=== PATIENT | female | born 1955 | race Two or more races ===

== ENCOUNTER → 2020-06-22 09:50 | Outpatient (BNVA) | payer MEDICARE, MEDICAID, SELFPAY | PROVIDERS: Referring Provider Nurse Practitioner Family; Visit Provider Surgery | DX: D05.12 Intraductal carcinoma in situ of left breast (principal) | CPT/HCPCS: 99212 ==

== ENCOUNTER 2020-06-29 10:49 | Day surgery (SDC) | payer MEDICARE, MEDICAID, SELFPAY ==
[2020-06-28 13:22] VITALS: BMI 24.9
--- NOTE | 2020-06-28 14:38 | HO.ANESPROP2 ---
Documented by User: Ricarda Patten 06/28/20 14:39 HPI - Anesthesia Eval Consult details Narrative: 65yo F for Colonoscopy PMFSH Past Medical History Medical History Chronic lower back pain Ductal carcinoma in situ of left breast Family History Family History Father Myocardial infarction Hypertension Mother Breast cancer Son History of kidney problems Surgical History Surgical History History of breast biopsy History of section History of cholecystectomy S/P lumpectomy, left breast (02/03/20) Social History Social History Smoking Status: Never smoker Use of substances other than those prescribed or required for medical reasons: No Advance Directives: No Advance Directives Information Provided: No Advance Directives on File: No Meds Allergies Allergy/AdvReac Type Severity Reaction Status Date / Time penicillin G [PENICILLIN G] Allergy Intermediate RASH Verified 06/09/20 14:24 Home Medications Medication Instructions Recorded Confirmed Type letrozole 2.5 mg tablet 2.5 mg PO DAILY 06/13/20 06/13/20 History cholecalciferol (vitamin D3) 25 mcg PO DAILY 06/28/20 06/28/20 History [Vitamin D3] omeprazole 20 mg PO DAILY 06/28/20 06/28/20 History Exam Exam Date and Time: June 28, 2020 1438 Height,Weight and Vital Signs: Height 5 ft 3.5 in Weight 64.864 kg Pertinent Lab Results Pertinent Lab Results: Laboratory Tests 03/10/20 03/10/20 14:13 14:13 WBC 8.1 RBC 4.41 Hgb 13.1 Hct 40.8 Plt Count 317 Sodium 141 Potassium 3.9 Chloride 104 BUN 14 Creatinine 1.05 Assessment and Plan Assessment Anesthesia Assessment: Chart Reviewed Documented by User: George Perez 06/29/20 11:18 PMFSH Past Medical History Medical History Chronic lower back pain Ductal carcinoma in situ of left breast Family History Family History Father Myocardial infarction Hypertension Mother Breast cancer Son History of kidney problems Surgical History Surgical History History of breast biopsy History of section History of cholecystectomy S/P lumpectomy, left breast (02/03/20) Social History Social History Smoking Status: Never smoker Use of substances other than those prescribed or required for medical reasons: No Advance Directives: No Advance Directives Information Provided: No Advance Directives on File: No Meds Allergies Allergy/AdvReac Type Severity Reaction Status Date / Time penicillin G [PENICILLIN G] Allergy Intermediate RASH Verified 06/09/20 14:24 Home Medications Medication Instructions Recorded Confirmed Type letrozole 2.5 mg tablet 2.5 mg PO DAILY 06/13/20 06/13/20 History cholecalciferol (vitamin D3) 25 mcg PO DAILY 06/28/20 06/28/20 History [Vitamin D3] omeprazole 20 mg PO DAILY 06/28/20 06/28/20 History Exam Airway Mallampati Class: II TM Dist: >3cm Neck ROM: Full
[2020-06-29 11:38] VITALS: BP 144/78; PULSE 78; RESP 20; TEMP 36.9
[2020-06-29] MEDS: Lactated Ringers 1,000 ML 100 ML IVCONT (11:40)
--- NOTE | 2020-06-29 11:48 | MHC.SHP ---
Pre-Procedural Eval Section B Chief Complaint: SCREENING Relevant Family History (Specify if Yes): No Relevant Social History: None Present Medications: see Short Stay Collaborative assessment Medical History: Significant History (choelcystectomy, c section) History of Previous Operations: Relevant previous surgery/procedure and date(s) Allergies: Allergies Allergy/AdvReac Type Severity Reaction Status Date / Time penicillin G [PENICILLIN G] Allergy Intermediate RASH Verified 06/09/20 14:24 Review of Systems Sugical H&P ROS: Negative: Constitution, Cardiovascular, Respiratory, Neurological, Psychiatric, Hem-Onc, Allergic/Immunologic, Gastrointestinal, Genitourinary, Musculoskeletal, Integumentary, Endocrine and Eyes/Ears/Nose/Throat Exam Surgical H&P Exam: Normal: HEENT, Normal: Heart, Normal: Lungs, Normal: Extremities, Normal: Abdomen, Normal: Skin and Normal: Neurological Plan Diagnosis/Plan: Unchanged Patient has been examined and remains a candidate for the planned procedure
--- NOTE | 2020-06-29 11:49 | PM.OP ---
Brief Operative Note Date of procedure: 06/29/20 Pre-op diagnosis: colon screen Post-op diagnosis: same Procedure: see op note Surgeon: Nikko Camacho MD Anesthesia: MAC Estimated blood loss (mL): 0 Condition: stable Disposition: PACU
--- NOTE | 2020-06-29 11:50 | W.PM.OPN ---
Operative Note Operative Note Narrative: Operative Information Procedure Description: Colonoscopy COLONOSCOPY Instrument: Olympus variable stiffness pediatric scope 190L Colonoscopy Monitoring: Vital signs and clinical assessment, continuous EKG monitoring, Pulse oximetry, Carbon Dioxide monitoring and blood pressure monitoring were done throughout the procedure. Colon withdrawal time was 7 minutes. Procedure: The patient was placed in the left lateral decubitis position and pre-procedure medications were administered. After a digital rectal examination of the ano-rectum, the video colonoscope was inserted into the rectum and advanced through the colon to the cecum/TI. The colonoscope was slowly withdrawn in a retrograde panoramic fashion and the colon mucosa was carefully examined including a retroflexed view of the rectum. Findings and interventions are described below. Procedure Difficulty: Findings: Terminal Ileum-normal Cecum:normal Ascending Colon: normal Transverse Colon -normal Descending Colon:normal Sigmoid Colon: normal Rectum: Retroflexion with small internal hemorrhoids, grade I Anorectum - normal Colon preparation: [place] Bowel Preparation Scale Right colon; 2 Transverse colon: 3 Left colon; 3 (0 = Unprepared colon segment with mucosa not seen due to solid stool that cannot be cleared. 1 = Portion of mucosa of the colon segment seen, but other areas of the colon segment not well seen due to staining, residual stool and/or opaque liquid. 2 = Minor amount of residual staining, small fragments of stool and/or opaque liquid, but mucosa of colon segment seen well. 3 = Entire mucosa of colon segment seen well with no residual staining, small fragments of stool or opaque liquid) Impression and Post Procedure Diagnosis: internal hemorrhoids Plan: High fiber diet leaflet Avoid straining at stool, epsom salts and sitz bath prn, anusol supps or cream prn Repeat Colonoscopy in 10 years or earlier if clinically indicated Above findings were reviewed with the patient and relevant handouts were provided if indicated.
[2020-06-29 12:26] VITALS: BP 100/52; PULSE 79; RESP 20; TEMP 36.3; O2SAT 97
[2020-06-29 12:31] VITALS: BP 102/61; PULSE 86; RESP 18; O2SAT 99
[2020-06-29 12:42] VITALS: BP 101/71; PULSE 81; RESP 19; O2SAT 100
--- NOTE | 2020-06-29 13:09 | HO.POSTANES ---
Post Anesthesia Evaluation Post Anesthesia Evaluation Vital Signs: Vital Signs Temp Pulse Resp BP Pulse Ox 06/29/20 12:42 81 19 101/71 100 06/29/20 12:31 86 18 102/61 99 06/29/20 12:26 97.3 F 79 20 100/52 L 97 06/29/20 11:38 98.4 F 78 20 144/78 H Anesthesia: Monitored Mental Status: Awake Pain Control: Satisfactory Nausea/Vomiting: None Hydration: Adequate Anesthesia-Related Issues: No Anes. Related Issues
== END 2020-06-29 13:35 | disposition home or self-care (01) ==
PROVIDERS: Visit Provider Internal Medicine Gastroenterology
PROC: 0DJD8ZZ Inspection of Lower Intestinal Tract, Via Natural or Artificial Opening Endoscopic (ICD-10-PCS; CPT 45378; principal; 2020-06-29 12:30)
DX: Z12.11 Encounter for screening for malignant neoplasm of colon (principal); K64.0 First degree hemorrhoids; D05.12 Intraductal carcinoma in situ of left breast; Z79.811 Long term (current) use of aromatase inhibitors; Z80.3 Family history of malignant neoplasm of breast; Z90.49 Acquired absence of other specified parts of digestive tract; Z79.899 Other long term (current) drug therapy; Z88.0 Allergy status to penicillin
CPT/HCPCS: G0121

== ENCOUNTER → 2020-07-12 10:42 | Outpatient (BNVA) | payer MEDICARE, MEDICAID, SELFPAY | PROVIDERS: Visit Provider Physician Assistant | DX: Z09 Encounter for follow-up examination after completed treatment for conditions other than malignant neoplasm (principal) | CPT/HCPCS: Q3014 ==

== ENCOUNTER → 2020-08-04 08:53 | Outpatient (BNVA) | payer MEDICARE, MEDICAID, SELFPAY | PROVIDERS: Visit Provider Obstetrics & Gynecology | DX: Z76.89 Persons encountering health services in other specified circumstances (principal) ==

== ENCOUNTER → 2020-08-05 09:48 | Outpatient (BNV) | payer MEDICARE, MEDICAID, SELFPAY | PROVIDERS: PCP Nurse Practitioner Family; Visit Provider Internal Medicine | DX: D05.12 Intraductal carcinoma in situ of left breast (principal) | CPT/HCPCS: 99214; G2211 ==

== ENCOUNTER → 2020-09-30 09:44 | Outpatient (BNVA) | payer MEDICARE, MEDICAID, SELFPAY | PROVIDERS: PCP Nurse Practitioner Family; Visit Provider Surgery | DX: D05.12 Intraductal carcinoma in situ of left breast (principal); G89.29 Other chronic pain; M54.5 Low back pain; Z92.3 Personal history of irradiation; Z88.0 Allergy status to penicillin; Z79.899 Other long term (current) drug therapy | CPT/HCPCS: 99212 ==

== ENCOUNTER 2020-11-23 13:43 | Outpatient (REF) | payer MEDICARE, MEDICAID, SELFPAY ==
--- NOTE | ~2020-11-23 | MM_ITS ---
EXAMINATION: MM DIAGNOSTIC DIGITAL BREAST TOMOSYNTHESIS, BILATERAL CLINICAL INFORMATION: Intraductal carcinoma in situ left breast. COMPARISON: Mammography: 02/18/2020 and studies dating back to 11/10/2019. TECHNIQUE: Digital breast tomosynthesis is performed in both the craniocaudal and mediolateral oblique views along with computer-aided detection (CAD). Synthesized 2D images are generated from the tomosynthesis. Additional spot magnification films of the left breast in craniocaudal and 90 degree mediolateral views performed. FINDINGS: The breasts are heterogeneously dense, which may obscure small masses (ACR BI-RADS breast composition Category c). There is a stable parenchymal pattern within the right breast without new abnormal dominant mass or suspicious grouping of microcalcifications. Postoperative change with scarring is seen inferior medial aspect of the left breast. No new abnormal dominant mass or suspicious grouping of microcalcifications. Results are provided to the patient at time of visit by the technologist. MM/MM tomosynthesis diagnostic BI IMPRESSION: Stable appearance of the right breast. Postsurgical change left breast. ASSESSMENT: BI-RADS 2: Benign. RECOMMENDATION: Diagnostic mammography at time of next annual exam, due in 12 months. This patient's information was entered into a reminder system with a target due date for their next mammogram.
== END 2020-11-23 13:44 | disposition home or self-care (01) ==
LOC: HO.MAMMO 13:43
PROVIDERS: Visit Provider Surgery
DX: D05.12 Intraductal carcinoma in situ of left breast (principal)
CPT/HCPCS: 77062; 77066

== ENCOUNTER → 2020-12-27 09:45 | Outpatient (BNVA) | payer MEDICARE, MEDICAID, SELFPAY | PROVIDERS: PCP Nurse Practitioner Family; Referring Provider Nurse Practitioner Family; Visit Provider Surgery | DX: Z85.3 Personal history of malignant neoplasm of breast (principal) | CPT/HCPCS: 99212 ==

== ENCOUNTER 2021-02-08 09:04 | Outpatient (REF) | payer MEDICARE, MEDICAID, SELFPAY ==
[2021-02-08 10:50] LABS: Alanine Aminotransferase 30 U/L (0-31); Albumin Level 4.4 g/dL (3.5-5.0); Alkaline Phosphatase 88 U/L (39-117); Anion Gap 12 (12-20); Aspartate Amino Transferase 26 U/L (5-31); Bilirubin Total 0.6 mg/dL (0.0-1.0); Blood Urea Nitrogen 17 mg/dL (9-16); Calcium 10.1 mg/dL (8.4-10.2); Carbon Dioxide 30 mmol/L (22-29); Chloride 104 mmol/L (96-108); Cholesterol 303 mg/dL; Estimated Glomerular Filt Rate 56; Glucose Fasting 81 mg/dL (60-99); HDL Cholesterol 45 mg/dL; Potassium 4.5 mmol/L (3.3-5.1); Rheumatoid Factor < 15.0 IU/mL (<15.0); Sodium 141 mmol/L (135-145); Total Protein 7.6 g/dL (6.5-8.0); Triglycerides 509 mg/dL
[2021-02-09 16:41] LABS: Cyclic Citrullinated Peptide <16 UNITS
[2021-02-12 17:27] LABS: Vitamin D 25-OH, D2 <4 ng/mL; Vitamin D 25-OH, D3 43 ng/mL; Vitamin D 25-OH, Total 43 ng/mL (30-100)
[2021-02-12 18:36] LABS: HLA B27 Negative (Negative)
== END 2021-02-08 09:05 | disposition home or self-care (01) ==
LOC: HO.LAB 09:04
PROVIDERS: Absent Provider Internal Medicine; PCP Internal Medicine; Visit Provider Nurse Practitioner Family
DX: G89.29 Other chronic pain (principal); M54.5 Low back pain; E78.5 Hyperlipidemia, unspecified; E55.9 Vitamin D deficiency, unspecified
CPT/HCPCS: 36415; 80053; 80061; 82306; 86200; 86431; 86812

== ENCOUNTER → 2021-02-21 13:02 | Outpatient (REF) | payer MEDICARE, MEDICAID, SELFPAY ==
--- NOTE | 2021-02-21 13:50 | ECG_ITS ---
Hook-up date: 2021-02-21 13:23:00 Duration: 25:24:00 Test Indications: PALPITATIONS Medications: [id number] QRS complexes 9 Ventricular ectopics which represent <1 % of total QRS comp. 32 Supraventricular ectopics which represent <1 % of total QRS comp. * Paced QRS complexs which represent % of total QRS comp. VENTRICULAR ECTOPY 9 Isolated 0 Bigeminal Cycles 0 Couplets 0 Runs 0 Beats in Runs * Beats LONGEST at * BPM at :: -- * Beats FASTEST at * BPM at :: -- SUPRAVENTRICULAR ECTOPY 24 Isolated 1 Couplets 1 Runs 6 Beats in Runs 6 Beats LONGEST at 147 BPM at 01:02:16 2021-02-22 6 Beats FASTEST at 147 BPM at 01:02:16 2021-02-22 HEART RATES 60 MIN at 02:34:45 2021-02-22 93 AVG 135 MAX at 11:42:39 2021-02-22 LONGEST RR 1.1840 secs at 02:34:40 2021-02-22 S-T LEVELS Channel 1 - 128 mm at 13:23:00 2021-02-21 - 128 mm at 13:23:00 2021-02-21 Channel 2 - 128 mm at 13:23:00 2021-02-21 - 128 mm at 13:23:00 2021-02-21 Channel 3 - 128 mm at 03:24:21 -- - 128 mm at 03:24:21 Basic rhythm Normal sinus rhythm No long pause or profound bradycardia Rare Premature atrial complexes One 6 beat run of SVT at 147 bpm Patient reported events of heart jumps correlated with NSR I was requested to read this study on 03/17/2021 Referred By: Laura Palumbo Overread By: ANDRES SCALES MD
== END ==
LOC: HO.CARD 13:02
PROVIDERS: Visit Provider Internal Medicine
DX: R00.0 Tachycardia, unspecified (principal); R00.2 Palpitations
CPT/HCPCS: 93225; 93226

== ENCOUNTER → 2021-03-17 12:46 | Outpatient (BNVA) | payer MEDICARE, MEDICAID, SELFPAY | PROVIDERS: Visit Provider Student in an Organized Health Care Education/Training Program | DX: M79.7 Fibromyalgia (principal) | CPT/HCPCS: 99202 ==

== ENCOUNTER → 2021-04-25 08:46 | Outpatient (BNVA) | payer MEDICARE, MEDICAID, SELFPAY | PROVIDERS: Referring Provider Internal Medicine; Visit Provider Surgery | DX: D05.12 Intraductal carcinoma in situ of left breast (principal) | CPT/HCPCS: 99212 ==

== ENCOUNTER → 2021-07-27 08:45 | Outpatient (BNVA) | payer MEDICARE, MEDICAID, SELFPAY | PROVIDERS: Referring Provider Internal Medicine; Visit Provider Surgery | DX: D05.12 Intraductal carcinoma in situ of left breast (principal) | CPT/HCPCS: 99212 ==

== ENCOUNTER 2021-08-24 10:51 | Outpatient (REF) | payer MEDICARE, MEDICAID, SELFPAY ==
[2021-08-25 08:40] LABS: BV Int Neg Control Negative (Negative); BV Int Pos Control Positive (Positive)
== END 2021-08-24 10:52 | disposition home or self-care (01) ==
LOC: HO.LAB 10:51
PROVIDERS: Visit Provider Obstetrics & Gynecology
DX: Z01.411 Encounter for gynecological examination (general) (routine) with abnormal findings (principal); N90.89 Other specified noninflammatory disorders of vulva and perineum
CPT/HCPCS: 87480; 87510; 87660

== ENCOUNTER 2021-09-14 09:47 | Outpatient (REF) | payer MEDICARE, MEDICAID, SELFPAY ==
[2021-09-14 10:20] LABS: MANUAL DIFF FLAG NO
[2021-09-14 10:40] LABS: Basophils Percent Auto 0.6 % (0-2); Eosinophils Absolute Auto 0.1 X10*3/uL (0.0-0.4); Eosinophils Percent Auto 2.1 % (0-4); Hematocrit 39.6 % (37.0-47.0); Hemoglobin 12.7 g/dl (12.0-16.0); Imm Gran Abs Auto 0.01 X10*3/uL (0.00-0.03); Imm Gran Pct Auto 0.1 % (0.0-0.4); Lymphocytes Absolute Auto 1.7 X10*3/uL (1.2-4.9); Lymphocytes Percent Auto 24.9 % (20-40); Mean Corpuscular HGB Conc 32.1 g/dl (31.0-35.0); Mean Corpuscular Hemoglobin 29.7 pg (27.0-33.0); Mean Corpuscular Volume 92.7 fL (80.0-98.0); Mean Platelet Volume 10.2 fL (9.4-12.3); Monocytes Absolute Auto 0.6 X10*3/uL (0.1-1.2); Monocytes Percent Auto 8.3 % (2-11); Neutrophils Absolute Auto 4.3 x10*3/uL (2.0-8.3); Platelet Count 288 X10*3/uL (160-400); Red Blood Count 4.27 X10*6/uL (4.20-5.50); Red Cell Distribution Width 13.5 % (11.0-16.0); White Blood Count 6.7 X10*3/uL (4.8-10.8)
[2021-09-14 11:00] LABS: Rheumatoid Factor < 15.0 IU/mL (<15.0)
[2021-09-14 11:11] LABS: Alanine Aminotransferase 41 U/L (0-31); Albumin Level 4.3 g/dL (3.5-5.0); Alkaline Phosphatase 103 U/L (39-117); Anion Gap 15 (12-20); Aspartate Amino Transferase 29 U/L (5-31); Bilirubin Total 0.6 mg/dL (0.0-1.0); Blood Urea Nitrogen 13 mg/dL (9-16); Calcium 10.4 mg/dL (8.4-10.2); Carbon Dioxide 26 mmol/L (22-29); Chloride 105 mmol/L (96-108); Cholesterol 287 mg/dL; Estimated Glomerular Filt Rate 55; Glucose Fasting 96 mg/dL (60-99); HDL Cholesterol 51 mg/dL; LDL Cholesterol Calculated 189 mg/dl; Potassium 4.2 mmol/L (3.3-5.1); Sodium 142 mmol/L (135-145); Total Protein 7.7 g/dL (6.5-8.0); Triglycerides 238 mg/dL
[2021-09-14 11:45] LABS: Folate 18.5 ng/mL (> or = 4.0); Vitamin B12 415 pg/mL (200-900)
[2021-09-19 15:01] LABS: Vitamin D 25-OH, D2 <4 ng/mL
[2021-09-19 15:02] LABS: Vitamin D 25-OH, D3 22 ng/mL; Vitamin D 25-OH, Total 22 ng/mL (30-100)
== END 2021-09-14 09:48 | disposition home or self-care (01) ==
LOC: HO.LAB 09:47
PROVIDERS: Nurse Practitioner Family; PCP Internal Medicine; Visit Provider Internal Medicine
DX: M19.90 Unspecified osteoarthritis, unspecified site (principal); E78.2 Mixed hyperlipidemia; E78.5 Hyperlipidemia, unspecified; E53.8 Deficiency of other specified B group vitamins; E55.9 Vitamin D deficiency, unspecified
CPT/HCPCS: 36415; 80053; 80061; 82306; 82607; 82746; 85025; 86431

== ENCOUNTER 2021-11-24 12:06 | Outpatient (REF) | payer MEDICARE, MEDICAID, SELFPAY ==
--- NOTE | ~2021-11-24 | MM_ITS ---
EXAMINATION: MM DIAGNOSTIC DIGITAL BREAST TOMOSYNTHESIS, BILATERAL CLINICAL INFORMATION: Status post left breast lumpectomy for intraductal carcinoma in situ in January 2020 COMPARISON: Mammography: 11/23/2020 and studies dating back to 11/10/2019 TECHNIQUE: Digital breast tomosynthesis is performed in both the craniocaudal and mediolateral oblique views along with computer-aided detection (CAD). Synthesized 2D images are generated from the tomosynthesis. Spot magnification views of the left breast in 90 degree mediolateral and craniocaudal views performed. FINDINGS: The breasts are heterogeneously dense, which may obscure small masses (ACR BI-RADS breast composition Category c). There is stable appearance of both breasts with no new abnormal dominant mass or suspicious grouping of microcalcifications. There are some scattered calcifications present. Architecture distortion from previous surgery inferomedial aspect of the left breast again seen. Results are provided to the patient at time of visit by the technologist. MM/MM tomosynthesis diagnostic BI IMPRESSION: There are no significant changes from prior study. ASSESSMENT: BI-RADS 2: Benign RECOMMENDATION: Diagnostic mammography at time of next annual exam, due in 12 months. This patient's information was entered into a reminder system with a target due date for their next mammogram.
== END 2021-11-24 12:07 | disposition home or self-care (01) ==
LOC: HO.MAMMO 12:06
PROVIDERS: Visit Provider Surgery
DX: D05.12 Intraductal carcinoma in situ of left breast (principal); Z98.890 Other specified postprocedural states
CPT/HCPCS: 77062; 77066

== ENCOUNTER 2022-01-04 09:29 | Outpatient (REF) | payer MEDICARE, MEDICAID, SELFPAY ==
[2022-01-04 11:36] LABS: Alanine Aminotransferase 55 U/L (0-31); Albumin Level 4.4 g/dL (3.5-5.0); Alkaline Phosphatase 106 U/L (39-117); Anion Gap 15 (12-20); Aspartate Amino Transferase 35 U/L (5-31); Bilirubin Total 0.5 mg/dL (0.0-1.0); Blood Urea Nitrogen 15 mg/dL (9-16); Calcium 10.4 mg/dL (8.4-10.2); Carbon Dioxide 27 mmol/L (22-29); Chloride 103 mmol/L (96-108); Cholesterol 297 mg/dL; Estimated Glomerular Filt Rate 57; Glucose Fasting 90 mg/dL (60-99); HDL Cholesterol 51 mg/dL; LDL Cholesterol Calculated 177 mg/dl; Potassium 4.6 mmol/L (3.3-5.1); Sodium 140 mmol/L (135-145); Total Protein 7.7 g/dL (6.5-8.0); Triglycerides 347 mg/dL
[2022-01-08 14:06] LABS: Vitamin D 25-OH, D2 <4 ng/mL; Vitamin D 25-OH, D3 33 ng/mL; Vitamin D 25-OH, Total 33 ng/mL (30-100)
== END 2022-01-04 09:30 | disposition home or self-care (01) ==
LOC: HO.LAB 09:29
PROVIDERS: PCP Internal Medicine; Visit Provider Internal Medicine
DX: E78.5 Hyperlipidemia, unspecified (principal); E78.2 Mixed hyperlipidemia; E55.9 Vitamin D deficiency, unspecified
CPT/HCPCS: 36415; 80053; 80061; 82306

== ENCOUNTER 2022-01-25 15:26 | Outpatient (REF) | payer MEDICARE, MEDICAID, SELFPAY ==
--- NOTE | ~2022-01-25 | XR_ITS ---
EXAMINATION: XR CHEST CLINICAL INFORMATION: Shortness of breath. COMPARISON: None TECHNIQUE: 2 views of the chest were obtained. FINDINGS: No significant abnormality is noted involving the heart, lungs, mediastinum, bony thorax or soft tissues. XR/XR chest 2V IMPRESSION: Unremarkable chest examination.
== END 2022-01-25 15:27 | disposition home or self-care (01) ==
LOC: HO.XRAY 15:26
PROVIDERS: PCP Internal Medicine; Visit Provider Internal Medicine
DX: R06.02 Shortness of breath (principal)
CPT/HCPCS: 71046

== ENCOUNTER → 2022-02-08 13:35 | Outpatient (BNVA) | payer MEDICARE, MEDICAID, SELFPAY | PROVIDERS: PCP Internal Medicine; Referring Provider Internal Medicine; Visit Provider Surgery | DX: D05.12 Intraductal carcinoma in situ of left breast (principal); Z79.811 Long term (current) use of aromatase inhibitors | CPT/HCPCS: 99212 ==

== ENCOUNTER → 2022-02-14 10:40 | Outpatient (BNVA) | payer MEDICARE, MEDICAID, SELFPAY | PROVIDERS: PCP Internal Medicine; Visit Provider Internal Medicine | DX: R06.09 Other forms of dyspnea (principal); R06.00 Dyspnea, unspecified; U09.9 Post COVID-19 condition, unspecified | CPT/HCPCS: 99202 ==

== ENCOUNTER 2022-03-22 15:26 | Outpatient (REF) | payer MEDICARE, MEDICAID, SELFPAY ==
--- NOTE | 2022-03-22 17:22 | PFT_ITS ---
FLOWS: FEV1 81% of predicted at 1.85 L. FVC 74% of predicted at 2.16 L. FEV1 to FVC ratio of 0.86. No bronchodilator response. LUNG VOLUMES: Total lung capacity 71% of predicted at 3.51 L. Residual volume 64% of predicted at 1.35 L. Slow vital capacity 76% of predicted at 2.16 L. Expiratory reserve volume 50% of predicted at 0.36 L. Diffusion capacity is mildly decreased, diffusion capacity corrects to normal after adjustment for alveolar ventilation. IMPRESSION: Mild restrictive ventilatory defect with no bronchodilator response. Wilver Mayorga MD AP/MODL / [id number]
== END 2022-03-22 15:27 | disposition home or self-care (01) ==
LOC: HO.RESP 15:26
PROVIDERS: PCP Internal Medicine; Visit Provider Internal Medicine
DX: R06.09 Other forms of dyspnea (principal); U09.9 Post COVID-19 condition, unspecified
CPT/HCPCS: 94060; 94727; 94729

== ENCOUNTER → 2022-04-11 10:21 | Outpatient (BNVA) | payer MEDICARE, MEDICAID, SELFPAY | PROVIDERS: PCP Internal Medicine; Visit Provider Internal Medicine | DX: R06.09 Other forms of dyspnea (principal); U09.9 Post COVID-19 condition, unspecified; J98.4 Other disorders of lung | CPT/HCPCS: 99212 ==

== ENCOUNTER 2022-08-24 09:16 | Outpatient (REF) | payer MEDICARE, MEDICAID, SELFPAY ==
[2022-08-24 11:11] LABS: Alanine Aminotransferase 54 U/L (0-31); Albumin Level 4.4 g/dL (3.5-5.0); Alkaline Phosphatase 100 U/L (39-117); Anion Gap 13 (12-20); Aspartate Amino Transferase 39 U/L (5-31); Bilirubin Total 0.6 mg/dL (0.0-1.0); Blood Urea Nitrogen 14 mg/dL (9-16); Calcium 9.9 mg/dL (8.4-10.2); Carbon Dioxide 27 mmol/L (22-29); Chloride 106 mmol/L (96-108); Cholesterol 270 mg/dL; Estimated Glomerular Filt Rate 59; Glucose Fasting 92 mg/dL (60-99); HDL Cholesterol 43 mg/dL; Potassium 4.2 mmol/L (3.3-5.1); Sodium 142 mmol/L (135-145); Total Protein 7.9 g/dL (6.5-8.0); Triglycerides 497 mg/dL
[2022-08-24 15:23] LABS: Vitamin D 25-OH Total 21.6 ng/mL (>30)
== END 2022-08-24 09:17 | disposition home or self-care (01) ==
LOC: HO.LAB 09:16
PROVIDERS: PCP Internal Medicine; Visit Provider Internal Medicine
DX: D05.12 Intraductal carcinoma in situ of left breast (principal); L98.9 Disorder of the skin and subcutaneous tissue, unspecified; E78.2 Mixed hyperlipidemia; E55.9 Vitamin D deficiency, unspecified
CPT/HCPCS: 36415; 80053; 80061; 82306; 99212

== ENCOUNTER 2022-10-30 09:35 | Emergency (ER) | payer MEDICARE, MEDICAID, SELFPAY ==
--- NOTE | ~2022-10-30 | XR_ITS ---
EXAMINATION: XR SHOULDER, LEFT CLINICAL INFORMATION: Left shoulder pain COMPARISON: None TECHNIQUE: Four views of the left shoulder. FINDINGS: No fracture or dislocation. The glenohumeral joint is well aligned. The joint space is maintained. Small marginal osteophytes present. Mild hypertrophic degenerative change of the acromioclavicular joint. There is globular soft tissue calcification adjacent to the humeral greater tuberosity. The visualized lung is clear. The visualized ribs are intact. XR/XR shoulder LT min 2V IMPRESSION: Mild degenerative changes of the left shoulder. Soft tissue calcification adjacent to the humeral greater tuberosity suggestive of calcific tendinosis of the rotator cuff.
[2022-10-30 10:20] VITALS: BP 142/72; PULSE 75; RESP 18; TEMP 36.7; O2SAT 98; BMI 26.5
--- NOTE | 2022-10-30 13:52 | ED.EXTPRO ---
HPI - Extremity Problem General Chief complaint: Extremity Injury, Upper Stated complaint: L shoulder pain covid shot 2ks ago Time Seen by Provider: 10/30/22 12:15 Source: patient Mode of arrival: ambulatory History of Present Illness HPI Narrative: 67-year-old female with a past medical history of arthritis, B12 deficiency, osteopenia, restrictive lung disease, tachycardia, presenting to the ED complaining of left shoulder pain since getting COVID-19 booster vaccination on 10/18. Denies direct injury/trauma or fall, numbness, weakness, fever/chills, SOB/CP. Reports pain worse with motion/palpation MD Complaint: extremity pain Onset (ago): week(s) Related Data Home Medications Medication Instructions Recorded Confirmed ascorbic acid (vitamin C) 500 mg 250 mg PO DAILY 08/05/20 09/19/22 tablet (Vitamin C) Previous Rx's Medication Instructions Recorded cholecalciferol (vitamin D3) 25 25 mcg PO DAILY 90 days #90 caps 09/19/21 mcg (1,000 unit) capsule (Vitamin D3) miscellaneous medical supply #1 ea 11/23/21 (Blood Pressure Cuff) rosuvastatin 10 mg tablet 10 mg PO DAILY 90 days #90 tabs 08/08/22 letrozole 2.5 mg tablet 2.5 mg PO DAILY #30 tabs 09/06/22 fenofibrate 54 mg tablet 54 mg PO DAILY 90 days #90 tabs 09/19/22 omeprazole 10 mg capsule,delayed 10 mg PO DAILY PRN heartburn 90 09/19/22 release days #90 caps gabapentin 300 mg capsule 300 mg PO BEDTIME 90 days #90 caps 09/26/22 lisinopril 10 mg tablet 10 mg PO DAILY 90 days #90 tabs 10/06/22 miscellaneous medical supply #1 ea 10/06/22 (Blood Pressure Cuff) acetaminophen 500 mg tablet 500 mg PO Q6H PRN fever or pain 10/30/22 (Tylenol Extra Strength) #14 tabs cyclobenzaprine 5 mg tablet 5 mg PO Q8H PRN pain (scale score 10/30/22 7-10) 5 days #14 tabs lidocaine 5 % topical patch 1 patch topical DAILY PRN pain #30 10/30/22 (Lidoderm) ea naproxen 500 mg tablet 500 mg PO BID PRN pain 10 days #20 10/30/22 tabs Allergies Allergy/AdvReac Type Severity Reaction Status Date / Time penicillin G [PENICILLIN G] Allergy Intermediate RASH Verified 09/19/22 09:54 Review of Systems Review of Systems: Constitutional: No Fever, No Chills ENT/Mouth: No Ear Pain, No Nasal Congestion, No sore throat, No Rhinorrhea, No Swallowing Difficulty Cardiovascular: No Chest Pain, No SOB Respiratory: No Cough, No Sputum Gastrointestinal: No Nausea, No Vomiting, No Diarrhea, No Constipation, No Abdominal pain Genitourinary: No Dysuria, No Urinary Frequency, No Hematuria, No Urinary Incontinence/retention Musculoskeletal: +joint pain, No Myalgias, No Joint Swelling Skin: No Skin Lesions, No rash Neuro: No Weakness, No Numbness, +Paresthesias Yes all other systems are reviewed and are negative Constitutional: Constitutional: Reports as per [facility] Past Medical History Attestation statement: The following information was validated with the patient. Medical History Arthritis B12 deficiency Chronic lower back pain Ductal carcinoma in situ of left breast Hypovitaminosis D Mixed hyperlipidemia Osteopenia Restrictive lung disease Shortness of breath Tachycardia Surgical History History of breast biopsy History of section History of cholecystectomy S/P lumpectomy, left breast (02/03/20) Family History Family History Father Myocardial infarction Hypertension Mother Breast cancer Son History of kidney problems Brother Prostate cancer Sister Breast cancer Family/Other Substance use disorder Mental health disorder Social History Social History Household Members: Children Housing: Condominium Alcohol intake: former Patient Tobacco Use Status: Never used Tobacco e-Cigarette/Vaping Use: Never Used Second Hand Smoke Exposure: No Advance Directives: No Advance Directives Information Provided: Yes service: No Current occupational status: disabled Sexual orientation: Straight/Heterosexual Gender identity: Female Cognitive needs: No Hearing needs: No Vision needs: No Physical Exam Vital Signs: Vital Signs: Last Vital Signs Temp 98.1 F 10/30/22 10:20 Pulse 75 10/30/22 10:20 Resp 18 10/30/22 10:20 BP 142/72 H 10/30/22 10:20 Pulse Ox 98 10/30/22 10:20 O2 Del Method 10/30/22 10:20 BMI result Body Mass Index 26.5 Const: General: cooperative, healthy appearing and no acute distress Orientation/consciousness: patient oriented x3 Limitations: no limitations HEENT: Head: Yes normal to inspection and Yes atraumatic Ears: hearing grossly normal bilaterally General nose exam: Normal external nose present Face and sinus: Yes normal facial exam Eyes: General: appearance normal, both eyes and all related structures EOM: EOMs intact bilaterally Neck: Neck: Yes normal visual inspection and Yes no meningeal signs Resp: Effort & Inspection: normal respiratory effort and no respiratory distress Cardio: Rate: regular rate Heart sounds: S1 normal heart sound present and S2 normal heart sound present Peripheral pulses: radial pulses present and ulnar radial pulses present Back/Spine/Pelvis: Other: No midline thoracic/lumbar spinous tenderness/step-off or deformity Cervical Spine: No cervical muscular tenderness and No step off deformity Skin: Rashes: no rashes Wounds: no wounds Neuro: General: patient oriented x3, tone normal and no meningeal signs Gait exam (Neuro): Normal gait present Extrem: Other: Left shoulder without noted deformity. No erythema/crepitus or ecchymosis. Diffuse tenderness to palpation to AC and deltoid. Full range of motion limited secondary to pain. Neurovascular intact distally. Course Course Course Narrative: XR shoulder LT min 2V IMPRESSION: Mild degenerative changes of the left shoulder. Soft tissue calcification adjacent to the humeral greater tuberosity suggestive of calcific tendinosis of the rotator cuff. ? > Results discussed with patient including worrisome signs and symptoms and strict return precautions, and when to return to the emergency department. They verbalized understanding and feel safe for discharge at this time. Medications Administered Discontinued Medications Generic Name Dose Route Start Last Admin Trade Name Freq PRN Reason Stop Dose Admin Cyclobenzaprine HCl 5 mg 10/30/22 13:59 10/30/22 14:11 Cyclobenzaprine Hcl 5 Mg Tablet PO 10/30/22 14:00 5 mg ONCE ONE Administration Naproxen 500 mg 10/30/22 13:59 10/30/22 14:11 Naproxen 500 Mg Tablet PO 10/30/22 14:00 500 mg ONCE ONE Administration Medical Decision Making Medical Decision Making MDM Narrative: 67-year-old female with a past medical history of arthritis, B12 deficiency, osteopenia, restrictive lung disease, tachycardia, presenting to the ED complaining of left shoulder pain since getting COVID-19 booster vaccination on 10/18. On exam vital signs stable, NAD, nontoxic appearing, physical exam as noted above. Diffuse reproducible tenderness, limited ROM secondary to pain. No evidence of infection/cellulitis or abscess. Low suspicion for ACS/PE Plan: X-rays, pain control Please refer to course for remaining clinical decision making, interpretation of labs/imaging results, and discussions with consultants and/or family members. Differential Diagnosis Differential Diagnoses: The differential diagnosis associated with the presentation includes as above Radiology Impression Discussion of test interpretation with radiology: I have reviewed the radiologist's reading. External Record Review External record reviewed: Office record and Outpatient record Prescription Management I considered prescription management with: Pain Medication Discharge Plan Discharge Clinical Impression: Calcific tendinitis Patient Disposition: Home, Self-Care Instructions: Tendinitis (ED) Additional Instructions: Your x-ray shows degenerative/arthritic changes and some tendinitis of her rotator cuff. Flexeril is a muscle relaxer, take at night as it makes you drowsy, do not drive, drink alcohol, or operate machinery while taking it Naproxen as an anti-inflammatory / pain medication, take with food Lidoderm patches are numbing patches, apply to painful area In addition take Tylenol at home If symptoms persist or worsen, pain becomes unbearable, you developed urinary retention or incontinence, or weakness return to the ED Can radiograf?a muestra cambios degenerativos/artr?ticos y algo de tendinitis en el manguito de los rotadores. Flexeril es un relajante muscular, t?jeanne por la noche ya que te adormece, no conduzcas, bebas alcohol ni operes maquinaria mientras lo eliecer. Naproxeno annette medicamento antiinflamatorio/analg?sico, t?parikh con alimentos Los parches de Lidoderm son parches anest?sicos, se aplican en el ?leno dolorida Adem?s karuna Tylenol en casa Si los s?ntomas persisten o empeoran, el dolor se vuelve insoportable, desarroll? retenci?n urinaria o incontinencia, o debilidad, regrese al servicio de urgencias. Prescriptions: New lidocaine [Lidoderm] 5 % adhesive patch,medicated 1 patch topical DAILY MDD remove after 12 hours PRN (Reason: pain) Qty: 30 0RF Rx Instructions: leave on most painful area for up to 12 hrs cyclobenzaprine 5 mg tablet 5 mg PO Q8H PRN (Reason: pain (scale score 7-10)) 5 Days Qty: 14 0RF acetaminophen [Tylenol Extra Strength] 500 mg tablet 500 mg PO Q6H PRN (Reason: fever or pain) Qty: 14 0RF naproxen 500 mg tablet 500 mg PO BID PRN (Reason: pain) 10 Days Qty: 20 0RF No Action cholecalciferol (vitamin D3) [Vitamin D3] 25 mcg (1,000 unit) capsule 25 mcg PO DAILY 90 Days Qty: 90 1RF rosuvastatin 10 mg tablet 10 mg PO DAILY 90 Days Qty: 90 1RF gabapentin 300 mg capsule 300 mg PO BEDTIME 90 Days Qty: 90 0RF lisinopril 10 mg tablet 10 mg PO DAILY 90 Days Qty: 90 1RF (DME) Blood Pressure Cuff Misc See Rx Instructions .Route Qty: 1 0RF Rx Instructions: As directed ascorbic acid (vitamin C) [Vitamin C] 500 mg Tablet 250 mg PO DAILY letrozole 2.5 mg tablet 2.5 mg PO DAILY Qty: 30 3RF (DME) Blood Pressure Cuff Misc See Rx Instructions .Route Qty: 1 0RF Rx Instructions: As directed, wrist electronic BP cuff, monitor BP twice a day fenofibrate 54 mg tablet 54 mg PO DAILY 90 Days Qty: 90 1RF omeprazole 10 mg capsule,delayed release(DR/EC) 10 mg PO DAILY PRN (Reason: heartburn) 90 Days Qty: 90 0RF Referrals: [facility] [place]Provider Group] - 1 week Laura Hester MD [Primary Care Provider] - Interventions: ED Discharge Assessment Last Done: 10/30/22 14:17 Discharge Date/Time: 10/30/22 14:18 Print Language: Upper Sorbian
[2022-10-30] MEDS: NaPROXEN 500 MG TABLET PO (14:11)
[2022-10-30] MEDS: Cyclobenzaprine HCl 5 MG TABLET PO (14:11)
== END 2022-10-30 14:18 | disposition home or self-care (01) ==
PROVIDERS: Emergency Provider Student in an Organized Health Care Education/Training Program; PCP Internal Medicine
DX: M75.32 Calcific tendinitis of left shoulder (principal); M25.512 Pain in left shoulder; Z79.899 Other long term (current) drug therapy
CPT/HCPCS: 73030; 99283

== ENCOUNTER 2022-11-28 12:42 | Outpatient (REF) | payer MEDICARE, MEDICAID, SELFPAY ==
--- NOTE | ~2022-11-28 | MM_ITS ---
EXAMINATION: MM DIAGNOSTIC DIGITAL BREAST TOMOSYNTHESIS, BILATERAL CLINICAL INFORMATION: Due for yearly. 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 Family history breast cancer mother, sister. COMPARISON: Prior mammography exams, most recent 11/24/2021. TECHNIQUE: Digital breast tomosynthesis is performed in both the craniocaudal and mediolateral oblique views along with computer-aided detection (CAD). Synthesized 2D images are generated from the tomosynthesis. Additional magnification left CC and magnification left LM views are obtained. FINDINGS: There are scattered areas of fibroglandular density (ACR BI-RADS breast composition Category b). Breast tissue composition borders on heterogeneously dense. There are post therapy changes again noted lower inner mid left breast with reduced breast size and scarring. Neither breast shows interval mass or architectural abnormality or abnormal calcifications. The axilla are unremarkable. No significant changes from prior exam. Results are provided to the patient at time of visit by the technologist. MM/MM tomosynthesis diagnostic BI IMPRESSION: -No mammographic evidence of malignancy. -Post therapy changes left breast. ASSESSMENT: BI-RADS 2: Benign RECOMMENDATION: Annual bilateral mammography. This patient's information was entered into a reminder system with a target due date for their next mammogram.
== END 2022-11-28 12:43 | disposition home or self-care (01) ==
LOC: HO.MAMMO 12:42
PROVIDERS: Visit Provider Internal Medicine
DX: Z85.3 Personal history of malignant neoplasm of breast (principal)
CPT/HCPCS: 77062; 77066

== ENCOUNTER 2022-12-12 08:55 | Outpatient (REF) | payer MEDICARE, MEDICAID, SELFPAY ==
[2022-12-12 11:07] LABS: Alanine Aminotransferase 21 U/L (0-31); Alkaline Phosphatase 97 U/L (39-117); Anion Gap 13 (12-20); Aspartate Amino Transferase 20 U/L (5-31); Bilirubin Total 0.8 mg/dL (0.0-1.0); Blood Urea Nitrogen 13 mg/dL (9-16); Carbon Dioxide 29 mmol/L (22-29); Chloride 105 mmol/L (96-108); Cholesterol 215 mg/dL; Estimated Glomerular Filt Rate 48; Glucose Fasting 89 mg/dL (60-99); HDL Cholesterol 46 mg/dL; LDL Cholesterol Calculated 134 mg/dl; Potassium 4.9 mmol/L (3.3-5.1); Sodium 142 mmol/L (135-145); Total Protein 7.5 g/dL (6.5-8.0); Triglycerides 175 mg/dL
[2022-12-12 11:36] LABS: Folate 13.7 ng/mL (> or = 4.0); Vitamin B12 614 pg/mL (200-900)
== END 2022-12-12 08:56 | disposition home or self-care (01) ==
LOC: HO.LAB 08:55
PROVIDERS: PCP Internal Medicine; Visit Provider Internal Medicine
DX: E78.2 Mixed hyperlipidemia (principal); E53.8 Deficiency of other specified B group vitamins; E55.9 Vitamin D deficiency, unspecified
CPT/HCPCS: 36415; 80053; 80061; 82306; 82607; 82746

== ENCOUNTER 2022-12-26 09:52 | Outpatient (REF) | payer MEDICARE, MEDICAID, SELFPAY ==
--- NOTE | ~2022-12-26 | XR_ITS ---
EXAMINATION: XR CHEST CLINICAL INFORMATION: Chronic cough COMPARISON: None available. TECHNIQUE: 2 views of the chest were obtained. FINDINGS: The lungs are well-expanded and clear. The heart size and pulmonary vascularity is normal. There is moderate spondylosis dorsal spine. No aggressive lytic or sclerotic process seen. XR/XR chest 2V IMPRESSION: Unremarkable chest examination.
== END 2022-12-26 09:53 | disposition home or self-care (01) ==
LOC: HO.XRAY 09:52
PROVIDERS: PCP Internal Medicine; Visit Provider Internal Medicine
DX: R05.3 Chronic cough (principal)
CPT/HCPCS: 71046

== ENCOUNTER 2023-01-30 09:49 | Outpatient (REF) | payer MEDICARE, MEDICAID, SELFPAY ==
--- NOTE | ~2023-01-30 | CT_ITS ---
EXAMINATION: CT SOFT TISSUE NECK WITH CONTRAST CLINICAL INFORMATION: 67-year-old with left supraclavicular lymphadenopathy. COMPARISON: None available. TECHNIQUE: Following the intravenous administration of 60 mL of Omnipaque 350 intravenous contrast, helical imaging was performed in the axial plane with generation of coronal and sagittal reformatted images. This CT examination was performed using dose optimization techniques as appropriate, variously including the following: *Automated exposure control *Adjustment of mA and/or kV according to patient size (this includes techniques or standardized protocols for targeted exams where dose is matched to indication/reason for exam; i.e. extremities or head) *Use of iterative reconstruction technique DLP: 336 mGy-cm FINDINGS: Skull Base: The bony skull base and visualized calvarium appear grossly intact.?Limited assessment of the visualized intracranial and orbital soft tissue structures is unrevealing.?The visualized mastoids, middle ear cavities and sinonasal cavity are clear. Suprahyoid Neck: The nasopharynx, retropharynx, crop research scientist and parapharyngeal spaces are symmetric and are within normal limits. The oropharynx is smoothly contoured with a small left-sided palatine tonsilloliths. The parotid glands are normal in morphology and attenuation. Metallic dentition in the oral cavity partially obscures this level. Within these limitations, the visualized oral tongue, base of the tongue and floor of the mouth structures appear symmetric and intact. The submandibular glands are normal in morphology and enhance normally. There are very small, normal-sized bilateral submandibular space and small bilateral nonpathologic-appearing IJ chain lymph nodes. Vallecula and epiglottis appear within normal limits. Infrahyoid Neck: The hypopharynx, larynx and thyroid gland appear within normal limits. Tracheoesophageal grooves appear normal. There is no infrahyoid lymphadenopathy or other mass lesion. Specifically, the left supraclavicular region shows no definite lymphadenopathy or mass. Vascular: There is opacification of the major arterial and venous structures throughout the neck. Upper Chest: Mild pleuroparenchymal scarring seen at the lung apices bilaterally. Possible minor fibrotic changes along the anterior aspect of the left upper lobe. Visualized mediastinum is unremarkable. The visualized axillary and subpectoral regions demonstrate no lymphadenopathy. Skeletal: Extensive cervical spondylosis and disc degenerative change at the C5-C6 and C6-C7 noted, with multilevel bilateral DJD. There is multilevel bilateral bony neural foraminal stenosis, most severe on the right at C5-C6. There is left-sided TMJ arthropathy. Other Comments: None. CT/CT soft tissue neck w IV con IMPRESSION: 1. No evidence for cervical lymphadenopathy or other mass lesion. Specifically, there is no evidence for left supraclavicular lymphadenopathy/mass. 2. Left-sided TMJ arthropathy. 3. Cervical degenerative changes as discussed above. 4. Pleural-parenchymal scarring at the lung apices bilaterally and possible minor fibrotic changes along the anterior aspect of the left upper lobe.
[2023-01-30] MEDS: iohexoL 350 MG/ML 75 ML INFUS..BTL 60 ML IV (10:28)
== END 2023-01-30 09:50 | disposition home or self-care (01) ==
LOC: HO.CT 09:49
PROVIDERS: Visit Provider Internal Medicine
DX: R59.9 Enlarged lymph nodes, unspecified (principal); R13.10 Dysphagia, unspecified
CPT/HCPCS: 70491; Q9967

== ENCOUNTER → 2023-02-22 09:48 | Outpatient (BNVA) | payer MEDICARE, MEDICAID, SELFPAY | PROVIDERS: PCP Internal Medicine; Visit Provider Surgery | DX: D05.12 Intraductal carcinoma in situ of left breast (principal); M85.80 Other specified disorders of bone density and structure, unspecified site; E53.8 Deficiency of other specified B group vitamins; E55.9 Vitamin D deficiency, unspecified; Z92.3 Personal history of irradiation; Z79.811 Long term (current) use of aromatase inhibitors | CPT/HCPCS: 99212 ==

== ENCOUNTER 2023-02-22 11:00 | Outpatient (RCR) | payer MEDICARE, MEDICAID, SELFPAY ==
--- NOTE | 2023-01-23 13:51 | MHC.PT.EP ---
[facility] [place] [facility] [place] Office [place] Office [address] [place] Paulino [address] [phone] F: [phone] F: [phone] F: [phone] F: [phone] Physical Therapy Plan of Care Date of Evaluation: Date of Surgery: Diagnosis: Calcification tendinitis of L shoulder Assessment: Pt is a 67 year old RHD female with signs and symptoms consistent with L shoulder tendinitis, with overlapping symptoms of cervical pain and stiffness, with occasional numbness/tingling radiating into L arm/hand. Impairments include decreased L shoulder ROM, shoulder pain in multiple planes of motion, and decreased shoulder strength (?limited d/t pain) leading to functional limitations including inability to unscrew lids, difficulty dressing, difficulty cleaning/cooking, and pain with UE motions such as reaching. Pt to benefit from skilled PT to address aforementioned physical impairments and functional limitations. PT to include neck and shoulder strengthening, stretching, shoulder joint mobilizations, ROM activities, hot/cold pack, pt education, K-taping, and HEP. Frequency and Duration: The patient will be seen 2x per week for 5 weeks Short Term Goals: In 3 weeks... 1. Pt will increase L shoulder ER to 70 in order better to reach over head while dressing/grooming self (IR 60) 2. Pt will demonstrate 100% return demonstration of HEP in order to become independent with exercises [facility] Goals: In 5 weeks... 1. Pt will have increased gross shoulder strength demonstrated by an increase of 1 MMT grade 2. Pt will have improve shoulder abduction ROM increased to 140 (IR 106) with decreased pain in order to better reach for objects when cleaning/cooking Treatment Plan: Modalities to reduce pain, spasms and effusion. Manual therapy to restore motion and function. Therapeutic exercise to improve strength and flexibility. Neuromuscular re-education for posture and balance. Therapeutic activities to return to functional activities of daily living. Electronically signed by: Astrid Jung PT Please sign and return to therapist. Thank you for your referral.
--- NOTE | 2023-04-23 16:06 | MHC.PT.DC ---
[facility] [place] Office [place] Office [place] Office [address] [place] Paulino [address] [phone] F: [phone] F: [phone] F: [phone] F: [phone] Physical Therapy Discharge Report Diagnosis: Calcification tendinitis of L shoulder Date of Surgery: Date of Evaluation: 01/23/23 Date of Discharge: 04/23/23 Treatments to Date: 5 Cancellations to Date: 5 No Shows to Date: 1 Discharge Status: Visit Non-compliance Discharge Summary: Pt with several cancellations and no show visits, d/c chart at this time per attendance policy Electronically signed by: Astrid Jung PT Please sign and return to therapist. Thank you for your referral.
== END 2023-04-23 16:06 | disposition home or self-care (01) ==
LOC: HO.PT 11:00
PROVIDERS: PCP Internal Medicine; Visit Provider Internal Medicine
DX: M75.32 Calcific tendinitis of left shoulder (principal)
CPT/HCPCS: 97110; 97140; 97162

== ENCOUNTER 2023-03-12 09:51 | Outpatient (AMB) | payer MEDICARE, SELFPAY ==
[2023-03-12 09:53] VITALS: BP 130/74; BMI 27.6
--- NOTE | 2023-03-12 09:53 | A.OFFVIS_ITS ---
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 No complaints. Last Pap/HPV was negative in 08/13 Last Mammogram was BI-RADS 2 in 12/16 Last Colonoscopy was in 07/15 , the recommendation was to repeat in 10 years No previous DEXA scan [facility] Medical History Arthritis B12 deficiency Chronic lower back pain Ductal carcinoma in situ of left breast Hypovitaminosis D Mixed hyperlipidemia Osteopenia Restrictive lung disease Shortness of breath Tachycardia Surgical History History of breast biopsy History of section History of cholecystectomy Hx of tubal ligation S/P lumpectomy, left breast (02/03/20) Family History Father Myocardial infarction Hypertension Mother Breast cancer Son History of kidney problems Brother Prostate cancer Sister Breast cancer Family/Other Substance use disorder Mental health disorder Social History Household Members: Children Housing: Condominium Alcohol intake: former Patient Tobacco Use Status: Never used Tobacco e-Cigarette/Vaping Use: Never Used Second Hand Smoke Exposure: No service: No Current occupational status: disabled Sexual orientation: Straight/Heterosexual Gender identity: Female Cognitive needs: No Hearing needs: No Vision needs: Yes Female Reproductive History Menstrual Age of Menarche: 11 control method: permanent sterilization Total pregnancies: 2 Full term: 2 Number of Living Children: 2 Date of last pap smear: 08/04/19 (negative) Date of Mammogram: 11/28/22 Review of Systems Const All systems reviewed & are unremarkable except as noted in HPI and below Card Reports as per HPI Resp Reports as per HPI GI Reports as per HPI and Reports no additional complaints Reports as per HPI Physical Exam Vital Signs: Last Vital Signs BP 130/74 /18/ 09:53 BMI result Body Mass Index 27.6 Const General: cooperative, healthy appearing and comfortable Chest Chest palpation & inspection: normal inspection of the chest and normal palpation of entire chest wall Breast/axilla inspection: normal inspection of the breasts and normal inspection of the axillae Breast/axilla palpation: normal palpation of the breasts, normal palpation of the axillae and no axillary lymphadenopathy Resp Effort & Inspection: normal respiratory effort Auscultation: clear to auscultation bilaterally Percussion: percussion normal Cardio Palpation: normal PMI Rate: regular rate Rhythm: regular rhythm Heart sounds: no murmurs and no rubs Peripheral pulses: Peripheral pulses 2+ throughout GI Inspection: Yes normal to inspection Palpation (GI): Soft to palpation, nontender, no guarding, not rigid and No hepatosplenomegaly present Percussion: Yes normal to percussion Auscultation: normal bowel sounds Rectal Exam - Female: deferred General: Yes bladder normal to palpation External Female Exam: No lesion Speculum Exam - Vagina: normal appearance of the vagina, normal palpation, normal vaginal discharge and not erythematous Speculum Exam - Cervix: normal appearance of the cervix and normal palpation Bimanual exam- vagina & uterus: normal bimanual exam, normal palpation, uterine size normal, bladder normal to palpation, consistency normal and normal palpation Bimanual Exam- Adnexa, other: normal adnexae, no masses and no tenderness Assessment & Plan Assessment & Plan (1) Well woman exam: Code(s): Z01.419 - Encounter for gynecological examination (general) (routine) without abnormal findings Plan: Co testing not indicated since the patient 's age is above 65 with no history of abnormal Pap smears last 25 years. Counseled the patient about the recommended dietary allowance of 1200 mg of Calcium & 800 IU of vitamin D. Instructions given the patient to schedule her next screening Mammogram in 12/17, the patient is up-to-date with her screening colonoscopy. Will order DEXA scan . The patient was instructed to perform monthly self-breast exams and to schedule a 2 week DEXA scan follow-up appointment and an annual exam in a year; all questions answered and the patient verbalized understanding. Orders: Orders XR DEXA axial skeleton Today N95.1 - Menopausal and female climacteric states Coding Level of Care Code Est Pt Prev Care >65y(47908) Diagnoses Well woman exam Z01.419
== END 2023-03-12 11:01 | disposition home or self-care (01) ==
LOC: HO.HWS 09:51
PROVIDERS: PCP Internal Medicine; Visit Provider Obstetrics & Gynecology
DX: Z01.419 Encounter for gynecological examination (general) (routine) without abnormal findings (principal)
CPT/HCPCS: G0101

== ENCOUNTER → 2023-03-12 09:51 | Outpatient (BNVA) | payer MEDICARE, MEDICAID, SELFPAY | PROVIDERS: PCP Internal Medicine; Visit Provider Obstetrics & Gynecology | DX: Z01.419 Encounter for gynecological examination (general) (routine) without abnormal findings (principal) | CPT/HCPCS: G0101 ==

== ENCOUNTER 2023-03-22 12:45 | Outpatient (REF) | payer MEDICARE, SELFPAY ==
--- NOTE | ~2023-03-22 | MM_ITS ---
EXAMINATION: BONE DENSITOMETRY CLINICAL INDICATION: Menopause. COMPARISON: Baseline BD dated 03/17/2020. TECHNIQUE: Using a [employer] DXA System (software version: 13.1) manufactured by [employer], dual-energy x-ray absorptiometry was performed of the lumbar spine and left hip. The images are of good technical quality. Summary results are attached. FINDINGS: LEFT FEMUR, NECK: Current: BMD 0.983 g/cm2, Z-score 1.0, T-score -0.4, normal. Baseline: BMD 0.831 g/cm2. LEFT FEMUR, TOTAL: Current: BMD 0.991 g/cm2, Z-score 1.0, T-score -0.1, normal, 15.4% increase from baseline (<5% change is not significant). Baseline: BMD 0.859 g/cm2. AP SPINE L1-L2 (excluding L3 and L4): The data of L1-L4 has been changed to exclude the L3 and L4 vertebral bodies, because degenerative sclerosis at these levels may cause overestimation of lumbar spine density. Current: BMD 1.104 g/cm2, Z-score 0.9, T-score -0.5, normal, 3.5% increase from baseline (<5% change is not significant). Baseline: BMD 1.067 g/cm2. IDENTIFIED RISK FACTORS: Menopause, history of fracture (adult). HISTORY OF FRACTURE: Forearm. MEDICATIONS: Calcium, vitamin D. MM/XR DEXA axial skeleton IMPRESSION: 1. DIAGNOSIS: Normal bone density based on the lowest T-score value of -0.5 in the lumbar spine applying World Health Organization criteria. 2. 10-YEAR FRACTURE RISK PREDICTION, FRAX: According to the guidelines, FRAX calculation should only be performed on patients in the osteopenia bone density category. Therefore, FRAX was not performed on this patient. 3. Treatment Recommendations: NOF guidelines recommend consideration for treatment in postmenopausal women and men age 50 and older presenting with the following: -A hip or vertebral (clinical or morphometric) fracture. -T-score less than or equal to -2.5 at the femoral neck or spine after appropriate evaluation to exclude secondary causes. -Low bone mass at the hip or spine and a 10-year fracture probability by FRAX of greater than or equal to 3% for hip fracture or greater than or equal to 20% for major osteoporotic fracture based on the [place] adapted WHO algorithm. 4. Other Recommendations: All treatment decisions require clinical judgment and consideration of individual patient factors, including patient preferences, comorbidities, previous drug use, risk factors not captured in the FRAX model (e.g. frailty, falls, vitamin D deficiency, increased bone turnover, interval significant decline in bone density) and possible under or overestimation of fracture risk by FRAX. FUTURE SCAN RECOMMENDATION: People with diagnosed cases of osteoporosis or at high risk for fracture should have regular bone mineral density tests. For patients eligible for Medicare, routine testing is allowed once every 2 years. The testing frequency can be increased to one year for patients who have rapidly progressing disease, those who are receiving or discontinuing medical therapy to restore bone mass, or have additional risk factors.
== END 2023-03-22 12:46 | disposition home or self-care (01) ==
LOC: HO.MAMMO 12:45
PROVIDERS: Visit Provider Obstetrics & Gynecology
DX: Z78.0 Asymptomatic menopausal state (principal); Z87.81 Personal history of (healed) traumatic fracture
CPT/HCPCS: 77080

== ENCOUNTER → 2023-03-22 13:30 | Outpatient (BNV) | payer MEDICARE, SELFPAY | PROVIDERS: Visit Provider Radiology Diagnostic Radiology | DX: N95.1 Menopausal and female climacteric states (principal) | CPT/HCPCS: 77080 ==

== ENCOUNTER 2023-05-02 08:52 | Outpatient (REF) | payer MEDICARE, MEDICAID, SELFPAY ==
[2023-05-02 10:41] LABS: Alanine Aminotransferase 24 U/L (0-31); Albumin Level 4.4 g/dL (3.5-5.0); Alkaline Phosphatase 97 U/L (39-117); Anion Gap 13 (12-20); Aspartate Amino Transferase 25 U/L (5-31); Bilirubin Total 0.5 mg/dL (0.0-1.0); Blood Urea Nitrogen 14 mg/dL (9-16); Calcium 10.1 mg/dL (8.4-10.2); Carbon Dioxide 27 mmol/L (22-29); Chloride 107 mmol/L (96-108); Cholesterol 277 mg/dL (<200); Estimated Glomerular Filt Rate 56; Glucose Fasting 89 mg/dL (60-99); HDL Cholesterol 50 mg/dL (>40); LDL Cholesterol Calculated 175 mg/dL (<100); Sodium 143 mmol/L (135-145); Triglycerides 260 mg/dL (<150)
[2023-05-02 10:56] LABS: Vitamin D 25-OH Total 27.5 ng/mL (>30)
== END 2023-05-02 08:53 | disposition home or self-care (01) ==
LOC: HO.LAB 08:52
PROVIDERS: PCP Internal Medicine; Visit Provider Internal Medicine
DX: E78.5 Hyperlipidemia, unspecified (principal); I10 Essential (primary) hypertension; E55.9 Vitamin D deficiency, unspecified; M85.80 Other specified disorders of bone density and structure, unspecified site
CPT/HCPCS: 36415; 80053; 80061; 82306; 99212

== ENCOUNTER 2023-05-02 09:53 | Outpatient (AMB) | payer MEDICARE, MEDICAID, SELFPAY ==
[2023-05-02 10:19] VITALS: BP 140/78; BMI 27.5
--- NOTE | 2023-05-02 10:19 | A.OFFVIS_ITS ---
Intake Vital Signs 05/02/23 10:19 Height 5 ft 3 in Weight 155 lb BMI 27.5 BP 140/78 H Intake Visit Reasons: DEXA follow up Shuttle Final Inspector Required: Yes Shuttle Final Inspector Language: Spanish Interpreter/Translator Name: Lou FLORES Allergies penicillin G [PENICILLIN G] Allergy (Intermediate, Verified 05/02/23 10:19) RASH Is last menstrual period known: No Post menopausal: Yes Patient : No HPI HPI Comments History of Present Illness Details The patient is presenting for follow up regarding DEXA scan results which showed the following: LEFT FEMUR, NECK: Current: BMD 0.983 g/cm2, Z-score 1.0, T-score -0.4, normal. Baseline: BMD 0.831 g/cm2. LEFT FEMUR, TOTAL: Current: BMD 0.991 g/cm2, Z-score 1.0, T-score -0.1, normal, 15.4% increase from baseline (<5% change is not significant). Baseline: BMD 0.859 g/cm2. AP SPINE L1-L2 (excluding L3 and L4): The data of L1-L4 has been changed to exclude the L3 and L4 vertebral bodies, because degenerative sclerosis at these levels may cause overestimation of lumbar spine density. Current: BMD 1.104 g/cm2, Z-score 0.9, T-score -0.5, normal, 3.5% increase from baseline (<5% change is not significant). Baseline: BMD 1.067 g/cm2. FRAX score could not be calculated PFSH Medical History Restrictive lung disease Shortness of breath B12 deficiency Mixed hyperlipidemia Tachycardia Osteopenia Hypovitaminosis D Arthritis Ductal carcinoma in situ of left breast Chronic lower back pain Surgical History Hx of tubal ligation S/P lumpectomy, left breast (02/03/20) History of breast biopsy History of section History of cholecystectomy Family History Father Myocardial infarction Hypertension Mother Breast cancer Son History of kidney problems Brother Prostate cancer Sister Breast cancer Family/Other Substance use disorder Mental health disorder Social History Household Members: Children Housing: Condominium Alcohol intake: former Patient Tobacco Use Status: Never used Tobacco e-Cigarette/Vaping Use: Never Used Second Hand Smoke Exposure: No Patient : No service: No Current occupational status: disabled Sexual orientation: Straight/Heterosexual Gender identity: Female Cognitive needs: No Hearing needs: No Vision needs: Yes Female Reproductive History Menstrual Age of Menarche: 11 control method: permanent sterilization Review of Systems Const All systems reviewed & are unremarkable except as noted in HPI and below Reports as per HPI and Reports no additional complaints GI Reports no additional complaints Reports no additional complaints Physical Exam Vital Signs: Last Vital Signs BP 140/78 H 05/02/23 10:19 BMI result Body Mass Index 27.5 Assessment & Plan Assessment & Plan (1) Osteopenia: Code(s): M85.80 - Other specified disorders of bone density and structure, unspecified site Plan: Discussed with the patient the DEXA results which showed no evidence of osteoporosis. Explained to the patient that the T-score at the spine level could not be computed because of degenerative disease and therefore FRAX risk was not calculated. Discussed with the patient all the options for osteoporosis prevention including lifestyle modifications including Ca+D supplements 1200 mg po qd/800 MIU, Weight bearing exercises and proteine supplements. The patient verbalized understanding and agreed plan will repeat DEXA in 2 years. Coding Level of Care Code Est Pt Level 3 (09922) Diagnoses Osteopenia M85.80
== END 2023-05-02 10:51 | disposition home or self-care (01) ==
PROVIDERS: PCP Internal Medicine; Visit Provider Obstetrics & Gynecology
DX: M85.80 Other specified disorders of bone density and structure, unspecified site (principal)
CPT/HCPCS: 99213

== ENCOUNTER 2023-05-20 11:42 | Outpatient (AMB) | payer MEDICARE, MEDICAID, SELFPAY ==
--- NOTE | 2023-05-20 12:09 | A.OFFPC_ITS ---
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 Accompanied by: Self / Same As Patient Allergies penicillin G [PENICILLIN G] Allergy (Intermediate, Verified 05/20/23 12:39) RASH Medication List - Last Reconciled 05/20/23 by Laura Palumbo MD acetaminophen (Tylenol Extra Strength) 500 mg PO Q6H PRN ascorbic acid (vitamin C) (Vitamin C) 250 mg PO DAILY cholecalciferol (vitamin D3) (Vitamin D3) 25 mcg PO DAILY 90 days fenofibrate 54 mg PO DAILY 90 days gabapentin 300 mg PO BEDTIME 90 days letrozole 2.5 mg PO DAILY lisinopril 10 mg PO DAILY 90 days miscellaneous medical supply (Blood Pressure Cuff) As directed miscellaneous medical supply (Blood Pressure Cuff) As directed, wrist electronic BP cuff, monitor BP twice a day omeprazole 10 mg PO DAILY PRN 90 days rosuvastatin 20 mg PO DAILY 90 days Tobacco use date assessed: 09/19/22 Fall risk assessment: No Falls in past year Last assessed Fall Risk: 05/20/23 Dental Screening Dental Screen Date: 05/20/23 Did you have a dental visit in the last 12 months?: Yes Did you have a dental problem in the last 6 months where you did not have access to dental care?: No Was dental information given to patient?: Patient has dentist HPI HPI Comments History of Present Illness Details This is a 68-year-old female that comes for her physical exam. Last mammogram was November 2022. Bone density test was normal. Last colonoscopy was 2019 and was normal. Next colonoscopy should be 2022. No chest pain or shortness of breath. Cholesterol elevated but admits not been compliant with statins. [facility] Medical History Restrictive lung disease Shortness of breath B12 deficiency Mixed hyperlipidemia Tachycardia Osteopenia Hypovitaminosis D Arthritis Ductal carcinoma in situ of left breast Chronic lower back pain Surgical History Hx of tubal ligation S/P lumpectomy, left breast (02/03/20) History of breast biopsy History of section History of cholecystectomy Family History Father Myocardial infarction Hypertension Mother Breast cancer Son History of kidney problems Brother Prostate cancer Sister Breast cancer Family/Other Substance use disorder Mental health disorder Social History Household Members: Children Housing: Condominium Alcohol intake: former Patient Tobacco Use Status: Never used Tobacco e-Cigarette/Vaping Use: Never Used Second Hand Smoke Exposure: No service: No Current occupational status: disabled Sexual orientation: Straight/Heterosexual Gender identity: Female Cognitive needs: No Hearing needs: No Vision needs: Yes Female Reproductive History Menstrual Age of Menarche: 11 Questionnaire Thrive Questionnaire Date Thrive assessed: 09/19/22 LU-7 AMB Questionnaire LU-7 Date LU - 7 assessed: 09/19/22 Source: Developed by Drs. Geovanni Damon, Nisha Mann, Sky Woods and colleagues, with an educational [email or web address] from [email or web address]. Review of Systems Const All systems reviewed & are unremarkable except as noted in HPI and below Eyes Reports no additional complaints, Denies change in vision and Denies other visual disturbances Card Denies chest pain at rest, Denies chest pain with activity, Denies edema, Denies irregular heart rhythm, Denies claudication, Denies dyspnea, Denies dyspnea on exertion, Denies orthopnea, Denies paroxysmal nocturnal dyspnea and Denies slow heart rate Resp Denies cough, Denies dyspnea and Denies dyspnea on exertion GI Denies abdominal pain, Denies change in bowel habits, Denies excessive flatus, Denies nausea and Denies vomiting Denies urinary incontinence, Denies urinary hesitancy and Denies urinary urgency Musc Denies abnormal gait, Denies atrophy, Denies deformity and Denies limited range of motion Skin/Breast Denies bleeding lesions, Denies changing lesions and Denies rash Neuro Denies abnormal gait and Denies lack of coordination Physical exam (Primary Care) Vital Signs: Last Vital Signs BP 120/82 05/20/23 12:17 BMI result Body Mass Index 27.3 Tobacco/Smoking Status: Tobacco use Status Tobacco use date assessed 09/19/22 05/20/23 12:13 Patient Tobacco Use Status Never used Tobacco 05/20/23 12:13 e-Cigarette/Vaping Use Never Used 05/20/23 12:13 Thrive Assessment: Date of Thrive Assessment Date Thrive assessed 09/19/22 05/20/23 12:13 Const Orientation/consciousness: patient oriented x3 HENMT Head: Yes normal to inspection, Yes normocephalic and Yes atraumatic Ears: external ears normal Mouth: lip normal Eyes General: appearance normal, both eyes and all related structures Eyelids: Yes eyelids normal Conjunctivae: conjunctivae normal Neck Neck: Yes normal visual inspection and Yes supple Resp Effort & Inspection: normal respiratory effort Auscultation: clear to auscultation bilaterally Cardio Jugular venous distension: no JVD Rate: regular rate Rhythm: regular rhythm Heart sounds: S1 normal heart sound present and S2 normal heart sound present GI Inspection: Yes normal to inspection Palpation (GI): Soft to palpation and nontender Auscultation: normal bowel sounds Skin General skin exam: no rashes or lesions noted Neuro General: patient oriented x3 and no focal motor deficits Extrem General: Yes full ROM Psych Appearance: grossly normal Assessment and Plan Assessment & Plan (1) Physical exam: Code(s): Z00.00 - Encounter for general adult medical examination without abnormal findings Plan: Repeat in a year Coding Level of Care Code Est Pt Prev Care >65y(74969) Diagnoses Physical exam Z00.00 Time Spent (min) 32
[2023-05-20 12:17] VITALS: BP 120/82; BMI 27.3
== END 2023-05-20 12:48 | disposition home or self-care (01) ==
PROVIDERS: Visit Provider Internal Medicine
DX: Z00.00 Encounter for general adult medical examination without abnormal findings (principal)
CPT/HCPCS: 99397

== ENCOUNTER 2023-09-03 14:07 | Outpatient (AMB) | payer MEDICARE, MEDICAID, SELFPAY ==
--- NOTE | 2023-09-03 14:11 | A.OFFVIS_ITS ---
Intake Vital Signs 3 09/03/23 14:16 Height 5 ft 3 in Weight 155 lb BMI 27.5 BP 140/72 H Blood Pressure Location Lt brachial Position Sitting Pulse 78 Intake Visit Reasons: 6 month follow-up breast exam Intake Note: Patient is seen in office for 6 month follow up visit, breast exam. Pt c/o: denies any concerns regarding the breast mm:11/28/22 Allergies penicillin G [PENICILLIN G] Allergy (Intermediate, Verified 09/03/23 14:14) RASH HPI HPI Comments 2 History of Present Illness0 Details 68-year-old female returning for follow- up breast examination. 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 She continue her radiation therapy and subsequent follow-up mammogram performed on 11/24/2021 revealed no mammographic evidence of recurrent disease, benign (BI-RADS 2). Follow-up mammogram on 11/28/2022 revealed no mammographic evidence of malignancy (BI-RADS 2). One year follow-up mammogram is recommended. She denies any new breast symptoms and generally feels well. She continues on the letrozole 2.5 mg p.o. daily and denies any ongoing symptoms. She is scheduled for her annual mammogram on 12/04/2023 [facility] Medical History Restrictive lung disease Shortness of breath B12 deficiency Mixed hyperlipidemia Tachycardia Osteopenia Hypovitaminosis D Arthritis Ductal carcinoma in situ of left breast Chronic lower back pain Surgical History Hx of tubal ligation S/P lumpectomy, left breast (02/03/20) History of breast biopsy History of section History of cholecystectomy Family History Father Myocardial infarction Hypertension Mother Breast cancer Son History of kidney problems Brother Prostate cancer Sister Breast cancer Family/Other Substance use disorder Mental health disorder Social History Household Members: Children Housing: Condominium Alcohol intake: former Patient Tobacco Use Status: Never used Tobacco e-Cigarette/Vaping Use: Never Used Second Hand Smoke Exposure: No service: No Current occupational status: disabled Sexual orientation: Straight/Heterosexual Gender identity: Female Cognitive needs: No Hearing needs: No Vision needs: Yes Female Reproductive History Menstrual Age of Menarche: 11 Review of Systems Const All systems reviewed & are unremarkable except as noted in HPI and below Card Denies chest pain Denies nipple discharge Musc Reports as per HPI Skin/Breast Details: Skin lesion as noted in HPI Denies breast swelling, Denies breast skin changes, Reports breast pain, Denies breast mass and Denies nipple discharge Wm/Lymph Denies lymphadenopathy Physical Exam Const General: cooperative, healthy appearing, comfortable, no acute distress, well developed and alert Neck Neck: Yes no lymphadenopathy Lymphatic: no lymphadenopathy noted Chest Other: Left breast: Well-healed incision in the 9 o'clock position. No palpable mass or new skin change. No discrete mass and no enlarged lymph nodes. Right breast: No skin change, nipple discharge, nipple retraction, no mass, or enlarged lymph nodes. Chest/axillae images: 2 1. Incision left breast Resp Other: Breathing comfortably on room air, no respiratory distress GI Inspection: Yes normal to inspection Skin Other: warm and dry, no rash Extrem Other: no edema in the upper extremities. Flat brown lesion with an irregular margin measuring approximately 1 cm noted in the mid right garza. There is overlying dry skin but no ulceration. General: Yes no clubbing, cyanosis or edema Assessment & Plan Assessment & Plan (1) Ductal carcinoma in situ of left breast: Comment: Started letrozole 05/23/2020 Code(s): D05.12 - Intraductal carcinoma in situ of left breast Plan 68-year-old female patient returning for a routine follow-up breast examination after left breast lumpectomy for ductal carcinoma in Situ. Margins were later determined to be positive after starting her radiation therapy. Subsequent mammography and on 11/23/2020 revealed a stable parenchymal pattern with no new suspicious findings (BI-RADS 2). Follow-up mammogram on 11/28/2022 again revealed no significant change from the previous mammogram. Examination today reveals no new suspicious findings in either breast with no evidence of recurrence disease. I recommended a follow-up examination in 6 months and yearly mammography in December 04, 2023. She is welcome to call sooner for any new concerns. Coding Level of Care Code Est Pt Level 3 (18818) Diagnoses Ductal carcinoma in situ of left breast D05.12
[2023-09-03 14:16] VITALS: BP 140/72; PULSE 78; BMI 27.5
== END 2023-09-03 14:27 | disposition home or self-care (01) ==
PROVIDERS: PCP Internal Medicine; Visit Provider Surgery
DX: D05.12 Intraductal carcinoma in situ of left breast (principal)
CPT/HCPCS: 99213

== ENCOUNTER → 2023-09-03 14:07 | Outpatient (BNVA) | payer MEDICARE, MEDICAID, SELFPAY | PROVIDERS: PCP Internal Medicine; Visit Provider Surgery | DX: D05.12 Intraductal carcinoma in situ of left breast (principal) | CPT/HCPCS: 99212 ==

== ENCOUNTER 2023-11-06 09:12 | Outpatient (REF) | payer MEDICARE, MEDICAID, SELFPAY ==
[2023-11-06 10:16] LABS: Hematocrit 41.7 % (37.0-47.0); Hemoglobin 13.3 g/dl (12.0-16.0); Mean Corpuscular HGB Conc 31.9 g/dl (31.0-35.0); Mean Corpuscular Hemoglobin 29.5 pg (27.0-33.0); Mean Corpuscular Volume 92.5 fL (80.0-98.0); Mean Platelet Volume 10.5 fL (9.4-12.3); Platelet Count 319 X10*3/uL (160-400); Red Blood Count 4.51 X10*6/uL (4.20-5.50); Red Cell Distribution Width 13.2 % (11.0-16.0); White Blood Count 7.2 X10*3/uL (4.8-10.8)
[2023-11-06 11:06] LABS: Vitamin D 25-OH Total 19.4 ng/mL (>30)
[2023-11-06 11:07] LABS: Alanine Aminotransferase 27 U/L (0-31); Albumin Level 4.4 g/dL (3.5-5.0); Alkaline Phosphatase 108 U/L (39-117); Anion Gap 11 (12-20); Aspartate Amino Transferase 26 U/L (5-31); Bilirubin Total 0.5 mg/dL (0.0-1.0); Blood Urea Nitrogen 11 mg/dL (9-16); Calcium 10.6 mg/dL (8.4-10.2); Carbon Dioxide 31 mmol/L (22-29); Chloride 104 mmol/L (96-108); Estimated Glomerular Filt Rate 53; Glucose Random 87 mg/dL (60-115); Potassium 4.4 mmol/L (3.3-5.1); Sodium 142 mmol/L (135-145); Total Protein 8.1 g/dL (6.5-8.0)
== END 2023-11-06 09:13 | disposition home or self-care (01) ==
LOC: HO.LAB 09:12
PROVIDERS: PCP Internal Medicine; Visit Provider Internal Medicine
DX: D05.12 Intraductal carcinoma in situ of left breast (principal)
CPT/HCPCS: 36415; 80053; 82306; 85027

== ENCOUNTER 2023-11-19 12:41 | Outpatient (AMB) | payer MEDICARE, MEDICAID, SELFPAY ==
[2023-11-19 12:47] VITALS: BP 130/78; BMI 27.1
--- NOTE | 2023-11-19 12:47 | MHC.PC.OV ---
Vital Signs 11/19/23 12:47 Height 5 ft 3 in Weight 153 lb BMI 27.1 BP 130/78 Blood Pressure Location Rt brachial Position Sitting Intake Visit Reasons: bp Intake Note: Patient here for a follow up BP Administrative Support Associate Required: No Accompanied by: Self / Same As Patient Allergies penicillin G [PENICILLIN G] Allergy (Intermediate, Verified 11/19/23 13:01) RASH Medication List - Last Reconciled 11/19/23 by Laura Palumbo MD acetaminophen (Tylenol Extra Strength) 500 mg PO Q6H PRN ascorbic acid (vitamin C) (Vitamin C) 250 mg PO DAILY cholecalciferol (vitamin D3) (Vitamin D3) 25 mcg PO DAILY 90 days fenofibrate 54 mg PO DAILY 90 days letrozole 2.5 mg PO DAILY lisinopril 10 mg PO DAILY 90 days miscellaneous medical supply (Blood Pressure Cuff) As directed miscellaneous medical supply (Blood Pressure Cuff) As directed, wrist electronic BP cuff, monitor BP twice a day omeprazole 10 mg PO DAILY PRN 90 days rosuvastatin 20 mg PO DAILY 90 days Tobacco use date assessed: 11/19/23 Fall risk assessment: No Falls in past year Last assessed Fall Risk: 11/19/23 Dental Screening Dental Screen Date: 11/19/23 Did you have a dental visit in the last 12 months?: Yes Did you have a dental problem in the last 6 months where you did not have access to dental care?: No Was dental information given to patient?: Patient has dentist HPI HPI Comments History of Present Illness Details This is a 68-year-old female with hypertension, mixed hyperlipidemia and chronic GERD that complains of shortness of breath. She was seen pulmonology for restrictive lung disease and had a soft tissue neck CT showing some fibrotic changes in the upper part of the lungs and I will order a CT of the chest and sent her again to pulmonology. She also have history of ductal carcinoma of left breast diagnosed in 2019 follow by Hematology-Oncology and breast surgeon. On letrozole for 1 more year for this matter. Blood pressure stable. Lipid panel will be order for the next 6 months. GERD stable with PPIs. [facility] Medical History (Updated 11/19/23 @ 13:06 by Laura Palumbo MD) Restrictive lung disease Shortness of breath B12 deficiency Mixed hyperlipidemia Tachycardia Osteopenia Hypovitaminosis D Arthritis Ductal carcinoma in situ of left breast Chronic lower back pain Surgical History Hx of tubal ligation S/P lumpectomy, left breast (02/03/20) History of breast biopsy History of section History of cholecystectomy Family History Father Myocardial infarction Hypertension Mother Breast cancer Son History of kidney problems Brother Prostate cancer Sister Breast cancer Family/Other Substance use disorder Mental health disorder Social History Household Members: Children Housing: Condominium Alcohol intake: former Patient Tobacco Use Status: Never used Tobacco e-Cigarette/Vaping Use: Never Used Second Hand Smoke Exposure: No service: No Current occupational status: disabled Sexual orientation: Straight/Heterosexual Gender identity: Female Cognitive needs: No Hearing needs: No Vision needs: Yes Female Reproductive History Menstrual Age of Menarche: 11 Questionnaire PHQ-9 Over the last 2 weeks, how often have you been bothered by any of the following problems? 1. Little interest or pleasure in doing things: several days 2. Feeling down, depressed, or hopeless: several days 3. Trouble falling or staying asleep, or sleeping too much: several days 4. Feeling tired or having little energy: several days 5. Poor appetite or overeating: several days 6. Feeling bad about yourself - or that you are a failure or have let yourself or your family down: several days 7. Trouble concentrating on things, such as reading the newspaper or watching television: several days 8. Moving or speaking so slowly that other people could have noticed. Or the opposite - being so fidgety or restless that you have been moving around a lot more than usual: more than half the days 9. Thoughts that you would be better off or of hurting yourself in some way: not at all Total score: 9 Depression Screening Interpretation: Positive Depression Screening Follow-up: Existing condition Depression Screening Done: Yes 93300 - PHQ-9 Billing: Yes Source: Developed by Drs. Geovanni Damon, Nisha Mann, Sky Woods and colleagues, with an educational jocelyne from [email or web address]. Thrive Questionnaire Date Thrive assessed: 11/19/23 I am a: Patient What is your living situation today?: I have a steady place to live Within the past 12 months, did the food you bought not last and you didn't have the money to get more?: Never true Within the past 12 months, did you worry whether your food would run out before you got money to buy more?: Never true Do you have trouble paying for medicines?: No Do you have trouble getting transportation to medical appointments?: No Do you have trouble paying your heating and electricity bill?: No Do you have trouble taking care of your child, family member or friend?: No Do you have trouble with day-to-day activities such as bathing, preparing meals, shopping, managing finances, etc.?: No Are you currently unemployed and looking for a job?: No Are you interested in more education?: No Please select the resources that you would like help with: None Currently or been in a relationship where the following occur: no concerns reported THRIVE Score: 0 AUDIT C Alcohol Use Questionnaire (AUDIT-C) 1. How often do you have a drink containing alcohol?: Never Total Score: 0 Score Reviewed/Action Taken: No LU-7 AMB Questionnaire LU-7 Date LU - 7 assessed: 11/19/23 Feeling nervous, anxious, or on edge: 1 = Several days Not being able to stop or control worryin = Not at all Worrying too much about different things: 1 = Several days Trouble relaxin = Not at all Being so restless that it is hard to sit still: 1 = Several days Becoming easily annoyed or irritable: 1 = Several days Feeling afraid as if something awful might happen: 1 = Several days Total LU-7 score (0-4 normal; 5-9 mild; 10-14 moderate; 15-21 severe): 5 Source: Developed by Drs. Geovanni Damon, Nisha Mann, Sky Woods and colleagues, with an educational jocelyne from [email or web address]. UL-7 Assessment Billing LU-7 Assessment Tool: LU-7 Assessment 41626 Review of Systems Const All systems reviewed & are unremarkable except as noted in HPI and below Eyes Reports no additional complaints, Denies change in vision and Denies other visual disturbances Card Denies chest pain at rest, Denies chest pain with activity, Denies edema, Denies irregular heart rhythm, Denies claudication, Reports dyspnea, Reports dyspnea on exertion, Denies orthopnea, Denies paroxysmal nocturnal dyspnea and Denies slow heart rate Resp Denies cough, Reports dyspnea and Reports dyspnea on exertion GI Denies abdominal pain, Denies change in bowel habits, Denies excessive flatus, Denies nausea and Denies vomiting Denies urinary incontinence, Denies urinary hesitancy and Denies urinary urgency Musc Denies atrophy, Denies deformity and Denies limited range of motion Physical exam (Primary Care) Vital Signs: Last Vital Signs BP 130/78 11/19/23 12:47 BMI result Body Mass Index 27.1 Tobacco/Smoking Status: Tobacco use Status Tobacco use date assessed 11/19/23 11/19/23 12:53 Patient Tobacco Use Status Never used Tobacco 11/19/23 12:53 e-Cigarette/Vaping Use Never Used 11/19/23 12:53 PHQ-9: PHQ-9 Score PHQ-9: Total score 9 11/19/23 12:53 Depression Screening Interpretation: Positive Depression Screening Follow-up: Existing condition Thrive Assessment: Date of Thrive Assessment Date Thrive assessed 11/19/23 11/19/23 12:53 Currently or been in a relationship where the following occur: no concerns reported Resp Effort & Inspection: normal respiratory effort Auscultation: clear to auscultation bilaterally Cardio Jugular venous distension: no JVD Rate: regular rate Rhythm: regular rhythm Heart sounds: S1 normal heart sound present and S2 normal heart sound present Extrem General: Yes full ROM Psych Appearance: grossly normal Assessment and Plan Assessment & Plan (1) Hypertension: Code(s): I10 - Essential (primary) hypertension Plan: Continue lisinopril. Blood pressure goal is equal or less than 130/80. (2) Mixed hyperlipidemia: Code(s): E78.2 - Mixed hyperlipidemia Plan: Continue statins and fibrates. (3) Ductal carcinoma in situ of left breast: Comment: Started letrozole 05/23/2020 Code(s): D05.12 - Intraductal carcinoma in situ of left breast Plan: Continue letrozole. Follow-up with Hematology-Oncology. (4) Chronic GERD: Code(s): K21.9 - Gastro-esophageal reflux disease without esophagitis Plan: Continue PPIs. (5) Pulmonary fibrosis: Code(s): J84.10 - Pulmonary fibrosis, unspecified Plan: CT of the chest ordered. Referred to pulmonology. Orders: Orders Lipid Panel 6 Months E78.5 - Hyperlipidemia, unspecified XR chest 2V Today J84.10 - Pulmonary fibrosis, unspecified CT chest wo IV con Today J84.10 - Pulmonary fibrosis, unspecified Vitamin D 25-OH Total 6 Months E55.9 - Vitamin D deficiency, unspecified Vitamin B12 and Folate 6 Months E53.8 - Deficiency of other specified B group vitamins Comprehensive [place]. Panel Fast 6 Months E78.2 - Mixed hyperlipidemia Referrals Pulmonology Referral J84.10 - Pulmonary fibrosis, unspecified, J98.4 - Other disorders of lung Coding Level of Care Code Est Pt Level 4 (87201) Diagnoses Hypertension I10 Mixed hyperlipidemia E78.2 Ductal carcinoma in situ of left breast D05.12 Chronic GERD K21.9 Pulmonary fibrosis J84.10 Additional Codes LU-7 Assessment Billing - LU-7 Assessment Tool: LU-7 Assessment 92130 ([id number]) Time Spent (min) 24
== END 2023-11-19 13:08 | disposition home or self-care (01) ==
PROVIDERS: PCP Internal Medicine; Visit Provider Internal Medicine
DX: I10 Essential (primary) hypertension (principal); J84.10 Pulmonary fibrosis, unspecified; E78.2 Mixed hyperlipidemia; D05.12 Intraductal carcinoma in situ of left breast; K21.9 Gastro-esophageal reflux disease without esophagitis
CPT/HCPCS: 99214

== ENCOUNTER 2023-11-19 13:22 | Outpatient (REF) | payer MEDICARE, MEDICAID, SELFPAY | END 2023-11-19 13:23 | disposition home or self-care (01) | LOC: HO.XRAY 13:22 | PROVIDERS: PCP Internal Medicine; Visit Provider Internal Medicine | DX: Z13.89 Encounter for screening for other disorder (principal) ==

== ENCOUNTER 2023-11-22 12:45 | Outpatient (REF) | payer MEDICARE, MEDICAID, SELFPAY ==
--- NOTE | ~2023-11-22 | XR_ITS ---
EXAMINATION: XR CHEST CLINICAL INFORMATION: Pulmonary fibrosis, unspecified COMPARISON: Chest 12/26/2022 TECHNIQUE: 2 views of the chest were obtained. FINDINGS: The lungs are well expanded and clear. No significant abnormality is noted involving the heart, mediastinum or soft tissues. Small calcific density adjacent to the right humeral head is consistent with calcific tendinitis. XR/XR chest 2V IMPRESSION: No acute cardiopulmonary disease.
== END 2023-11-22 12:46 | disposition home or self-care (01) ==
LOC: HO.XRAY 12:45
PROVIDERS: PCP Internal Medicine; Visit Provider Internal Medicine
DX: J84.10 Pulmonary fibrosis, unspecified (principal)
CPT/HCPCS: 71046

== ENCOUNTER 2023-12-04 11:47 | Outpatient (REF) | payer MEDICARE, MEDICAID, SELFPAY ==
--- NOTE | ~2023-12-04 | MM_ITS ---
EXAMINATION: MM SCREENING DIGITAL BREAST TOMOSYNTHESIS, BILATERAL CLINICAL INFORMATION: Screening. Asymptomatic. The patient is status post breast conservation surgery in 2020 for ductal carcinoma in situ of the lower inner quadrant of the left breast. COMPARISON: Mammography: This study is compared with prior exams dating back to 2020. TECHNIQUE: Digital breast tomosynthesis is performed in both the craniocaudal and mediolateral oblique views along with computer-aided detection (CAD). Synthesized 2D images are generated from the tomosynthesis. FINDINGS: There are scattered areas of fibroglandular density (ACR BI-RADS breast composition Category b). There are no significant masses, abnormal calcifications, or other abnormalities. There are postsurgical changes in the lower inner quadrant of the left breast. MM/MM tomosynthesis screening BI IMPRESSION: No mammographic evidence of malignancy. ASSESSMENT: BI-RADS BI-RADS 2 - Benign Findings RECOMMENDATION: Routine annual mammography screening. 1 year F/U This examination should not preclude the clinical evaluation of a suspicious palpable abnormality. This patient's information was entered into a reminder system with a target due date for their next mammogram.
== END 2023-12-04 11:48 | disposition home or self-care (01) ==
LOC: HO.MAMMO 11:47
PROVIDERS: PCP Internal Medicine; Visit Provider Internal Medicine
DX: Z12.31 Encounter for screening mammogram for malignant neoplasm of breast (principal)
CPT/HCPCS: 77063; 77067

== ENCOUNTER → 2023-12-04 13:45 | Outpatient (BNV) | payer MEDICARE, MEDICAID, SELFPAY | PROVIDERS: PCP Internal Medicine; Visit Provider Radiology Diagnostic Radiology | DX: Z12.31 Encounter for screening mammogram for malignant neoplasm of breast (principal) | CPT/HCPCS: 77063; 77067 ==

== ENCOUNTER 2023-12-24 12:48 | Outpatient (AMB) | payer MEDICARE, MEDICAID, SELFPAY ==
--- NOTE | 2023-12-24 13:12 | MHC.OFFVIS ---
Vital Signs 12/24/23 13:13 Height 5 ft 3 in Weight 154 lb BMI 27.3 BP 110/68 Blood Pressure Location Lt brachial Position Sitting Pulse 81 Pulse Source Pulse Oximeter Pulse Oximetry (%) 98 Oxygen Delivery Method Room Air Intake Visit Reasons: asthma Intake Note: pt is here for follow up and states she is always feeling shortness of breath and fatigue. Applications Administrator Required: Yes Applications Administrator Name: [id number] Allergies penicillin G [PENICILLIN G] Allergy (Intermediate, Verified 12/24/23 13:30) RASH Medication List - Last Reconciled 12/24/23 by Isra Hurley MD acetaminophen (Tylenol Extra Strength) 500 mg PO Q6H PRN ascorbic acid (vitamin C) (Vitamin C) 250 mg PO DAILY cholecalciferol (vitamin D3) (Vitamin D3) 25 mcg PO DAILY 90 days fenofibrate 54 mg PO DAILY 90 days letrozole 2.5 mg PO DAILY lisinopril 10 mg PO DAILY 90 days miscellaneous medical supply (Blood Pressure Cuff) As directed miscellaneous medical supply (Blood Pressure Cuff) As directed, wrist electronic BP cuff, monitor BP twice a day omeprazole 10 mg PO DAILY PRN 90 days rosuvastatin 20 mg PO DAILY 90 days Do you need a note to return to daycare/school/sports/work: No HPI HPI asthma: Details: 68 YEARS OLD VERY PLEASANT, TAJIK-SPEAKING FEMALE WHO COMES HERE TODAY, ALMOST AFTER 2 YEARS, WITH A VAGUE COMPLAINT OF INTERMITTENT COUGH AND FEELING TIRED. SHE SUFFERED FROM COVID-19 IN 2021 BUT RECOVERED FAIRLY WELL, SHE WAS LEFT WITH ONGOING COUGH AND SOME SHORTNESS OF BREATH. SHE HAD PULMONARY FUNCTION TEST WHICH SHOWED MILD RESTRICTIVE DISORDER BUT NO DEFINITE OBSTRUCTIVE DISORDER. AT THAT TIME HER COUGH HAD ALMOST RESOLVED COMPLETELY, AND SHE WAS NOT GIVEN ANY BRONCHODILATOR INHALERS. HE COMES TODAY LATELY COMPLAINING OF COUGH DUE TO SOME IRRITATION IN THE THROAT, SHE HAS NO EXPECTORATION. SHE DENIES ANY WHEEZES. 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 SHE HAS SOME POSTNASAL IRRITATION BUT DENIES ANY RUNNY NOSE OR SNEEZING ATTACKS . SHE IS NONSMOKER SHE HAS HAD NO RECENT RESPIRATORY INFECTION. [facility] Medical History (Updated 12/24/23 @ 14:09 by Isra Hurley MD) Cough Cough Restrictive lung disease Shortness of breath B12 deficiency Mixed hyperlipidemia Tachycardia Osteopenia Hypovitaminosis D Arthritis Ductal carcinoma in situ of left breast Chronic lower back pain Surgical History Hx of tubal ligation S/P lumpectomy, left breast (02/03/20) History of breast biopsy History of section History of cholecystectomy Family History Father Myocardial infarction Hypertension Mother Breast cancer Son History of kidney problems Brother Prostate cancer Sister Breast cancer Family/Other Substance use disorder Mental health disorder Social History Household Members: Children Housing: Condominium Alcohol intake: former Patient Tobacco Use Status: Never used Tobacco e-Cigarette/Vaping Use: Never Used Second Hand Smoke Exposure: No service: No Current occupational status: disabled Sexual orientation: Straight/Heterosexual Gender identity: Female Cognitive needs: No Hearing needs: No Vision needs: Yes Female Reproductive History Menstrual Age of Menarche: 11 Review of Systems Const All systems reviewed & are unremarkable except as noted in HPI and below Eyes Reports no additional complaints ENT Reports no additional complaints Card Denies chest pain, Denies irregular heart rhythm, Denies leg edema and Reports dyspnea on exertion (Now very minimal.) Resp Reports as per HPI and Reports dyspnea on exertion (Now very minimal.) GI Reports no additional complaints Reports no additional complaints Musc Reports myalgias Skin/Breast Reports system reviewed and no additional complaints, except as documented Neuro Reports no additional complaints Psych Reports no additional complaints Physical Exam Vital Signs: Last Vital Signs Pulse 81 12/24/23 13:13 BP 110/68 12/24/23 13:13 Pulse Ox 98 12/24/23 13:13 Oxygen Delivery Method Room Air 12/24/23 13:13 BMI result Body Mass Index 27.3 Const General: healthy appearing, comfortable, no acute distress, alert and awake Orientation/consciousness: patient oriented x3 HEENT Head: Yes normal to inspection General nose exam: No nasal polyps present and No nasal discharge present Face and sinus: Yes sinuses nontender Mouth: oropharynx normal Throat: Yes posterior oropharynx normal Eyes General: appearance normal, both eyes and all related structures Neck Neck: Yes normal visual inspection, Yes no lymphadenopathy, Yes trachea midline and Yes no JVD Thyroid: Thyroid normal Chest Chest palpation & inspection: normal inspection of the chest, normal palpation of entire chest wall and no tenderness Resp Effort & Inspection: normal respiratory effort and no cough Auscultation: clear to auscultation bilaterally, no crackles and no wheezes Cardio Palpation: normal PMI Rate: regular rate Rhythm: regular rhythm Heart sounds: no gallops and no murmurs Peripheral pulses: Peripheral pulses 2+ throughout GI Palpation (GI): Soft to palpation, nontender, No hepatosplenomegaly present and no masses Auscultation: normal bowel sounds Back/Spine/Pelvis Thoracic/Lumbar Spine: thoracic and lumbar spine normal to inspection Skin General skin exam: no rashes or lesions noted Neuro General: patient oriented x3 and no focal motor deficits Cranial nerves: Yes CN's II-XII intact bilaterally Extrem General: Yes normal to inspection, Yes no clubbing, cyanosis or edema and Yes no calf tenderness Psych Appearance: grossly normal and well kempt Speech and movement: Normal speech and movement present Office Procedures Spirometry Testing Spirometry Comments: Spirometry done in the office (with clock and watch hands painter) Dr. Hurley has the results results scanned to her chart. 91308- Spirometry Results Reviewed Results Reviewed: SPIROMETRY IN OFFICE TODAY 03/22/22 FVC 125 % 72 % FEV1 91% 77 % FEF 25-75 35 % 100 % Assessment & Plan Assessment & Plan (1) Cough: Comment: Mild intermittent cough most likely secondary to low-grade nasal allergy and also asthma variant. Spirometry today shows decreased FEF 01/12/2075, this may be effort related or may be indicated of mild obstructive disorder( like asthma) Code(s): R05.9 - Cough, unspecified Category: Medical Plan: Explained to her. Prescribe ProAir to use 2 puffs Q 6 hours p.r.n. if she has persistent bouts of cough. Orders: Orders AMB Spirometry Testing Today J98.4 - Other disorders of lung Medications: New albuterol sulfate 90 mcg/actuation 2 puffs inhalation Q4-6H 30 days PRN 8.5 grams 2RF shortness of breath or wheezing and cough Coding Level of Care Code Est Pt Level 3 (98595) Diagnoses Cough R05.9 CPT Codes Spirometry - CPT: 40512- Spirometry ([id number])
[2023-12-24 13:13] VITALS: BP 110/68; PULSE 81; O2SAT 98; BMI 27.3
== END 2023-12-24 13:57 | disposition home or self-care (01) ==
PROVIDERS: PCP Internal Medicine; Visit Provider Internal Medicine
DX: R05.9 Cough, unspecified (principal)
CPT/HCPCS: 94010; 99213

== ENCOUNTER → 2023-12-24 12:48 | Outpatient (BNVA) | payer MEDICARE, MEDICAID, SELFPAY | PROVIDERS: PCP Internal Medicine; Visit Provider Internal Medicine | DX: R05.9 Cough, unspecified (principal) | CPT/HCPCS: 94010; 99212 ==

== ENCOUNTER 2024-01-14 10:33 | Outpatient (REF) | payer MEDICARE, MEDICAID, SELFPAY ==
--- NOTE | ~2024-01-14 | CT_ITS ---
EXAMINATION: CT CHEST WITHOUT CONTRAST CLINICAL INFORMATION: Unspecified pulmonary fibrosis COMPARISON: None available. TECHNIQUE: Multidetector volumetric CT imaging of the chest was done. Axial MIP volume rendering provided. Sagittal and coronal reformatted images were obtained. This CT examination was performed using dose optimization techniques as appropriate, variously including the following: *Automated exposure control *Adjustment of mA and/or kV according to patient size (this includes techniques or standardized protocols for targeted exams where dose is matched to indication/reason for exam; i.e. extremities or head) *Use of iterative reconstruction technique DLP: 224 mGy-cm FINDINGS: INSTRUCTOR PILOT: Unremarkable LUNGS: The lungs are clear with no evidence of inflammation or nodules. MEDIASTINUM: The mediastinum is normal. Central airways are patent CORONARY ARTERY CALCIFICATION: None visualized on this study. PLEURA: There is no pleural effusion. No pleural mass or thickening. AXILLA: No lymphadenopathy. UPPER ABDOMEN: There is low-attenuation of the liver due to hepatic steatosis and small hiatal hernia OSSEOUS STRUCTURES: Unremarkable. CT/CT chest wo IV con IMPRESSION: 1. No lung nodules. 2. Hepatic steatosis. 3. Small hiatal hernia. Fleischner guidelines were followed.
== END 2024-01-14 10:34 | disposition home or self-care (01) ==
LOC: HO.CT 10:33
PROVIDERS: PCP Internal Medicine; Visit Provider Internal Medicine
DX: J84.10 Pulmonary fibrosis, unspecified (principal)
CPT/HCPCS: 71250

== ENCOUNTER 2024-03-03 13:08 | Outpatient (AMB) | payer MEDICARE, MEDICAID, SELFPAY ==
--- NOTE | 2024-03-03 13:09 | A.OFFVIS_ITS ---
Vital Signs 03/03/24 13:13 Height 5 ft 3 in Weight 149 lb BMI 26.4 BP 144/83 H Blood Pressure Location Rt brachial Position Sitting Pulse 101 H Intake Visit Reasons: 6 month follow-up breast exam Intake Note: This patient presents for a six month breast examination. Patient c/o; reports no breast complaints. Senior Gis Analyst Required: Yes Senior Gis Analyst Language: Exploration Driller Services: Senior Gis Analyst Present Senior Gis Analyst Name: Mervin Information Interpreted: non-clinical & clinical Accompanied by: Self / Same As Patient Allergies penicillin G [PENICILLIN G] Allergy (Intermediate, Verified 03/03/24 13:19) RASH HPI Comments Details: 68-year-old female returning for follow-up breast examination. 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 She continue her radiation therapy and subsequent follow-up mammogram performed on 11/24/2021 revealed no mammographic evidence of recurrent disease, benign (BI-RADS 2). Follow-up mammogram on 11/28/2022 revealed no mammographic evidence of malignancy (BI-RADS 2). One year follow-up mammogram is recommended. She continues on the letrozole 2.5 mg p.o. daily and denies any ongoing symptoms. Her most recent mammogram from 12/04/2023 revealed no mammographic evidence of malignancy (BI-RADS 2). She denies any ongoing breast symptoms. She does have some shortness of breath and recently underwent a chest CT which revealed a hiatal hernia and steatosis, no pulmonary nodules were identified. [facility] Medical History Cough Cough Restrictive lung disease Shortness of breath B12 deficiency Mixed hyperlipidemia Tachycardia Osteopenia Hypovitaminosis D Arthritis Ductal carcinoma in situ of left breast Chronic lower back pain Surgical History Hx of tubal ligation S/P lumpectomy, left breast (02/03/20) History of breast biopsy History of section History of cholecystectomy Family History Father Myocardial infarction Hypertension Mother Breast cancer Son History of kidney problems Brother Prostate cancer Sister Breast cancer Family/Other Substance use disorder Mental health disorder Social History Household Members: Children Housing: Condominium Alcohol intake: former Patient Tobacco Use Status: Never used Tobacco e-Cigarette/Vaping Use: Never Used Second Hand Smoke Exposure: No service: No Current occupational status: disabled Sexual orientation: Straight/Heterosexual Gender identity: Female Cognitive needs: No Hearing needs: No Vision needs: Yes Female Reproductive History Menstrual Age of Menarche: 11 Review of Systems Const All systems reviewed & are unremarkable except as noted in HPI and below Card Denies chest pain Denies nipple discharge Musc Reports as per HPI Skin/Breast Details: Skin lesion as noted in HPI Denies breast swelling, Denies breast skin changes, Reports breast pain, Denies breast mass and Denies nipple discharge Wm/Lymph Denies lymphadenopathy Physical Exam Const General: cooperative, healthy appearing, comfortable, no acute distress, well developed and alert Neck Neck: Yes no lymphadenopathy Lymphatic: no lymphadenopathy noted Chest Other: Left breast: Well-healed incision in the 9 o'clock position. No palpable mass or new skin change. No discrete mass and no enlarged lymph nodes. Right breast: No skin change, nipple discharge, nipple retraction, no mass, or enlarged lymph nodes. Resp Other: Breathing comfortably on room air, no respiratory distress GI Inspection: Yes normal to inspection Skin Other: warm and dry, no rash Extrem Other: no edema in the upper extremities. Flat brown lesion with an irregular margin measuring approximately 1 cm noted in the mid right garza. There is overlying dry skin but no ulceration. General: Yes no clubbing, cyanosis or edema Assessment & Plan Assessment & Plan (1) Ductal carcinoma in situ of left breast: Comment: Started letrozole 05/23/2020 Code(s): D05.12 - Intraductal carcinoma in situ of left breast Category: Medical Plan 68-year-old female patient returning for a routine follow-up breast examination after left breast lumpectomy for ductal carcinoma in Situ. Margins were later determined to be positive after starting her radiation therapy. Subsequent mammography and on 11/23/2020 revealed a stable parenchymal pattern with no new suspicious findings (BI-RADS 2). Her most recent mammogram from 12/04/2023 revealed no mammographic evidence of malignancy (BI-RADS 2). Examination today revealed no suspicious findings in either breast. I recommended a follow-up examination in 6 months, sooner p.r.n.. Coding Level of Care Code Est Pt Level 3 (62547) Diagnoses Ductal carcinoma in situ of left breast D05.12
[2024-03-03 13:13] VITALS: BP 144/83; PULSE 101; BMI 26.4
== END 2024-03-03 13:19 | disposition home or self-care (01) ==
PROVIDERS: PCP Internal Medicine; Visit Provider Surgery
DX: Z85.3 Personal history of malignant neoplasm of breast (principal)
CPT/HCPCS: 99213

== ENCOUNTER → 2024-03-03 13:08 | Outpatient (BNVA) | payer MEDICARE, MEDICAID, SELFPAY | PROVIDERS: PCP Internal Medicine; Visit Provider Surgery | DX: D05.12 Intraductal carcinoma in situ of left breast (principal); Z79.811 Long term (current) use of aromatase inhibitors | CPT/HCPCS: 99212 ==

== ENCOUNTER 2024-03-25 13:31 | Outpatient (AMB) | payer MEDICARE, MEDICAID, SELFPAY ==
[2024-03-25 13:46] VITALS: BP 110/68; PULSE 78; O2SAT 97; BMI 29.5
--- NOTE | 2024-03-25 13:46 | A.OFFVIS_ITS ---
Vital Signs 03/25/24 13:46 Height 5 ft Weight 151 lb 0.266 oz BMI 29.5 BP 110/68 Blood Pressure Location Rt brachial Position Sitting Pulse 78 Pulse Source Pulse Oximeter Pulse Oximetry (%) 97 Oxygen Delivery Method Room Air Intake Visit Reasons: asthma Intake Note: pt is here for asthma follow up and she is coughing with her asthma, since last really not much better, still struggling Supervisor Sawmill Required: Yes Supervisor Sawmill Services: Supervisor Sawmill Present Supervisor Sawmill Name: negro Allergies penicillin G [PENICILLIN G] Allergy (Intermediate, Verified 03/25/24 14:02) RASH Medication List - Last Reconciled 03/25/24 by Isra Hurley MD acetaminophen (Tylenol Extra Strength) 500 mg PO Q6H PRN albuterol sulfate 90 mcg/actuation 2 puffs inhalation Q4-6H PRN 30 days ascorbic acid (vitamin C) (Vitamin C) 250 mg PO DAILY cholecalciferol (vitamin D3) (Vitamin D3) 25 mcg PO DAILY 90 days fenofibrate 54 mg PO DAILY 90 days letrozole 2.5 mg PO DAILY lisinopril 10 mg PO DAILY 90 days miscellaneous medical supply (Blood Pressure Cuff) As directed miscellaneous medical supply (Blood Pressure Cuff) As directed, wrist electronic BP cuff, monitor BP twice a day omeprazole 10 mg PO DAILY PRN 90 days rosuvastatin 20 mg PO DAILY 90 days Do you need a note to return to daycare/school/sports/work: No HPI HPI asthma: Details: THIS 68 YEARS OLD VERY PLEASANT [place]-SPEAKING FEMALE IS HERE FOR FOLLOW-UP. HER MAIN COMPLAINT IS COUGH, AND IN SPITE OF USING ALBUTEROL P.R.N. THE COUGH HAS NOT GONE. HOWEVER WHEN SHE USES ALBUTEROL SHE FEELS BETTER ONLY TEMPORARILY. SHE DENIES ANY NASAL CONGESTION OR POSTNASAL DRIP. SHE DENIES ANY WHEEZING ATTACKS. ON HER LAST VISIT THE SPIROMETRY WAS BASICALLY NORMAL, I NOTICE IN THE LIST OF HER MEDS THAT SHE IS ON LISINOPRIL 10 MG DAILY FOR HYPERTENSION. IT IS POSSIBLE THAT SOME OF HER COUGH IS DUE TO THIS NELLA INHIBITOR. [facility] Medical History Cough Cough Restrictive lung disease Shortness of breath B12 deficiency Mixed hyperlipidemia Tachycardia Osteopenia Hypovitaminosis D Arthritis Ductal carcinoma in situ of left breast Chronic lower back pain Surgical History Hx of tubal ligation S/P lumpectomy, left breast (02/03/20) History of breast biopsy History of section History of cholecystectomy Family History Father Myocardial infarction Hypertension Mother Breast cancer Son History of kidney problems Brother Prostate cancer Sister Breast cancer Family/Other Substance use disorder Mental health disorder Social History Household Members: Children Housing: [facility] Alcohol intake: former Patient Tobacco Use Status: Never used Tobacco e-Cigarette/Vaping Use: Never Used Second Hand Smoke Exposure: No service: No Current occupational status: disabled Sexual orientation: Straight/Heterosexual Gender identity: Female Cognitive needs: No Hearing needs: No Vision needs: Yes Female Reproductive History Menstrual Age of Menarche: 11 Review of Systems Const All systems reviewed & are unremarkable except as noted in HPI and below Eyes Reports no additional complaints ENT Reports no additional complaints Card Denies chest pain, Denies irregular heart rhythm, Denies leg edema and Reports dyspnea on exertion (Now very minimal.) Resp Reports as per HPI and Reports dyspnea on exertion (Now very minimal.) GI Reports no additional complaints Reports no additional complaints Musc Reports myalgias Skin/Breast Reports system reviewed and no additional complaints, except as documented Neuro Reports no additional complaints Psych Reports no additional complaints Physical Exam Vital Signs: Last Vital Signs Pulse 78 03/25/24 13:46 BP 110/68 03/25/24 13:46 Pulse Ox 97 03/25/24 13:46 Oxygen Delivery Method Room Air 03/25/24 13:46 BMI result Body Mass Index 29.5 Const General: healthy appearing, comfortable, no acute distress, alert and awake Orientation/consciousness: patient oriented x3 HEENT Head: Yes normal to inspection General nose exam: No nasal polyps present and No nasal discharge present Face and sinus: Yes sinuses nontender Mouth: oropharynx normal Throat: Yes posterior oropharynx normal Eyes General: appearance normal, both eyes and all related structures Neck Neck: Yes normal visual inspection, Yes no lymphadenopathy, Yes trachea midline and Yes no JVD Thyroid: Thyroid normal Chest Chest palpation & inspection: normal inspection of the chest, normal palpation of entire chest wall and no tenderness Resp Effort & Inspection: normal respiratory effort and no cough Auscultation: clear to auscultation bilaterally, no crackles and no wheezes Cardio Palpation: normal PMI Rate: regular rate Rhythm: regular rhythm Heart sounds: no gallops and no murmurs Peripheral pulses: Peripheral pulses 2+ throughout GI Palpation (GI): Soft to palpation, nontender, No hepatosplenomegaly present and no masses Auscultation: normal bowel sounds Back/Spine/Pelvis Thoracic/Lumbar Spine: thoracic and lumbar spine normal to inspection Skin General skin exam: no rashes or lesions noted Neuro General: patient oriented x3 and no focal motor deficits Cranial nerves: Yes CN's II-XII intact bilaterally Extrem General: Yes normal to inspection, Yes no clubbing, cyanosis or edema and Yes no calf tenderness Psych Appearance: grossly normal and well kempt Speech and movement: Normal speech and movement present Assessment & Plan Assessment & Plan (1) Cough: Comment: Mild intermittent cough most likely secondary to low-grade nasal allergy and also asthma variant. Spirometry today shows decreased FEF 2-75, this may be effort related or may be indicated of mild obstructive disorder( like asthma) BECAUSE HER COUGH IS ONGOING, IT MAY BE CONTRIBUTED BY LISINOPRIL THAT SHE TAKES FOR HYPERTENSION. Code(s): R05.9 - Cough, unspecified Category: Medical Plan: SHE HAS BEEN GIVEN ALBUTEROL INHALER TO USE P.R.N., SHE USES ONCE IN A WHILE AND IT HELPS ONLY TEMPORARILY. I WILL PRESCRIBE ICS AGENT TO SEE IF THIS WOULD HELP IN REDUCING THE AMOUNT OF COUGH. ARNUITY ELLIPTA -100 1 INHALATION DAILY IS PRESCRIBED . I WOULD ALSO CHANGE LISINOPRIL TO LOSARTAN 50 MG DAILY , AND IF LISINOPRIL IS CONTRIBUTING TO HER COUGH ,. THIS CHANGE WOULD HELP PATIENT WOULD BE SEEN ON A SHORT INTERVAL TO MONITOR HER PROGRESS. Medications: New fluticasone furoate 100 mcg/actuation (Arnuity Ellipta) 1 inh inhalation DAILY 30 days 30 ea 3RF ASTHMA losartan 50 mg PO DAILY 30 days 30 tabs 3RF hypertension Coding Level of Care Code Est Pt Level 3 (96743) Diagnoses Cough R05.9
== END 2024-03-25 14:04 | disposition home or self-care (01) ==
PROVIDERS: PCP Internal Medicine; Visit Provider Internal Medicine
DX: R05.9 Cough, unspecified (principal)
CPT/HCPCS: 99213

== ENCOUNTER → 2024-03-25 13:31 | Outpatient (BNVA) | payer MEDICARE, MEDICAID, SELFPAY | PROVIDERS: PCP Internal Medicine; Visit Provider Internal Medicine | DX: R05.9 Cough, unspecified (principal) | CPT/HCPCS: 99212 ==

== ENCOUNTER 2024-03-26 09:02 | Outpatient (REF) | payer MEDICARE, MEDICAID, SELFPAY ==
[2024-03-30 13:52] LABS: HPV mRNA E6/E7 Not Detected (Not Detected)
== END 2024-03-26 09:03 | disposition home or self-care (01) ==
LOC: HO.LNP 09:02
PROVIDERS: PCP Internal Medicine; Visit Provider Obstetrics & Gynecology
DX: Z01.419 Encounter for gynecological examination (general) (routine) without abnormal findings (principal); Z11.51 Encounter for screening for human papillomavirus (HPV)
CPT/HCPCS: 87624; 88175; G0101; Q0091

== ENCOUNTER 2024-03-26 09:02 | Outpatient (AMB) | payer MEDICARE, MEDICAID, SELFPAY ==
[2024-03-26 09:49] VITALS: BP 118/62; BMI 29.3
--- NOTE | 2024-03-26 09:49 | MHC.OFFVIS ---
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 No complaints. Last Pap/HPV was in 08/13 was negative, no co testing results available prior to that date Last Mammogram was BI-RADS 2 in 12/17 Last Colonoscopy was in 07/15, the recommendation was to repeat in 10 years Last DEXA scan was done in 03/17, in the lower risk category PFSH Medical History Cough Cough Restrictive lung disease Shortness of breath B12 deficiency Mixed hyperlipidemia Tachycardia Osteopenia Hypovitaminosis D Arthritis Ductal carcinoma in situ of left breast Chronic lower back pain Surgical History Hx of tubal ligation S/P lumpectomy, left breast (02/03/20) History of breast biopsy History of section History of cholecystectomy Family History Father Myocardial infarction Hypertension Mother Breast cancer Son History of kidney problems Brother Prostate cancer Sister Breast cancer Family/Other Substance use disorder Mental health disorder Social History Household Members: Children Housing: Condominium Alcohol intake: former Patient Tobacco Use Status: Never used Tobacco e-Cigarette/Vaping Use: Never Used Second Hand Smoke Exposure: No service: No Current occupational status: disabled Sexual orientation: Straight/Heterosexual Gender identity: Female Cognitive needs: No Hearing needs: No Vision needs: Yes Female Reproductive History Menstrual Age of Menarche: 11 Menopause type: natural Review of Systems Const All systems reviewed & are unremarkable except as noted in HPI and below Card Reports as per HPI Resp Reports as per HPI GI Reports as per HPI and Reports no additional complaints Reports as per HPI Physical Exam Vital Signs: Last Vital Signs BP 118/62 03/26/24 09:49 BMI result Body Mass Index 29.3 Const General: cooperative, healthy appearing and comfortable Chest Chest palpation & inspection: normal inspection of the chest and normal palpation of entire chest wall Breast/axilla inspection: normal inspection of the breasts and normal inspection of the axillae Breast/axilla palpation: normal palpation of the breasts, normal palpation of the axillae and no axillary lymphadenopathy Resp Effort & Inspection: normal respiratory effort Auscultation: clear to auscultation bilaterally Percussion: percussion normal Cardio Palpation: normal PMI Rate: regular rate Rhythm: regular rhythm Heart sounds: no murmurs and no rubs Peripheral pulses: Peripheral pulses 2+ throughout GI Inspection: Yes normal to inspection Palpation (GI): Soft to palpation, nontender, no guarding, not rigid and No hepatosplenomegaly present Percussion: Yes normal to percussion Auscultation: normal bowel sounds Rectal Exam - Female: deferred General: Yes bladder normal to palpation External Female Exam: No lesion Speculum Exam - Vagina: normal appearance of the vagina, normal palpation, normal vaginal discharge and not erythematous Speculum Exam - Cervix: normal appearance of the cervix and normal palpation Bimanual exam- vagina & uterus: normal bimanual exam, normal palpation, uterine size normal, bladder normal to palpation, consistency normal and normal palpation Bimanual Exam- Adnexa, other: normal adnexae, no masses and no tenderness Assessment & Plan Assessment & Plan (1) Well woman exam: Code(s): Z01.419 - Encounter for gynecological examination (general) (routine) without abnormal findings Category: Medical Plan: Co testing done although the patient is above the age of 65 but there is no evidence of previous co testing prior to 2019. Counseled the patient about the recommended dietary allowance of 1200 mg of Calcium & 800 IU of vitamin D. Instructions given the patient to schedule next screen Mammogram in 12/18. The patient was instructed to perform monthly self-breast exams and to schedule an annual exam in a year; All questions answered and the patient verbalized understanding. Coding Level of Care Code Est Pt Prev Care >65y(46814) Diagnoses Well woman exam Z01.419
== END 2024-03-26 10:09 | disposition home or self-care (01) ==
LOC: HO.HWS 09:02
PROVIDERS: PCP Internal Medicine; Referring Provider Internal Medicine; Visit Provider Obstetrics & Gynecology
DX: Z01.419 Encounter for gynecological examination (general) (routine) without abnormal findings (principal)
CPT/HCPCS: G0101; Q0091

== ENCOUNTER 2024-05-16 07:12 | Outpatient (REF) | payer MEDICARE, MEDICAID, SELFPAY ==
[2024-05-16 08:20] LABS: Alanine Aminotransferase 22 U/L (0-31); Albumin Level 4.4 g/dL (3.5-5.0); Alkaline Phosphatase 93 U/L (39-117); Anion Gap 12 (12-20); Aspartate Amino Transferase 20 U/L (5-31); Bilirubin Total 0.6 mg/dL (0.0-1.0); Blood Urea Nitrogen 14 mg/dL (9-16); Carbon Dioxide 28 mmol/L (22-29); Chloride 106 mmol/L (96-108); Cholesterol 221 mg/dL (<200); Estimated Glomerular Filt Rate 47; Glucose Fasting 97 mg/dL (60-99); HDL Cholesterol 56 mg/dL (>40); LDL Cholesterol Calculated 131 mg/dL (<100); Sodium 142 mmol/L (135-145); Total Protein 7.9 g/dL (6.5-8.0); Triglycerides 174 mg/dL (<150)
[2024-05-16 08:38] LABS: Vitamin D 25-OH Total 31.7 ng/mL (>30)
[2024-05-16 08:45] LABS: Folate 13.3 ng/mL (> or = 4.0); Vitamin B12 410 pg/mL (200-900)
== END 2024-05-16 07:13 | disposition home or self-care (01) ==
LOC: HO.LAB 07:12
PROVIDERS: PCP Internal Medicine; Visit Provider Internal Medicine
DX: E78.2 Mixed hyperlipidemia (principal); E53.8 Deficiency of other specified B group vitamins; E55.9 Vitamin D deficiency, unspecified; E78.5 Hyperlipidemia, unspecified
CPT/HCPCS: 36415; 80053; 80061; 82306; 82607; 82746

== ENCOUNTER 2024-06-03 14:48 | Outpatient (AMB) | payer MEDICARE, MEDICAID, SELFPAY ==
--- NOTE | 2024-06-03 15:16 | MHC.PC.OV ---
Vital Signs 06/03/24 15:17 Height 5 ft 3 in Weight 149 lb BMI 26.4 BP 130/86 Blood Pressure Location Rt brachial Position Sitting Intake Visit Reasons: annual exam Intake Note: Patient here for an Annual Physical Exam Model Maker Scale Required: No Accompanied by: Self / Same As Patient Allergies penicillin G [PENICILLIN G] Allergy (Intermediate, Verified 06/03/24 15:52) RASH Medication List - Last Reconciled 06/03/24 by Laura Palumbo MD acetaminophen (Tylenol Extra Strength) 500 mg PO Q6H PRN albuterol sulfate 90 mcg/actuation 2 puffs inhalation Q4-6H PRN 30 days ascorbic acid (vitamin C) (Vitamin C) 250 mg PO DAILY cholecalciferol (vitamin D3) (Vitamin D3) 25 mcg PO DAILY 90 days fenofibrate 54 mg PO DAILY 90 days fluticasone furoate 100 mcg/actuation (Arnuity Ellipta) 1 inh inhalation DAILY 30 days letrozole 2.5 mg PO DAILY lisinopril 10 mg PO DAILY 90 days losartan 50 mg PO DAILY 30 days miscellaneous medical supply (Blood Pressure Cuff) As directed miscellaneous medical supply (Blood Pressure Cuff) As directed, wrist electronic BP cuff, monitor BP twice a day omeprazole 10 mg PO DAILY PRN 90 days rosuvastatin 20 mg PO DAILY 90 days Tobacco use date assessed: 11/19/23 Fall risk assessment: No Falls in past year Last assessed Fall Risk: 06/03/24 Dental Screening Dental Screen Date: 11/19/23 HPI HPI Comments History of Present Illness Details This is a 69-year-old female that comes for her physical exam. Mammogram done 2023. Bone DXA scan done 2022 was normal. Colonoscopy done 2019 was normal. She complains of dizziness and I will order meclizine as needed. [facility] Medical History (Updated 06/03/24 @ 20:28 by Laura Palumbo MD) Pulmonary fibrosis Cough Cough Restrictive lung disease Shortness of breath B12 deficiency Mixed hyperlipidemia Tachycardia Osteopenia Hypovitaminosis D Arthritis Ductal carcinoma in situ of left breast Chronic lower back pain Surgical History Hx of tubal ligation S/P lumpectomy, left breast (02/03/20) History of breast biopsy History of section History of cholecystectomy Family History Father Myocardial infarction Hypertension Mother Breast cancer Son History of kidney problems Brother Prostate cancer Sister Breast cancer Family/Other Substance use disorder Mental health disorder Social History Household Members: Children Housing: Condominium Alcohol intake: former Patient Tobacco Use Status: Never used Tobacco e-Cigarette/Vaping Use: Never Used Second Hand Smoke Exposure: No service: No Current occupational status: disabled Sexual orientation: Straight/Heterosexual Gender identity: Female Cognitive needs: No Hearing needs: No Vision needs: Yes Female Reproductive History Menstrual Age of Menarche: 11 Questionnaire PHQ-9 Over the last 2 weeks, how often have you been bothered by any of the following problems? 1. Little interest or pleasure in doing things: nearly every day 2. Feeling down, depressed, or hopeless: more than half the days 3. Trouble falling or staying asleep, or sleeping too much: nearly every day 4. Feeling tired or having little energy: nearly every day 5. Poor appetite or overeating: more than half the days 6. Feeling bad about yourself - or that you are a failure or have let yourself or your family down: not at all 7. Trouble concentrating on things, such as reading the newspaper or watching television: not at all 8. Moving or speaking so slowly that other people could have noticed. Or the opposite - being so fidgety or restless that you have been moving around a lot more than usual: nearly every day 9. Thoughts that you would be better off or of hurting yourself in some way: not at all Total score: 16 Depression Screening Interpretation: Positive (no suicidal thoughts) Depression Screening Follow-up: Existing condition and Follow-up Visit Requested Depression Screening Done: Yes [id number] - PHQ-9 Billing: Yes Source: Developed by Drs. Geovanni Damon, Nisha Mann, Sky Woods and colleagues, with an educational jocelyne from [employer] Thrive Questionnaire Date Thrive assessed: 11/19/23 I am a: Patient What is your living situation today?: I have a steady place to live Within the past 12 months, did the food you bought not last and you didn't have the money to get more?: Never true Within the past 12 months, did you worry whether your food would run out before you got money to buy more?: Never true Do you have trouble paying for medicines?: No Do you have trouble getting transportation to medical appointments?: Yes Do you have trouble paying your heating and electricity bill?: Yes Do you have trouble taking care of your child, family member or friend?: Yes Do you have trouble with day-to-day activities such as bathing, preparing meals, shopping, managing finances, etc.?: Yes Are you currently unemployed and looking for a job?: No Are you interested in more education?: No Please select the resources that you would like help with: Transportation Currently or been in a relationship where the following occur: No concerns reported THRIVE Score: 2 AUDIT C Alcohol Use Questionnaire (AUDIT-C) 1. How often do you have a drink containing alcohol?: Never Total Score: 0 Score Reviewed/Action Taken: No LU-7 AMB Questionnaire LU-7 Date LU - 7 assessed: 06/03/24 Feeling nervous, anxious, or on edge: 2 = More than half the days Not being able to stop or control worryin = Nearly every day Worrying too much about different things: 3 = Nearly every day Trouble relaxin = Nearly every day Being so restless that it is hard to sit still: 3 = Nearly every day Becoming easily annoyed or irritable: 2 = More than half the days Feeling afraid as if something awful might happen: 2 = More than half the days Total LU-7 score (0-4 normal; 5-9 mild; 10-14 moderate; 15-21 severe): 18 Source: Developed by Drs. Geovanni Damon, Nisha Mann, Sky Woods and colleagues, with an educational jocelyne from [employer] LU-7 Assessment Billing LU-7 Assessment Tool: LU-7 Assessment 89037 Review of Systems Const All systems reviewed & are unremarkable except as noted in HPI and below Card Denies chest pain at rest, Denies chest pain with activity, Denies edema, Denies irregular heart rhythm, Denies claudication, Denies dyspnea, Denies dyspnea on exertion, Denies orthopnea, Denies paroxysmal nocturnal dyspnea and Denies slow heart rate Resp Denies cough, Denies dyspnea and Denies dyspnea on exertion GI Denies abdominal pain, Denies change in bowel habits, Denies excessive flatus, Denies nausea and Denies vomiting Denies urinary incontinence, Denies urinary hesitancy and Denies urinary urgency Musc Denies abnormal gait, Denies atrophy, Denies deformity and Denies limited range of motion Skin/Breast Denies bleeding lesions, Denies changing lesions and Denies rash Neuro Denies abnormal gait, Denies behavioral changes, Denies confusion and Denies lack of coordination Psych Denies behavioral changes and Denies confusion Physical exam (Primary Care) Vital Signs: Last Vital Signs BP 130/86 06/03/24 15:17 BMI result Body Mass Index 26.4 Tobacco/Smoking Status: Tobacco use Status Tobacco use date assessed 11/19/23 06/03/24 15:19 Patient Tobacco Use Status Never used Tobacco 06/03/24 15:19 e-Cigarette/Vaping Use Never Used 06/03/24 15:19 PHQ-9: PHQ-9 Score PHQ-9: Total score 16 06/03/24 15:57 Depression Screening Interpretation: Positive (no suicidal thoughts) Depression Screening Follow-up: Existing condition and Follow-up Visit Requested Thrive Assessment: Date of Thrive Assessment Date Thrive assessed 11/19/23 06/03/24 15:19 Currently or been in a relationship where the following occur: No concerns reported Const General: No confusion Orientation/consciousness: patient oriented x3 and No confusion HENMT Head: Yes normal to inspection, Yes normocephalic and Yes atraumatic Ears: external ears normal Eyes General: appearance normal, both eyes and all related structures Eyelids: Yes eyelids normal Conjunctivae: conjunctivae normal Neck Neck: Yes normal visual inspection and Yes supple Resp Effort & Inspection: normal respiratory effort Auscultation: clear to auscultation bilaterally Cardio Jugular venous distension: no JVD Rate: regular rate Rhythm: regular rhythm Heart sounds: S1 normal heart sound present and S2 normal heart sound present GI Inspection: Yes normal to inspection Palpation (GI): Soft to palpation and nontender Auscultation: normal bowel sounds Skin General skin exam: no rashes or lesions noted Neuro General: patient oriented x3, no focal motor deficits and No confusion Extrem General: Yes full ROM Psych Appearance: grossly normal Office Procedures Flu Questionnaire Does the patient have a severe egg allergy?: No Immunizations Fluarix Triv [id number] (PF) 45 mcg (15 mcg x 3)/0.5 mL IM syringe Performing Provider: Laura Palumbo MD [facility] [place] [facility] Documented (not given) by: MARK Power on 06/03/24 15:21 Reason Not Given: Patient Refused Coding Level of Care Code Est Pt Level 3 (52043) Est Pt Prev Care >65y(47910) Diagnoses Physical exam Z00.00 Dizziness R42 Additional Codes LU-7 Assessment Billing - LU-7 Assessment Tool: LU-7 Assessment 00097 ([id number]) Time Spent (min) 31 Assessment & Plan Assessment & Plan (1) Physical exam: Code(s): Z00.00 - Encounter for general adult medical examination without abnormal findings Category: Medical Plan: Repeat in a year. (2) Dizziness: Code(s): R42 - Dizziness and giddiness Category: Medical Plan: Start meclizine as needed. Orders: Orders Influenza [id number] Immunization Today Z23 - Encounter for immunization Medications: New meclizine 25 mg PO DAILY 10 days PRN 10 tabs 0RF motion sickness R42 - Dizziness and giddiness Discontinued losartan Discontinued Reason: Patient Completed Course 50 mg PO DAILY 30 days 30 tabs 3RF hypertension
[2024-06-03 15:17] VITALS: BP 130/86; BMI 26.4
== END 2024-06-03 16:05 | disposition home or self-care (01) ==
PROVIDERS: PCP Internal Medicine; Visit Provider Internal Medicine
DX: Z00.00 Encounter for general adult medical examination without abnormal findings (principal); R42 Dizziness and giddiness

== ENCOUNTER → 2024-06-03 14:48 | Outpatient (BNVA) | payer MEDICARE, MEDICAID, SELFPAY | PROVIDERS: PCP Internal Medicine; Visit Provider Internal Medicine | DX: Z00.01 Encounter for general adult medical examination with abnormal findings (principal); R42 Dizziness and giddiness | CPT/HCPCS: 90471; 96127; 99212; 99397 ==

== ENCOUNTER 2024-06-10 13:41 | Outpatient (AMB) | payer MEDICARE, MEDICAID, SELFPAY ==
--- NOTE | 2024-06-10 13:47 | MHC.OFFVIS ---
Vital Signs 06/10/24 13:48 Height 5 ft 3 in Weight 151 lb 0.266 oz BMI 26.7 BP 152/78 H Blood Pressure Location Lt brachial Position Sitting Pulse 79 Pulse Source Pulse Oximeter Pulse Oximetry (%) 98 Oxygen Delivery Method Room Air Intake Visit Reasons: asthma Intake Note: pt is here for follow up and is feeling okay Business Economist Required: Yes Business Economist Services: Business Economist Present Business Economist Name: claudy Allergies penicillin G [PENICILLIN G] Allergy (Intermediate, Verified 06/10/24 14:05) RASH Medication List - Last Reconciled 06/10/24 by Isra Hurley MD acetaminophen (Tylenol Extra Strength) 500 mg PO Q6H PRN albuterol sulfate 90 mcg/actuation 2 puffs inhalation Q4-6H PRN 30 days ascorbic acid (vitamin C) (Vitamin C) 250 mg PO DAILY cholecalciferol (vitamin D3) (Vitamin D3) 25 mcg PO DAILY 90 days fenofibrate 54 mg PO DAILY 90 days fluticasone furoate 100 mcg/actuation (Arnuity Ellipta) 1 inh inhalation DAILY 30 days letrozole 2.5 mg PO DAILY lisinopril 10 mg PO DAILY 90 days meclizine 25 mg PO DAILY PRN 10 days miscellaneous medical supply (Blood Pressure Cuff) As directed miscellaneous medical supply (Blood Pressure Cuff) As directed, wrist electronic BP cuff, monitor BP twice a day omeprazole 10 mg PO DAILY PRN 90 days rosuvastatin 20 mg PO DAILY 90 days Do you need a note to return to daycare/school/sports/work: No HPI HPI asthma: Details: THIS 69 YEARS OLD VERY PLEASANT IRAQI-SPEAKING FEMALE IS HERE FOR FOLLOW-UP AFTER 3 MONTHS. SHE HAS MILD BRONCHIAL ASTHMA, COUGH VARIANT, AND IT IS WELL CONTROLLED WITH ARNUITY -100 ONCE A DAY. SHE DOES HAVE ALBUTEROL FOR P.R.N. USE BUT HARDLY NEEDS TO USE IT. COUGH IS ONLY MINIMAL, AND NOT BOTHERSOME. SHE CAN WALK AROUND WITHOUT GETTING SHORT OF BREATH. [facility] Medical History Pulmonary fibrosis Cough Cough Restrictive lung disease Shortness of breath B12 deficiency Mixed hyperlipidemia Tachycardia Osteopenia Hypovitaminosis D Arthritis Ductal carcinoma in situ of left breast Chronic lower back pain Surgical History Hx of tubal ligation S/P lumpectomy, left breast (02/03/20) History of breast biopsy History of section History of cholecystectomy Family History Father Myocardial infarction Hypertension Mother Breast cancer Son History of kidney problems Brother Prostate cancer Sister Breast cancer Family/Other Substance use disorder Mental health disorder Social History Household Members: Children Housing: Condominium Alcohol intake: former Patient Tobacco Use Status: Never used Tobacco e-Cigarette/Vaping Use: Never Used Second Hand Smoke Exposure: No service: No Current occupational status: disabled Sexual orientation: Straight/Heterosexual Gender identity: Female Cognitive needs: No Hearing needs: No Vision needs: Yes Female Reproductive History Menstrual Age of Menarche: 11 Review of Systems Const All systems reviewed & are unremarkable except as noted in HPI and below Eyes Reports no additional complaints ENT Reports no additional complaints Card Denies chest pain, Denies irregular heart rhythm, Denies leg edema and Reports dyspnea on exertion (Now very minimal.) Resp Reports as per HPI and Reports dyspnea on exertion (Now very minimal.) GI Reports no additional complaints Reports no additional complaints Musc Reports myalgias Skin/Breast Reports system reviewed and no additional complaints, except as documented Neuro Reports no additional complaints Psych Reports no additional complaints Physical Exam Vital Signs: Last Vital Signs Pulse 79 06/10/24 13:48 BP 152/78 H 06/10/24 13:48 Pulse Ox 98 06/10/24 13:48 Oxygen Delivery Method Room Air 06/10/24 13:48 BMI result Body Mass Index 26.7 Const General: healthy appearing, comfortable, no acute distress, alert and awake Orientation/consciousness: patient oriented x3 HEENT Head: Yes normal to inspection General nose exam: No nasal polyps present and No nasal discharge present Face and sinus: Yes sinuses nontender Mouth: oropharynx normal Throat: Yes posterior oropharynx normal Eyes General: appearance normal, both eyes and all related structures Neck Neck: Yes normal visual inspection, Yes no lymphadenopathy, Yes trachea midline and Yes no JVD Thyroid: Thyroid normal Chest Chest palpation & inspection: normal inspection of the chest, normal palpation of entire chest wall and no tenderness Resp Effort & Inspection: normal respiratory effort and no cough Auscultation: clear to auscultation bilaterally, no crackles and no wheezes Cardio Palpation: normal PMI Rate: regular rate Rhythm: regular rhythm Heart sounds: no gallops and no murmurs Peripheral pulses: Peripheral pulses 2+ throughout GI Palpation (GI): Soft to palpation, nontender, No hepatosplenomegaly present and no masses Auscultation: normal bowel sounds Back/Spine/Pelvis Thoracic/Lumbar Spine: thoracic and lumbar spine normal to inspection Skin General skin exam: no rashes or lesions noted Neuro General: patient oriented x3 and no focal motor deficits Cranial nerves: Yes CN's II-XII intact bilaterally Extrem General: Yes normal to inspection, Yes no clubbing, cyanosis or edema and Yes no calf tenderness Psych Appearance: grossly normal and well kempt Speech and movement: Normal speech and movement present Assessment & Plan Assessment & Plan (1) Dyspnea on exertion: Comment: Dyspnea on exertion is mild and nonspecific. PULMONARY FUNCTION TEST SHOWS MILD RESTRICTIVE DISORDER, AND NO OBSTRUCTIVE DISORDER. Code(s): R06.00 - Dyspnea, unspecified Category: Medical Plan: * PATIENT IS INSTRUCTED TO KEEP ON DOING DEEP BREATHING EXERCISES 3 TIMES A DAY. (2) Restrictive lung disease: Comment: NOTED ABOVE SHE HAS A MILD RESTRICTIVE PATTERN, WHITH TLC 70%. THIS IS A NONSPECIFIC FINDING, THE TREATMENT IS BASICALLY DOING BREATHING EXERCISES 3 TIMES A DAY. Code(s): J98.4 - Other disorders of lung Category: Medical Plan: AGAIN INSTRUCTED TO DO DEEP BREATHING EXERCISES 2 OR 3 TIMES A DAY (3) Cough: Comment: Mild intermittent cough most likely secondary to low-grade nasal allergy and also asthma variant. Spirometry showed decreased FEF 25-75, this may be effort related or may be indicative of mild obstructive disorder( like asthma) Patient was considered to have cough has Asthma variant, and has responded well to the use of inhaled steroid Arnuity ) At present the cough is very minimal . And not bothersome Code(s): R05.9 - Cough, unspecified Category: Medical Plan: Continue using Arnuity 100 karyn 1 puff daily. And albuterol HFA 2 puffs Q 6 hours only p.r.n.. Coding Level of Care Code Est Pt Level 3 (58748) Diagnoses Dyspnea on exertion R06.00 Restrictive lung disease J98.4 Cough R05.9
[2024-06-10 13:48] VITALS: BP 152/78; PULSE 79; O2SAT 98; BMI 26.7
== END 2024-06-10 14:10 | disposition home or self-care (01) ==
PROVIDERS: PCP Internal Medicine; Visit Provider Internal Medicine
DX: R06.00 Dyspnea, unspecified (principal); J98.4 Other disorders of lung; R05.9 Cough, unspecified
CPT/HCPCS: 99213

== ENCOUNTER → 2024-06-10 13:41 | Outpatient (BNVA) | payer MEDICARE, MEDICAID, SELFPAY | PROVIDERS: PCP Internal Medicine; Visit Provider Internal Medicine | DX: J98.4 Other disorders of lung (principal); R06.00 Dyspnea, unspecified; R05.9 Cough, unspecified | CPT/HCPCS: 99212 ==

== ENCOUNTER 2024-10-06 09:36 | Outpatient (AMB) | payer MEDICARE, MEDICAID, SELFPAY ==
--- NOTE | 2024-10-06 09:41 | MHC.OFFVIS ---
Vital Signs 10/06/24 09:47 Height 5 ft 3 in Weight 154 lb 2 oz BMI 27.3 BP 168/77 H Blood Pressure Location Lt brachial Position Sitting Pulse 92 Intake Visit Reasons: 6 month Breast Exam Intake Note: Patient is seen in office for 6 month follow up visit, breast exam. Patient c/o: continued bilateral breast pain, comes and goes, at times pain when lifitng the arms mm sched:12/09/24 Hvac Journeyman Required: Yes Hvac Journeyman Language: Private Duty Aide Services: Hvac Journeyman Present Hvac Journeyman Name: Florencia FLORES Information Interpreted: non-clinical & clinical Marketing Associate: Marketing Associate Present Accompanied by: Self / Same As Patient Allergies penicillin G [PENICILLIN G] Allergy (Intermediate, Verified 10/06/24 09:42) RASH Medication List - Last Reconciled 10/06/24 by Bull Hernandez MD acetaminophen (Tylenol Extra Strength) 500 mg PO Q6H PRN albuterol sulfate 90 mcg/actuation 2 puffs inhalation Q4-6H PRN 30 days ascorbic acid (vitamin C) (Vitamin C) 250 mg PO DAILY cholecalciferol (vitamin D3) (Vitamin D3) 25 mcg PO DAILY 90 days fenofibrate 54 mg PO DAILY 90 days fluticasone furoate 100 mcg/actuation (Arnuity Ellipta) 1 inh inhalation DAILY 30 days letrozole 2.5 mg PO DAILY lisinopril 10 mg PO DAILY 90 days meclizine 25 mg PO DAILY PRN 10 days miscellaneous medical supply (Blood Pressure Cuff) As directed miscellaneous medical supply (Blood Pressure Cuff) As directed, wrist electronic BP cuff, monitor BP twice a day omeprazole 10 mg PO DAILY PRN 90 days rosuvastatin 20 mg PO DAILY 90 days HPI Comments Details: 69-year-old female returning for follow-up breast examination. 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 She continue her radiation therapy and subsequent follow-up mammogram performed on 11/24/2021 revealed no mammographic evidence of recurrent disease, benign (BI-RADS 2). Follow-up mammogram on 11/28/2022 revealed no mammographic evidence of malignancy (BI-RADS 2). One year follow-up mammogram is recommended. She continues on the letrozole 2.5 mg p.o. daily. Her most recent mammogram from 12/04/2023 revealed no mammographic evidence of malignancy (BI-RADS 2). She reports soreness in both breasts but denies any palpable mass. She is scheduled for a mammogram on 12/09/2024. [facility] Medical History Pulmonary fibrosis Cough Cough Restrictive lung disease Shortness of breath B12 deficiency Mixed hyperlipidemia Tachycardia Osteopenia Hypovitaminosis D Arthritis Ductal carcinoma in situ of left breast Chronic lower back pain Surgical History Hx of tubal ligation S/P lumpectomy, left breast (02/03/20) History of breast biopsy History of section History of cholecystectomy Family History Father Myocardial infarction Hypertension Mother Breast cancer Son History of kidney problems Brother Prostate cancer Sister Breast cancer Family/Other Substance use disorder Mental health disorder Social History Household Members: Children Housing: Condominium Alcohol intake: former Patient Tobacco Use Status: Never used Tobacco e-Cigarette/Vaping Use: Never Used Second Hand Smoke Exposure: No service: No Current occupational status: disabled Sexual orientation: Straight/Heterosexual Gender identity: Female Cognitive needs: No Hearing needs: No Vision needs: Yes Female Reproductive History Menstrual Age of Menarche: 11 Review of Systems Const All systems reviewed & are unremarkable except as noted in HPI and below Card Denies chest pain Denies nipple discharge Musc Reports as per HPI Skin/Breast Details: Skin lesion as noted in HPI Denies breast swelling, Denies breast skin changes, Reports breast pain, Denies breast mass and Denies nipple discharge Wm/Lymph Denies lymphadenopathy Physical Exam Vital Signs: Last Vital Signs Pulse 92 10/06/24 09:47 BP 168/77 H 10/06/24 09:47 BMI result Body Mass Index 27.3 Const General: cooperative, healthy appearing, comfortable, no acute distress, well developed and alert Neck Neck: Yes no lymphadenopathy Lymphatic: no lymphadenopathy noted Chest Other: Left breast: Well-healed incision in the 9 o'clock position. No palpable mass or new skin change. No discrete mass and no enlarged lymph nodes. Right breast: No skin change, nipple discharge, nipple retraction, no mass, or enlarged lymph nodes. Diffuse tenderness to both breasts with deep palpation. Chest/axillae images: 1. Well-healed incision lower inner quadrant left breast Resp Other: Breathing comfortably on room air, no respiratory distress GI Inspection: Yes normal to inspection Skin Other: warm and dry, no rash Neuro Other: Mobility Assessment: 1. 3 meter assessment time (seconds) 5 2. Gait observations: Normal balance and gait Extrem Other: no edema in the upper extremities. Flat brown lesion with an irregular margin measuring approximately 1 cm noted in the mid right garza. There is overlying dry skin but no ulceration. General: Yes no clubbing, cyanosis or edema Assessment & Plan Assessment & Plan (1) Ductal carcinoma in situ of left breast: Comment: Started letrozole 05/23/2020 Code(s): D05.12 - Intraductal carcinoma in situ of left breast Category: Medical Plan 69-year-old female patient returning for a routine follow-up breast examination after left breast lumpectomy for ductal carcinoma in Situ. Margins were later determined to be positive after starting her radiation therapy. Subsequent mammography and on 11/23/2020 revealed a stable parenchymal pattern with no new suspicious findings (BI-RADS 2). Her most recent mammogram from 12/04/2023 revealed no mammographic evidence of malignancy (BI-RADS 2). Examination today revealed no suspicious findings in either breast. I recommended a follow-up examination in 6 months, sooner p.r.n.. She is scheduled for her next mammogram on 12/09/2024 at the [facility]. Coding Level of Care Code Est Pt Level 3 (52760) Complex EM visit Add On G2211 Diagnoses Ductal carcinoma in situ of left breast D05.12
[2024-10-06 09:47] VITALS: BP 168/77; PULSE 92; BMI 27.3
== END 2024-10-06 09:59 | disposition home or self-care (01) ==
PROVIDERS: PCP Internal Medicine; Visit Provider Surgery
DX: D05.12 Intraductal carcinoma in situ of left breast (principal)
CPT/HCPCS: 99213; G2211

== ENCOUNTER → 2024-10-06 09:36 | Outpatient (BNVA) | payer MEDICARE, MEDICAID, SELFPAY | PROVIDERS: PCP Internal Medicine; Visit Provider Surgery | DX: D05.12 Intraductal carcinoma in situ of left breast (principal) | CPT/HCPCS: 99212 ==

== ENCOUNTER 2024-12-02 13:49 | Outpatient (AMB) | payer MEDICARE, MEDICAID, SELFPAY ==
--- NOTE | 2024-12-02 13:51 | A.OFFPC_ITS ---
Vital Signs 12/02/24 14:26 Height 5 ft 3 in Weight 153 lb 6 oz BMI 27.2 BP 132/80 Blood Pressure Location Lt brachial Position Sitting Pulse 90 Pulse Source Pulse Oximeter Temp 97.3 F Temp Source Temporal Artery Scan Pulse Oximetry (%) 99 Oxygen Delivery Method Room Air Intake Visit Reasons: bp, depression Client Service Representative Required: No Accompanied by: Self / Same As Patient Allergies penicillin G [PENICILLIN G] Allergy (Intermediate, Verified 12/02/24 14:40) RASH Medication List - Last Reconciled 12/02/24 by Laura Palumbo MD acetaminophen (Tylenol Extra Strength) 500 mg PO Q6H PRN albuterol sulfate 90 mcg/actuation 2 puffs inhalation Q4-6H PRN 30 days ascorbic acid (vitamin C) (Vitamin C) 250 mg PO DAILY cholecalciferol (vitamin D3) (Vitamin D3) 25 mcg PO DAILY 90 days fenofibrate 54 mg PO DAILY 90 days fluticasone furoate 100 mcg/actuation (Arnuity Ellipta) 1 inh inhalation DAILY 30 days letrozole 2.5 mg PO DAILY lisinopril 10 mg PO DAILY 90 days meclizine 25 mg PO DAILY PRN 10 days miscellaneous medical supply (Blood Pressure Cuff) As directed miscellaneous medical supply (Blood Pressure Cuff) As directed, wrist electronic BP cuff, monitor BP twice a day omeprazole 10 mg PO DAILY PRN 90 days rosuvastatin 20 mg PO DAILY 90 days Tobacco use date assessed: 12/02/24 Fall risk assessment: No Falls in past year Last assessed Fall Risk: 12/02/24 Dental Screening Dental Screen Date: 12/02/24 Did you have a dental visit in the last 12 months?: Yes Did you have a dental problem in the last 6 months where you did not have access to dental care?: No Was dental information given to patient?: Patient has dentist HPI HPI Comments History of Present Illness Details The patient is a 69-year-old female presenting with a follow-up for essential hypertension and other chronic illnesses. Her hypertension is well- controlled with lisinopril. She also takes medications like fenofibrate, omeprazole, and rosuvastatin. Diagnosed with breast cancer, she is currently on letrozole and has an upcoming appointment with her oncologist. She reports left-sided chest pain occurring intermittently, even at rest, described as a sensation of heart flipping. This symptom will be further evaluated. The patient also experiences persistent nasal congestion without current treatment, necessitating prescribing allergy medication. She has a history of arthralgia affecting her hips and back, which she associates with arthritis. No fever or systemic symptoms were reported. Social history includes past alcohol use, with abstinence for a prolonged period, and no history of smoking. Recent labs indicated improved cholesterol requiring evaluation during her next scheduled physical examination in May. [facility], [facility] Medical History (Updated 12/02/24 @ 14:46 by Laura Palumbo MD) Pulmonary fibrosis Cough Cough Restrictive lung disease Shortness of breath B12 deficiency Mixed hyperlipidemia Tachycardia Osteopenia Hypovitaminosis D Arthritis Ductal carcinoma in situ of left breast Chronic lower back pain Surgical History Hx of tubal ligation S/P lumpectomy, left breast (02/03/20) History of breast biopsy History of section History of cholecystectomy Family History Father Myocardial infarction Hypertension Mother Breast cancer Son History of kidney problems Brother Prostate cancer Sister Breast cancer Family/Other Substance use disorder Mental health disorder Social History Household Members: Children Housing: Condominium Alcohol intake: former Patient Tobacco Use Status: Never used Tobacco e-Cigarette/Vaping Use: Never Used Second Hand Smoke Exposure: No service: No Current occupational status: disabled Sexual orientation: Straight/Heterosexual Gender identity: Female Cognitive needs: No Hearing needs: No Vision needs: Yes Female Reproductive History Menstrual Age of Menarche: 11 Questionnaire PHQ-9 Over the last 2 weeks, how often have you been bothered by any of the following problems? 1. Little interest or pleasure in doing things: not at all 2. Feeling down, depressed, or hopeless: not at all 3. Trouble falling or staying asleep, or sleeping too much: not at all 4. Feeling tired or having little energy: not at all 5. Poor appetite or overeating: not at all 6. Feeling bad about yourself - or that you are a failure or have let yourself or your family down: not at all 7. Trouble concentrating on things, such as reading the newspaper or watching television: not at all 8. Moving or speaking so slowly that other people could have noticed. Or the opposite - being so fidgety or restless that you have been moving around a lot more than usual: not at all 9. Thoughts that you would be better off or of hurting yourself in some way: not at all Total score: 0 Depression Screening Interpretation: Negative Depression Screening Done: Yes 51289 - PHQ-9 Billing: Yes Source: Developed by Drs. Geovanni Damon, Nisha Mann, Sky Woods and colleagues, with an educational jocelyne from [employer]. Thrive Questionnaire Date Thrive assessed: 12/02/24 I am a: Patient What is your living situation today?: I have a steady place to live Within the past 12 months, did the food you bought not last and you didn't have the money to get more?: Never true Within the past 12 months, did you worry whether your food would run out before you got money to buy more?: Never true Do you have trouble paying for medicines?: No Do you have trouble getting transportation to medical appointments?: No Do you have trouble paying your heating and electricity bill?: No Do you have trouble taking care of your child, family member or friend?: No Do you have trouble with day-to-day activities such as bathing, preparing meals, shopping, managing finances, etc.?: No Are you currently unemployed and looking for a job?: No Are you interested in more education?: No Please select the resources that you would like help with: None Currently or been in a relationship where the following occur: No concerns reported THRIVE Score: 0 AUDIT C Alcohol Use Questionnaire (AUDIT-C) 1. How often do you have a drink containing alcohol?: Never 3. How often do you have six or more drinks on one occasion?: Never Total Score: 0 Score Reviewed/Action Taken: No LU-7 AMB Questionnaire LU-7 Date LU - 7 assessed: 12/02/24 Feeling nervous, anxious, or on edge: 0 = Not at all Not being able to stop or control worryin = Not at all Worrying too much about different things: 0 = Not at all Trouble relaxin = Not at all Being so restless that it is hard to sit still: 0 = Not at all Becoming easily annoyed or irritable: 0 = Not at all Feeling afraid as if something awful might happen: 0 = Not at all Total LU-7 score (0-4 normal; 5-9 mild; 10-14 moderate; 15-21 severe): 0 Source: Developed by Drs. Geovanni Damon, Nisha Mann, Sky Woods and colleagues, with an educational jocelyne from [employer]. LU-7 Assessment Billing LU-7 Assessment Tool: LU-7 Assessment 91659 Review of Systems Const All systems reviewed & are unremarkable except as noted in HPI and below Card Denies chest pain at rest, Denies chest pain with activity, Denies edema, Denies irregular heart rhythm, Denies claudication, Denies dyspnea, Denies dyspnea on exertion, Denies orthopnea, Denies paroxysmal nocturnal dyspnea and Denies slow heart rate Resp Denies cough, Denies dyspnea and Denies dyspnea on exertion GI Denies abdominal pain, Denies change in bowel habits, Denies excessive flatus, Denies nausea and Denies vomiting Physical exam (Primary Care) Vital Signs: Last Vital Signs Temp 97.3 F 12/02/24 14:26 Pulse 90 12/02/24 14:26 BP 132/80 12/02/24 14:26 Pulse Ox 99 12/02/24 14:26 Oxygen Delivery Method Room Air 12/02/24 14:26 BMI result Body Mass Index 27.2 Tobacco/Smoking Status: Tobacco use Status Tobacco use date assessed 12/02/24 12/02/24 14:35 Patient Tobacco Use Status Never used Tobacco 12/02/24 13:51 e-Cigarette/Vaping Use Never Used 12/02/24 13:51 PHQ-9: PHQ-9 Score PHQ-9: Total score 0 12/02/24 14:43 Depression Screening Interpretation: Negative Thrive Assessment: Date of Thrive Assessment Date Thrive assessed 12/02/24 12/02/24 14:35 Currently or been in a relationship where the following occur: No concerns reported Resp Effort & Inspection: normal respiratory effort Auscultation: clear to auscultation bilaterally Cardio Jugular venous distension: no JVD Rate: regular rate Rhythm: regular rhythm Heart sounds: S1 normal heart sound present and S2 normal heart sound present Extrem General: Yes full ROM Coding Level of Care Code Est Pt Level 4 (51918) Complex EM visit Add On G2211 Diagnoses Chest pain R07.9 Hypertension I10 Mixed hyperlipidemia E78.2 Ductal carcinoma in situ of left breast D05.12 Chronic low back pain without sciatica, unspecified back pain laterality M54.5; G89.29 Back pain laterality: unspecified Sciatica presence: without sciatica Additional Codes LU-7 Assessment Billing - LU-7 Assessment Tool: LU-7 Assessment 55907 ([id number]) PHQ-9 - 51326 - PHQ-9 Billing: Yes ([id number]) Time Spent (min) 23 Assessment & Plan Assessment & Plan (1) Chest pain: Code(s): R07.9 - Chest pain, unspecified Category: Medical (2) Hypertension: Code(s): I10 - Essential (primary) hypertension Category: Medical (3) Mixed hyperlipidemia: Code(s): E78.2 - Mixed hyperlipidemia Category: Medical (4) Ductal carcinoma in situ of left breast: Comment: Started letrozole 05/23/2020 Code(s): D05.12 - Intraductal carcinoma in situ of left breast Category: Medical (5) Chronic lower back pain: Code(s): M54.5 - Low back pain; G89.29 - Other chronic pain Category: Medical Qualifiers: Back pain laterality: unspecified Sciatica presence: without sciatica Qualified Code(s): M54.5 - Low back pain; G89.29 - Other chronic pain Plan The patient will continue lisinopril for essential hypertension. She is also advised to continue letrozole for breast cancer and follow up with her oncologist. To evaluate the reported chest discomfort, an electrocardiogram will be performed. Allergy medication has been prescribed for her nasal symptoms. She is encouraged to maintain lifestyle changes to manage her cholesterol, with follow-up labs scheduled for May. Her arthralgia will be addressed based on symptoms, and no additional interventions are planned at this time. Patient was informed and verbally consented to the use of an ambient scribe for clinic note documentation during this visit. Orders: Orders Lipid Panel 6 Months E78.5 - Hyperlipidemia, unspecified Comprehensive [place]. Panel Fast 6 Months R07.9 - Chest pain, unspecified ECG 12 lead EKG Today R07.9 - Chest pain, unspecified Vitamin D 25-OH Total 6 Months E55.9 - Vitamin D deficiency, unspecified Medications: New cetirizine (All Day Allergy (cetirizine)) 10 mg PO DAILY PRN 90 tabs 0RF allergy symptoms 90 days Patient Instructions: - Continue taking prescribed medications as directed. - Undergo the scheduled electrocardiogram as planned. - Use prescribed allergy medication daily as instructed, either once or twice. - Maintain lifestyle changes to control cholesterol levels. - Follow up with oncology as scheduled. - Return for laboratory tests in May. - Seek immediate care if new or worsening symptoms arise.
[2024-12-02 14:26] VITALS: BP 132/80; PULSE 90; TEMP 36.3; O2SAT 99; BMI 27.2
--- OUTSIDE RECORDS SUMMARY | 2024-12-02 16:02 | XMS_ITS | Continuity of Care Document ---
Author Organization [employer] Address [address] [place] [address] Care Team Providers Care Primary Special Education Teacher Name Role Phone Julia Stern Unavailable Unavail able Allergies, Adverse Reactions, Alerts Substance Reaction Status Criticality Oblcvtx-ZUU-ErF Reductase Inhibitors msk pain Acti ve No [...] Diagnoses Date Provider Providers Copied on Encounter [facility], [address] Pavithra Paulino [place], [id number], [place] Md Adult No Information 3 Lizzy Dumont. [address] [place] [address], [place], [address], [place]. tel:[phone] [facility], [address] [place], [id number], [place] Md Family Medicine No Information 3 Lizzy Dumont. [address] [place] [address], [place], [address], [place]. tel:[phone] [facility], [address] AvPavithra mckenzie [place], [id number], [place] MdEna Adult No Information 2 Ball Mo Dumont. [address] [place] [address], [place], [address], [place]. tel:[phone] OFFICE/OUTPA TIENT VISIT, [facility], [address], Pavithra shields [place], [id number], [place] MdlS [facility] Family Medicine EXPRESS CARE (chief complaint)di abetes (chief complaint)hy pertension (chief complaint) Type 2 diabetesHyperten hiro, essentialHigh cholesterol Apr-0 - 2 Lizzy Dumont. [address], [place], [address], [place]. tel:[phone] [facility], [address], Pavithra shields [place], [id number], [place] MdlS Adult Type 2 diabetes mellitus with diabetic nephropathy, with long-term current use of insulinHyperlipi demia, acquired 1 Llleslie Del Angel. [address] [place] [address], Pavithra shields [place], [id number], [place]. tel:[phone] OFFICE/OUTPA TIENT VISIT, [facility], [address], Pavithra shields, [place], [id number], [place] MdlS Adult [facility] care (chief complaint) Hypertension, essentialHyperli pidemia, acquiredRoutine general medical examination at health care facilityBody mass index [BMI] 50.0-59.9, adultType 2 diabetes mellitus with diabetic nephropathy, with long-term current use of insulin Nov-2 0- 1 Llera Del Angel. [address] [place] [address], Pavithra shields [place], [id number], [place]. tel:[phone] OFFICE/OUTPA TIENT VISIT, [facility], [address], Pavithra shields [place], [id number], [place] [facility] (chief complaint) Body mass index [BMI] 50.0-59.9, adultType 2 diabetes mellitus with hyperglycemia, with long-term current use of insulinHypertens ion, essentialHyperli pidemia, acquiredRoutine general medical examination at health care facility 0 Llera Del Angel. [facility] [place] [address], Pavithra shields [place], [id number], [place]. tel:[phone] [facility], [address], Pavithra shields [place], [id number], [place] MdlS Adult Diarrhea, unspecifiedType 2 diabetes mellitus with hyperglycemia 0 Llleslie Del Angel. [facility]-[address] [place] [address], Pavithra shields [place], [id number], [place]. tel:[phone] OFFICE/OUTPA TIENT VISIT, [facility], [address], Pavithra shields [place], [id number], [place] MdlS Adult Well Care (chief complaint) Body mass index (BMI) 50-59.9, adultType 2 diabetes mellitus with hyperglycemia, with long-term current use of insulinHypertens ion, essentialHyperli pidemia, acquiredDiarrhea , unspecified typeRoutine general medical examination at [facility] care facilityPre-op evaluation 0 Llleslie Del Angel. [address] [place] [address], Pavithra shields [place], [id number], [place]. tel:[phone] OFFICE/OUTPA TIENT VISIT, [facility], [address], Pavithra shields [place], [id number], [place] MdlS Adult Well Care (chief complaint) Body mass index (BMI) 50-59.9, adultUrticariaTy pe 2 diabetes mellitus with hyperglycemia, with long-term current use of insulin 9 Llera Del Angel. [address] [place] [address], Pavithra shields [place], [id number], [place]. tel:[phone] OFFICE/OUTPA TIENT VISIT, [facility], [address], Pavithra shields [place], [id number], [place] MdEna Adult Well care (chief complaint) Body mass index (BMI) 50-59.9, adultType 2 diabetes mellitus with hyperglycemia, with long-term current use of insulinHypertens ion, essentialHyperli pidemia, acquiredRoutine general medical examination at health care facility 9 Llera Del Angel. [address] [place] [address], [place], [id number], [place]. tel:[phone] OFFICE/OUTPA TIENT VISIT, [facility], [address] Pavith[address] Johnson [place], [id number], [place] [facility] (chief complaint) Body mass index (BMI) 50-59.9, adultType 2 diabetes mellitus with hyperglycemia, with long-term current use of insulinDiabetic nephropathy associated with secondary diabetes mellitusHyperten hiro, essentialRoutine general medical examination at [facility] care [facility] centerNon-prol iferative diabetic retinopathy Nov- 9 Lisha Del Angel. [address] [place] [address], Pavithra shields [place], [id number], [place]. tel:[phone] OFFICE/OUTPA TIENT VISIT, [facility], [address] Pavithra Paulino PA, [id number], [place] MdlS Adult Well Care (chief complaint) Type 2 diabetes mellitus with hyperglycemia, with long-term current use of insulinHypertens ion, essentialDiabeti c nephropathy associated with secondary diabetes mellitusHyperlip idemia, acquiredRoutine general medical examination at [facility] care [facility] centerMultiple joint pain 8 leslie Del Angel. [address] [place] [address], Pavithra shields [place], [id number], [place]. tel:[phone] OFFICE/OUTPA TIENT VISIT, [facility], [address] Pavith[address] Johnson [place], [id number], [place] [facility] (chief complaint) Body mass index (BMI) 50-59.9 , adultType 2 diabetes mellitus with hyperglycemia, with long-term current use of insulinDiabetic nephropathy associated with secondary diabetes mellitusHyperten hiro, essentialHyperli pidemia, acquired 8 leslie Del Angel. [address] [place] [address], Pavithra shields [place], [id number], [place]. tel:[phone] OFFICE/OUTPA TIENT VISIT, [facility], [address], Pavithra shields PA, [id number], [place] [facility] (chief complaint) Body mass index (BMI) 45.0-49.9, adultType 2 diabetes mellitus with hyperglycemia, with long-term current use of insulinHypertens ion, essentialHyperli pidemia, acquiredRoutine general medical examination at health care facilityStatus post cholecystectomy [facility]. [address] [place] [address], Pavithra shields [place], [id number], [place]. tel:[phone] OFFICE/OUTPA TIENT VISIT, [facility], [address], Pavithra shields, [place], [id number], [place] MdlS Adult Well Care (chief complaint) Body mass index (BMI) 50-59.9 , adultStatus post cholecystectomyH ypertension, essentialType 2 diabetes mellitus with hyperglycemia, with long-term current use of insulinMorbid obesity with BMI of 50.0-59.9, adultDiabetic nephropathy associated with secondary diabetes mellitusHyperlip idemia, acquired [facility]. [address] [place] [address], Pavithra shields [place], [id number], [place]. tel:[phone] [facility], [address], Pavithra shields [place], [id number], [place] MdEna Adult Encounter for screening for osteoporosis [facility]. [address] [place] [address], Pavithra shields [place], [id number], [place]. tel:[phone] OFFICE/OUTPA TIENT VISIT, [facility], [address] Pavithra Johnson PA, [id number], [place] MdEna Adult well care (chief complaint) Body mass index (BMI) 50-59.9 , adultType 2 diabetes mellitus with hyperglycemia, with long-term current use of insulinHyperlipi demia, acquiredMorbid obesity with BMI of 50.0-59.9, adultHypertensio n, essentialSleep apnea in adult [facility]. [address] [place] [address], Pavithra shields [place], [id number], [place]. tel:[phone] OFFICE/OUTPA TIENT VISIT, [facility], [address], Pavithra shields PA, [id number], [place] MdlS Adult Well Care (chief complaint) Type 2 diabetes mellitus with hyperglycemiaHyp ertension, essentialMorbid obesity with BMI of 50.0-59.9, adultRoutine general medical examination at health care facilityHyperlip idemia, acquired May- 6 leslie Del Angel. [address] [facility], Pavithra shields [place], [id number], [place]. tel:[phone] OFFICE/OUTPA TIENT VISIT, [facility], [address], Pavithra shields [place], [id number], [place] MdlS Adult well care (chief complaint) Diabetes type 2, uncontrolledHype rtension, essentialHyperli pidemia, acquiredMorbid obesity with BMI of 50.0-59.9, adultRoutine general medical examination at health care facility 2 6 leslie Del Angel. [address] [facility], [place], [id number], [place]. tel:[phone] [facility], [address], Pavithra shields PA, [id number], [place] MdlS Dental Periodontal disease, unspecified 6 [facility] . [address] [place] [address], [place], [id number]. tel:[phone] Consulting Provider: Zita Cerrato, [address] [facility], [place], [address]. tel: [phone] OFFICE/OUTPA TIENT VISIT, [facility], [address], Pavithra shields PA, [id number], [place] MdlS Adult Cough (chief complaint) URI, acute 6 Iman Rodriguez. [address] [facility], [place], [id number], [place]. tel:[phone] [facility], [address], Pavithra shields PA, [id number], [place] MdlS Dental No Information 6 Elarbi Elamin. [address] [place] [address], Pavithra shields, [place], [id number], [place]. tel:[phone] OFFICE/OUTPA TIENT VISIT, [facility], [facility], [place], [place], [id number], [place] MdlS Adult well care (chief complaint) Hypertension, essentialTachyca rdiaDiabetes type 2, uncontrolledRout ine general medical examination at health care facility 5 [facility]. [address] [place] [address], Pavithra shields, [place], [id number], [place]. tel:[phone] [facility], [address] [place] [address] Ave, Pavithra shields, [place], [id number], [place] MdlS Adult No Information [facility]. [facility] [place] [address], Pavithra shields, [place], [id number], [place]. tel:[phone] OFFICE/OUTPA TIENT VISIT, [facility], [facility], Pavithra shields, [place], [id number], [place] MdlS Adult well care (chief complaint) Encounter for screening for diabetes mellitusHyperten hiro, essentialRoutine general medical examination at health care facilityTachycar diaURI, acuteMorbid obesity with BMI of 50.0-59.9, adultDiabetes type 2, uncontrolled [facility]. [address] [place] [address], Pavithra shields, [place], [id number], [place]. tel:[phone] OFFICE/OUTPA TIENT VISIT, [facility], [facility], [place], [place], [id number], [place] MdlS Adult well care (chief complaint) Diabetes Mellitus Type 2, UncomplicatedObe sity, MorbidDiabetes Mellitus, Adult Onset, UncontrolledBENI GN HYPERTENSIONOthe r and unspecified hyperlipidemia 5 Llera Del Angel. [address] [facility], [place], [place], [id number], [place]. tel:[phone] OFFICE/OUTPA TIENT VISIT, [facility], [address], Pavithra shields [place], [id number], [place] MdlS Adult diabetes f/u (chief complaint)pa lpitations f/u (chief complaint)ob esity f/u (chief complaint) Diabetes Mellitus, Adult Onset, UncontrolledObes ity, MorbidTachycardi aRoutine Medical Exam 5 [facility]. [address] [facility], [place], [id number], [place]. tel:[phone] OFFICE/OUTPA TIENT VISIT, [facility], [address], Pavithra shields [place], [id number], [place] MdlS Adult well care (chief complaint) Diabetes Mellitus Type 2, UncomplicatedDia betes Mellitus, Adult Onset, UncontrolledTach ycardiaAcute upper respiratory infection of multiple sitesObesity, Morbid 5 [facility]. [facility]-[address] [place] [address], [place], [id number], [place]. tel:[phone] OFFICE/OUTPA TIENT VISIT, [facility], [address], [place], [id number], [place] MdlS Adult well care (chief complaint)di abetes f/u (chief complaint)hy perlipidemia f.u (chief complaint)el evated BP (chief complaint) Diabetes Mellitus, Adult Onset, UncontrolledDiab etic retinopathy associated with type 2 diabetes mellitusBENIGN HYPERTENSIONObes ity, MorbidRoutine Medical ExamTachycardia 4 [facility]. [address] [place] [address], [place], [id number], [place]. tel:[phone] OFFICE/OUTPA TIENT VISIT, [facility], [address], [place], [id number], [place] MdlS Adult diabetes (chief complaint)hy perlipidemia f/u (chief complaint) Screening for diabetes mellitusDiabetes Mellitus, Adult Onset, UncontrolledOthe r and unspecified hyperlipidemiaRo utine Medical ExamElevated blood pressure 4 [facility]. [address] [facility], [place], [id number], [place]. tel:[phone] OFFICE/OUTPA TIENT VISIT, [facility], [address], [place], [id number], [place] MdlS Adult diabetes (chief complaint)hy perlipidemia (chief complaint)ob esity (chief complaint)di abetic retinopathy (chief complaint) Diabetes Mellitus, Adult Onset, UncontrolledOthe r and unspecified hyperlipidemiaOb esity, MorbidDiabetic retinopathyRouti ne Medical Exam 4 Lisha Del Angel. [address] [place] [address], [place], [id number], [place]. tel:[phone] OFFICE/OUTPA TIENT VISIT, [facility], [address], [place], [id number], [place] MdlS Adult well care (chief complaint) Type II diabetes mellitus, uncontrolledHype rlipidemiaObesit y, MorbidRoutine Medical Exam 4 Lisha Del Angel. [address] [place] [address], [place], [id number], [place]. tel:[phone] Referring Provider: Bean Husain, [address] [place] [address], [place], [address]. tel: [phone] OFFICE/OUTPA TIENT VISIT, [facility], [address], [place], [id number], [place] MdEna Adult diabetes (chief complaint)el evated BP f/u (chief complaint)la bs results (chief complaint) Type II diabetes mellitus, uncontrolledHype rlipidemiaRoutin e general medical examination at a health caObesity, MorbidInfluenza Vaccine 3 Lisha Del Angel. [address] [place] [address], [place], [id number], [place]. tel:[phone] OFFICE/OUTPA TIENT VISIT, [facility], [address], [place], [id number], [place] MdEna Adult diabetes (chief complaint)ob esity (chief complaint) Type II diabetes mellitus, uncontrolledRout ine general medical examination at health caObesity, MorbidElevated blood pressure readingScreening examination for pulmonary tuberculosis 3 Lisha Del Angel. [address] [facility], Pavithra shields [place], [id number], [place]. tel:[phone] [facility], [facility] [address], Pavithra shields [place], [id number], [place] [facility] No Information 3 Elarbi Elamin. [address] [place] [address], Pavithra shields [place], [id number], [place]. tel:[phone] [facility], [address] [place] [address] L[place], Pavithra shields [place], [id number], [place] [facility] No Information 3 [facility] . [address] [place] [address], Pavithra shields [place], [id number]. tel:[phone] Consulting Provider: Heather Gama, [address] [place], [place] [address], [address]. tel: [phone] [facility], [address] [place] [address] [place], Pavithra shields PA, [id number], [place] [facility] No Information 3 Elarbi Elamin. [address] [place] [address], Pavithra shields [place], [id number], [place]. tel:[phone] OFFICE/OUTPA TIENT VISIT, EST [facility], [address] [place] [address] [place], Pavithra shields PA, [id number], [place] MdEna Adult diabetes (chief complaint)ob esity (chief complaint)we ll care (chief complaint) Type II diabetes mellitus, uncontrolledMorb id obesityRoutine general medical examination at health ca 3 Lisha Del Angel. [address] [facility], Pavithra shields PA, [id number], [place]. tel:[phone] [facility], [facility] [address], Pavithra shields PA, [id number], [place] [facility] No Information 3 Elarbi Elamin. [address] [place] [address], Pavithra shields [place], [id number], [place]. tel:[phone] [facility], [facility] [address], Pavithra shields, [place], [id number], [place] MdlS Adult No Information 3 Llera Del Angel. [address] [place] [address], Pavithra shields, [place], [id number], [place]. tel:[phone] OFFICE/OUTPA TIENT VISIT, [facility], [facility] [address], Pavithra shields, [place], [id number], [place] MdlS Adult diabetes (chief complaint) Diabetes Mellitus Type 2, UncomplicatedObe sity, Morbid 3 Llera Del Angel. [address] [place] [address], Pavithra shields [place], [id number], [place]. tel:[phone] [facility], [facility] [address], Pavithra shields [place], [id number], [place] MdlS Adult No Information 3 Llera Del Angel. [address] [place] [address], Pavithra shields PA, [id number], [place]. tel:[phone] OFFICE/OUTPA TIENT VISIT, [facility], [facility] [address], Pavithra shields PA, [id number], [place] MdlS Adult diabetes (chief complaint)ob esity (chief complaint) Diabetes Mellitus Type 2, UncomplicatedEle vated blood pressure reading without diagnosis of hypertensionObes ityRoutine Medical Exam 3 Llera Del Angel. [address] [place] [address], Pavithra shields, [place], [id number], [place]. tel:[phone] [facility], [address] [place] [address] [place], Pavithra shields PA, [id number], [place] MdlS Dental No Information 2 [facility] . [address] [place] [address], Pavithra shields [place], [id number]. tel:[phone] Consulting Provider: Heather Gama, [address] [place] [address], [place], [address]. tel: [phone] [facility], [facility], [place], [place], [id number], [place] MdlS Adult No Information 2 Llera Del Angel. [address] [place] [address], [facility] [place], [place], [id number], [place]. tel:[phone] [facility], [facility], [place], [place], [id number], [place] MdlS Dental No Information 2 Cher Banks. [address] [place] [address], [place], [place], [id number], [place]. tel:[phone] OFFICE/OUTPA TIENT VISIT, [facility], [facility], [place], [place], [id number], [place] MdlS Adult diabetes (chief complaint)ob esity (chief complaint)we ll visit (chief complaint) Screening for diabetes mellitusDiabetes Mellitus Type 2, UncomplicatedObe sity 2 Llera Del Angel. [address] [place] [address], [place], [place], [id number], [place]. tel:[phone] OFFICE/OUTPA TIENT VISIT, [facility], [facility], [place], [place], [id number], [place] MdlS Adult No Information 2 Llera Del Angel. [address] [place] [address], [place], [place], [id number], [place]. tel:[phone] OFFICE/OUTPA TIENT VISIT, [facility], [address], [place], [place], [id number], [place] MdlS OBGYN No Information 2 [place] Yulissa. [address] [place] [address], [place], [place], [id number], [place]. tel:[phone] OFFICE/OUTPA TIENT VISIT, [facility], [address], [place], [place], [id number], [place] MdlS OBGYN No Information 2 Cliff Yulissa. [address] [facility], Pavithra shields, [place], [id number], [place]. tel:[phone] [facility], [address], [place], [place], [id number], [place] MdlS OBGYN POSTMENOPAUSAL BLEEDING 1 Govtresa Leona. [address] [facility], Pavithra shields, [place], [id number], [place]. tel:[phone] [facility], [address], [place], [place], [id number], [place] MdlS Adult OBESITY NOSANXIETY STATE NOS 1 Llera Del Angel. [address] [place] [address], Pavithra shields, [place], [id number], [place]. tel:[phone] [facility], [address], [place], [place], [id number], [place] MdlS Adult BENIGN HYPERTENSION 0 1 Llera Del Angel. [address] [place] [address], Pavithra shields, [place], [id number], [place]. tel:[phone] [facility], [address], Pavithra shields, [place], [id number], [place] MdlS Adult Diabetes Melitus Type11 W/O Complications Controlled 2 2-201 0 Llera Del Angel. [address] [place] [address], Pavithra shields, [place], [id number], [place]. tel:[phone] [facility], [address], [place], [place], [id number], [place] MdlS Adult INSOMNIA NOS 0 5-201 0 Llera Del Angel. [address] [facility], Pavithra shields [place], [id number], [place]. tel:[phone] [facility], [address], [place], [place], [id number], [place] MdlS Adult LIPODYSTROPHY Fe 8 0 Llera Del Angel. [address] [place] [address], Pavithra shields [place], [id number], [place]. tel:[phone] Family History Family Member Type Diagnosis Age [...] virus, 3 years or older Flulaval Quad 7111-8233 administered Source: Other Regist ry Influenza, split virus, injectable, quadrivalent, 3 years or older Flulaval Quad [id number] administered Source: New Immuniza tion Record Pneumococcal polysaccharide PPV23 administered Source: New Immuniza tion Record Influenza, seasonal, injectable administered Note: patient's phar howard ; Source: Source Unspecified Flulaval 18+yrs administered Source: New Immunization Record Tdap administered Note: patient's paper chart ; Source: Source Unspecified Pneumococcal polysaccharide PPV23 administered Note: patient's jana r chart ; Source: Source Unspecified Payers Payer name Insurance type Covered alliance party ID Authoriza tion(s) Personal Choice CI [id number] Personal Choice CI [id number] Personal Choice CI [id number] Personal Choice CI [id number] [facility] [employer] CI [id number] [facility] CI [id number] [employer] CI [id number] [employer] CI [id number] [employer] CI [id number] Personal Choice CI [id number] Social History Type Description Quantity Date Captured Comments Alcohol Use Details Unknown Caffeine Use Details Unknown Tobacco Use Status No Information Smoking Status No Information Sex Female Sexual Orientation Straight or heterosexual Oct Gender Identity Female Chief Complaint And Reason For Visit No Information Reason For Referral Reason For Referral No Information Plan Of Treatment Date Type Action Status Goal ASCVD [address] year [address] sk. Due on due Goal Foot exam. Due on 3 due Goal Prevnar 13 (PCV1 3). Due on due Goal Colonoscopy. Due on 020 due Goal Pneumococcal vaccine due Goal Creatinine. Due on 22 due Goal BMI. Due on due Goal [...] C scre ening. Due on due Goal DENTURE MODEL MAKER exam. Due on due Goal Cognitive assess ment. Due on due Goal Zoster vaccine ( ). Due on due Goal CT-Colonography. Due on due Goal DENTURE MODEL MAKER exam. Due on due Goal Mammogram. Due [...] vaccine ( ). Due on due Goal Lipid panel. Due [...] Influenza vaccin e. Due on due Goal DENTURE MODEL MAKER exam. Due on due Goal BMP. Due on due Goal Lipid panel. Due on due Goal Zoster vaccine ( ). Due on due Goal Colonoscopy. Due on due Goal Dental exam. Due [...] due Goal Mammogram. Due on due Goal Prevnar 13 (PCV1 3). Due on due Goal Microalb/Creat R atio, Randm Ur. Due on due Goal Foot exam. Due on due Goal Influenza vaccin e. Due on due Goal Colonoscopy. Due on due Goal Depression scree brayan. Due on due Goal BMP. Due on due Goal Dilated eye exam . Due on due Goal Zoster Vaccine. Due on due Goal Mammogram. Due on due Goal Dental exam. Due on due Goal GFR. Due on due Goal FOBT. Due on due Goal Referral Ophthal mology. Due on due Goal Hepatitis C anti body. Due on due Goal Lipid panel. Due on due Goal DENTURE MODEL MAKER exam. Due on due Goal Zoster vaccine ( ). Due on due Goal Dilated eye exam [...] due Goal Colonoscopy. Due on due Goal DENTURE MODEL MAKER exam. Due on due Goal Depression scree [...] due Goal Colonoscopy. Due on due Goal DENTURE MODEL MAKER exam. Due on due Goal Microalb/Creat R [...] Goal Mammogram. Due on 0 due Goal DENTURE MODEL MAKER exam. Due on due Goal Hepatitis C anti body. Due on due Goal Influenza vaccin e. Due on due Goal HIV Consented. Due on due Goal Prevnar 13 (PCV1 3). Due on due Goal Zoster vaccine ( 1st). Due on due Goal BMP. Due on due Goal Colonoscopy. Due on due Goal HIV Screen. Due on due Goal Hemoglobin A1C. Due [...] due Goal GFR. Due on due Goal Colonoscopy. Due on due Goal Prevnar 13 (PCV1 3). Due on due Goal Lipid panel. Due on due Goal DENTURE MODEL MAKER exam. Due on due Goal BMP. Due [...] Goal Hemoglobin A1C. Due on due Goal DENTURE MODEL MAKER exam. Due on due Goal Foot exam. Due on 9 due Goal Lipid panel. Due on due Goal BMP. Due on due Goal Mammogram. Due on 9 due Goal Influenza vaccin e. Due on due Goal Depression scree brayan. Due on due Goal HIV Consented. Due on due Goal HIV Screen. Due on 19 due Goal PAP with HPV 30- 65. Due on due Goal Zoster vaccine ( 1st). Due on due Goal Colonoscopy. Due on due Goal Hepatitis C anti body. Due on due Goal DENTURE MODEL MAKER exam. Due on due Goal Hemoglobin A1C. Due on due Goal Prevnar 13 (PCV1 3). Due on due Goal Depression scree brayan. Due on due Goal Dental exam. Due on due Goal BMP. Due on due Goal Influenza vaccin e. Due on due Goal Colonoscopy. Due on due Goal HIV Screen. Due on due Goal GFR. Due on due Goal PAP with HPV 30- 65. Due on due Goal Dilated eye exam . Due on due Goal Foot exam. Due on 9 due Goal Mammogram. Due on 9 due Goal Microalb/Creat R atio, Randm Ur. Due on due Goal Lipid panel. Due on 020 due Goal Referral Ophthal mology. Due on [...] Referral Ophthal mology. Due on due Goal DENTURE MODEL MAKER exam. Due on due Goal Depression scree brayan. Due on due Goal Colonoscopy. Due on 018 due Goal Hepatitis C anti body. Due on due Goal Foot exam. Due [...] Lipid panel. Due on 019 due Goal DENTURE MODEL MAKER exam. Due on due Goal Mammogram. Due on 8 due Goal Prevnar 13 (PCV1 3). Due on due Goal GFR. Due on due Goal Dilated eye exam . Due on due Goal Dental exam. Due on 018 due Goal HIV Screen. Due on 17 due Goal HIV Consented. Due on due Goal FOBT. Due on due Goal DENTURE MODEL MAKER exam. Due on due Goal PAP with HPV 30- 65. Due on due Goal Colonoscopy. Due on 014 due Goal Dilated eye exam . Due on due Goal Foot exam. Due on due Goal Referral Ophthal mology. Due on due Goal Dental exam. Due on due Goal Depression scree brayan. Due on due Goal Mammogram. Due on due Goal Hepatitis C anti body. Due on due Goal Mammogram. Due on due Goal HIV Screen. Due on due Goal DENTURE MODEL MAKER exam. Due on due Goal Referral Ophthal [...] Goal Foot exam. Due on due Goal DENTURE MODEL MAKER exam. Due on due Goal Hepatitis C anti body. Due on due Goal Depression scree brayan. Due on due Goal Mammogram. Due on due Goal Colonoscopy. Due on due Goal FOBT. Due on due Goal Dental exam. Due on 017 due Goal PAP with HPV 30- 65. Due on due Goal HIV Screen. Due on 17 due Goal Referral Ophthal mology. Due on due Goal Pneumococcal vaccine due Goal Dilated eye exam . Due on due Goal Occult Blood, Fe [...] 5 due Goal HIV Screen. Due on due Goal Mammogram. Due on due Goal HIV Consented. Due on due Goal PAP with HPV 30- 65. Due on due Goal Lipid Panel. Due on due Goal Tdap due Goal Pneumococcal vaccine due Goal Colonoscopy. Due on due Goal Occult Blood, [place], [place]. Due on due Goal Hepatitis C anti body. Due on due Goal Depression scree brayan. Due on due Goal HIV Screen. Due [...] anti body. Due on due Goal Lipid Panel. Due on due Goal Pneumococcal vaccine due Goal Depression scree brayan. Due on due Goal HIV Consented. Due on due Goal Colonoscopy. Due on due Goal PAP with HPV 30- 65. Due on due Goal HIV Screen. Due on 15 due Goal Mammogram. Due on 5 due Goal Occult Blood, [place], [place]. Due on due Goal Tdap due Goal HIV Screen. Due on 14 [...] Referred To: Ravi Peraza OD Ordered: Referrals: [employer]. Ravi Peraza OD ordered Referral Referred To: Dr. elyse Pearson Ordered: Referrals: Ophthalmology. Dr. elyse Pearson ordered Future Order: Lab Order HEMOGLOB IN A1C ([id number]), Ordered on: Ordered Future Order: Lab Order MICROALB UMIN ([id number]), Ordered on: Ordered Future Order: Lab Order LIPID PA TAMANNA ([id number]), Ordered on: Ordered Future Order: Lab Order BMP ([id number]), Ordered on: Ordered Future Order: Lab Order HEMOGLOB IN A1C ([id number]), Ordered on: Ordered Future Order: Lab Order URINALYS IS ([id number]), Ordered on: Ordered Future Order: Lab Order TSH ([id number]), Ordered on: Ordered Future Order: Lab Order CBC with Diff ([id number]), Ordered on: Ordered Future Order: Lab Order MICROALB UMIN ([id number]), Ordered on: Ordered Future Order: Lab Order LIPID PA TAMANNA ([id number]), Ordered on: Ordered Future Order: Lab Order CMP ([id number]), Ordered on: Ordered Future Order: Lab Order Urinalys is, Routine w/ Microscopic on Positives ([id number]), Ordered on: Ordered Future Order: Lab Order Microalb /Creat Ratio, Randm Ur ([id number]), Ordered on: Ordered Future Order: Lab Order Ova + Pa rasites ([id number]), Ordered on: Ordered Future Order: Lab Order Stool Cu lture ([id number]), Ordered on: Ordered Future Order: Radiology Order DX A BONE DENSITY, AXIAL ([id number]), Added on: New Future Order: Radiology Order DX A BONE DENSITY/PERIPHERAL ([id number]), Added on: New Future Order: Radiology Order DX A BONE DENSITY/PERIPHERAL ([id number]), Added on: New Future Order: Lab Order Microalb /Creat Ratio, Randm Ur ([id number]), Ordered on: Ordered Future Order: Lab Order Urinalys is, Routine ([id number]), Ordered on: Ordered Future Order: Lab Order HEMOGLOB IN A1C ([id number]), Ordered on: Ordered Future Order: Lab Order CBC, no diff ([id number]), Ordered on: Ordered Future Order: Lab Order Microalb umin with creatinine and ratio ([id number]), Ordered on: Ordered Future Order: Lab Order LIPID PA TAMANNA ([id number]), Ordered on: Ordered Future Order: Lab Order CMP ([id number]), Ordered on: Ordered Future Order: Lab Order HEMOGLOB IN A1C ([id number]), Ordered on: Ordered Future Order: Lab Order CBC with Diff ([id number]), Ordered on: Ordered Future Order: Lab Order CMP ([id number]), Ordered on: Ordered Future Order: Lab Order LIPID PA TAMANNA ([id number]), Ordered on: Ordered Future Order: Lab Order LIVER PA TAMANNA ([id number]), Ordered on: Ordered Future Order: Lab Order Urine Mi croalbumin with Creatinine ([id number]), Ordered on: Ordered Future Order: Lab Order U/A ([id number]), Ordered on: Ordered History Of Present Illness [...] BID diabetes Risk factors inc lude: / Thai, obesity and over age [age] years old. [...] [facility]/o frequent painless diarrhea for [...] as indicated she was told by her parking enforcement manager that based on her eye exam she [...] otalgia, pharyngitis, rash, sinus pressure or wheezing. [facility] patient's labs a re all [...] few days . there is no fever [facility] pt's labs for e most [...] g etting worse. Risk factors include: / Thai, obesity and over age [age] years old. [...]
== END 2024-12-02 14:49 | disposition home or self-care (01) ==
LOC: HO.HMCH 13:49
PROVIDERS: PCP Internal Medicine; Visit Provider Internal Medicine
DX: R07.9 Chest pain, unspecified (principal); I10 Essential (primary) hypertension; E78.2 Mixed hyperlipidemia; D05.12 Intraductal carcinoma in situ of left breast; M54.50 Low back pain, unspecified; G89.29 Other chronic pain

== ENCOUNTER → 2024-12-02 13:49 | Outpatient (BNVA) | payer MEDICARE, MEDICAID, SELFPAY | PROVIDERS: PCP Internal Medicine; Visit Provider Internal Medicine | DX: I10 Essential (primary) hypertension (principal); R07.9 Chest pain, unspecified; E78.2 Mixed hyperlipidemia; D05.12 Intraductal carcinoma in situ of left breast; M54.50 Low back pain, unspecified; G89.29 Other chronic pain; E55.9 Vitamin D deficiency, unspecified | CPT/HCPCS: 96127; 99212 ==

== ENCOUNTER 2024-12-09 12:43 | Outpatient (REF) | payer MEDICARE, MEDICAID, SELFPAY ==
--- OUTSIDE RECORDS SUMMARY | 2024-12-09 15:04 | XMS_ITS | Continuity of Care Document ---
Author Organization [employer] Address [address] [place] [address] Care Team Providers Care Tile Mason Name Role Phone Julia Stern Unavailable Unavail able Allergies, Adverse Reactions, Alerts Substance Reaction Status Criticality Gjqzdtc-WEN-YaA Reductase Inhibitors msk pain Acti ve No [...] Diagnoses Date Provider Providers Copied on Encounter [facility], [address] [place]ra [place], [id number], [place] Md Adult No Information 3 Lizzy Dumont. [address] [place] [address], [place], [id number], [place]. tel:[phone] [facility], [address], [id number], [place] Md Family Medicine No Information 3 Lizzy Dumont. [address] [place] [address], [place], [address], [place]. tel:[phone] [facility], [address] AvPavithra mckenzie [place], [id number], [place] MdEna Adult No Information 2 Ball Mo Dumont. [address] [place] [address], [place], [address], [place]. tel:[phone] OFFICE/OUTPA TIENT VISIT, [facility], [address], Pavithra shields [place], [id number], [place] MdlS [facility] Family Medicine EXPRESS CARE (chief complaint)di abetes (chief complaint)hy pertension (chief complaint) Type 2 diabetesHyperten hiro, essentialHigh cholesterol Apr-0 - 2 Lizzy Dumont. [address], [place], [address], [place]. tel:[phone] [facility], [address], Pavithra shields [place], [id number], [place] MdlS Adult Type 2 diabetes mellitus with diabetic nephropathy, with long-term current use of insulinHyperlipi demia, acquired 1 Llleslie Del Angel. [address] [place] [address], Pavithra shields [place], [id number], [place]. tel:[phone] OFFICE/OUTPA TIENT VISIT, [facility], [address], Pavithra shields, [place], [id number], [place] MdlS Adult [facility] care (chief complaint) Hypertension, essentialHyperli pidemia, acquiredRoutine general medical examination at health care facilityBody mass index [BMI] 50.0-59.9, adultType 2 diabetes mellitus with diabetic nephropathy, with long-term current use of insulin Nov-2 0- 1 Llera Del Angel. [address] [place] [address], Pavithra shields [place], [id number], [place]. tel:[phone] OFFICE/OUTPA TIENT VISIT, [facility], [address], Pavithra shields [place], [id number], [place] [facility] (chief complaint) Body mass index [BMI] 50.0-59.9, adultType 2 diabetes mellitus with hyperglycemia, with long-term current use of insulinHypertens ion, essentialHyperli pidemia, acquiredRoutine general medical examination at health care facility 0 Llera Del Angel. [facility] [place] [address], Pavithra shields [place], [id number], [place]. tel:[phone] [facility], [address], Pavithra shields [place], [id number], [place] MdlS Adult Diarrhea, unspecifiedType 2 diabetes mellitus with hyperglycemia 0 Llleslie Del Angel[address] [facility] [place] [address], Pavithra shields [place], [id number], [place]. tel:[phone] OFFICE/OUTPA TIENT VISIT, [facility], [address], Pavithra shields [place], [id number], [place] MdlS Adult Well Care (chief complaint) Body mass index (BMI) 50-59.9, adultType 2 diabetes mellitus with hyperglycemia, with long-term current use of insulinHypertens ion, essentialHyperli pidemia, acquiredDiarrhea , unspecified typeRoutine general medical examination at [facility] care facilityPre-op evaluation 0 Llleslie Del Angel. [address] [place] [address], Pavithra shields [place], [id number], [place]. tel:[phone] OFFICE/OUTPA TIENT VISIT, [facility], [address], Pavithra shields [place], [id number], [place] MdlS Adult Well Care (chief complaint) Body mass index (BMI) 50-59.9, adultUrticariaTy pe 2 diabetes mellitus with hyperglycemia, with long-term current use of insulin 9 Llera Del Angel. [address] [place] [address], Pavithra shields [place], [id number], [place]. tel:[phone] OFFICE/OUTPA TIENT VISIT, [facility], [address], Pavithra shields [place], [id number], [place] MdEna Adult Well care (chief complaint) Body mass index (BMI) 50-59.9, adultType 2 diabetes mellitus with hyperglycemia, with long-term current use of insulinHypertens ion, essentialHyperli pidemia, acquiredRoutine general medical examination at health care facility 9 Llera Del Angel. [address] [place] [address], [place], [id number], [place]. tel:[phone] OFFICE/OUTPA TIENT VISIT, [facility], [address] Pavithra Johnson [place], [id number], [place] [facility] (chief complaint) Body mass index (BMI) 50-59.9, adultType 2 diabetes mellitus with hyperglycemia, with long-term current use of insulinDiabetic nephropathy associated with secondary diabetes mellitusHyperten hiro, essentialRoutine general medical examination at [facility] care [facility] hospitalNon-prol iferative diabetic retinopathy Nov- 9 Lisha Del Angel. [address] [place] [address], Pavithra shields [place], [id number], [place]. tel:[phone] OFFICE/OUTPA TIENT VISIT, [facility], [address] Pavithra Paulino [place], [id number], [place] MdlS Adult Well Care (chief complaint) Type 2 diabetes mellitus with hyperglycemia, with long-term current use of insulinHypertens ion, essentialDiabeti c nephropathy associated with secondary diabetes mellitusHyperlip idemia, acquiredRoutine general medical examination at [facility] care [facility] hospitalMultiple joint pain 8 leslie Del Angel. [address] [place] [address], Pavithra shields [place], [id number], [place]. tel:[phone] OFFICE/OUTPA TIENT VISIT, [facility], [address] Pavith[address] Johnson [place], [id number], [place] [facility] (chief complaint) Body mass index (BMI) 50-59.9 , adultType 2 diabetes mellitus with hyperglycemia, with long-term current use of insulinDiabetic nephropathy associated with secondary diabetes mellitusHyperten hiro, essentialHyperli pidemia, acquired 8 leslie Del Angel. [address] [place] [address], Pavithra shields [place], [id number], [place]. tel:[phone] OFFICE/OUTPA TIENT VISIT, [facility], [address], Pavithra shields [place], [id number], [place] [facility] (chief complaint) Body mass index (BMI) 45.0-49.9, adultType 2 diabetes mellitus with hyperglycemia, with long-term current use of insulinHypertens ion, essentialHyperli pidemia, acquiredRoutine general medical examination at health care facilityStatus post cholecystectomy [facility]. [address] [place] [address], Pavithra shields [place], [id number], [place]. tel:[phone] OFFICE/OUTPA TIENT VISIT, [facility], [address], Pavithra shields, [place], [id number], [place] MdlS Adult Well Care (chief complaint) Body mass index (BMI) 50-59.9 , adultStatus post cholecystectomyH ypertension, essentialType 2 diabetes mellitus with hyperglycemia, with long-term current use of insulinMorbid obesity with BMI of 50.0-59.9, adultDiabetic nephropathy associated with secondary diabetes mellitusHyperlip idemia, acquired [facility]. [address] [place] [address], Pavithra shields [place], [id number], [place]. tel:[phone] [facility], [address], Pavithra shields [place], [id number], [place] MdEna Adult Encounter for screening for osteoporosis [facility]. [address] [place] [address], Pavithra shields [place], [id number], [place]. tel:[phone] OFFICE/OUTPA TIENT VISIT, [facility], [address] Pavithra Johnson [place], [id number], [place] MdEna Adult well care (chief complaint) Body mass index (BMI) 50-59.9 , adultType 2 diabetes mellitus with hyperglycemia, with long-term current use of insulinHyperlipi demia, acquiredMorbid obesity with BMI of 50.0-59.9, adultHypertensio n, essentialSleep apnea in adult [facility]. [address] [place] [address], Pavithra shields [place], [id number], [place]. tel:[phone] OFFICE/OUTPA TIENT VISIT, [facility], [address], Pavihtra shields [place], [id number], [place] MdlS Adult Well Care (chief complaint) Type 2 diabetes mellitus with hyperglycemiaHyp ertension, essentialMorbid obesity with BMI of 50.0-59.9, adultRoutine general medical examination at health care facilityHyperlip idemia, acquired May- 6 leslie Del Angel. [address] [facility], Pavithra shields [place], [id number], [place]. tel:[phone] OFFICE/OUTPA TIENT VISIT, [facility], [address], Pavithra shields [place], [id number], [place] MdlS Adult well care (chief complaint) Diabetes type 2, uncontrolledHype rtension, essentialHyperli pidemia, acquiredMorbid obesity with BMI of 50.0-59.9, adultRoutine general medical examination at health care facility 2 6 leslie Del Angel. [address] [facility], [place], [id number], [place]. tel:[phone] [facility], [address], Pavithra shields [place], [id number], [place] MdlS Dental Periodontal disease, unspecified 6 [facility] . [address] [place] [address], [place], [id number]. tel:[phone] Consulting Provider: Zita Cerrato, [address] [facility], [place], [address]. tel: [phone] OFFICE/OUTPA TIENT VISIT, [facility], [address], Pavithra shields [place], [id number], [place] MdlS Adult Cough (chief complaint) URI, acute 6 Iman Rodriguez. [address] [facility], [place], [id number], [place]. tel:[phone] [facility], [address], Pavithra shields PA, [id number], [place] MdlS Dental No Information 6 Elarbi Elamin. [address] [place] [address], Pavithra shields, [place], [id number], [place]. tel:[phone] OFFICE/OUTPA TIENT VISIT, [facility], [facility], [place], [place], [id number], [place] MdlS Adult well care (chief complaint) Hypertension, essentialTachyca rdiaDiabetes type 2, uncontrolledRout ine general medical examination at health care facility 5 [facility]. [address] [place] [address], Pavithra shields, [place], [id number], [place]. tel:[phone] [facility], [address] [place] [address] Ave, Pavithra shields, [place], [id number], [place] MdlS Adult No Information [facility]. [facility] [place] [address], Pavithra shields, [place], [id number], [place]. tel:[phone] OFFICE/OUTPA TIENT VISIT, [facility], [facility], Pavithra shields, [place], [id number], [place] MdlS Adult well care (chief complaint) Encounter for screening for diabetes mellitusHyperten hiro, essentialRoutine general medical examination at health care facilityTachycar diaURI, acuteMorbid obesity with BMI of 50.0-59.9, adultDiabetes type 2, uncontrolled [facility]. [address] [place] [address], Pavithra shields, [place], [id number], [place]. tel:[phone] OFFICE/OUTPA TIENT VISIT, [facility], [facility], [place], [place], [id number], [place] MdlS Adult well care (chief complaint) Diabetes Mellitus Type 2, UncomplicatedObe sity, MorbidDiabetes Mellitus, Adult Onset, UncontrolledBENI GN HYPERTENSIONOthe r and unspecified hyperlipidemia 5 Llera Del Angel. [address] [facility], [place], [place], [id number], [place]. tel:[phone] OFFICE/OUTPA TIENT VISIT, [facility], [address], Pavithra shields PA, [id number], [place] MdlS Adult diabetes f/u (chief complaint)pa lpitations f/u (chief complaint)ob esity f/u (chief complaint) Diabetes Mellitus, Adult Onset, UncontrolledObes ity, MorbidTachycardi aRoutine Medical Exam 5 [facility]. [address] [facility], [place], [id number], [place]. tel:[phone] OFFICE/OUTPA TIENT VISIT, [facility], [address], Pavithra shields PA, [id number], [place] MdlS Adult well care (chief complaint) Diabetes Mellitus Type 2, UncomplicatedDia betes Mellitus, Adult Onset, UncontrolledTach ycardiaAcute upper respiratory infection of multiple sitesObesity, Morbid 5 [facility]. [facility] [place] [address], [place], [id number], [place]. tel:[phone] OFFICE/OUTPA TIENT VISIT, [facility], [address], [place], [id number], [place] MdlS Adult well care (chief complaint)di abetes f/u (chief complaint)hy perlipidemia f.u (chief complaint)el evated BP (chief complaint) Diabetes Mellitus, Adult Onset, UncontrolledDiab etic retinopathy associated with type 2 diabetes mellitusBENIGN HYPERTENSIONObes ity, MorbidRoutine Medical ExamTachycardia 4 [facility]. [address] [place] [address], [place], [id number], [place]. tel:[phone] OFFICE/OUTPA TIENT VISIT, [facility], [address], [place], [id number], [place] MdlS Adult diabetes (chief complaint)hy perlipidemia f/u (chief complaint) Screening for diabetes mellitusDiabetes Mellitus, Adult Onset, UncontrolledOthe r and unspecified hyperlipidemiaRo utine Medical ExamElevated blood pressure 4 [facility]. [address] [facility], [place], [id number], [place]. tel:[phone] OFFICE/OUTPA TIENT VISIT, [facility], [address], [place], [id number], [place] MdlS Adult diabetes (chief complaint)hy perlipidemia (chief complaint)ob esity (chief complaint)di abetic retinopathy (chief complaint) Diabetes Mellitus, Adult Onset, UncontrolledOthe r and unspecified hyperlipidemiaOb esity, MorbidDiabetic retinopathyRouti ne Medical Exam 4 Lisha Del Angel. [address] [place] [address], [place], [id number], [place]. tel:[phone] OFFICE/OUTPA TIENT VISIT, [facility], [address], [place], [id number], [place] MdlS Adult well care (chief complaint) Type II diabetes mellitus, uncontrolledHype rlipidemiaObesit y, MorbidRoutine Medical Exam 4 Lisha Del Angel. [address] [place] [address], [place], [id number], [place]. tel:[phone] Referring Provider: Bean Husain, [address] [place] [address], [place], [address]. tel: [phone] OFFICE/OUTPA TIENT VISIT, [facility], [address], [place], [id number], [place] MdEna Adult diabetes (chief complaint)el evated BP f/u (chief complaint)la bs results (chief complaint) Type II diabetes mellitus, uncontrolledHype rlipidemiaRoutin e general medical examination at a health caObesity, MorbidInfluenza Vaccine 3 Lisha Del Angel. [address] [place] [address], [place], [id number], [place]. tel:[phone] OFFICE/OUTPA TIENT VISIT, [facility], [address], [place], [id number], [place] MdEna Adult diabetes (chief complaint)ob esity (chief complaint) Type II diabetes mellitus, uncontrolledRout ine general medical examination at health caObesity, MorbidElevated blood pressure readingScreening examination for pulmonary tuberculosis 3 Lisha Del Angel. [address] [facility], Pavithra shields [place], [id number], [place]. tel:[phone] [facility], [facility] [place] [address], Pavithra shields [place], [id number], [place] [facility] No Information 3 Elarbi Elamin. [address] [place] [address], Pavithra shields [place], [id number], [place]. tel:[phone] [facility], [address] [place] [address] [place], Pavithra shields [place], [id number], [place] [facility] No Information 3 [facility] . [address] [place] [address], Pavithra shields [place], [id number]. tel:[phone] Consulting Provider: Heather Gama, [address] [place], [place] [address], [address]. tel: [phone] [facility], [address] [place] [address] [place], Pavithra shields [place], [id number], [place] [facility] No Information 3 Elarbi Elamin. [address] [place] [address], Pavithra shields [place], [id number], [place]. tel:[phone] OFFICE/OUTPA TIENT VISIT, EST [facility], [address] [place] [address] [place], Pavithra shields PA, [id number], [place] MdEna Adult diabetes (chief complaint)ob esity (chief complaint)we ll care (chief complaint) Type II diabetes mellitus, uncontrolledMorb id obesityRoutine general medical examination at health ca 3 Lisha Del Angel. [address] [facility], Pavithra shields [place], [id number], [place]. tel:[phone] [facility], [facility] [place], Pavithra shields PA, [id number], [place] [facility] No Information 3 Elarbi Elamin. [address] [place] [address], Pavithra shields [place], [id number], [place]. tel:[phone] [facility], [facility] [address], Pavithra shields, [place], [id number], [place] MdlS Adult No Information 3 Llera Del Angel. [address] [place] [address], Pavithra shields, [place], [id number], [place]. tel:[phone] OFFICE/OUTPA TIENT VISIT, [facility], [facility] [address], Pavithra shields, [place], [id number], [place] MdlS Adult diabetes (chief complaint) Diabetes Mellitus Type 2, UncomplicatedObe sity, Morbid 3 Llera Del Angel. [address] [place] [address], Pavithra shields [place], [id number], [place]. tel:[phone] [facility], [facility] [address], Pavithra shields PA, [id number], [place] MdlS Adult No Information 3 Llera Del Angel. [address] [place] [address], Pavithra shields [place], [id number], [place]. tel:[phone] OFFICE/OUTPA TIENT VISIT, [facility], [facility] [place] [address], Pavithra shields PA, [id number], [place] MdlS Adult diabetes (chief complaint)ob esity (chief complaint) Diabetes Mellitus Type 2, UncomplicatedEle vated blood pressure reading without diagnosis of hypertensionObes ityRoutine Medical Exam 3 Llera Del Angel. [address] [place] [address], Pavithra shields, [place], [id number], [place]. tel:[phone] [facility], [address] [place] [address] [place], Pavithra shields PA, [id number], [place] MdlS Dental No Information 2 [facility] . [address] [place] [address], Pavithra shields [place], [id number]. tel:[phone] Consulting Provider: Heather Gama, [address] [place] [address], [place], [address]. tel: [phone] [facility], [facility], [place], [place], [id number], [place] MdlS Adult No Information 2 Llera Del Angel. [address] [place] [address], [facility] [facility], [id number], [place]. tel:[phone] [facility], [facility], [place], [place], [id number], [place] MdlS Dental No Information 2 Cher Banks. [address] [place] [address], [place], [id number], [place]. tel:[phone] OFFICE/OUTPA TIENT VISIT, [facility], [facility], [place], [place], [id number], [place] MdlS Adult diabetes (chief complaint)ob esity (chief complaint)we ll visit (chief complaint) Screening for diabetes mellitusDiabetes Mellitus Type 2, UncomplicatedObe sity 2 Llera Del Angel. [address] [place] [address], [place], [place], [id number], [place]. tel:[phone] OFFICE/OUTPA TIENT VISIT, [facility], [facility], [place], [place], [id number], [place] MdlS Adult No Information 2 Llera Del Angel. [address] [place] [address], [place]ra [place], [place], [id number], [place]. tel:[phone] OFFICE/OUTPA TIENT VISIT, [facility], [address], [place], [place], [id number], [place] MdlS OBGYN No Information 2 Harlem Yulissa. [address] [place] [address], [place], [place], [id number], [place]. tel:[phone] OFFICE/OUTPA TIENT VISIT, [facility], [address], [place], [place], [id number], [place] MdlS OBGYN No Information 2 Harlem Yulissa. [address] [facility], Pavithra shields, [place], [id number], [place]. tel:[phone] [facility], [address], [place], [place], [id number], [place] MdlS OBGYN POSTMENOPAUSAL BLEEDING 1 Govtresa Leona. [address] [facility], Pavithra shields, [place], [id number], [place]. tel:[phone] [facility], [address], [place], [place], [id number], [place] MdlS Adult OBESITY NOSANXIETY STATE NOS 1 Llera Del Angel. [address] [place] [address], Pavithra shields, [place], [id number], [place]. tel:[phone] [facility], [address], [place], [place], [id number], [place] MdlS Adult BENIGN HYPERTENSION 0 1 Llera Del Angel. [address] [place] [address], Pavithra shields, [place], [id number], [place]. tel:[phone] [facility], [address], Pavithra shields, [place], [id number], [place] MdlS Adult Diabetes Melitus Type11 W/O Complications Controlled 2 2-201 0 Llera Del Angel. [address] [place] [address], Pavithra shields, [place], [id number], [place]. tel:[phone] [facility], [address], [place], [place], [id number], [place] MdlS Adult INSOMNIA NOS 0 5-201 0 Llera Del Angel. [address] [facility], Pavithra shields [place], [id number], [place]. tel:[phone] [facility], [address], [place], [place], [id number], [place] MdlS Adult LIPODYSTROPHY Fe 8 0 Llera Del Angel. [address] [place] [address], Pavithra shields [place], [id number], [place]. tel:[phone] Family History Family Member Type Diagnosis Age [...] virus, 3 years or older Flulaval Quad 9906-2277 administered Source: Other Regist ry Influenza, split virus, injectable, quadrivalent, 3 years or older Flulaval Quad 3591-4336 administered Source: New Immuniza tion Record Pneumococcal polysaccharide PPV23 administered Source: New Immuniza tion Record Influenza, seasonal, injectable administered Note: patient's phar howard ; Source: Source Unspecified Flulaval 18+yrs administered Source: New Immunization Record Tdap administered Note: patient's paper chart ; Source: Source Unspecified Pneumococcal polysaccharide PPV23 administered Note: patient's jana r chart ; Source: Source Unspecified Payers Payer name Insurance type Covered democrat ID Authoriza tion(s) Personal Choice CI [id number] Personal Choice CI [id number] Personal Choice CI [id number] Personal Choice CI [id number] [facility] CI [id number] [facility] CI [id number] [facility] CI [id number] [facility] CI [id number] [facility] CI [id number] Personal Choice CI [id number] Social History Type Description Quantity Date Captured Comments Alcohol Use Details Unknown Caffeine Use Details Unknown Tobacco Use Status No Information Smoking Status No Information Sex Female Sexual Orientation Straight or heterosexual Oct Gender Identity Female Chief Complaint And Reason For Visit No Information Reason For Referral Reason For Referral No Information Plan Of Treatment Date Type Action Status Goal Sigmoidoscopy. Due on due Goal BMI. Due on due Goal Depression Follo w-Up. Due on due Goal Tobacco screenin g. Due on due Goal Pneumococcal vaccine due Goal FIT. Due on due Goal Tobacco Follow-U p. Due on due Goal Foot exam. Due on 3 due Goal ASCVD [address]. Due on due Goal Prevnar 13 (PCV1 3). Due on due Goal Colonoscopy. Due on 020 due Goal Creatinine. Due on 22 due Goal Potassium. Due on 3 due Goal BMI Adult Follow -Up. Due on due Goal Depression scree brayan. Due on due Goal GFR. Due on due Goal Referral Ophthal mology. Due on due Goal Dental exam. Due on 023 due Goal Mammogram. Due on 3 due Goal Hepatitis C scre ening. Due on due Goal Hepatitis C anti body. Due on due Goal Cognitive assess ment. Due on due Goal FOBT. Due on due Goal CT-Colonography. Due on due Goal Dilated eye exam . Due on due Goal Zoster vaccine ( ). 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 Due on due Goal Unhealthy drug u se screening. Due on due Goal Tdap due Goal FIT-DNA. Due on due Goal Zoster Vaccine. Due on due Goal Microalb/Creat R atio, Randm Ur. Due on due Goal Dental exam. Due on 022 due Goal Referral Ophthal mology. Due on due Goal Dilated eye exam . Due on due Goal Foot exam. Due on 2 due Goal GFR. Due on due Goal FOBT. Due on due Goal Zoster Vaccine. 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 Due on due Goal Mammogram. Due on 2 due Goal Zoster vaccine ( 1st). Due on due Goal Colonoscopy. Due on 020 due Goal Depression scree brayan. Due on due Goal Hepatitis C anti body. Due on due Goal Prevnar 13 (PCV1 3). Due on due Goal Influenza vaccin e. Due on due Goal BMP. Due on due Goal Lipid panel. Due on due Goal Referral Ophthal mology. Due on due Goal Mammogram. Due on due Goal Zoster Vaccine. Due on due Goal Colonoscopy. Due on [...] vaccine ( 1st). 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 Due on due Goal Prevnar 13 [...] vaccine ( ). 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 Due on due Goal FOBT. Due on due Goal Colonoscopy. Due on due Goal Hepatitis C anti body. Due on due Goal Zoster Vaccine. Due on due Goal BMP. Due on due Goal Foot exam. Due on due Goal Microalb/Creat R atio, Randm Ur. Due on due Goal Prevnar 13 (PCV1 3). Due on due Goal Lipid panel. Due on due Goal Influenza vaccin e. Due on due Goal BMP. Due on due Goal Prevnar 13 (PCV1 3). 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 Due on due Goal Colonoscopy. Due on due Goal FOBT. Due on due Goal Depression scree brayan. Due on due Goal Mammogram. Due on 0 due Goal Zoster Vaccine. Due on due Goal Zoster vaccine ( ). Due on due Goal Hepatitis C anti body. Due on due Goal Referral Ophthal mology. Due on due Goal Dilated eye exam . Due on due Goal Foot exam. Due on 0 due Goal Hemoglobin A1C. Due on due Goal Microalb/Creat R atio, Randm Ur. Due on due Goal Dental exam. Due on due Goal GFR. Due on due Goal Hemoglobin A1C. Due [...] Goal Mammogram. 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 Due on due Goal HIV Consented. Due on due Goal PAP with HPV 30- 65. Due on due Goal Influenza vaccin e. Due on due Goal Prevnar 13 (PCV1 3). Due on due Goal BMP. Due on due Goal Lipid panel. Due on due Goal Depression scree brayan. 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 Due on due Goal Colonoscopy. Due [...] Goal Lipid panel. Due on due Goal HIV Consented. Due on due Goal HIV Screen. Due on 20 due Goal Microalb/Creat R atio, Randm Ur. Due on due Goal Referral Ophthal mology. Due on due Goal Foot exam. Due on 0 due Goal GFR. Due on due Goal Dental exam. Due on due Goal Dilated eye exam . Due on due Goal Hemoglobin A1C. Due on due Goal Dilated eye exam . Due on due Goal Referral Ophthal mology. Due on due Goal Dental exam. Due on due Goal Foot exam. Due on 9 due Goal Zoster vaccine ( ). Due on due Goal HIV Consented. 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 Due on due Goal HIV Screen. [...] due Goal Colonoscopy. Due on due Goal GFR. Due on [...] due Goal BMP. 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 Due on due Goal Mammogram. Due on 9 due Goal Depression scree brayan. Due on due Goal Zoster vaccine ( 1st). Due on due Goal PAP with HPV 30- 65. Due on due Goal Hepatitis C anti body. Due on due Goal HIV Consented. Due on due Goal HIV Screen. Due on due Goal Colonoscopy. Due on [...] mology. Due on due Goal Depression scree braayn. Due on due Goal Mammogram. Due on 9 due Goal Hepatitis C anti body. 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 Due on due Goal Colonoscopy. Due on 020 due Goal BMP. Due on due Goal GFR. Due on due Goal Lipid panel. Due on 019 due Goal Hemoglobin A1C. Due on due Goal Referral Ophthal mology. Due on due Goal Dental exam. Due on due Goal Foot exam. Due on 8 due Goal Microalb/Creat R atio, Randm Ur. Due on due Goal Dilated eye exam . Due on due Goal Hepatitis C anti body. 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 Due on due Goal HIV Screen. Due on 18 due Goal FOBT. Due on due Goal Mammogram. Due on 8 due Goal Depression scree brayan. Due on due Goal HIV Consented. Due on due Goal PAP with HPV 30- 65. Due on due Goal Colonoscopy. Due on 018 due Goal Influenza vaccin e. Due on [...] HIV Screen. Due on 18 due Goal DRYING EQUIPMENT OPERATOR exam. Due on due Goal Colonoscopy. Due on 018 due Goal FOBT. Due on due Goal [...] due Goal Colonoscopy. 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 Due on due Goal HIV Consented. Due on due Goal Referral Ophthal mology. Due on due Goal Dilated eye exam . Due on due Goal Foot exam. Due on due Goal Hemoglobin A1C. Due on due Goal Dental exam. Due on due Goal Mammogram. Due on due Goal FOBT. 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 Due on due Goal Colonoscopy. Due on due Goal Hepatitis C anti body. Due on due Goal Depression scree brayan. Due on due Goal PAP with HPV 30- 65. Due on due Goal HIV Screen. Due on due Goal HIV Consented. Due on due Goal Hepatitis C anti body. Due on due Goal FOBT. 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 Due on due Goal Dental exam. Due on due Goal Foot exam. Due on due Goal Depression scree brayan. Due on due Goal HIV Consented. Due on due Goal PAP with HPV 30- 65. Due on due Goal Colonoscopy. Due on 014 due Goal Mammogram. Due on 7 due Goal HIV Screen. Due on 17 due Goal Dilated eye exam . Due [...] HIV Screen. Due on 16 due Goal Mammogram. Due on 6 due Goal Hepatitis C anti body. Due on due Goal Influenza vaccin e. Due on due Goal Occult Blood, [place], [place]. Due on due Goal Colonoscopy. Due on due Goal PAP with HPV 30- 65. Due on due Goal HIV Consented. Due on due Goal HIV Screen. Due on 15 due Goal Occult Blood, [place], [place]. [...] on 15 due Goal Mammogram. Due on due Goal HIV Screen. Due on due Goal Mammogram. Due on due Goal HIV Consented. Due on due Goal PAP with HPV 30- 65. Due on due Goal Lipid Panel. Due on due Goal Pneumococcal vaccine due Goal Colonoscopy. Due on due Goal Occult Blood, [place], [place]. Due on due Goal Hepatitis C anti body. Due on due Goal Depression scree brayan. Due on due Goal Tdap due Goal Occult Blood, [place], [place]. Due on due Goal Hepatitis C anti body. Due on due Goal Colonoscopy. Due on due Goal Mammogram. Due on due Goal Depression scree brayan. Due on due Goal PAP with HPV 30- 65. Due on due Goal Lipid Panel. Due on due Goal HIV Consented. Due on due Goal HIV Screen. Due on due Goal Tdap due Goal Hepatitis C anti body. Due on due Goal Lipid Panel. Due on due Goal Pneumococcal vaccine due Goal Occult Blood, [place], [place]. Due on due Goal Mammogram. Due on due Goal HIV Screen. Due on due Goal PAP with HPV 30- 65. Due on due Goal Colonoscopy. Due on 014 due Goal HIV Consented. Due on due Goal Depression scree brayan. Due on due Goal HIV Screen. Due on 14 due Goal Pneumococcal vaccine due Goal HIV Consented. Due on due Goal Mammogram. Due on 4 due Goal PAP with HPV . Due on due Goal Hepatitis C anti body. Due on due Goal Occult Blood, [place], [place]. Due on due Goal Tdap due Goal Depression scree brayan. Due on due Goal Lipid Panel. Due on due Goal Colonoscopy. Due on due Referral Ordered: DXA BONE [...] Referred To: Ravi Peraza OD Ordered: Referrals: Staking Press Operator. Ravi Peraza OD ordered Referral Referred To: Dr. elyse Pearson Ordered: Referrals: Ophthalmology. Dr. elyse Pearson ordered Future Order: Lab Order HEMOGLOB IN A1C ([id number]), Ordered on: Ordered Future Order: Lab Order MICROALB UMIN ([id number]), Ordered on: Ordered Future Order: Lab Order LIPID PA TAMANNA ([id number]), Ordered on: Ordered Future Order: Lab Order BMP ([id number]), Ordered on: Ordered Future Order: Lab Order HEMOGLOB IN A1C ([id number]), Ordered on: Ordered Future Order: Lab Order URINALYS IS ([id number]), Ordered on: Ordered Future Order: Lab Order TSH ([id number]), Ordered on: Ordered Future Order: Lab Order CBC with Diff ([id number]), Ordered on: Ordered Future Order: Lab Order MICROALB UMIN ([id number]), Ordered on: Ordered Future Order: Lab Order LIPID PA TAMANNA ([id number]), Ordered on: Ordered Future Order: Lab Order CMP ([id number]), Ordered on: Ordered Future Order: Lab Order Urinalys is, Routine w/ Microscopic on Positives ([id number]), Ordered on: Ordered Future Order: Lab Order Microalb /Creat Ratio, Randm Ur ([id number]), Ordered on: Ordered Future Order: Lab Order Ova + Pa rasites ([id number]), Ordered on: Ordered Future Order: Lab Order Stool Cu lture ([id number]), Ordered on: Ordered Future Order: Radiology Order DX A BONE DENSITY, AXIAL ([id number]), Added on: New Future Order: Radiology Order DX A BONE DENSITY/PERIPHERAL ([id number]), Added on: New Future Order: Radiology Order DX A BONE DENSITY/PERIPHERAL ([id number]), Added on: New Future Order: Lab Order Microalb /Creat Ratio, Randm Ur ([id number]), Ordered on: Ordered Future Order: Lab Order Urinalys is, Routine ([id number]), Ordered on: Ordered Future Order: Lab Order HEMOGLOB IN A1C ([id number]), Ordered on: Ordered Future Order: Lab Order CBC, no diff ([id number]), Ordered on: Ordered Future Order: Lab Order Microalb umin with creatinine and ratio ([id number]), Ordered on: Ordered Future Order: Lab Order LIPID PA TAMANNA ([id number]), Ordered on: Ordered Future Order: Lab Order CMP ([id number]), Ordered on: Ordered Future Order: Lab Order HEMOGLOB IN A1C ([id number]), Ordered on: Ordered Future Order: Lab Order CBC with Diff ([id number]), Ordered on: Ordered Future Order: Lab Order CMP ([id number]), Ordered on: Ordered Future Order: Lab Order LIPID PA TAMANNA ([id number]), Ordered on: Ordered Future Order: Lab Order LIVER PA TAMANNA ([id number]), Ordered on: Ordered Future Order: Lab Order Urine Mi croalbumin with Creatinine ([id number]), Ordered on: Ordered Future Order: Lab Order U/A ([id number]), Ordered on: Ordered History Of Present Illness [...] BID diabetes Risk factors inc lude: / Maltese, obesity and over age [age] years old. [...] [facility]/o frequent painless diarrhea for [...] as indicated she was told by her solar sales estimator that based on her eye exam she [...] otalgia, pharyngitis, rash, sinus pressure or wheezing. [facility] patient's labs a re all [...] few days . there is no fever [facility] pt's labs for e most [...] g etting worse. Risk factors include: / Maltese, obesity and over age [age] years old. [...]
== END 2024-12-09 12:44 | disposition home or self-care (01) ==
LOC: HO.MAMMO 12:43
PROVIDERS: PCP Internal Medicine; Visit Provider Internal Medicine
DX: Z12.31 Encounter for screening mammogram for malignant neoplasm of breast (principal)
CPT/HCPCS: 77063; 77067; 99212

== ENCOUNTER → 2024-12-09 13:15 | Outpatient (BNV) | payer MEDICARE, MEDICAID, SELFPAY | PROVIDERS: PCP Internal Medicine; Visit Provider Internal Medicine | DX: Z12.31 Encounter for screening mammogram for malignant neoplasm of breast (principal) | CPT/HCPCS: 77063; 77067 ==

== ENCOUNTER 2024-12-09 13:35 | Outpatient (AMB) | payer MEDICARE, MEDICAID, SELFPAY ==
--- NOTE | 2024-12-09 13:59 | MHC.OFFVIS ---
Vital Signs 12/09/24 14:00 Height 5 ft 3 in Weight 153 lb 3.54 oz BMI 27.1 BP 120/70 Blood Pressure Location Rt brachial Position Sitting Pulse 71 Pulse Source Pulse Oximeter Pulse Oximetry (%) 97 Oxygen Delivery Method Room Air Intake Visit Reasons: asthma Intake Note: pt is here for follow up and states she is doing pretty good. Computer Aided Drafter Required: Yes Computer Aided Drafter Services: Computer Aided Drafter Present Computer Aided Drafter Name: Debra Garcia RMA Allergies penicillin G [PENICILLIN G] Allergy (Intermediate, Verified 12/09/24 14:16) RASH Medication List - Last Reconciled 12/09/24 by Isra Hurley MD acetaminophen (Tylenol Extra Strength) 500 mg PO Q6H PRN albuterol sulfate 90 mcg/actuation 2 puffs inhalation Q4-6H PRN 30 days ascorbic acid (vitamin C) (Vitamin C) 250 mg PO DAILY cetirizine (All Day Allergy (cetirizine)) 10 mg PO DAILY PRN 90 days cholecalciferol (vitamin D3) (Vitamin D3) 25 mcg PO DAILY 90 days fenofibrate 54 mg PO DAILY 90 days fluticasone furoate 100 mcg/actuation (Arnuity Ellipta) 1 inh PO DAILY letrozole 2.5 mg PO DAILY lisinopril 10 mg PO DAILY 90 days meclizine 25 mg PO DAILY PRN 10 days miscellaneous medical supply (Blood Pressure Cuff) As directed miscellaneous medical supply (Blood Pressure Cuff) As directed, wrist electronic BP cuff, monitor BP twice a day omeprazole 10 mg PO DAILY PRN 90 days rosuvastatin 20 mg PO DAILY 90 days Do you need a note to return to daycare/school/sports/work: No HPI HPI asthma: Details: 69 YEARS OLD FEMALE, CITIZEN OF [place], COMES FOR FOLLOW-UP AFTER 6 MONTHS. SHE HAS MILD CASE OF BRONCHIAL ASTHMA WHICH IS REMAINING WELL CONTROLLED WITH THE USE OF ARNUITY -100 1 INHALATION DAILY SHE HARDLY NEEDS TO USE THE RESCUE INHALER. SHE ALSO HAS MILD INTERMITTENT NASAL CONGESTION WHICH IS CONTROLLED BY CETIRIZINE 10 MG ONCE A DAY P.R.N.. SHE SHE REMAINS VERY ACTIVE AT HOME. FORMERLY [facility], 1928–1983 Medical History Pulmonary fibrosis Cough Cough Restrictive lung disease Shortness of breath B12 deficiency Mixed hyperlipidemia Tachycardia Osteopenia Hypovitaminosis D Arthritis Ductal carcinoma in situ of left breast Chronic lower back pain Surgical History Hx of tubal ligation S/P lumpectomy, left breast (02/03/20) History of breast biopsy History of section History of cholecystectomy Family History Father Myocardial infarction Hypertension Mother Breast cancer Son History of kidney problems Brother Prostate cancer Sister Breast cancer Family/Other Substance use disorder Mental health disorder Social History Household Members: Children Housing: Condominium Alcohol intake: former Patient Tobacco Use Status: Never used Tobacco e-Cigarette/Vaping Use: Never Used Second Hand Smoke Exposure: No service: No Current occupational status: disabled Sexual orientation: Straight/Heterosexual Gender identity: Female Cognitive needs: No Hearing needs: No Vision needs: Yes Female Reproductive History Menstrual Age of Menarche: 11 Review of Systems Const All systems reviewed & are unremarkable except as noted in HPI and below Eyes Reports no additional complaints ENT Reports no additional complaints Card Denies chest pain, Denies irregular heart rhythm, Denies leg edema and Reports dyspnea on exertion (Now very minimal.) Resp Reports as per HPI and Reports dyspnea on exertion (Now very minimal.) GI Reports no additional complaints Reports no additional complaints Musc Reports myalgias Skin/Breast Reports system reviewed and no additional complaints, except as documented Neuro Reports no additional complaints Psych Reports no additional complaints Physical Exam Vital Signs: Last Vital Signs Pulse 71 12/09/24 14:00 BP 120/70 12/09/24 14:00 Pulse Ox 97 12/09/24 14:00 Oxygen Delivery Method Room Air 12/09/24 14:00 BMI result Body Mass Index 27.1 Const General: healthy appearing, comfortable, no acute distress, alert and awake Orientation/consciousness: patient oriented x3 HEENT Head: Yes normal to inspection General nose exam: No nasal polyps present and No nasal discharge present Face and sinus: Yes sinuses nontender Mouth: oropharynx normal Throat: Yes posterior oropharynx normal Eyes General: appearance normal, both eyes and all related structures Neck Neck: Yes normal visual inspection, Yes no lymphadenopathy, Yes trachea midline and Yes no JVD Thyroid: Thyroid normal Chest Chest palpation & inspection: normal inspection of the chest, normal palpation of entire chest wall and no tenderness Resp Effort & Inspection: normal respiratory effort and no cough Auscultation: clear to auscultation bilaterally, no crackles and no wheezes Cardio Palpation: normal PMI Rate: regular rate Rhythm: regular rhythm Heart sounds: no gallops and no murmurs Peripheral pulses: Peripheral pulses 2+ throughout GI Palpation (GI): Soft to palpation, nontender, No hepatosplenomegaly present and no masses Auscultation: normal bowel sounds Back/Spine/Pelvis Thoracic/Lumbar Spine: thoracic and lumbar spine normal to inspection Skin General skin exam: no rashes or lesions noted Neuro General: patient oriented x3 and no focal motor deficits Cranial nerves: Yes CN's II-XII intact bilaterally Extrem General: Yes normal to inspection, Yes no clubbing, cyanosis or edema and Yes no calf tenderness Psych Appearance: grossly normal and well kempt Speech and movement: Normal speech and movement present Assessment & Plan Assessment & Plan (1) Cough: Comment: Mild intermittent cough most likely secondary to low-grade nasal allergy and also asthma variant. Spirometry showed decreased FEF 25-75, this may be effort related or may be indicative of mild obstructive disorder( like asthma) Patient was considered to have cough as Asthma variant, and has responded well to the use of inhaled steroid Arnuity ) At present the cough is very minimal . And not bothersome Code(s): R05.9 - Cough, unspecified Category: Medical Plan: ADVISED TO CONTINUE USING ARNUITY-101 INHALATION DAILY. AND ALBUTEROL HFA 2 PUFFS Q 6 HOURS ONLY P.R.N. (2) Restrictive lung disease: Comment: NOTED ABOVE SHE HAS A MILD RESTRICTIVE PATTERN, WHITH TLC 70%. THIS IS A NONSPECIFIC FINDING, Code(s): J98.4 - Other disorders of lung Category: Medical Plan: THE PATIENT IS ADVISED TO KEEP ON DOING DEEP BREATHING EXERCISES 2 OR 3 TIMES A DAY Coding Level of Care Code Est Pt Level 3 (66763) Diagnoses Cough R05.9 Restrictive lung disease J98.4
[2024-12-09 14:00] VITALS: BP 120/70; PULSE 71; O2SAT 97; BMI 27.1
--- OUTSIDE RECORDS SUMMARY | 2024-12-09 16:13 | XMS_ITS | Continuity of Care Document ---
Author Organization [employer] Address [address] [place] [address] Care Team Providers Care Rawhide Trimmer Name Role Phone Julia Stern Unavailable Unavail able Allergies, Adverse Reactions, Alerts Substance Reaction Status Criticality Rzyfmsf-WQP-XeO Reductase Inhibitors msk pain Acti ve No [...] Diagnoses Date Provider Providers Copied on Encounter [facility], [address] Pav[place]ra Paulino [place], [id number], [place] Md Adult No Information 3 Lizzy Dumont. [address] [place] [address], [place], [address], [place]. tel:[phone] [facility], [address] [place]ta [place], [id number], [place] Md Family Medicine No Information 3 Lizzy Dumont. [address] [place] [address], [place], [address], [place]. tel:[phone] [facility], [address] AvPavithra mckenzie [place], [id number], [place] MdEna Adult No Information 2 Ball Mo Dumont. [address] [place] [address], [place], [id number], [place]. tel:[phone] OFFICE/OUTPA TIENT VISIT, [facility], [address], Pavithra shields [place], [id number], [place] MdlS [facility] EXPRESS CARE (chief complaint)di abetes (chief complaint)hy pertension (chief complaint) Type 2 diabetesHyperten hiro, essentialHigh cholesterol Apr-0 - 2 Lizzy Dumont. [address], [place], [address], [place]. tel:[phone] [facility], [address], Pavithra shields [place], [id number], [place] MdlS Adult Type 2 diabetes mellitus with diabetic nephropathy, with long-term current use of insulinHyperlipi demia, acquired 1 Llleslie Del Angel. [address] [place] [address], Pavithra shields [place], [id number], [place]. tel:[phone] OFFICE/OUTPA TIENT VISIT, [facility], [address], Pav[place], [place], [id number], [place] MdlS [facility] (chief complaint) Hypertension, essentialHyperli pidemia, acquiredRoutine general medical examination at health care facilityBody mass index [BMI] 50.0-59.9, adultType 2 diabetes mellitus with diabetic nephropathy, with long-term current use of insulin Nov-2 0- 1 Llera Del Angel. [address] [place] [address], Pavithra shields [place], [id number], [place]. tel:[phone] OFFICE/OUTPA TIENT VISIT, [facility], [address], Pavithra shields [place], [id number], [place] [facility] (chief complaint) Body mass index [BMI] 50.0-59.9, adultType 2 diabetes mellitus with hyperglycemia, with long-term current use of insulinHypertens ion, essentialHyperli pidemia, acquiredRoutine general medical examination at health care facility 0 Llera Del Angel. [facility] [place] [address], Pavithra shields [place], [id number], [place]. tel:[phone] [facility], [address], Pavithra shields [place], [id number], [place] MdlS Adult Diarrhea, unspecifiedType 2 diabetes mellitus with hyperglycemia 0 Llleslie Del Angel. [facility] [place] [address], Pavithra shields [place], [id number], [place]. tel:[phone] OFFICE/OUTPA TIENT VISIT, [facility], [address], Pavithra shields [place], [id number], [place] MdlS Adult Well Care (chief complaint) Body mass index (BMI) 50-59.9, adultType 2 diabetes mellitus with hyperglycemia, with long-term current use of insulinHypertens ion, essentialHyperli pidemia, acquiredDiarrhea , unspecified typeRoutine general medical examination at [facility] facilityPre-op evaluation 0 Llleslie Del Angel. [address] [place] [address], Pavithra shields [place], [id number], [place]. tel:[phone] OFFICE/OUTPA TIENT VISIT, [facility], [address], Pavithra shields [place], [id number], [place] MdlS Adult [facility] (chief complaint) Body mass index (BMI) 50-59.9, adultUrticariaTy pe 2 diabetes mellitus with hyperglycemia, with long-term current use of insulin 9 Llera Del Angel. [address] [place] [address], Pavithra shields [place], [id number], [place]. tel:[phone] OFFICE/OUTPA TIENT VISIT, [facility], [address], Pavithra shields [place], [id number], [place] MdEna Adult Well care (chief complaint) Body mass index (BMI) 50-59.9, adultType 2 diabetes mellitus with hyperglycemia, with long-term current use of insulinHypertens ion, essentialHyperli pidemia, acquiredRoutine general medical examination at health care facility 9 Llera Del Angel. [address] [place] [address], [place], [id number], [place]. tel:[phone] OFFICE/OUTPA TIENT VISIT, [facility], [address] Johnson [place], [id number], [place] [facility] (chief complaint) Body mass index (BMI) 50-59.9, adultType 2 diabetes mellitus with hyperglycemia, with long-term current use of insulinDiabetic nephropathy associated with secondary diabetes mellitusHyperten hiro, essentialRoutine general medical examination at [facility]Non-pro[facility] iferative diabetic retinopathy Nov- 9 Lisha Del Angel. [address] [place] [address], Pavithra shields [place], [id number], [place]. tel:[phone] OFFICE/OUTPA TIENT VISIT, [facility], [address] Pavithra Paulino [place], [id number], [place] MdlS Adult Well Care (chief complaint) Type 2 diabetes mellitus with hyperglycemia, with long-term current use of insulinHypertens ion, essentialDiabeti c nephropathy associated with secondary diabetes mellitusHyperlip idemia, acquiredRoutine general medical examination at [facility] hospitalMultiple joint pain 8 leslie Del Angel. [address] [place] [address], Pavithra shields [place], [id number], [place]. tel:[phone] OFFICE/OUTPA TIENT VISIT, [facility], [address] Pav[address] Johnson [place], [id number], [place] [facility] (chief complaint) Body mass index (BMI) 50-59.9 , adultType 2 diabetes mellitus with hyperglycemia, with long-term current use of insulinDiabetic nephropathy associated with secondary diabetes mellitusHyperten hiro, essentialHyperli pidemia, acquired 8 leslie Del Angel. [address] [place] [address], Pavithra shields [place], [id number], [place]. tel:[phone] OFFICE/OUTPA TIENT VISIT, [facility], [address], Pavithra shields [place], [id number], [place] [facility] (chief complaint) Body mass index (BMI) 45.0-49.9, adultType 2 diabetes mellitus with hyperglycemia, with long-term current use of insulinHypertens ion, essentialHyperli pidemia, acquiredRoutine general medical examination at health care facilityStatus post cholecystectomy [facility]. [address] [place] [address], Pavithra shields [place], [id number], [place]. tel:[phone] OFFICE/OUTPA TIENT VISIT, [facility], [address], Pavithra shields, [place], [id number], [place] MdlS Adult Well Care (chief complaint) Body mass index (BMI) 50-59.9 , adultStatus post cholecystectomyH ypertension, essentialType 2 diabetes mellitus with hyperglycemia, with long-term current use of insulinMorbid obesity with BMI of 50.0-59.9, adultDiabetic nephropathy associated with secondary diabetes mellitusHyperlip idemia, acquired [facility]. [address] [place] [address], Pavithra shields [place], [id number], [place]. tel:[phone] [facility], [address], Pavithra shields [place], [id number], [place] MdEna Adult Encounter for screening for osteoporosis [facility]. [address] [place] [address], Pavithra shields [place], [id number], [place]. tel:[phone] OFFICE/OUTPA TIENT VISIT, [facility], [address] Pavith[address] Johnson PA, [id number], [place] MdEna Adult well care (chief complaint) Body mass index (BMI) 50-59.9 , adultType 2 diabetes mellitus with hyperglycemia, with long-term current use of insulinHyperlipi demia, acquiredMorbid obesity with BMI of 50.0-59.9, adultHypertensio n, essentialSleep apnea in adult [facility]. [address] [place] [address], Pavithra shields [place], [id number], [place]. tel:[phone] OFFICE/OUTPA TIENT VISIT, [facility], [address], Pavithra shields [place], [id number], [place] MdlS Adult Well Care (chief complaint) Type 2 diabetes mellitus with hyperglycemiaHyp ertension, essentialMorbid obesity with BMI of 50.0-59.9, adultRoutine general medical examination at health care facilityHyperlip idemia, acquired May- 6 leslie Del Angel. [address] [facility], Pav[place]ra shields [place], [id number], [place]. tel:[phone] OFFICE/OUTPA TIENT VISIT, [facility], [address], Pavithra shields [place], [id number], [place] MdlS Adult well care (chief complaint) Diabetes type 2, uncontrolledHype rtension, essentialHyperli pidemia, acquiredMorbid obesity with BMI of 50.0-59.9, adultRoutine general medical examination at health care facility 2 6 leslie Del Angel. [address] [facility], [place], [id number], [place]. tel:[phone] [facility], [address], Pavithra shields [place], [id number], [place] MdlS Dental Periodontal disease, unspecified 6 [facility] . [address] [place] [address], [place], [id number]. tel:[phone] Consulting Provider: Zita Cerrato, [address] [facility], [place], [address]. tel: [phone] OFFICE/OUTPA TIENT VISIT, [facility], [address], Pavithra shields [place], [id number], [place] MdlS Adult Cough (chief complaint) URI, acute 6 Iman Rodriguez. [address] [facility], [place], [id number], [place]. tel:[phone] [facility], [address], Pavithra shields [place], [id number], [place] MdlS Dental No Information 6 Elarbi Elamin. [address] [place] [address], Pavithra shields, [place], [id number], [place]. tel:[phone] OFFICE/OUTPA TIENT VISIT, [facility], [facility], [place], [place], [id number], [place] MdlS Adult well care (chief complaint) Hypertension, essentialTachyca rdiaDiabetes type 2, uncontrolledRout ine general medical examination at health care facility 5 [facility]. [address] [place] [address], Pavithra shields, [place], [id number], [place]. tel:[phone] [facility], [address] [place] [address] Ave, Pavithra shields, [place], [id number], [place] MdlS Adult No Information [facility] [place] [address], Pavithra shields, [place], [id number], [place]. tel:[phone] OFFICE/OUTPA TIENT VISIT, [facility], [facility], Pavithra shields, [place], [id number], [place] MdlS Adult well care (chief complaint) Encounter for screening for diabetes mellitusHyperten hiro, essentialRoutine general medical examination at health care facilityTachycar diaURI, acuteMorbid obesity with BMI of 50.0-59.9, adultDiabetes type 2, uncontrolled [facility]. [address] [place] [address], Pavithra shields, [place], [id number], [place]. tel:[phone] OFFICE/OUTPA TIENT VISIT, [facility], [facility], [place], [place], [id number], [place] MdlS Adult well care (chief complaint) Diabetes Mellitus Type 2, UncomplicatedObe sity, MorbidDiabetes Mellitus, Adult Onset, UncontrolledBENI GN HYPERTENSIONOthe r and unspecified hyperlipidemia 5 Llera Del Angel. [address] [facility], [place], [place], [id number], [place]. tel:[phone] OFFICE/OUTPA TIENT VISIT, [facility], [address], Pavithra shields [place], [id number], [place] MdlS Adult diabetes f/u (chief complaint)pa lpitations f/u (chief complaint)ob esity f/u (chief complaint) Diabetes Mellitus, Adult Onset, UncontrolledObes ity, MorbidTachycardi aRoutine Medical Exam 5 [facility]. [address] [facility], [place], [id number], [place]. tel:[phone] OFFICE/OUTPA TIENT VISIT, [facility], [address], Pavithra shields [place], [id number], [place] MdlS Adult well care (chief complaint) Diabetes Mellitus Type 2, UncomplicatedDia betes Mellitus, Adult Onset, UncontrolledTach ycardiaAcute upper respiratory infection of multiple sitesObesity, Morbid 5 [facility]. [facility]-[address] [place] [address], [place], [id number], [place]. tel:[phone] OFFICE/OUTPA TIENT VISIT, [facility], [address], [place], [id number], [place] MdlS Adult well care (chief complaint)di abetes f/u (chief complaint)hy perlipidemia f.u (chief complaint)el evated BP (chief complaint) Diabetes Mellitus, Adult Onset, UncontrolledDiab etic retinopathy associated with type 2 diabetes mellitusBENIGN HYPERTENSIONObes ity, MorbidRoutine Medical ExamTachycardia 4 [facility]. [address] [place] [address], [place], [id number], [place]. tel:[phone] OFFICE/OUTPA TIENT VISIT, [facility], [address], [place], [id number], [place] MdlS Adult diabetes (chief complaint)hy perlipidemia f/u (chief complaint) Screening for diabetes mellitusDiabetes Mellitus, Adult Onset, UncontrolledOthe r and unspecified hyperlipidemiaRo utine Medical ExamElevated blood pressure 4 [facility]. [address] [facility], [place], [id number], [place]. tel:[phone] OFFICE/OUTPA TIENT VISIT, [facility], [address], [place], [id number], [place] MdlS Adult diabetes (chief complaint)hy perlipidemia (chief complaint)ob esity (chief complaint)di abetic retinopathy (chief complaint) Diabetes Mellitus, Adult Onset, UncontrolledOthe r and unspecified hyperlipidemiaOb esity, MorbidDiabetic retinopathyRouti ne Medical Exam 4 Lisha Del Angel. [address] [place] [address], [place], [id number], [place]. tel:[phone] OFFICE/OUTPA TIENT VISIT, [facility], [address], [place], [id number], [place] MdlS Adult well care (chief complaint) Type II diabetes mellitus, uncontrolledHype rlipidemiaObesit y, MorbidRoutine Medical Exam 4 Lisha Del Angel. [address] [place] [address], [place], [id number], [place]. tel:[phone] Referring Provider: Bean Husain, [address] [place] [address], [place], [address]. tel: [phone] OFFICE/OUTPA TIENT VISIT, [facility], [address], [place], [id number], [place] MdEna Adult diabetes (chief complaint)el evated BP f/u (chief complaint)la bs results (chief complaint) Type II diabetes mellitus, uncontrolledHype rlipidemiaRoutin e general medical examination at a health caObesity, MorbidInfluenza Vaccine 3 Lisha Del Angel. [address] [place] [address], [place], [id number], [place]. tel:[phone] OFFICE/OUTPA TIENT VISIT, [facility], [address], [place], [id number], [place] MdEna Adult diabetes (chief complaint)ob esity (chief complaint) Type II diabetes mellitus, uncontrolledRout ine general medical examination at health caObesity, MorbidElevated blood pressure readingScreening examination for pulmonary tuberculosis 3 Lisha Del Angel. [address] [facility], Pavithra shields [place], [id number], [place]. tel:[phone] [facility], [facility] [address], Pavithra shields [place], [id number], [place] [facility] No Information 3 Elarbi Elamin. [address] [place] [address], Pavithra shields [place], [id number], [place]. tel:[phone] [facility], [address] [place] [address] [place], Pavithra shields PA, [id number], [place] [facility] No Information 3 [facility] . [address] [place] [address], Pavithra shields [place], [id number]. tel:[phone] Consulting Provider: Heather Gama, [address] [place], [place] [address], [address]. tel: [phone] [facility], [address] [place] [address] [place], Pavithra shields PA, [id number], [place] [facility] No Information 3 Elarbi Elamin. [address] [place] [address], Pavithra shields [place], [id number], [place]. tel:[phone] OFFICE/OUTPA TIENT VISIT, EST [facility], [address] [place] [address] [place], Pavithra shields [place], [id number], [place] MdEna Adult diabetes (chief complaint)ob esity (chief complaint)we ll care (chief complaint) Type II diabetes mellitus, uncontrolledMorb id obesityRoutine general medical examination at health ca 3 Lisha Del Angel. [address] [facility], Pavithra shields [place], [id number], [place]. tel:[phone] [facility], [facility] [address], Pavithra shields [place], [id number], [place] [facility] No Information 3 Elarbi Elamin. [address] [place] [address], Pavithra shields [place], [id number], [place]. tel:[phone] [facility], [facility] [address], Pavithra shields, [place], [id number], [place] MdlS Adult No Information 3 Llera Del Angel. [address] [place] [address], Pavithra shields, [place], [id number], [place]. tel:[phone] OFFICE/OUTPA TIENT VISIT, [facility], [facility] [address], Pavithra shields, [place], [id number], [place] MdlS Adult diabetes (chief complaint) Diabetes Mellitus Type 2, UncomplicatedObe sity, Morbid 3 Llera Del Angel. [address] [place] [address], Pavithra shields [place], [id number], [place]. tel:[phone] [facility], [facility] [address], Pavithra shields [place], [id number], [place] MdlS Adult No Information 3 Llera Del Angel. [address] [place] [address], Pavithra shields [place], [id number], [place]. tel:[phone] OFFICE/OUTPA TIENT VISIT, [facility], [facility] [address], Pavithra shields PA, [id number], [place] MdlS Adult diabetes (chief complaint)ob esity (chief complaint) Diabetes Mellitus Type 2, UncomplicatedEle vated blood pressure reading without diagnosis of hypertensionObes ityRoutine Medical Exam 3 Llera Del Angel. [address] [place] [address], Pavithra shields, [place], [id number], [place]. tel:[phone] [facility], [address] [place] [address] [place], Pavithra shields PA, [id number], [place] MdlS Dental No Information 2 [facility] . [address] [place] [address], Pavithra shields [place], [id number]. tel:[phone] Consulting Provider: Heather Gama, [address] [place] [address], [place], [address]. tel: [phone] [facility], [facility], [place], [place], [id number], [place] MdlS Adult No Information 2 Llera Del Angel. [address] [place] [address], [facility] [place], [id number], [place]. tel:[phone] [facility], [facility], [place], [place], [id number], [place] MdlS Dental No Information 2 Cher Banks. [address] [place] [address], [place], [id number], [place]. tel:[phone] OFFICE/OUTPA TIENT VISIT, [facility], [facility], [place], [place], [id number], [place] MdlS Adult diabetes (chief complaint)ob esity (chief complaint)we ll visit (chief complaint) Screening for diabetes mellitusDiabetes Mellitus Type 2, UncomplicatedObe sity 2 Llera Del Angel. [address] [place] [address], [place], [place], [id number], [place]. tel:[phone] OFFICE/OUTPA TIENT VISIT, [facility], [facility], [place], [place], [id number], [place] MdlS Adult No Information 2 Llera Del Angel. [address] [place] [address], [place], [place], [id number], [place]. tel:[phone] OFFICE/OUTPA TIENT VISIT, [facility], [address], [place], [place], [id number], [place] MdlS OBGYN No Information 2 Greenleaf Yulissa. [address] [place] [address], [place], [place], [id number], [place]. tel:[phone] OFFICE/OUTPA TIENT VISIT, [facility], [address], [place], [place], [id number], [place] MdlS OBGYN No Information 2 Greenleaf Yulissa. [address] [facility], Pavithra shields, [place], [id number], [place]. tel:[phone] [facility], [address], [place], [place], [id number], [place] MdlS OBGYN POSTMENOPAUSAL BLEEDING 1 Govtresa Leona. [address] [facility], Pavithra shields, [place], [id number], [place]. tel:[phone] [facility], [address], [place], [place], [id number], [place] MdlS Adult OBESITY NOSANXIETY STATE NOS 1 Llera Del Angel. [address] [place] [address], Pavithra shields, [place], [id number], [place]. tel:[phone] [facility], [address], [place], [place], [id number], [place] MdlS Adult BENIGN HYPERTENSION 0 1 Llera Del Angel. [address] [place] [address], Pavithra shields, [place], [id number], [place]. tel:[phone] [facility], [address], Pavithra shields, [place], [id number], [place] MdlS Adult Diabetes Melitus Type11 W/O Complications Controlled 2 2-201 0 Llera Del Angel. [address] [place] [address], Pavithra shields, [place], [id number], [place]. tel:[phone] [facility], [address], [place], [place], [id number], [place] MdlS Adult INSOMNIA NOS 0 5-201 0 Llera Del Angel. [address] [facility], Pavithra shields [place], [id number], [place]. tel:[phone] [facility], [address], [place], [place], [id number], [place] MdlS Adult LIPODYSTROPHY Fe 8 0 Llera Del Angel. [address] [place] [address], Pavithra shields [place], [id number], [place]. tel:[phone] Family History Family Member Type Diagnosis Age [...] virus, 3 years or older Flulaval Quad [id number] administered Source: Other Regist ry Influenza, split virus, injectable, quadrivalent, 3 years or older Flulaval Quad [id number] administered Source: New Immuniza tion Record Pneumococcal [...] republican ID Authoriza tion(s) Personal Choice CI [id number] Personal Choice CI [id number] Personal Choice CI [id number] Personal Choice CI [id number] [facility] CI [id number] [facility] CI [id number] [facility] CI [id number] [facility] CI [id number] [facility] CI [id number] Personal Choice CI [id number] Social History Type Description Quantity Date Captured Comments Alcohol Use Details Unknown Caffeine Use Details Unknown Tobacco Use Status No Information Smoking Status No Information Sex Female Sexual Orientation Straight or heterosexual Oct Gender Identity Female Chief Complaint And Reason For Visit No Information Reason For Referral Reason For Referral No Information Plan Of Treatment Date Type Action Status Goal Foot exam. Due on 3 due Goal ASCVD 10 year ri sk. Due on due Goal Prevnar 13 (PCV1 3). Due on due Goal Colonoscopy. Due on 020 due Goal Creatinine. Due on due Goal [...] Goal Mammogram. Due on 3 due Goal Dilated eye exam . Due on due Goal Zoster vaccine ( 1st). Due on due Goal ASSOCIATE CURATOR exam. Due on due Goal Unhealthy drug u se screening. Due on due Goal Tdap due Goal FIT-DNA. Due on due Goal Zoster Vaccine. Due on due Goal Hepatitis C scre ening. Due on due Goal Hepatitis C anti body. Due on due Goal Cognitive assess ment. Due on due Goal FOBT. Due on due Goal CT-Colonography. Due on due Goal Microalb/Creat R atio, Randm Ur. Due on due Goal Dental exam. Due on 022 due Goal Referral Ophthal mology. Due on due Goal Dilated eye exam . Due on due Goal Foot exam. Due on 2 due Goal GFR. Due on due Goal FOBT. Due on due Goal Zoster Vaccine. Due on due Goal ASSOCIATE CURATOR exam. Due on due Goal Mammogram. Due [...] vaccine ( 1st). Due on due Goal ASSOCIATE CURATOR exam. Due on due Goal Prevnar 13 [...] vaccine ( ). Due on due Goal ASSOCIATE CURATOR exam. Due on due Goal FOBT. Due [...] due Goal Colonoscopy. Due on due Goal ASSOCIATE CURATOR exam. Due on due Goal Prevnar 13 [...] vaccine ( 1st). Due on due Goal Hepatitis C anti body. Due on due Goal Colonoscopy. Due on due Goal HIV Screen. Due on 20 due Goal Depression scree brayan. Due on due Goal Mammogram. Due on 0 due Goal ASSOCIATE CURATOR exam. Due on due Goal HIV Consented. [...] Depression scree brayan. Due on due Goal ASSOCIATE CURATOR exam. Due on due Goal Colonoscopy. Due [...] eye exam . Due on due Goal Dilated eye exam [...] Goal HIV Consented. Due on due Goal ASSOCIATE CURATOR exam. Due on due Goal HIV Screen. [...] on due Goal Dental exam. Due on 019 due Goal Prevnar 13 (PCV1 3). Due on due Goal Microalb/Creat R atio, Randm Ur. Due on due Goal Hemoglobin A1C. Due on due Goal Foot exam. Due on 9 due Goal Lipid panel. Due on due Goal BMP. Due on due Goal ASSOCIATE CURATOR exam. Due on due Goal Mammogram. Due [...] 9 due Goal Dental exam. Due on 019 due Goal Dilated eye exam . Due on due Goal Microalb/Creat R atio, Randm Ur. Due on due Goal Hemoglobin A1C. Due on due Goal Referral Ophthal mology. Due on due Goal Depression scree brayan. Due on due Goal Mammogram. Due on 9 due Goal Hepatitis C anti body. Due on due Goal ASSOCIATE CURATOR exam. Due on due Goal Colonoscopy. Due on 020 due Goal HIV Consented. Due on due Goal HIV Screen. Due on 19 due Goal PAP with HPV 30- 65. Due on due Goal Influenza vaccin e. Due on due Goal BMP. Due on due Goal BMP. Due on [...] C anti body. Due on due Goal ASSOCIATE CURATOR exam. Due on due Goal HIV Screen. [...] HIV Screen. Due on 18 due Goal ASSOCIATE CURATOR exam. Due on due Goal Colonoscopy. Due [...] Lipid panel. Due on 019 due Goal Dental exam. Due on 017 [...] due Goal Colonoscopy. Due on due Goal ASSOCIATE CURATOR exam. Due on due Goal HIV Consented. Due on due Goal Referral Ophthal mology. Due on due Goal Dilated eye exam . Due on due Goal Foot exam. Due on due Goal Hemoglobin A1C. Due on due Goal Dental exam. Due on 017 due Goal Mammogram. Due on due Goal FOBT. Due on due Goal ASSOCIATE CURATOR exam. Due on due Goal Colonoscopy. Due [...] due Goal FOBT. Due on due Goal ASSOCIATE CURATOR exam. Due on due Goal Dental exam. [...] Goal HIV Screen. 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 Future Order: Lab Order HEMOGLOB IN A1C ([id number]), Ordered on: Ordered Future Order: Lab Order MICROALB UMIN ([id number]), Ordered on: Ordered Future Order: Lab Order LIPID PA TAMANNA ([id number]), Ordered on: Ordered Future Order: Lab Order BMP ([id number]), Ordered on: Ordered Future Order: Lab Order HEMOGLOB IN A1C ([id number]), Ordered on: Ordered Future Order: Lab Order URINALYS IS ([id number]), Ordered on: Ordered Future Order: Lab Order TSH ([id number]), Ordered on: Ordered Future Order: Lab Order CBC with Diff ([id number]), Ordered on: Ordered Future Order: Lab Order MICROALB UMIN ([id number]), Ordered on: Ordered Future Order: Lab Order LIPID PA TAMANNA ([id number]), Ordered on: Ordered Future Order: Lab Order CMP ([id number]), Ordered on: Ordered Future Order: Lab Order Urinalys is, Routine w/ Microscopic on Positives ([id number]), Ordered on: Ordered Future Order: Lab Order Microalb /Creat Ratio, Randm Ur ([id number]), Ordered on: Ordered Future Order: Lab Order Ova + Pa rasites ([id number]), Ordered on: Ordered Future Order: Lab Order Stool Cu lture ([id number]), Ordered on: Ordered Future Order: Radiology Order DX A BONE DENSITY, AXIAL ([id number]), Added on: New Future Order: Radiology Order DX A BONE DENSITY/PERIPHERAL ([id number]), Added on: New Future Order: Radiology Order DX A BONE DENSITY/PERIPHERAL ([id number]), Added on: New Future Order: Lab Order Microalb /Creat Ratio, Randm Ur ([id number]), Ordered on: Ordered Future Order: Lab Order Urinalys is, Routine ([id number]), Ordered on: Ordered Future Order: Lab Order HEMOGLOB IN A1C ([id number]), Ordered on: Ordered Future Order: Lab Order CBC, no diff ([id number]), Ordered on: Ordered Future Order: Lab Order Microalb umin with creatinine and ratio ([id number]), Ordered on: Ordered Future Order: Lab Order LIPID PA TAMANNA ([id number]), Ordered on: Ordered Future Order: Lab Order CMP ([id number]), Ordered on: Ordered Future Order: Lab Order HEMOGLOB IN A1C ([id number]), Ordered on: Ordered Future Order: Lab Order CBC with Diff ([id number]), Ordered on: Ordered Future Order: Lab Order CMP ([id number]), Ordered on: Ordered Future Order: Lab Order LIPID PA TAMANNA ([id number]), Ordered on: Ordered Future Order: Lab Order LIVER PA TAMANNA ([id number]), Ordered on: Ordered Future Order: Lab Order Urine Mi croalbumin with Creatinine ([id number]), Ordered on: Ordered Future Order: Lab Order U/A ([id number]), Ordered on: Ordered History Of Present Illness [...] BID diabetes Risk factors inc lude: / [place], obesity and over age [age] years old. [...] [facility] painless [facility] for [...] as indicated she was told by her medical staff services manager that based on her eye exam [...] otalgia, pharyngitis, rash, sinus pressure or wheezing. [facility] patient's labs a re all wnl [...] few days . there is no fever [facility] pt's labs for e most part [...] g etting worse. Risk factors include: / [place], obesity and over age [age] years old. [...]
== END 2024-12-09 14:17 | disposition home or self-care (01) ==
LOC: HO.HPS 13:36
PROVIDERS: PCP Internal Medicine; Visit Provider Internal Medicine
DX: R05.9 Cough, unspecified (principal); J98.4 Other disorders of lung
CPT/HCPCS: 99213

== ENCOUNTER → 2024-12-17 11:06 | Outpatient (REF) | payer MEDICARE, MEDICAID, SELFPAY ==
--- NOTE | 2024-12-17 11:10 | ECG_ITS ---
Test Reason : CHEST PAIN Blood Pressure : */* mmHG Vent. Rate : 66 BPM Atrial Rate : 66 BPM P-R Int : 156 ms QRS Dur : 74 ms QT Int : 372 ms P-R-T Axes : 59 -10 47 degrees QTcB Int : 389 ms Normal sinus rhythm Normal ECG No previous ECGs available Referred By: Laura Palumbo Electronically Signed By: SLAVA GODOY
--- OUTSIDE RECORDS SUMMARY | 2024-12-17 13:07 | XMS_ITS | Continuity of Care Document ---
Author Organization [facility] Address [address] [place] [address] Care Team Providers Care Cnc Service Technician Name Role Phone Julia Stern Unavailable Unavail able Allergies, Adverse Reactions, Alerts Substance Reaction Status Criticality Qxbboip-NQS-SiU Reductase Inhibitors msk pain Acti ve No [...] Diagnoses Date Provider Providers Copied on Encounter [facility], [address] Pavithra Paulino [place], [id number], [place] Md Adult No Information 3 Lizzy Dumont. [address] [place] [address], [place], [address], [place]. tel:[phone] [facility], [address] [place]ta [place], [id number], [place] Md Family Medicine No Information 3 Lizzy Dumont. [address] [place] [address], [place], [address], [place]. tel:[phone] [facility], [address] AvPavithra mckenzie [place], [id number], [place] MdEna Adult No Information 2 Ball Mo Dumont. [address] [place] [address], [place], [address], [place]. tel:[phone] OFFICE/OUTPA TIENT VISIT, [facility], [address], Pavithra shields [place], [id number], [place] MdlS [facility] Family Medicine EXPRESS CARE (chief complaint)di abetes (chief complaint)hy pertension (chief complaint) Type 2 diabetesHyperten hiro, essentialHigh cholesterol Apr-0 - 2 Lizzy Dumont. [address], [place], [address], [place]. tel:[phone] [facility], [address], Pavithra shields [place], [id number], [place] MdlS Adult Type 2 diabetes mellitus with diabetic nephropathy, with long-term current use of insulinHyperlipi demia, acquired 1 Llleslie Del Angel. [address] [place] [address], Pavithra shields [place], [id number], [place]. tel:[phone] OFFICE/OUTPA TIENT VISIT, [facility], [address], Pav[place], [place], [id number], [place] MdlS Adult [facility] care (chief complaint) Hypertension, essentialHyperli pidemia, acquiredRoutine general medical examination at health care facilityBody mass index [BMI] 50.0-59.9, adultType 2 diabetes mellitus with diabetic nephropathy, with long-term current use of insulin Nov-2 0- 1 Llera Del Angel. [address] [place] [address], Pavithra shields [place], [id number], [place]. tel:[phone] OFFICE/OUTPA TIENT VISIT, [facility], [address], Pavithra shields [place], [id number], [place] [facility] (chief complaint) Body mass index [BMI] 50.0-59.9, adultType 2 diabetes mellitus with hyperglycemia, with long-term current use of insulinHypertens ion, essentialHyperli pidemia, acquiredRoutine general medical examination at health care facility 0 Llera Del Angel. [facility] [place] [address], Pavithra shields [place], [id number], [place]. tel:[phone] [facility], [address], Pavithra shields [place], [id number], [place] MdlS Adult Diarrhea, unspecifiedType 2 diabetes mellitus with hyperglycemia 0 Llleslie Del Angel. [facility]-[address] [place] [address], Pavithra shields [place], [id number], [place]. tel:[phone] OFFICE/OUTPA TIENT VISIT, [facility], [address], Pavithra shields [place], [id number], [place] MdlS Adult Well Care (chief complaint) Body mass index (BMI) 50-59.9, adultType 2 diabetes mellitus with hyperglycemia, with long-term current use of insulinHypertens ion, essentialHyperli pidemia, acquiredDiarrhea , unspecified typeRoutine general medical examination at [facility] care facilityPre-op evaluation 0 Llleslie Del Angel. [address] [place] [address], Pavithra shields [place], [id number], [place]. tel:[phone] OFFICE/OUTPA TIENT VISIT, [facility], [address], Pavithra shields [place], [id number], [place] MdlS Adult Well Care (chief complaint) Body mass index (BMI) 50-59.9, adultUrticariaTy pe 2 diabetes mellitus with hyperglycemia, with long-term current use of insulin 9 Llera Del Angel. [address] [place] [address], Pavithra shields [place], [id number], [place]. tel:[phone] OFFICE/OUTPA TIENT VISIT, [facility], [address], Pavithra shields [place], [id number], [place] MdEna Adult Well care (chief complaint) Body mass index (BMI) 50-59.9, adultType 2 diabetes mellitus with hyperglycemia, with long-term current use of insulinHypertens ion, essentialHyperli pidemia, acquiredRoutine general medical examination at health care facility 9 Llera Del Angel. [address] [place] [address], [place], [id number], [place]. tel:[phone] OFFICE/OUTPA TIENT VISIT, [facility], [address] Johnson [place], [id number], [place] [facility] (chief complaint) Body mass index (BMI) 50-59.9, adultType 2 diabetes mellitus with hyperglycemia, with long-term current use of insulinDiabetic nephropathy associated with secondary diabetes mellitusHyperten hiro, essentialRoutine general medical examination at [facility]Non-prol iferative diabetic retinopathy Nov- 9 Lisha Del Angel. [address] [place] [address], Pavithra shields [place], [id number], [place]. tel:[phone] OFFICE/OUTPA TIENT VISIT, [facility], [address] Pavithra Paulino PA, [id number], [place] MdlS Adult Well Care (chief complaint) Type 2 diabetes mellitus with hyperglycemia, with long-term current use of insulinHypertens ion, essentialDiabeti c nephropathy associated with secondary diabetes mellitusHyperlip idemia, acquiredRoutine general medical examination at [facility] care [facility] centerMultiple joint pain 8 leslie Del Angel. [address] [place] [address], Pavithra shields [place], [id number], [place]. tel:[phone] OFFICE/OUTPA TIENT VISIT, [facility], [address] Pavith[address] Johnson [place], [id number], [place] [facility] (chief complaint) Body mass index (BMI) 50-59.9 , adultType 2 diabetes mellitus with hyperglycemia, with long-term current use of insulinDiabetic nephropathy associated with secondary diabetes mellitusHyperten hiro, essentialHyperli pidemia, acquired 8 leslie Del Angel. [address] [place] [address], Pavithra shields [place], [id number], [place]. tel:[phone] OFFICE/OUTPA TIENT VISIT, [facility], [address], Pavithra shields [place], [id number], [place] [facility] (chief complaint) Body mass index (BMI) 45.0-49.9, adultType 2 diabetes mellitus with hyperglycemia, with long-term current use of insulinHypertens ion, essentialHyperli pidemia, acquiredRoutine general medical examination at health care facilityStatus post cholecystectomy [facility]. [address] [place] [address], Pavithra shields [place], [id number], [place]. tel:[phone] OFFICE/OUTPA TIENT VISIT, [facility], [address], Pavithra shields, [place], [id number], [place] MdlS Adult Well Care (chief complaint) Body mass index (BMI) 50-59.9 , adultStatus post cholecystectomyH ypertension, essentialType 2 diabetes mellitus with hyperglycemia, with long-term current use of insulinMorbid obesity with BMI of 50.0-59.9, adultDiabetic nephropathy associated with secondary diabetes mellitusHyperlip idemia, acquired [facility]. [address] [place] [address], Pavithra shields [place], [id number], [place]. tel:[phone] [facility], [address], Pavithra shields [place], [id number], [place] MdEna Adult Encounter for screening for osteoporosis [facility]. [address] [place] [address], Pavithra shields [place], [id number], [place]. tel:[phone] OFFICE/OUTPA TIENT VISIT, [facility], [address] Pavith[address] Johnson PA, [id number], [place] MdEna Adult well care (chief complaint) Body mass index (BMI) 50-59.9 , adultType 2 diabetes mellitus with hyperglycemia, with long-term current use of insulinHyperlipi demia, acquiredMorbid obesity with BMI of 50.0-59.9, adultHypertensio n, essentialSleep apnea in adult [facility]. [address] [place] [address], Pavithra shields [place], [id number], [place]. tel:[phone] OFFICE/OUTPA TIENT VISIT, [facility], [address], Pavithra shields [place], [id number], [place] MdlS Adult Well Care (chief complaint) Type 2 diabetes mellitus with hyperglycemiaHyp ertension, essentialMorbid obesity with BMI of 50.0-59.9, adultRoutine general medical examination at health care facilityHyperlip idemia, acquired May- 6 leslie Del Angel. [address] [facility], Pavithra shields [place], [id number], [place]. tel:[phone] OFFICE/OUTPA TIENT VISIT, [facility], [address], Pavithra shields [place], [id number], [place] MdlS Adult well care (chief complaint) Diabetes type 2, uncontrolledHype rtension, essentialHyperli pidemia, acquiredMorbid obesity with BMI of 50.0-59.9, adultRoutine general medical examination at health care facility 2 6 leslie Del Angel. [address] [facility], [place], [id number], [place]. tel:[phone] [facility], [address], Pavithra shields PA, [id number], [place] MdlS Dental Periodontal disease, unspecified 6 [facility] . [address] [place] [address], [place], [id number]. tel:[phone] Consulting Provider: Zita Cerrato, [address] [facility], [place], [address]. tel: [phone] OFFICE/OUTPA TIENT VISIT, [facility], [address], Pavithra shields [place], [id number], [place] MdlS Adult Cough (chief complaint) URI, acute 6 Iman Rodriguez. [address] [facility], [place], [id number], [place]. tel:[phone] [facility], [address], Pavithra shields [place], [id number], [place] MdlS Dental No Information 6 Elarbi Elamin. [address] [place] [address], Pavithra shields, [place], [id number], [place]. tel:[phone] OFFICE/OUTPA TIENT VISIT, [facility], [facility], [place], [place], [id number], [place] MdlS Adult well care (chief complaint) Hypertension, essentialTachyca rdiaDiabetes type 2, uncontrolledRout ine general medical examination at health care facility 5 [facility]. [address] [place] [address], Pavithra shields, [place], [id number], [place]. tel:[phone] [facility], [address] [place] [address] Ave, Pavithra shields, [place], [id number], [place] MdlS Adult No Information [facility]. [facility]-[address] [place] [address], Pavithra shields, [place], [id number], [place]. tel:[phone] OFFICE/OUTPA TIENT VISIT, [facility], [facility], Pavithra shields, [place], [id number], [place] MdlS Adult well care (chief complaint) Encounter for screening for diabetes mellitusHyperten hiro, essentialRoutine general medical examination at health care facilityTachycar diaURI, acuteMorbid obesity with BMI of 50.0-59.9, adultDiabetes type 2, uncontrolled [facility]. [address] [place] [address], Pavithra shields, [place], [id number], [place]. tel:[phone] OFFICE/OUTPA TIENT VISIT, [facility], [facility], [place], [place], [id number], [place] MdlS Adult well care (chief complaint) Diabetes Mellitus Type 2, UncomplicatedObe sity, MorbidDiabetes Mellitus, Adult Onset, UncontrolledBENI GN HYPERTENSIONOthe r and unspecified hyperlipidemia 5 Llera Del Angel. [address] [facility], [place], [place], [id number], [place]. tel:[phone] OFFICE/OUTPA TIENT VISIT, [facility], [address], Pavithra shields [place], [id number], [place] MdlS Adult diabetes f/u (chief complaint)pa lpitations f/u (chief complaint)ob esity f/u (chief complaint) Diabetes Mellitus, Adult Onset, UncontrolledObes ity, MorbidTachycardi aRoutine Medical Exam 5 [facility]. [address] [facility], [place], [id number], [place]. tel:[phone] OFFICE/OUTPA TIENT VISIT, [facility], [address], Pavithra shields [place], [id number], [place] MdlS Adult well care (chief complaint) Diabetes Mellitus Type 2, UncomplicatedDia betes Mellitus, Adult Onset, UncontrolledTach ycardiaAcute upper respiratory infection of multiple sitesObesity, Morbid 5 [facility]. [facility]-[address] [place] [address], [place], [id number], [place]. tel:[phone] OFFICE/OUTPA TIENT VISIT, [facility], [address], [place], [id number], [place] MdlS Adult well care (chief complaint)di abetes f/u (chief complaint)hy perlipidemia f.u (chief complaint)el evated BP (chief complaint) Diabetes Mellitus, Adult Onset, UncontrolledDiab etic retinopathy associated with type 2 diabetes mellitusBENIGN HYPERTENSIONObes ity, MorbidRoutine Medical ExamTachycardia 4 [facility]. [address] [place] [address], [place], [id number], [place]. tel:[phone] OFFICE/OUTPA TIENT VISIT, [facility], [address], [place], [id number], [place] MdlS Adult diabetes (chief complaint)hy perlipidemia f/u (chief complaint) Screening for diabetes mellitusDiabetes Mellitus, Adult Onset, UncontrolledOthe r and unspecified hyperlipidemiaRo utine Medical ExamElevated blood pressure 4 [facility]. [address] [facility], [place], [id number], [place]. tel:[phone] OFFICE/OUTPA TIENT VISIT, [facility], [address], [place], [id number], [place] MdlS Adult diabetes (chief complaint)hy perlipidemia (chief complaint)ob esity (chief complaint)di abetic retinopathy (chief complaint) Diabetes Mellitus, Adult Onset, UncontrolledOthe r and unspecified hyperlipidemiaOb esity, MorbidDiabetic retinopathyRouti ne Medical Exam 4 Lisha Del Angel. [address] [place] [address], [place], [id number], [place]. tel:[phone] OFFICE/OUTPA TIENT VISIT, [facility], [address], [place], [id number], [place] MdlS Adult well care (chief complaint) Type II diabetes mellitus, uncontrolledHype rlipidemiaObesit y, MorbidRoutine Medical Exam 4 Lisha Del Angel. [address] [place] [address], [place], [id number], [place]. tel:[phone] Referring Provider: Bean Husain, [address] [place] [address], [place], [address]. tel: [phone] OFFICE/OUTPA TIENT VISIT, [facility], [address], [place], [id number], [place] MdEna Adult diabetes (chief complaint)el evated BP f/u (chief complaint)la bs results (chief complaint) Type II diabetes mellitus, uncontrolledHype rlipidemiaRoutin e general medical examination at a health caObesity, MorbidInfluenza Vaccine 3 Lsiha Del Angel. [address] [place] [address], [place], [id number], [place]. tel:[phone] OFFICE/OUTPA TIENT VISIT, [facility], [address], [place], [id number], [place] MdEna Adult diabetes (chief complaint)ob esity (chief complaint) Type II diabetes mellitus, uncontrolledRout ine general medical examination at health caObesity, MorbidElevated blood pressure readingScreening examination for pulmonary tuberculosis 3 Lisha Del Angel. [address] [facility], Pavithra shields [place], [id number], [place]. tel:[phone] [facility], [facility] [address], Pavithra shields [place], [id number], [place] [facility] No Information 3 Elarbi Elamin. [address] [place] [address], Pavithra shields [place], [id number], [place]. tel:[phone] [facility], [address] [place] [address] L[place], Pavithra shields [place], [id number], [place] [facility] No Information 3 [facility] . [address] [place] [address], Pavithra shields [place], [id number]. tel:[phone] Consulting Provider: Heather Gama, [address] [place], [place] [address], [address]. tel: [phone] [facility], [address] [place] [address] [place], Pavithra shields [place], [id number], [place] [facility] No Information 3 Elarbi Elamin. [address] [place] [address], Pavithra shields PA, [id number], [place]. tel:[phone] OFFICE/OUTPA TIENT VISIT, EST [facility], [address] [place] [address] [place], Pavithra shields PA, [id number], [place] MdEna Adult diabetes (chief complaint)ob esity (chief complaint)we ll care (chief complaint) Type II diabetes mellitus, uncontrolledMorb id obesityRoutine general medical examination at health ca 3 Lisha Del Angel. [address] [facility], Pavithra shields [place], [id number], [place]. tel:[phone] [facility], [facility] [address], Pavithra shields PA, [id number], [place] [facility] No Information 3 Elarbi Elamin. [address] [place] [address], Pavithra shields [place], [id number], [place]. tel:[phone] [facility], [facility] [address], Pavithra shields, [place], [id number], [place] MdlS Adult No Information 3 Llera Del Angel. [address] [place] [address], Pavithra shields, [place], [id number], [place]. tel:[phone] OFFICE/OUTPA TIENT VISIT, [facility], [facility] [address], Pavithra shields, PA, [id number], [place] MdlS Adult diabetes (chief complaint) Diabetes Mellitus Type 2, UncomplicatedObe sity, Morbid 3 Llera Del Angel. [address] [place] [address], Pavithra shields [place], [id number], [place]. tel:[phone] [facility], [facility] [address], Pavithra shields [place], [id number], [place] MdlS Adult No Information 3 Llera Del Angel. [address] [place] [address], Pavithra shields PA, [id number], [place]. tel:[phone] OFFICE/OUTPA TIENT VISIT, [facility], [facility] [address], Pavithra shields PA, [id number], [place] MdlS Adult diabetes (chief complaint)ob esity (chief complaint) Diabetes Mellitus Type 2, UncomplicatedEle vated blood pressure reading without diagnosis of hypertensionObes ityRoutine Medical Exam 3 Llera Del Angel. [address] [place] [address], Pavithra shields, [place], [id number], [place]. tel:[phone] [facility], [address] [place] [address] [place], Pavithra shields PA, [id number], [place] MdlS Dental No Information 2 [facility] . [address] [place] [address], Pavithra shields [place], [id number]. tel:[phone] Consulting Provider: Heather Gama, [address] [place] [address], [place], [address]. tel: [phone] [facility], [facility], [place], [place], [id number], [place] MdlS Adult No Information 2 Llera Del Angel. [address] [place] [address], [facility] [place], [id number], [place]. tel:[phone] [facility], [facility], [place], [place], [id number], [place] MdlS Dental No Information 2 Cher Banks. [address] [place] [address], [place], [place], [id number], [place]. tel:[phone] OFFICE/OUTPA TIENT VISIT, [facility], [facility], [place], [place], [id number], [place] MdlS Adult diabetes (chief complaint)ob esity (chief complaint)we ll visit (chief complaint) Screening for diabetes mellitusDiabetes Mellitus Type 2, UncomplicatedObe sity 2 Llera Del Angel. [address] [place] [address], [place], [place], [id number], [place]. tel:[phone] OFFICE/OUTPA TIENT VISIT, [facility], [facility], [place], [place], [id number], [place] MdlS Adult No Information 2 Llera Del Angel. [address] [place] [address], [place]ra ia, [place], [id number], [place]. tel:[phone] OFFICE/OUTPA TIENT VISIT, [facility], [address], [place], [place], [id number], [place] MdlS OBGYN No Information 2 [place] Yulissa. [address] [place] [address], [place], [place], [id number], [place]. tel:[phone] OFFICE/OUTPA TIENT VISIT, [facility], [address], [place], [place], [id number], [place] MdlS OBGYN No Information 2 [place] Yulissa. [address] [facility], Pavithra shields, [place], [id number], [place]. tel:[phone] [facility], [address], [place], [place], [id number], [place] MdlS OBGYN POSTMENOPAUSAL BLEEDING 1 Govtresa Leona. [address] [facility], Pavithra shields, [place], [id number], [place]. tel:[phone] [facility], [address], [place], [place], [id number], [place] MdlS Adult OBESITY NOSANXIETY STATE NOS 1 Llera Del Angel. [address] [place] [address], Pavithra shields, [place], [id number], [place]. tel:[phone] [facility], [address], [place], [place], [id number], [place] MdlS Adult BENIGN HYPERTENSION 0 1 Llera Del Angel. [address] [place] [address], Pavithra shields, [place], [id number], [place]. tel:[phone] [facility], [address], Pavithra shields, [place], [id number], [place] MdlS Adult Diabetes Melitus Type11 W/O Complications Controlled 2 2-201 0 Llera Del Angel. [address] [place] [address], Pavithra shields, [place], [id number], [place]. tel:[phone] [facility], [address], [place], [place], [id number], [place] MdlS Adult INSOMNIA NOS 0 5-201 0 Llera Del Angel. [address] [facility], Pavithra shields [place], [id number], [place]. tel:[phone] [facility], [address], [place], [place], [id number], [place] MdlS Adult LIPODYSTROPHY Fe 8 0 Llera Del Angel. [address] [place] [address], Pavithra shields [place], [id number], [place]. tel:[phone] Family History Family Member Type Diagnosis Age [...] virus, 3 years or older Flulaval Quad [id number] administered Source: Other Regist ry Influenza, split virus, injectable, quadrivalent, 3 years or older Flulaval Quad [id number] administered Source: New Immuniza tion Record Pneumococcal [...] republican ID Authoriza tion(s) Personal Choice CI [id number] Personal Choice CI [id number] Personal Choice CI [id number] Personal Choice CI [id number] [facility] CI [id number] [facility] CI [id number] [facility] CI [id number] [facility] CI [id number] [facility] CI [id number] Personal Choice CI [id number] Social History Type Description Quantity Date Captured [...] Status Goal Sigmoidoscopy. Due on due Goal Depression Follo w-Up. Due on due Goal Potassium. Due on due Goal BMI Adult Follow -Up. Due on due Goal Depression scree brayan. Due on due Goal Tobacco Follow-U p. Due on due Goal FIT. Due on due Goal Tobacco screenin g. Due on due Goal BMI. Due on due Goal Creatinine. Due on 22 due Goal Pneumococcal vaccine due Goal Colonoscopy. Due on 020 due Goal Prevnar 13 (PCV1 3). Due on due Goal Foot exam. Due on 3 due Goal ASCVD [address]. Due on due Goal GFR. Due on [...] C scre ening. Due on due Goal CARRIER PACKER exam. Due on due Goal Cognitive assess ment. Due on due Goal Zoster vaccine ( ). Due on due Goal CT-Colonography. Due on due Goal CARRIER PACKER exam. Due on due Goal Mammogram. Due [...] Influenza vaccin e. Due on due Goal CARRIER PACKER exam. Due on due Goal BMP. Due on due Goal Lipid panel. Due on due Goal Prevnar 13 (PCV1 3). Due on due Goal Microalb/Creat R atio, Randm Ur. Due on due Goal Foot exam. Due on due Goal Zoster vaccine ( 1st). Due on due Goal CARRIER PACKER exam. Due on due Goal Lipid panel. [...] Influenza vaccin e. Due on due Goal Dilated eye exam [...] due Goal Colonoscopy. Due on due Goal CARRIER PACKER exam. Due on due Goal Depression scree [...] due Goal Colonoscopy. Due on due Goal CARRIER PACKER exam. Due on due Goal Microalb/Creat R [...] atio, Randm Ur. Due on due Goal Hepatitis C anti [...] Goal Mammogram. Due on 0 due Goal CARRIER PACKER exam. Due on due Goal Dilated eye [...] Goal Lipid panel. Due on due Goal CARRIER PACKER exam. Due on due Goal BMP. Due [...] Goal Hemoglobin A1C. Due on due Goal CARRIER PACKER exam. Due on due Goal Foot exam. Due on due Goal Lipid panel. Due on due Goal BMP. Due on due Goal Mammogram. Due on 9 due Goal Hepatitis C anti body. Due on due Goal Colonoscopy. Due on due Goal Zoster vaccine ( 1st). Due on due Goal PAP with HPV 30- 65. Due on due Goal HIV Screen. Due on 19 due Goal HIV Consented. Due on due [...] Goal Foot exam. Due on due Goal Mammogram. Due on due Goal Microalb/Creat R atio, Randm Ur. Due on due Goal Lipid panel. Due on due Goal Prevnar 13 (PCV1 3). Due on due Goal Hemoglobin A1C. Due on due Goal CARRIER PACKER exam. Due on due Goal HIV Consented. [...] Referral Ophthal mology. Due on due Goal CARRIER PACKER exam. Due on due Goal Depression scree [...] Lipid panel. Due on 019 due Goal CARRIER PACKER exam. Due on due Goal Mammogram. Due on 8 due Goal Prevnar 13 (PCV1 3). Due on due Goal GFR. Due on due Goal Dilated eye exam . Due on due Goal Dental exam. Due on 018 due Goal HIV Screen. Due on 17 due Goal HIV Consented. Due on due Goal FOBT. Due on due Goal CARRIER PACKER exam. Due on due Goal PAP with [...] Goal HIV Screen. Due on due Goal CARRIER PACKER exam. Due on due Goal Referral Ophthal [...] eye exam . Due on due Goal Pneumococcal vaccine due Goal Referral Ophthal mology. Due on due Goal Dilated eye exam . Due on due Goal Depression scree brayan. Due on due Goal Hepatitis C anti body. Due on due Goal CARRIER PACKER exam. Due on due Goal Foot exam. Due on due Goal HIV Consented. Due on due Goal HIV Screen. Due on 17 due Goal PAP with HPV 30- 65. Due on due Goal Dental exam. Due on 017 due Goal FOBT. Due on due Goal [...] HPV 30- 65. Due on due Goal PAP with HPV 30- 65. Due on due Goal Occult Blood, [place]. Due on due Goal Hepatitis C anti body. Due on due Goal Mammogram. Due on 6 due Goal Colonoscopy. Due on 014 due Goal HIV Screen. Due on 16 due Goal Influenza vaccin e. Due on due Goal Depression scree baryan. Due on due Goal PAP with HPV [...] with HPV 30- 65. Due on due Referral Ordered: DXA BONE [...] Referred To: Ravi Peraza OD Ordered: Referrals: License Registration Examiner. Ravi Peraza OD ordered Referral Referred To: Dr. elyse Pearson Ordered: Referrals: Ophthalmology. Dr. elyse Pearson ordered Future Order: Lab Order HEMOGLOB IN A1C ([id number]), Ordered on: Ordered Future Order: Lab Order MICROALB UMIN ([id number]), Ordered on: Ordered Future Order: Lab Order LIPID PA TAMANNA ([id number]), Ordered on: Ordered Future Order: Lab Order BMP ([id number]), Ordered on: Ordered Future Order: Lab Order HEMOGLOB IN A1C ([id number]), Ordered on: Ordered Future Order: Lab Order URINALYS IS ([id number]), Ordered on: Ordered Future Order: Lab Order TSH ([id number]), Ordered on: Ordered Future Order: Lab Order CBC with Diff ([id number]), Ordered on: Ordered Future Order: Lab Order MICROALB UMIN ([id number]), Ordered on: Ordered Future Order: Lab Order LIPID PA TAMANNA ([id number]), Ordered on: Ordered Future Order: Lab Order CMP ([id number]), Ordered on: Ordered Future Order: Lab Order Urinalys is, Routine w/ Microscopic on Positives ([id number]), Ordered on: Ordered Future Order: Lab Order Microalb /Creat Ratio, Randm Ur ([id number]), Ordered on: Ordered Future Order: Lab Order Ova + Pa rasites ([id number]), Ordered on: Ordered Future Order: Lab Order Stool Cu lture ([id number]), Ordered on: Ordered Future Order: Radiology Order DX A BONE DENSITY, AXIAL ([id number]), Added on: New Future Order: Radiology Order DX A BONE DENSITY/PERIPHERAL ([id number]), Added on: New Future Order: Radiology Order DX A BONE DENSITY/PERIPHERAL ([id number]), Added on: New Future Order: Lab Order Microalb /Creat Ratio, Randm Ur ([id number]), Ordered on: Ordered Future Order: Lab Order Urinalys is, Routine ([id number]), Ordered on: Ordered Future Order: Lab Order HEMOGLOB IN A1C ([id number]), Ordered on: Ordered Future Order: Lab Order CBC, no diff ([id number]), Ordered on: Ordered Future Order: Lab Order Microalb umin with creatinine and ratio ([id number]), Ordered on: Ordered Future Order: Lab Order LIPID PA TAMANNA ([id number]), Ordered on: Ordered Future Order: Lab Order CMP ([id number]), Ordered on: Ordered Future Order: Lab Order HEMOGLOB IN A1C ([id number]), Ordered on: Ordered Future Order: Lab Order CBC with Diff ([id number]), Ordered on: Ordered Future Order: Lab Order CMP ([id number]), Ordered on: Ordered Future Order: Lab Order LIPID PA TAMANNA ([id number]), Ordered on: Ordered Future Order: Lab Order LIVER PA TAMANNA ([id number]), Ordered on: Ordered Future Order: Lab Order Urine Mi croalbumin with Creatinine ([id number]), Ordered on: Ordered Future Order: Lab Order U/A ([id number]), Ordered on: Ordered History Of Present Illness [...] BID diabetes Risk factors inc lude: / [place], obesity and over age [age] years old. [...] [facility]o [facility] painless diarrhea [...] as indicated she was told by her online advertising manager that based on her eye exam [...] otalgia, pharyngitis, rash, sinus pressure or wheezing. [facility] patient's labs a re [...] few days . there is no fever [facility] pt's labs for e [...] g etting worse. Risk factors include: / [place], obesity and over age [age] years old. [...]
== END ==
LOC: HO.CARD 11:06
PROVIDERS: PCP Internal Medicine; Visit Provider Internal Medicine
DX: R07.9 Chest pain, unspecified (principal)
CPT/HCPCS: 93005

== ENCOUNTER → 2024-12-17 11:10 | Outpatient (BNV) | payer MEDICARE, MEDICAID, SELFPAY | PROVIDERS: PCP Internal Medicine; Visit Provider Internal Medicine | DX: R07.9 Chest pain, unspecified (principal) | CPT/HCPCS: 93010 ==

== ENCOUNTER 2025-01-19 10:37 | Outpatient (REF) | payer MEDICARE, MEDICAID, SELFPAY ==
--- NOTE | ~2025-01-19 | MM_ITS ---
EXAMINATION: MM DIAGNOSTIC DIGITAL BREAST TOMOSYNTHESIS, RIGHT Limited right breast ultrasound. CLINICAL INFORMATION: Call back from screening for focal asymmetry in the central outer right breast with questioned distortion. COMPARISON: Mammography: Pri[facility] on PACS. TECHNIQUE: Digital breast tomosynthesis is performed in both the craniocaudal and mediolateral oblique views along with computer-aided detection (CAD). Synthesized 2D images are generated from the tomosynthesis. FINDINGS: There are scattered areas of fibroglandular density (ACR BI-RADS breast composition Category b). The previously seen focal asymmetry in the central outer right breast with associated distortion does not persist on additional imaging projections and likely represented overlapping breast tissue. There are no significant masses, abnormal calcifications, or other abnormalities. Targeted color Doppler ultrasound scanning in the right breast from 7-11 o'clock demonstrates normal fibroglandular breast tissue. There is no sonographic abnormal findings. MM/MM tomosynthesis added views R IMPRESSION: No mammographic evidence of malignancy. ASSESSMENT: BI-RADS BI-RADS 1 - Negative RECOMMENDATION: 1 year F/U Results were provided to the patient at time of visit by the technologist. This patient's information was entered into a reminder system with a target due date for their next mammogram. Electronically signed by: Kenia Weeks DO 01/19/2025 12:06 PM EDT
--- OUTSIDE RECORDS SUMMARY | 2025-01-19 11:24 | XMS_ITS | Continuity of Care Document ---
Author Organization [employer] Address [address] [place] [address] Care Team Providers Care Community Planning Technician Name Role Phone Julia Stern Unavailable Unavail able Allergies, Adverse Reactions, Alerts Substance Reaction Status Criticality Ymktqtn-ZFH-KfW Reductase Inhibitors msk pain Acti ve No [...] Diagnoses Date Provider Providers Copied on Encounter [facility], [address] Pavithra Paulino [place], [id number], [place] Md Adult No Information 3 Lizzy Dumont. [address] [place] [address], [place], [address], [place]. tel:[phone] [facility], [address] [place], [id number], [place] Md Family Medicine No Information 3 Lizzy Dumont. [address] [place] [address], [place], [address], [place]. tel:[phone] [facility], [address] AvPavithra mckenzie [place], [id number], [place] MdEna Adult No Information 2 Ball Mo Dumont. [address] [place] [address], [place], [address], [place]. tel:[phone] OFFICE/OUTPA TIENT VISIT, [facility], [address], Pav[place]ra shields [place], [id number], [place] MdlS [facility] (chief complaint)di abetes (chief complaint)hy pertension (chief complaint) Type 2 diabetesHyperten hiro, essentialHigh cholesterol Apr-0 - 2 Lizzy Dumont. [address], [place], [address], [place]. tel:[phone] [facility], [address], Pavithra shields [place], [id number], [place] MdlS Adult Type 2 diabetes mellitus with diabetic nephropathy, with long-term current use of insulinHyperlipi demia, acquired 1 Llleslie Del Angel. [address] [place] [address], Pavithra shields [place], [id number], [place]. tel:[phone] OFFICE/OUTPA TIENT VISIT, [facility], [address], [place], [place], [id number], [place] MdlS Adult [facility] (chief complaint) Hypertension, essentialHyperli pidemia, acquiredRoutine general medical examination at health care facilityBody mass index [BMI] 50.0-59.9, adultType 2 diabetes mellitus with diabetic nephropathy, with long-term current use of insulin Nov-2 0- 1 Llera Del Angel. [address] [place] [address], Pavithra shields [place], [id number], [place]. tel:[phone] OFFICE/OUTPA TIENT VISIT, [facility], [address], Pavithra shields [place], [id number], [place] yLnne Adult Well Care (chief complaint) Body mass index [BMI] 50.0-59.9, adultType 2 diabetes mellitus with hyperglycemia, with long-term current use of insulinHypertens ion, essentialHyperli pidemia, acquiredRoutine general medical examination at health care facility 0 Llera Del Angel. [facility] [place] [address], Pavithra shields [place], [id number], [place]. tel:[phone] [facility], [address], Pavithra shields [place], [id number], [place] MdlS Adult Diarrhea, unspecifiedType 2 diabetes mellitus with hyperglycemia 0 Llleslie Del Angel. [facility] [place] [address], Pavithra shields [place], [id number], [place]. tel:[phone] OFFICE/OUTPA TIENT VISIT, [facility], [address], Pavithra shields [place], [id number], [place] MdlS Adult Well Care (chief complaint) Body mass index (BMI) 50-59.9, adultType 2 diabetes mellitus with hyperglycemia, with long-term current use of insulinHypertens ion, essentialHyperli pidemia, acquiredDiarrhea , unspecified typeRoutine general medical examination at [facility] care facilityPre-op evaluation 0 Llleslie Del Angel. [address] [place] [address], Pavithra shields [place], [id number], [place]. tel:[phone] OFFICE/OUTPA TIENT VISIT, [facility], [address], Pavithra shields [place], [id number], [place] MdlS Adult Well Care (chief complaint) Body mass index (BMI) 50-59.9, adultUrticariaTy pe 2 diabetes mellitus with hyperglycemia, with long-term current use of insulin 9 Llera Del Angel. [address] [place] [address], Pavithra shields [place], [id number], [place]. tel:[phone] OFFICE/OUTPA TIENT VISIT, [facility], [address], Pavithra shields [place], [id number], [place] MdEna Adult Well care (chief complaint) Body mass index (BMI) 50-59.9, adultType 2 diabetes mellitus with hyperglycemia, with long-term current use of insulinHypertens ion, essentialHyperli pidemia, acquiredRoutine general medical examination at health care facility 9 Llera Del Angel. [address] [place] [address], [place], [id number], [place]. tel:[phone] OFFICE/OUTPA TIENT VISIT, [facility], [address] Pavith[address] Johnson [place], [id number], [place] Lynne Adult Well Care (chief complaint) Body mass index (BMI) 50-59.9, adultType 2 diabetes mellitus with hyperglycemia, with long-term current use of insulinDiabetic nephropathy associated with secondary diabetes mellitusHyperten hiro, essentialRoutine general medical examination at [facility]Non-prol iferative diabetic retinopathy Nov- 9 Lisha Del Angel. [address] [place] [address], Pavithra shields [place], [id number], [place]. tel:[phone] OFFICE/OUTPA TIENT VISIT, [facility], [address] Pavithra Paulino [place], [id number], [place] MdlS Adult Well Care (chief complaint) Type 2 diabetes mellitus with hyperglycemia, with long-term current use of insulinHypertens ion, essentialDiabeti c nephropathy associated with secondary diabetes mellitusHyperlip idemia, acquiredRoutine general medical examination at [facility] care [facility] centerMultiple joint pain 8 leslie Del Angel. [address] [place] [address], Pavithra shields [place], [id number], [place]. tel:[phone] OFFICE/OUTPA TIENT VISIT, [facility], [address] [place] Johnson [place], [id number], [place] Lynne Adult Well Care (chief complaint) Body mass index (BMI) 50-59.9 , adultType 2 diabetes mellitus with hyperglycemia, with long-term current use of insulinDiabetic nephropathy associated with secondary diabetes mellitusHyperten hiro, essentialHyperli pidemia, acquired 8 leslie Del Angel. [address] [place] [address], Pavithra shields [place], [id number], [place]. tel:[phone] OFFICE/OUTPA TIENT VISIT, [facility], [address], Pavithra shields [place], [id number], [place] Lynne Adult Well [facility] (chief complaint) Body mass index (BMI) 45.0-49.9, adultType 2 diabetes mellitus with hyperglycemia, with long-term current use of insulinHypertens ion, essentialHyperli pidemia, acquiredRoutine general medical examination at health care facilityStatus post cholecystectomy [facility]. [address] [place] [address], Pavithra shields [place], [id number], [place]. tel:[phone] OFFICE/OUTPA TIENT VISIT, [facility], [address], Pavithra shields, [place], [id number], [place] MdlS Adult Well Care (chief complaint) Body mass index (BMI) 50-59.9 , adultStatus post cholecystectomyH ypertension, essentialType 2 diabetes mellitus with hyperglycemia, with long-term current use of insulinMorbid obesity with BMI of 50.0-59.9, adultDiabetic nephropathy associated with secondary diabetes mellitusHyperlip idemia, acquired [facility]. [address] [place] [address], Pavithra shields [place], [id number], [place]. tel:[phone] [facility], [address], Pavithra shields [place], [id number], [place] MdEna Adult Encounter for screening for osteoporosis [facility]. [address] [place] [address], Pavithra shields [place], [id number], [place]. tel:[phone] OFFICE/OUTPA TIENT VISIT, [facility], [address]ith[address] Johnson [place], [id number], [place] MdEna Adult well care (chief complaint) Body mass index (BMI) 50-59.9 , adultType 2 diabetes mellitus with hyperglycemia, with long-term current use of insulinHyperlipi demia, acquiredMorbid obesity with BMI of 50.0-59.9, adultHypertensio n, essentialSleep apnea in adult [facility]. [address] [place] [address], Pavithra shields [place], [id number], [place]. tel:[phone] OFFICE/OUTPA TIENT VISIT, [facility], [address], Pavithra shields [place], [id number], [place] MdlS Adult Well Care (chief complaint) Type 2 diabetes mellitus with hyperglycemiaHyp ertension, essentialMorbid obesity with BMI of 50.0-59.9, adultRoutine general medical examination at health care facilityHyperlip idemia, acquired May- 6 leslie Del Angel. [address] [facility], Pav[place]ra shields [place], [id number], [place]. tel:[phone] OFFICE/OUTPA TIENT VISIT, [facility], [address], Pavithra shields [place], [id number], [place] MdlS Adult well care (chief complaint) Diabetes type 2, uncontrolledHype rtension, essentialHyperli pidemia, acquiredMorbid obesity with BMI of 50.0-59.9, adultRoutine general medical examination at health care facility 2 6 leslie Del Angel. [address] [facility], [place], [id number], [place]. tel:[phone] [facility], [address], Pavithra shields [place], [id number], [place] MdlS Dental Periodontal disease, unspecified 6 [facility] . [address] [place] [address], [place], [id number]. tel:[phone] Consulting Provider: Zita Cerrato, [address], [place], [address]. tel: [phone] OFFICE/OUTPA TIENT VISIT, [facility], [address], Pavithra shields [place], [id number], [place] MdlS Adult Cough (chief complaint) URI, acute 6 Iman Rodriguez. [address] [facility], [place], [id number], [place]. tel:[phone] [facility], [address], Pavithra shields [place], [id number], [place] MdlS Dental No Information 6 Elarbi Elamin. [address] [place] [address], Pavithra shields, [place], [id number], [place]. tel:[phone] OFFICE/OUTPA TIENT VISIT, [facility], [facility], [place], [place], [id number], [place] MdlS Adult well care (chief complaint) Hypertension, essentialTachyca rdiaDiabetes type 2, uncontrolledRout ine general medical examination at health care facility 5 [facility]. [address] [place] [address], Pavithra shields, [place], [id number], [place]. tel:[phone] [facility], [address] [place] [address] Ave, Pavithra shields, [place], [id number], [place] MdlS Adult No Information [facility]. [facility]-[address] [place] [address], Pavithra shields, [place], [id number], [place]. tel:[phone] OFFICE/OUTPA TIENT VISIT, [facility], [facility], Pavithra shields, [place], [id number], [place] MdlS Adult well care (chief complaint) Encounter for screening for diabetes mellitusHyperten hiro, essentialRoutine general medical examination at health care facilityTachycar diaURI, acuteMorbid obesity with BMI of 50.0-59.9, adultDiabetes type 2, uncontrolled [facility]. [address] [place] [address], Pavithra [place], [place], [id number], [place]. tel:[phone] OFFICE/OUTPA TIENT VISIT, [facility], [facility], [place], [place], [id number], [place] MdlS Adult well care (chief complaint) Diabetes Mellitus Type 2, UncomplicatedObe sity, MorbidDiabetes Mellitus, Adult Onset, UncontrolledBENI GN HYPERTENSIONOthe r and unspecified hyperlipidemia 5 Llera Del Angel. [address] [facility], [place], [place], [id number], [place]. tel:[phone] OFFICE/OUTPA TIENT VISIT, [facility], [address], Pavithra shields [place], [id number], [place] MdlS Adult diabetes f/u (chief complaint)pa lpitations f/u (chief complaint)ob esity f/u (chief complaint) Diabetes Mellitus, Adult Onset, UncontrolledObes ity, MorbidTachycardi aRoutine Medical Exam 5 [facility]. [address] [facility], [place], [id number], [place]. tel:[phone] OFFICE/OUTPA TIENT VISIT, [facility], [address], Pavithra shields [place], [id number], [place] MdlS Adult well care (chief complaint) Diabetes Mellitus Type 2, UncomplicatedDia betes Mellitus, Adult Onset, UncontrolledTach ycardiaAcute upper respiratory infection of multiple sitesObesity, Morbid 5 [facility]. [facility]-[address] [place] [address], [place], [id number], [place]. tel:[phone] OFFICE/OUTPA TIENT VISIT, [facility], [address], [place], [id number], [place] MdlS Adult well care (chief complaint)di abetes f/u (chief complaint)hy perlipidemia f.u (chief complaint)el evated BP (chief complaint) Diabetes Mellitus, Adult Onset, UncontrolledDiab etic retinopathy associated with type 2 diabetes mellitusBENIGN HYPERTENSIONObes ity, MorbidRoutine Medical ExamTachycardia 4 [facility]. [address] [place] [address], [place], [id number], [place]. tel:[phone] OFFICE/OUTPA TIENT VISIT, [facility], [address], [place], [id number], [place] MdlS Adult diabetes (chief complaint)hy perlipidemia f/u (chief complaint) Screening for diabetes mellitusDiabetes Mellitus, Adult Onset, UncontrolledOthe r and unspecified hyperlipidemiaRo utine Medical ExamElevated blood pressure 4 [facility]. [address] [facility], [place], [id number], [place]. tel:[phone] OFFICE/OUTPA TIENT VISIT, [facility], [address], [place], [id number], [place] MdlS Adult diabetes (chief complaint)hy perlipidemia (chief complaint)ob esity (chief complaint)di abetic retinopathy (chief complaint) Diabetes Mellitus, Adult Onset, UncontrolledOthe r and unspecified hyperlipidemiaOb esity, MorbidDiabetic retinopathyRouti ne Medical Exam 4 Lisha Del Angel. [address] [place] [address], [place], [id number], [place]. tel:[phone] OFFICE/OUTPA TIENT VISIT, [facility], [address], [place], [id number], [place] MdlS Adult well care (chief complaint) Type II diabetes mellitus, uncontrolledHype rlipidemiaObesit y, MorbidRoutine Medical Exam 4 Lisha Del Angel. [address] [place] [address], [place], [id number], [place]. tel:[phone] Referring Provider: Bean Husain, [address] [place] [address], [place], [address]. tel: [phone] OFFICE/OUTPA TIENT VISIT, [facility], [address], [place], [id number], [place] MdEna Adult diabetes (chief complaint)el evated BP f/u (chief complaint)la bs results (chief complaint) Type II diabetes mellitus, uncontrolledHype rlipidemiaRoutin e general medical examination at a health caObesity, MorbidInfluenza Vaccine 3 Lisha Del Angel. [address] [place] [address], [place], [id number], [place]. tel:[phone] OFFICE/OUTPA TIENT VISIT, [facility], [address], [place], [id number], [place] MdEna Adult diabetes (chief complaint)ob esity (chief complaint) Type II diabetes mellitus, uncontrolledRout ine general medical examination at health caObesity, MorbidElevated blood pressure readingScreening examination for pulmonary tuberculosis 3 Lisha Del Angel. [address] [facility], Pavithra shields [place], [id number], [place]. tel:[phone] [facility], [facility] [address], Pavithra shields [place], [id number], [place] [facility] No Information 3 Elarbi Elamin. [address] [place] [address], Pavithra shields [place], [id number], [place]. tel:[phone] [facility], [address] [place] [address] [place], Pavithra shields [place], [id number], [place] [facility] No Information 3 [facility] . [address] [place] [address], Pavithra shields [place], [id number]. tel:[phone] Consulting Provider: Heather Gama, [address] [place], [place] [address], [address]. tel: [phone] [facility], [address] [place] [address] [place], Pavithra shields [place], [id number], [place] [facility] No Information 3 Elarbi Elamin. [address] [place] [address], Pavithra shields [place], [id number], [place]. tel:[phone] OFFICE/OUTPA TIENT VISIT, EST [facility], [address] [place] [address] [place], Pavithra shields [place], [id number], [place] MdEna Adult diabetes (chief complaint)ob esity (chief complaint)we ll care (chief complaint) Type II diabetes mellitus, uncontrolledMorb id obesityRoutine general medical examination at health ca 3 Lisha Del Angel. [address] [facility], Pavithra shields [place], [id number], [place]. tel:[phone] [facility], [facility] [address], Pavithra shields PA, [id number], [place] [facility] No Information 3 Elarbi Elamin. [address] [place] [address], Pavithra shields [place], [id number], [place]. tel:[phone] [facility], [facility] [address], Pavithra shields, [place], [id number], [place] MdlS Adult No Information 3 Llera Del Angel. [address] [place] [address], Pavithra shields, [place], [id number], [place]. tel:[phone] OFFICE/OUTPA TIENT VISIT, [facility], [facility] [address], Pavithra [place], [place], [id number], [place] MdlS Adult diabetes (chief complaint) Diabetes Mellitus Type 2, UncomplicatedObe sity, Morbid 3 Llera Del Angel. [address] [place] [address], Pavithra shields [place], [id number], [place]. tel:[phone] [facility], [facility] [address], Pavithra shields [place], [id number], [place] MdlS Adult No Information 3 Llera Del Angel. [address] [place] [address], Pavithra shields [place], [id number], [place]. tel:[phone] OFFICE/OUTPA TIENT VISIT, [facility], [facility] [address], Pavithra shields [place], [id number], [place] MdlS Adult diabetes (chief complaint)ob esity (chief complaint) Diabetes Mellitus Type 2, UncomplicatedEle vated blood pressure reading without diagnosis of hypertensionObes ityRoutine Medical Exam 3 Llera Del Angel. [address] [place] [address], Pavithra shields, [place], [id number], [place]. tel:[phone] [facility], [address] [place] [address] [place], Pavithra shields PA, [id number], [place] MdlS Dental No Information 2 [facility] . [address] [place] [address], Pavithra shields [place], [id number]. tel:[phone] Consulting Provider: Heather Gama, [address] [place] [address], [place], [address]. tel: [phone] [facility], [facility], [place], [place], [id number], [place] MdlS Adult No Information 2 Llera Del Angel. [address] [place] [address], [facility] [place], [id number], [place]. tel:[phone] [facility], [facility], [place], [place], [id number], [place] MdlS Dental No Information 2 Cher Banks. [address] [place] [address], [place], [place], [id number], [place]. tel:[phone] OFFICE/OUTPA TIENT VISIT, [facility], [facility], [place], [place], [id number], [place] MdlS Adult diabetes (chief complaint)ob esity (chief complaint)we ll visit (chief complaint) Screening for diabetes mellitusDiabetes Mellitus Type 2, UncomplicatedObe sity 2 Llera Del Angel. [address] [place] [address], [place], [place], [id number], [place]. tel:[phone] OFFICE/OUTPA TIENT VISIT, [facility], [facility], [place], [place], [id number], [place] MdlS Adult No Information 2 Llera Del Angel. [address] [place] [address], [place], [place], [id number], [place]. tel:[phone] OFFICE/OUTPA TIENT VISIT, [facility], [address], [place], [place], [id number], [place] MdlS OBGYN No Information 2 Le Flore Yulissa. [address] [place] [address], [place], [place], [id number], [place]. tel:[phone] OFFICE/OUTPA TIENT VISIT, [facility], [address], [place], [place], [id number], [place] MdlS OBGYN No Information 2 Cliff Yulissa. [address] [address], Pavithra shields, [place], [id number], [place]. tel:[phone] [facility], [address], [place], [place], [id number], [place] MdlS OBGYN POSTMENOPAUSAL BLEEDING 1 Govtresa Leona. [address], [place] shields, [place], [id number], [place]. tel:[phone] [facility], [address], [place], [place], [id number], [place] MdlS Adult OBESITY NOSANXIETY STATE NOS 1 Llera Del Angel. [address] [place] [address], Pavithra shields, [place], [id number], [place]. tel:[phone] [facility], [address], [place], [place], [id number], [place] MdlS Adult BENIGN HYPERTENSION 0 1 Llera Del Angel. [address] [place] [address], Pavithra shields, [place], [id number], [place]. tel:[phone] [facility], [address], [place], [place], [id number], [place] MdlS Adult Diabetes Melitus Type11 W/O Complications Controlled 2 2-201 0 Llera Del Angel. [address] [place] [address], Pavithra shields, [place], [id number], [place]. tel:[phone] [facility], [address], [place], [place], [id number], [place] MdlS Adult INSOMNIA NOS 0 5-201 0 Llera Del Angel. [address] [facility], Pavithra shields [place], [id number], [place]. tel:[phone] [facility], [address], [place], [place], [id number], [place] MdlS Adult LIPODYSTROPHY Fe 8 0 Llera Del Angel. [address] [place] [address], Pavithra shields [place], [id number], [place]. tel:[phone] Family History Family Member Type Diagnosis Age [...] virus, 3 years or older Flulaval Quad [id number] administered Source: Other Regist ry Influenza, split virus, injectable, quadrivalent, 3 years or older Flulaval Quad [id number] administered Source: New Immuniza tion Record Pneumococcal [...] party ID Authoriza tion(s) Personal Choice CI [id number] Personal Choice CI [id number] Personal Choice CI [id number] Personal Choice CI [id number] [facility] CI [id number] [facility] CI [id number] [facility] CI [id number] [facility] CI [id number] [facility] CI [id number] Personal Choice CI [id number] Social History Type Description Quantity Date Captured Comments Alcohol Use Details Unknown Caffeine Use Details Unknown Tobacco Use Status No Information Smoking Status No Information Sex Female Sexual Orientation Straight or heterosexual Oct Gender Identity Female Chief Complaint And Reason For Visit No Information Reason For Referral Reason For Referral No Information Plan Of Treatment Date Type Action Status Goal Tobacco Follow-U p. Due on due Goal CLOTHESPIN MACHINE OPERATOR exam. Due on due Goal Unhealthy [...] due Goal FIT. Due on due Goal CT-Colonography. Due on due Goal GFR. Due on due Goal Referral Ophthal mology. Due on due Goal Dental exam. Due on 023 due Goal Mammogram. Due on 3 due Goal Dilated eye exam . Due on due Goal Zoster vaccine ( ). Due on due Goal Zoster Vaccine. Due on due Goal CLOTHESPIN MACHINE OPERATOR exam. Due on due Goal Mammogram. Due on 2 due Goal Zoster vaccine ( ). Due on due Goal Microalb/Creat R atio, [...] Goal Lipid panel. Due on due Goal Colonoscopy. Due on due Goal Depression scree brayan. Due on due Goal Hepatitis C anti body. Due on due Goal FOBT. Due on due Goal Depression scree brayan. Due on due Goal Colonoscopy. Due on due Goal Zoster Vaccine. Due on due Goal Mammogram. Due on due Goal Referral Ophthal mology. Due on due Goal Microalb/Creat R kenny, [facility]m [facility]. Due on due Goal Foot exam. Due on due Goal Dilated eye exam . Due on due Goal Dental exam. Due on due Goal GFR. Due on due Goal Zoster vaccine ( 1st). Due on due Goal CLOTHESPIN MACHINE OPERATOR exam. Due on due Goal Prevnar [...] vaccine ( ). Due on due Goal CLOTHESPIN MACHINE OPERATOR exam. Due on due Goal FOBT. [...] due Goal Colonoscopy. Due on due Goal CLOTHESPIN MACHINE OPERATOR exam. Due on due Goal Prevnar [...] Goal Mammogram. Due on 0 due Goal CLOTHESPIN MACHINE OPERATOR exam. Due on due Goal HIV Consented. Due on due Goal PAP with HPV 30- 65. Due on due Goal Foot exam. Due on 0 due Goal Dilated eye exam . Due on due Goal GFR. Due on due Goal Dental exam. Due on due Goal Zoster vaccine ( 1st). Due on due Goal Hemoglobin A1C. Due on due Goal Referral Ophthal mology. Due on due Goal Influenza vaccin e. [...] atio, Randm Ur. Due on due Goal HIV Consented. Due on due Goal HIV Screen. Due on 20 due Goal Depression scree brayan. Due on due Goal CLOTHESPIN MACHINE OPERATOR exam. Due on due Goal Colonoscopy. Due on 020 due Goal Mammogram. Due on 0 due Goal Hepatitis C anti body. Due on due Goal PAP with HPV 30- 65. Due on due Goal Zoster vaccine ( 1st). Due on due Goal Prevnar 13 (PCV1 3). Due on due Goal BMP. Due on due Goal Influenza vaccin e. Due on due Goal Lipid panel. Due on due Goal Colonoscopy. Due on due Goal Zoster vaccine ( 1st). Due on due Goal HIV Consented. Due on due Goal CLOTHESPIN MACHINE OPERATOR exam. Due on due Goal HIV [...] Goal Mammogram. Due on 9 due Goal Prevnar 13 (PCV1 3). Due [...] due Goal BMP. Due on due Goal CLOTHESPIN MACHINE OPERATOR exam. Due on due Goal Depression scree [...] C anti body. Due on due Goal CLOTHESPIN MACHINE OPERATOR exam. Due on due Goal Colonoscopy. [...] C anti body. Due on due Goal CLOTHESPIN MACHINE OPERATOR exam. Due on due Goal HIV [...] due Goal GFR. Due on due Goal Mammogram. Due on 8 due Goal Hemoglobin A1C. Due on due Goal HIV Screen. Due on 18 due Goal CLOTHESPIN MACHINE OPERATOR exam. Due on due Goal Colonoscopy. [...] due Goal Colonoscopy. Due on due Goal CLOTHESPIN MACHINE OPERATOR exam. Due on due Goal HIV [...] due Goal FOBT. Due on due Goal CLOTHESPIN MACHINE OPERATOR exam. Due on due Goal HIV Screen. Due on 17 due Goal Hepatitis C anti body. Due on due Goal FOBT. Due on due Goal CLOTHESPIN MACHINE OPERATOR exam. Due on due Goal Dental [...] Goal Mammogram. Due on 5 due Goal Influenza vaccin e. Due on due Goal Occult Blood, Fe james, [place]. Due on due Goal Occult Blood, Fe [...] ordered Referral Referred To: Ani Ordered: Referrals: PulmonologyEhsan Law. Evaluate and treat ordered Referral Ordered: CHEST [...] Referred To: Ravi Peraza OD Ordered: Referrals: Junior Recruiter. Ravi Peraza OD ordered Future Order: Lab Order HEMOGLOB IN A1C ([id number]), Ordered on: Ordered Future Order: Lab Order MICROALB UMIN ([id number]), Ordered on: Ordered Future Order: Lab Order LIPID PA TAMANNA ([id number]), Ordered on: Ordered Future Order: Lab Order BMP ([id number]), Ordered on: Ordered Future Order: Lab Order HEMOGLOB IN A1C ([id number]), Ordered on: Ordered Future Order: Lab Order URINALYS IS ([id number]), Ordered on: Ordered Future Order: Lab Order TSH ([id number]), Ordered on: Ordered Future Order: Lab Order CBC with Diff ([id number]), Ordered on: Ordered Future Order: Lab Order MICROALB UMIN ([id number]), Ordered on: Ordered Future Order: Lab Order LIPID PA TAMANNA ([id number]), Ordered on: Ordered Future Order: Lab Order CMP ([id number]), Ordered on: Ordered Future Order: Lab Order Urinalys is, Routine w/ Microscopic on Positives ([id number]), Ordered on: Ordered Future Order: Lab Order Microalb /Creat Ratio, Randm Ur ([id number]), Ordered on: Ordered Future Order: Lab Order Ova + Pa rasites ([id number]), Ordered on: Ordered Future Order: Lab Order Stool Cu lture ([id number]), Ordered on: Ordered Future Order: Radiology Order DX A BONE DENSITY, AXIAL ([id number]), Added on: New Future Order: Radiology Order DX A BONE DENSITY/PERIPHERAL ([id number]), Added on: New Future Order: Radiology Order DX A BONE DENSITY/PERIPHERAL ([id number]), Added on: New Future Order: Lab Order Microalb /Creat Ratio, Randm Ur ([id number]), Ordered on: Ordered Future Order: Lab Order Urinalys is, Routine ([id number]), Ordered on: Ordered Future Order: Lab Order HEMOGLOB IN A1C ([id number]), Ordered on: Ordered Future Order: Lab Order CBC, no diff ([id number]), Ordered on: Ordered Future Order: Lab Order Microalb umin with creatinine and ratio ([id number]), Ordered on: Ordered Future Order: Lab Order LIPID PA TAMANNA ([id number]), Ordered on: Ordered Future Order: Lab Order CMP ([id number]), Ordered on: Ordered Future Order: Lab Order HEMOGLOB IN A1C ([id number]), Ordered on: Ordered Future Order: Lab Order CBC with Diff ([id number]), Ordered on: Ordered Future Order: Lab Order CMP ([id number]), Ordered on: Ordered Future Order: Lab Order LIPID PA TAMANNA ([id number]), Ordered on: Ordered Future Order: Lab Order LIVER PA TAMANNA ([id number]), Ordered on: Ordered Future Order: Lab Order Urine Mi croalbumin with Creatinine ([id number]), Ordered on: Ordered Future Order: Lab Order U/A ([id number]), Ordered on: Ordered History Of Present Illness [...] [facility] painless diarrhea for [...] as indicated she was told by her casino manager that based on her eye exam [...] otalgia, pharyngitis, rash, sinus pressure or wheezing. [facility] labs a re all wnl [...] few days . there is no fever [facility] pt's labs for e most part [...]
== END 2025-01-19 10:38 | disposition home or self-care (01) ==
LOC: HO.MAMMO 10:37
PROVIDERS: PCP Internal Medicine; Visit Provider Internal Medicine
DX: N64.89 Other specified disorders of breast (principal)
CPT/HCPCS: 76642; 77061; 77065

== ENCOUNTER → 2025-01-19 11:00 | Outpatient (BNV) | payer MEDICARE, MEDICAID, SELFPAY | PROVIDERS: PCP Internal Medicine; Visit Provider Internal Medicine | DX: R92.8 Other abnormal and inconclusive findings on diagnostic imaging of breast (principal) | CPT/HCPCS: 76642; 77065; G0279 ==

== ENCOUNTER 2025-05-24 12:22 | Outpatient (AMB) | payer MEDICARE, MEDICAID, SELFPAY ==
--- OUTSIDE RECORDS SUMMARY | 2023-07-12 04:21 | XMS_ITS | Continuity of Care Document ---
Author Organization [employer] Address [address] [place] [address] Care Team Providers Care I O Psychologist Name Role Phone Julia Stern Unavailable Unavail able Allergies, Adverse Reactions, Alerts Substance Reaction Status Criticality Voupfzt-XDB-CrP Reductase Inhibitors msk pain Acti ve No [...] Diagnoses Date Provider Providers Copied on Encounter [facility], [address] Pav[place]ra Paulino [place], [id number], [place] Md Adult No Information 3 Lizzy Dumont. [address] [place] [address], [place], [address], [place]. tel:[phone] [facility], [address], [id number], [place] Md Family Medicine No Information 3 Lizzy Dumont. [address] [place] [address], [place], [id number], [place]. tel:[phone] [facility], [address] AvPavithra mckenzie [place], [id number], [place] MdEna Adult No Information 2 Ball Mo Dumont. [address] [place] [address], [place], [address], [place]. tel:[phone] OFFICE/OUTPA TIENT VISIT, [facility], [address], Pavithra shields [place], [id number], [place] MdlS [facility] (chief complaint)di abetes (chief complaint)hy pertension (chief complaint) Type 2 diabetesHyperten hiro, essentialHigh cholesterol Apr-0 - 2 Lizzy Dumont. [address], [place], [address], [place]. tel:[phone] [facility], [address], Pavithra shields [place], [id number], [place] MdlS Adult Type 2 diabetes mellitus with diabetic nephropathy, with long-term current use of insulinHyperlipi demia, acquired 1 Llleslie Del Angel. [address] [place] [address], Pavithra shields [place], [id number], [place]. tel:[phone] OFFICE/OUTPA TIENT VISIT, [facility], [address], Pav[place], [place], [id number], [place] MdlS Adult [facility] care (chief complaint) Hypertension, essentialHyperli pidemia, acquiredRoutine general medical examination at health care facilityBody mass index [BMI] 50.0-59.9, adultType 2 diabetes mellitus with diabetic nephropathy, with long-term current use of insulin Nov-2 0- 1 Llera Del Angel. [address] [place] [address], Pavithra shields [place], [id number], [place]. tel:[phone] OFFICE/OUTPA TIENT VISIT, [facility], [address], Pavithra shields [place], [id number], [place] [facility] (chief complaint) Body mass index [BMI] 50.0-59.9, adultType 2 diabetes mellitus with hyperglycemia, with long-term current use of insulinHypertens ion, essentialHyperli pidemia, acquiredRoutine general medical examination at health care facility 0 Llera Del Angel. [facility] [address] [place] [address], Pavithra shields [place], [id number], [place]. tel:[phone] [facility], [address], Pavithra shields [place], [id number], [place] MdlS Adult Diarrhea, unspecifiedType 2 diabetes mellitus with hyperglycemia 0 Llleslie Del Angel. [facility] [address] [place] [address], Pavithra shields [place], [id number], [place]. tel:[phone] OFFICE/OUTPA TIENT VISIT, [facility], [address], Pavithra shields [place], [id number], [place] MdlS Adult Well Care (chief complaint) Body mass index (BMI) 50-59.9, adultType 2 diabetes mellitus with hyperglycemia, with long-term current use of insulinHypertens ion, essentialHyperli pidemia, acquiredDiarrhea , unspecified typeRoutine general medical examination at [facility] facilityPre-op evaluation 0 Llleslie Del Angel. [address] [place] [address], Pavithra shields [place], [id number], [place]. tel:[phone] OFFICE/OUTPA TIENT VISIT, [facility], [address], Pavithra shields [place], [id number], [place] MdlS Adult Well Care (chief complaint) Body mass index (BMI) 50-59.9, adultUrticariaTy pe 2 diabetes mellitus with hyperglycemia, with long-term current use of insulin 9 Llera Del Angel. [address] [place] [address], Pavithra shields [place], [id number], [place]. tel:[phone] OFFICE/OUTPA TIENT VISIT, [facility], [address], Pavithra shields [place], [id number], [place] MdEna Adult Well care (chief complaint) Body mass index (BMI) 50-59.9, adultType 2 diabetes mellitus with hyperglycemia, with long-term current use of insulinHypertens ion, essentialHyperli pidemia, acquiredRoutine general medical examination at health care facility 9 Llera Del Angel. [address] [place] [address], [place], [id number], [place]. tel:[phone] OFFICE/OUTPA TIENT VISIT, [facility], [address] Johnson [place], [id number], [place] [facility] (chief complaint) Body mass index (BMI) 50-59.9, adultType 2 diabetes mellitus with hyperglycemia, with long-term current use of insulinDiabetic nephropathy associated with secondary diabetes mellitusHyperten hiro, essentialRoutine general medical examination [facility]Non-prol iferative diabetic retinopathy Nov- 9 Lisha Del Angel. [address] [place] [address], Pavithra shields [place], [id number], [place]. tel:[phone] OFFICE/OUTPA TIENT VISIT, [facility], [address] Pavithra Paulino [place], [id number], [place] MdlS Adult Well Care (chief complaint) Type 2 diabetes mellitus with hyperglycemia, with long-term current use of insulinHypertens ion, essentialDiabeti c nephropathy associated with secondary diabetes mellitusHyperlip idemia, acquiredRoutine general medical examination at [facility] campusMultiple joint pain 8 leslie Del Angel. [address] [place] [address], Pavithra shields [place], [id number], [place]. tel:[phone] OFFICE/OUTPA TIENT VISIT, [facility], [address] Johnson [place], [id number], [place] [facility] (chief complaint) Body mass index (BMI) 50-59.9 , adultType 2 diabetes mellitus with hyperglycemia, with long-term current use of insulinDiabetic nephropathy associated with secondary diabetes mellitusHyperten hiro, essentialHyperli pidemia, acquired 8 leslie Del Angel. [address] [place] [address], Pavithra shields [place], [id number], [place]. tel:[phone] OFFICE/OUTPA TIENT VISIT, [facility], [address], Pavithra shields [place], [id number], [place] [facility] (chief complaint) Body mass index (BMI) 45.0-49.9, adultType 2 diabetes mellitus with hyperglycemia, with long-term current use of insulinHypertens ion, essentialHyperli pidemia, acquiredRoutine general medical examination at health care facilityStatus post cholecystectomy [facility]. [address] [place] [address], Pavithra shields [place], [id number], [place]. tel:[phone] OFFICE/OUTPA TIENT VISIT, [facility], [address], Pavithra shields, [place], [id number], [place] MdlS Adult Well Care (chief complaint) Body mass index (BMI) 50-59.9 , adultStatus post cholecystectomyH ypertension, essentialType 2 diabetes mellitus with hyperglycemia, with long-term current use of insulinMorbid obesity with BMI of 50.0-59.9, adultDiabetic nephropathy associated with secondary diabetes mellitusHyperlip idemia, acquired [facility]. [address] [place] [address], Pavithra shields [place], [id number], [place]. tel:[phone] [facility], [address], Pavithra shields [place], [id number], [place] MdEna Adult Encounter for screening for osteoporosis [facility]. [address] [place] [address], Pavithra shields [place], [id number], [place]. tel:[phone] OFFICE/OUTPA TIENT VISIT, [facility], [address] Johnson PA, [id number], [place] MdEna Adult well care (chief complaint) Body mass index (BMI) 50-59.9 , adultType 2 diabetes mellitus with hyperglycemia, with long-term current use of insulinHyperlipi demia, acquiredMorbid obesity with BMI of 50.0-59.9, adultHypertensio n, essentialSleep apnea in adult [facility]. [address] [place] [address], Pavithra shields [place], [id number], [place]. tel:[phone] OFFICE/OUTPA TIENT VISIT, [facility], [address], Pavithra shields [place], [id number], [place] MdlS Adult Well Care (chief complaint) Type 2 diabetes mellitus with hyperglycemiaHyp ertension, essentialMorbid obesity with BMI of 50.0-59.9, adultRoutine general medical examination at health care facilityHyperlip idemia, acquired May- 6 leslie Del Angel. [address] [facility], Pavithra shields [place], [id number], [place]. tel:[phone] OFFICE/OUTPA TIENT VISIT, [facility], [address], Pavithra shields [place], [id number], [place] MdlS Adult well care (chief complaint) Diabetes type 2, uncontrolledHype rtension, essentialHyperli pidemia, acquiredMorbid obesity with BMI of 50.0-59.9, adultRoutine general medical examination at health care facility 2 6 leslie Del Angel. [address] [facility], [place], [id number], [place]. tel:[phone] [facility], [address], Pavithra shields PA, [id number], [place] MdlS Dental Periodontal disease, unspecified 6 [facility] . [address] [place] [address], [place], [id number]. tel:[phone] Consulting Provider: Zita Cerrato, [address] [facility], [place], [address]. tel: [phone] OFFICE/OUTPA TIENT VISIT, [facility], [address], Pavithra shields PA, [id number], [place] MdlS Adult Cough (chief complaint) URI, acute 6 Iman Rodriguez. [address] [facility], [place], [id number], [place]. tel:[phone] [facility], [address], Pavithra shields PA, [id number], [place] MdlS Dental No Information 6 Elarbi Elamin. [address] [place] [address], Pavithra shields, [place], [id number], [place]. tel:[phone] OFFICE/OUTPA TIENT VISIT, [facility], [employer], [place], [place], [id number], [place] MdlS Adult well care (chief complaint) Hypertension, essentialTachyca rdiaDiabetes type 2, uncontrolledRout ine general medical examination at health care facility 5 [facility]. [address] [place] [address], Pavithra shields, [place], [id number], [place]. tel:[phone] [facility], [address] [place] [address] Ave, Pavithra shields, [place], [id number], [place] MdlS Adult No Information [facility] [address] [place] [address], Pavithra shields, [place], [id number], [place]. tel:[phone] OFFICE/OUTPA TIENT VISIT, [facility], [employer], Pavithra shields, [place], [id number], [place] MdlS Adult well care (chief complaint) Encounter for screening for diabetes mellitusHyperten hiro, essentialRoutine general medical examination at health care facilityTachycar diaURI, acuteMorbid obesity with BMI of 50.0-59.9, adultDiabetes type 2, uncontrolled [facility]. [address] [place] [address], Pavithra shields, [place], [id number], [place]. tel:[phone] OFFICE/OUTPA TIENT VISIT, [facility], [employer], [place], [place], [id number], [place] MdlS Adult well care (chief complaint) Diabetes Mellitus Type 2, UncomplicatedObe sity, MorbidDiabetes Mellitus, Adult Onset, UncontrolledBENI GN HYPERTENSIONOthe r and unspecified hyperlipidemia 5 Llera Del Angel. [address] [facility], [place], [place], [id number], [place]. tel:[phone] OFFICE/OUTPA TIENT VISIT, [facility], [address], Pavithra shields [place], [id number], [place] MdlS Adult diabetes f/u (chief complaint)pa lpitations f/u (chief complaint)ob esity f/u (chief complaint) Diabetes Mellitus, Adult Onset, UncontrolledObes ity, MorbidTachycardi aRoutine Medical Exam 5 [facility]. [address] [facility], [place], [id number], [place]. tel:[phone] OFFICE/OUTPA TIENT VISIT, [facility], [address], Pavithra shields [place], [id number], [place] MdlS Adult well care (chief complaint) Diabetes Mellitus Type 2, UncomplicatedDia betes Mellitus, Adult Onset, UncontrolledTach ycardiaAcute upper respiratory infection of multiple sitesObesity, Morbid 5 [facility]. [facility] [address] [place] [address], [place], [id number], [place]. tel:[phone] OFFICE/OUTPA TIENT VISIT, [facility], [address], [place], [id number], [place] MdlS Adult well care (chief complaint)di abetes f/u (chief complaint)hy perlipidemia f.u (chief complaint)el evated BP (chief complaint) Diabetes Mellitus, Adult Onset, UncontrolledDiab etic retinopathy associated with type 2 diabetes mellitusBENIGN HYPERTENSIONObes ity, MorbidRoutine Medical ExamTachycardia 4 [facility]. [address] [place] [address], [place], [id number], [place]. tel:[phone] OFFICE/OUTPA TIENT VISIT, [facility], [address], [place], [id number], [place] MdlS Adult diabetes (chief complaint)hy perlipidemia f/u (chief complaint) Screening for diabetes mellitusDiabetes Mellitus, Adult Onset, UncontrolledOthe r and unspecified hyperlipidemiaRo utine Medical ExamElevated blood pressure 4 [facility]. [address] [facility], [place], [id number], [place]. tel:[phone] OFFICE/OUTPA TIENT VISIT, [facility], [address], [place], [id number], [place] MdlS Adult diabetes (chief complaint)hy perlipidemia (chief complaint)ob esity (chief complaint)di abetic retinopathy (chief complaint) Diabetes Mellitus, Adult Onset, UncontrolledOthe r and unspecified hyperlipidemiaOb esity, MorbidDiabetic retinopathyRouti ne Medical Exam 4 Lisha Del Angel. [address] [place] [address], [place], [id number], [place]. tel:[phone] OFFICE/OUTPA TIENT VISIT, [facility], [address], [place], [id number], [place] MdlS Adult well care (chief complaint) Type II diabetes mellitus, uncontrolledHype rlipidemiaObesit y, MorbidRoutine Medical Exam 4 Lisha Del Angel. [address] [place] [address], [place], [id number], [place]. tel:[phone] Referring Provider: Bean Husain, [address] [place] [address], [place], [address]. tel: [phone] OFFICE/OUTPA TIENT VISIT, [facility], [address], [place], [id number], [place] MdEna Adult diabetes (chief complaint)el evated BP f/u (chief complaint)la bs results (chief complaint) Type II diabetes mellitus, uncontrolledHype rlipidemiaRoutin e general medical examination at a health caObesity, MorbidInfluenza Vaccine 3 Lisha Del Angel. [address] [place] [address], [place], [id number], [place]. tel:[phone] OFFICE/OUTPA TIENT VISIT, [facility], [address], [place], [id number], [place] MdEna Adult diabetes (chief complaint)ob esity (chief complaint) Type II diabetes mellitus, uncontrolledRout ine general medical examination at health caObesity, MorbidElevated blood pressure readingScreening examination for pulmonary tuberculosis 3 Lisha Del Angel. [address] [facility], Pavithra shields [place], [id number], [place]. tel:[phone] [facility], [facility] [address], Pavithra shields PA, [id number], [place] [facility] No Information 3 Elarbi Elamin. [address] [place] [address], Pavithra shields [place], [id number], [place]. tel:[phone] [facility], [address] [place] [address] [place], Pavithra shields PA, [id number], [place] [facility] No Information 3 [facility] . [address] [place] [address], Pavithra shields [place], [id number]. tel:[phone] Consulting Provider: Heather Gama, [address] [place], [place] [address], [address]. tel: [phone] [facility], [address] [place] [address] [place], Pavithra shields PA, [id number], [place] [facility] No Information 3 Elarbi Elamin. [address] [place] [address], Pavithra shields [place], [id number], [place]. tel:[phone] OFFICE/OUTPA TIENT VISIT, EST [facility], [address] [place] [address] [place], Pavithra shields PA, [id number], [place] MdEna Adult diabetes (chief complaint)ob esity (chief complaint)we ll care (chief complaint) Type II diabetes mellitus, uncontrolledMorb id obesityRoutine general medical examination at health ca 3 Lisha Del Angel. [address] [facility], Pavithra shields [place], [id number], [place]. tel:[phone] [facility], [facility] [address], Pavithra shields PA, [id number], [place] [facility] No Information 3 Elarbi Elamin. [address] [place] [address], Pavithra shields [place], [id number], [place]. tel:[phone] [facility], [facility] [address], Pavithra shields, [place], [id number], [place] MdlS Adult No Information 3 Llera Del Angel. [address] [place] [address], Pavithra shields, [place], [id number], [place]. tel:[phone] OFFICE/OUTPA TIENT VISIT, [facility], [facility] [address], Pavithra shields, [place], [id number], [place] MdlS Adult diabetes (chief complaint) Diabetes Mellitus Type 2, UncomplicatedObe sity, Morbid 3 Llera Del Angel. [address] [place] [address], Pavithra shields [place], [id number], [place]. tel:[phone] [facility], [facility] [address], Pavithra shields [place], [id number], [place] MdlS Adult No Information 3 Llera Del Angel. [address] [place] [address], Pavithra shields [place], [id number], [place]. tel:[phone] OFFICE/OUTPA TIENT VISIT, [facility], [facility] [address], Pavithra shields PA, [id number], [place] MdlS Adult diabetes (chief complaint)ob esity (chief complaint) Diabetes Mellitus Type 2, UncomplicatedEle vated blood pressure reading without diagnosis of hypertensionObes ityRoutine Medical Exam 3 Llera Del Angel. [address] [place] [address], Pavithra shields, [place], [id number], [place]. tel:[phone] [facility], [address] [place] [address] [place], Pavithra shields PA, [id number], [place] MdlS Dental No Information 2 [facility] . [address] [place] [address], Pavithra shields [place], [id number]. tel:[phone] Consulting Provider: Heather Gama, [address] [place] [address], [place], [address]. tel: [phone] [facility], [employer], [place], [place], [id number], [place] MdlS Adult No Information 2 Llera Del Angel. [address] [place] [address], [facility] [place], [id number], [place]. tel:[phone] [facility], [employer], [place], [place], [id number], [place] MdlS Dental No Information 2 Cher Banks. [address] [place] [address], [place], [place], [id number], [place]. tel:[phone] OFFICE/OUTPA TIENT VISIT, [facility], [employer], [place], [place], [id number], [place] MdlS Adult diabetes (chief complaint)ob esity (chief complaint)we ll visit (chief complaint) Screening for diabetes mellitusDiabetes Mellitus Type 2, UncomplicatedObe sity 2 Llera Del Angel. [address] [place] [address], [place], [place], [id number], [place]. tel:[phone] OFFICE/OUTPA TIENT VISIT, [facility], [employer], [place], [place], [id number], [place] MdlS Adult No Information 2 Llera Del Angel. [address] [place] [address], [place], [place], [id number], [place]. tel:[phone] OFFICE/OUTPA TIENT VISIT, [facility], [address], [place], [place], [id number], [place] MdlS OBGYN No Information 2 Cliff Yulissa. [address] [place] [address], [place], [place], [id number], [place]. tel:[phone] OFFICE/OUTPA TIENT VISIT, [facility], [address], [place], [place], [id number], [place] MdlS OBGYN No Information 2 Portal Yulissa. [address] [facility], Pavithra shields, [place], [id number], [place]. tel:[phone] [facility], [address], [place], [place], [id number], [place] MdlS OBGYN POSTMENOPAUSAL BLEEDING 1 Govtresa Leona. [address] [facility], Pavithra shields, [place], [id number], [place]. tel:[phone] [facility], [address], [place], [place], [id number], [place] MdlS Adult OBESITY NOSANXIETY STATE NOS 1 Llera Del Angel. [address] [place] [address], Pavithra shields, [place], [id number], [place]. tel:[phone] [facility], [address], [place], [place], [id number], [place] MdlS Adult BENIGN HYPERTENSION 0 1 Llera Del Angel. [address] [place] [address], Pavithra shields, [place], [id number], [place]. tel:[phone] [facility], [address], Pavithra shields, PA, [id number], [place] MdlS Adult Diabetes Melitus Type11 W/O Complications Controlled 2 2-201 0 Llera Del Angel. [address] [place] [address], Pavithra shields, [place], [id number], [place]. tel:[phone] [facility], [address], [place], [place], [id number], [place] MdlS Adult INSOMNIA NOS 0 5-201 0 Llera Del Angel. [address] [facility], Pavithra shields [place], [id number], [place]. tel:[phone] [facility], [address], [place], [place], [id number], [place] MdlS Adult LIPODYSTROPHY Fe 8 0 Llera Del Angel. [address] [place] [address], Pavithra shields [place], [id number], [place]. tel:[phone] Family History Family Member Type Diagnosis Age [...] virus, 3 years or older Flulaval Quad 1599-0237 administered Source: Other Regist ry Influenza, split virus, injectable, quadrivalent, 3 years or older Flulaval Quad 3076-4517 administered Source: New Immuniza tion Record Pneumococcal polysaccharide PPV23 administered Source: New Immuniza tion Record Influenza, seasonal, injectable administered Note: patient's phar howard ; Source: Source Unspecified Flulaval 18+yrs administered Source: New Immunization Record Tdap administered Note: patient's paper chart ; Source: Source Unspecified Pneumococcal polysaccharide PPV23 administered Note: patient's jana r chart ; Source: Source Unspecified Payers Payer name Insurance type Covered constitution party ID Authoriza tion(s) Personal Choice CI [id number] [employer] CI [id number] Personal [employer] CI [id number] Personal Choice CI [id number] [facility] CI [id number] [facility] CI [id number] [facility] CI [id number] [facility] CI [id number] [facility] CI [id number] [employer] CI [id number] Social History Type Description Quantity Date Captured Comments Alcohol Use Details Unknown Caffeine Use Details Unknown Tobacco Use Status No Information Smoking Status No Information Sex Female Sexual Orientation Straight or heterosexual Oct Gender Identity Female Chief Complaint And Reason For Visit No Information Reason For Referral Reason For Referral No Information Plan Of Treatment Date Type Action Status Goal Mammogram. Due on 3 due Goal Dental exam. Due on 023 due Goal Potassium. Due on due Goal Zoster Vaccine. Due on due Goal Unhealthy drug u se screening. Due on due Goal FIT-DNA. Due on due Goal Hepatitis C scre ening. Due on due Goal LOAN MANAGER exam. Due on due Goal Cognitive assess ment. Due on due Goal Zoster vaccine ( ). Due on due Goal FOBT. Due on due Goal Dilated eye exam . Due on due Goal ASCVD [address]. Due on due Goal Foot exam. Due on 3 due Goal Prevnar 13 (PCV1 3). Due on due Goal Colonoscopy. Due on 020 due Goal Pneumococcal vaccine due Goal Creatinine. Due on due Goal BMI. Due on due Goal Tobacco screenin g. Due on due Goal FIT. Due on due Goal Tobacco Follow-U p. Due on due Goal Depression scree brayan. Due on due Goal BMI Adult Follow -Up. Due on due Goal Sigmoidoscopy. Due on due Goal Depression Follo w-Up. Due on due Goal Tdap due Goal Hepatitis C anti body. Due on due Goal CT-Colonography. Due on due Goal GFR. Due on due Goal Referral Ophthal mology. Due on due Goal LOAN MANAGER exam. Due on due Goal Mammogram. Due on 2 due Goal Dilated eye exam . Due on due Goal Zoster Vaccine. Due on due Goal Referral Ophthal mology. Due on due Goal GFR. Due on due Goal Microalb/Creat R atio, Randm Ur. Due on due Goal FOBT. Due on due Goal Foot exam. Due on 2 due Goal Dental exam. Due on 022 due Goal Zoster vaccine ( 1st). Due on due Goal Prevnar 13 (PCV1 3). Due on due Goal BMP. Due on due Goal Colonoscopy. Due on 020 due Goal Influenza vaccin e. Due on due Goal Hepatitis C anti body. Due on due Goal Lipid panel. Due on due Goal Depression scree brayan. Due on due Goal Dental exam. Due on due Goal Colonoscopy. Due on due Goal Depression scree brayan. Due on due Goal Referral Ophthal mology. Due on due Goal Zoster Vaccine. Due on due Goal FOBT. Due on due Goal Microalb/Creat R atio, Randm Ur. Due on due Goal Foot exam. Due on due Goal GFR. Due on due Goal Hepatitis C anti body. Due on due Goal Dilated eye exam . Due on due Goal Mammogram. Due on due Goal Zoster vaccine ( 1st). Due on due Goal Prevnar 13 (PCV1 3). Due on due Goal Influenza vaccin e. Due on due Goal LOAN MANAGER exam. Due on due Goal BMP. Due on due Goal Lipid panel. Due on due Goal Prevnar 13 (PCV1 3). Due on due Goal Microalb/Creat R atio, Randm Ur. Due on due Goal Foot exam. Due on due Goal Zoster vaccine ( 1st). Due on due Goal LOAN MANAGER exam. Due on due Goal Lipid panel. Due on due Goal Hepatitis C anti body. Due on due Goal Referral Ophthal mology. Due on due Goal FOBT. Due on due Goal GFR. Due on due Goal Dental exam. Due on due Goal Mammogram. Due on due Goal Zoster Vaccine. Due on due Goal Dilated eye exam . Due on due Goal BMP. Due on due Goal Depression scree brayan. Due on due Goal Colonoscopy. Due on due Goal Influenza vaccin e. Due on due Goal Prevnar 13 (PCV1 3). Due on due Goal FOBT. Due on due Goal Zoster vaccine ( 1st). Due on due Goal Colonoscopy. Due on due Goal LOAN MANAGER exam. Due on due Goal Depression scree brayan. Due on due Goal Lipid panel. Due on due Goal Mammogram. Due on 0 due Goal Influenza vaccin e. Due on due Goal Zoster Vaccine. Due on due Goal Hepatitis C anti body. Due on due Goal BMP. Due on due Goal Dilated eye exam . Due on due Goal Microalb/Creat R atio, Randm Ur. Due on due Goal Foot exam. Due on 0 due Goal Hemoglobin A1C. Due on due Goal GFR. Due on due Goal Dental exam. Due on due Goal Referral Ophthal mology. Due on due Goal PAP with HPV 30- 65. Due on due Goal Foot exam. Due on 0 due Goal Zoster vaccine ( 1st). Due on due Goal Colonoscopy. Due on due Goal LOAN MANAGER exam. Due on due Goal Microalb/Creat R atio, Randm Ur. Due on due Goal Depression scree brayan. Due on due Goal GFR. Due on due Goal HIV Consented. Due on due Goal Dental exam. Due on due Goal Hepatitis C anti body. Due on due Goal Referral Ophthal mology. Due on due Goal Dilated eye exam . Due on due Goal Mammogram. Due on 0 due Goal Hemoglobin A1C. Due on due Goal HIV Screen. Due on due Goal Influenza vaccin e. Due on due Goal Lipid panel. Due on due Goal BMP. Due on due Goal Prevnar 13 (PCV1 3). Due on due Goal Foot exam. Due on 0 due Goal Dilated eye exam . Due on due Goal GFR. Due on due Goal Dental exam. Due on due Goal Hemoglobin A1C. Due on due Goal Referral Ophthal mology. Due on due Goal HIV Screen. Due on due Goal Depression scree brayan. Due on due Goal Mammogram. Due on 0 due Goal LOAN MANAGER exam. Due on due Goal Hepatitis C anti body. Due on due Goal Influenza vaccin e. Due on due Goal HIV Consented. Due on due Goal Prevnar 13 (PCV1 3). Due on due Goal Lipid panel. Due on due Goal Microalb/Creat R atio, Randm Ur. Due on due Goal Zoster vaccine ( 1st). Due on due Goal PAP with HPV 30- 65. Due on due Goal BMP. Due on due Goal Colonoscopy. Due on due Goal Colonoscopy. Due on due Goal Dilated eye exam . Due on due Goal Dental exam. Due on due Goal Foot exam. Due on 9 due Goal Referral Ophthal mology. Due on due Goal Microalb/Creat R atio, Randm Ur. Due on due Goal Mammogram. Due on 9 due Goal Depression scree brayan. Due on due Goal GFR. Due on due Goal Prevnar 13 (PCV1 3). Due on due Goal Lipid panel. Due on due Goal LOAN MANAGER exam. Due on due Goal BMP. Due on due Goal HIV Screen. Due on 19 due Goal Zoster vaccine ( 1st). Due on due Goal PAP with HPV 30- 65. Due on due Goal Influenza vaccin e. Due on due Goal Hepatitis C anti body. Due on due Goal HIV Consented. Due on due Goal Hemoglobin A1C. Due on due Goal LOAN MANAGER exam. Due on due Goal Foot exam. Due on 9 due Goal Lipid panel. Due on due Goal BMP. Due on due Goal Mammogram. Due on 9 due Goal Microalb/Creat R atio, Randm Ur. Due on due Goal Referral Ophthal mology. Due on due Goal Dilated eye exam . Due on due Goal Dental exam. Due on due Goal Prevnar 13 (PCV1 3). Due on due Goal GFR. Due on due Goal Influenza vaccin e. Due on due Goal Depression scree brayan. Due on due Goal HIV Consented. Due on due Goal HIV Screen. Due on 19 due Goal PAP with HPV 30- 65. Due on due Goal Zoster vaccine ( ). Due on due Goal Colonoscopy. Due on due Goal Hepatitis C anti body. Due on due Goal Colonoscopy. Due on due Goal HIV Screen. Due on 19 due Goal GFR. Due on due Goal PAP with HPV 30- 65. Due on due Goal Dilated eye exam . Due on due Goal Foot exam. Due on 9 due Goal Mammogram. Due on 9 due Goal Microalb/Creat R atio, Randm Ur. Due on due Goal Lipid panel. Due on due Goal Prevnar 13 (PCV1 3). Due on due Goal Depression scree brayan. Due on due Goal Dental exam. Due on due Goal BMP. Due on due Goal Influenza vaccin e. Due on due Goal Referral Ophthal mology. Due on due Goal Hepatitis C anti body. Due on due Goal HIV Consented. Due on due Goal LOAN MANAGER exam. Due on due Goal Hemoglobin A1C. Due on due Goal PAP with HPV 30- 65. Due on due Goal Colonoscopy. Due on 018 due Goal Hepatitis C anti body. Due on due Goal GFR. Due on due Goal HIV Consented. Due on due Goal BMP. Due on due Goal Influenza vaccin e. Due on due Goal Hemoglobin A1C. Due on due Goal Mammogram. Due on 8 due Goal HIV Screen. Due on 18 due Goal Microalb/Creat R atio, Randm Ur. Due on due Goal Lipid panel. Due on 019 due Goal FOBT. Due on due Goal Dental exam. Due on 018 due Goal Prevnar 13 (PCV1 3). Due on due Goal Dilated eye exam . Due on due Goal Referral Ophthal mology. Due on due Goal LOAN MANAGER exam. Due on due Goal Depression scree brayan. Due on due Goal Foot exam. Due on 8 due Goal GFR. Due on due Goal Dilated eye exam . Due on due Goal Dental exam. Due on 018 due Goal Colonoscopy. Due on 018 due Goal Hepatitis C anti body. Due on due Goal Lipid panel. Due on 019 due Goal LOAN MANAGER exam. Due on due Goal Mammogram. Due on 8 due Goal Foot exam. Due on 8 due Goal HIV Consented. Due on due Goal Microalb/Creat R atio, Randm Ur. Due on due Goal Prevnar 13 (PCV1 3). Due on due Goal Depression scree brayan. Due on due Goal Influenza vaccin e. Due on due Goal HIV Screen. Due on 18 due Goal Hemoglobin A1C. Due on due Goal Referral Ophthal mology. Due on due Goal FOBT. Due on due Goal BMP. Due on due Goal PAP with HPV 30- 65. Due on due Goal HIV Consented. Due on due Goal FOBT. Due on due Goal LOAN MANAGER exam. Due on due Goal PAP with HPV 30- 65. Due on due Goal Colonoscopy. Due on 014 due Goal Dilated eye exam . Due on due Goal Foot exam. Due on 7 due Goal Referral Ophthal mology. Due on due Goal Dental exam. Due on due Goal Depression scree brayan. Due on due Goal Mammogram. Due on due Goal Hepatitis C anti body. Due on due Goal HIV Screen. Due on due Goal Mammogram. Due on due Goal HIV Screen. Due on due Goal LOAN MANAGER exam. Due on due Goal Referral Ophthal mology. Due on due Goal Hemoglobin A1C. Due on due Goal PAP with HPV 30- 65. Due on due Goal Depression scree brayan. Due on due Goal FOBT. Due on due Goal Foot exam. Due on due Goal Dental exam. Due on due Goal Colonoscopy. Due on due Goal HIV Consented. Due on due Goal Hepatitis C anti body. Due on due Goal Dilated eye exam . Due on due Goal HIV Screen. Due on 17 due Goal HIV Consented. Due on due Goal Foot exam. Due on due Goal LOAN MANAGER exam. Due on due Goal Hepatitis C anti body. Due on due Goal Depression scree brayan. Due on due Goal Colonoscopy. Due on due Goal FOBT. Due on due Goal Dental exam. Due on 017 due Goal PAP with HPV 30- 65. Due on due Goal Mammogram. Due on 7 due Goal Dilated eye exam . Due on due Goal Referral Ophthal mology. Due on due Goal Pneumococcal vaccine due Goal Hepatitis C anti body. Due on due Goal Influenza vaccin e. Due on due Goal Colonoscopy. Due on 014 due Goal Mammogram. Due on 7 due Goal Occult Blood, [place], [place]. Due on due Goal HIV Consented. Due on due Goal HIV Screen. Due on 17 due Goal Depression scree brayan. Due on due Goal PAP with HPV 30- 65. Due on due Goal Depression scree brayan. Due on due Goal Hepatitis C anti body. Due on due Goal Mammogram. Due on 6 due Goal Colonoscopy. Due on 014 due Goal HIV Screen. Due on 16 due Goal Influenza vaccin e. Due on due Goal PAP with HPV 30- 65. Due on due Goal Occult Blood, [place], [place]. Due on due Goal PAP with HPV 30- 65. Due on due Goal Influenza vaccin e. Due on due Goal HIV Screen. Due on 16 due Goal Occult Blood, [place], [place]. Due on due Goal Hepatitis C anti body. Due on due Goal Colonoscopy. Due on due Goal Mammogram. Due on 6 due Goal Influenza vaccin e. Due on due Goal Mammogram. Due on 6 due Goal Occult Blood, [place], [place]. Due on due Goal HIV Screen. Due on 16 due Goal PAP with HPV 30- 65. Due on due Goal Hepatitis C anti body. Due on due Goal Colonoscopy. Due on due Goal PAP with HPV 30- 65. Due on due Goal Influenza vaccin e. Due on due Goal HIV Consented. Due on due Goal Mammogram. Due on 5 due Goal HIV Screen. Due on 15 [...] HIV Screen. Due on 15 due Goal PAP with HPV 30- 65. Due on due Goal Mammogram. Due on due Goal Pneumococcal vaccine due Goal PAP with HPV 30- 65. Due on due Goal Lipid Panel. Due on due Goal HIV Screen. Due on due Goal Mammogram. Due on due Goal HIV Consented. Due on due Goal Colonoscopy. Due on due Goal Occult Blood, [place], [place]. Due on due Goal Hepatitis C anti body. Due on due Goal Depression scree brayan. Due on due Goal Tdap due Goal HIV Screen. Due on due Goal Occult Blood, [place], [place]. Due on due Goal Depression scree brayan. Due on due Goal HIV Consented. Due on due Goal PAP with HPV 30- 65. Due on due Goal Hepatitis C anti body. Due on due Goal Colonoscopy. Due on due Goal Lipid Panel. Due on due Goal Mammogram. Due on due Goal Tdap due Goal Depression scree brayan. Due on due Goal HIV Consented. Due on due Goal Colonoscopy. Due on due Goal PAP with HPV 30- 65. Due on due Goal HIV Screen. Due on due Goal Mammogram. Due on due Goal Occult Blood, [place], [place]. Due on due Goal Pneumococcal vaccine due Goal Lipid Panel. Due on 015 due Goal Hepatitis C anti body. Due on due Goal HIV Screen. Due on 14 due Goal Pneumococcal vaccine due Goal HIV Consented. Due on due Goal Mammogram. Due on 4 due Goal PAP with HPV 30- 65. Due on due Goal Hepatitis C anti body. Due on due Goal Occult Blood, [place], [place]. Due on due Goal Tdap due Goal Depression scree brayan. Due on due Goal Lipid Panel. Due on 014 due Goal Colonoscopy. Due on 014 due Referral Ordered: DXA BONE DENSITY, AXIAL ordered Referral Referred To: CHARLIE MORAN Ordered: Referrals: Gastroenterology. CHARLIE MORAN. Evaluate and treat ordered Referral Ordered: DXA BONE DENSITY/PERIPHERAL ordered Referral Referred To: Ani Ordered: Referrals: Pulmonology. Ani. Evaluate and treat ordered Referral Ordered: CHEST X-RAY, PA/Lat ordered Referral Referred To: Dr. Mireles Ordered: Referrals: Ophthalmology. Dr. Mireles. Follow-up and Treat ordered Referral Ordered: Dr. elyse Pearson (related to Background diabetic retinopathy) ordered Referral Ordered: Ravi Peraza OD (related to Diabetes Mellitus, Adult Onset, Uncontrolled) ordered Referral Referred To: Dr. elyse Pearson Ordered: Referrals: Ophthalmology. Dr. elyse Pearson ordered Referral Referred To: Ravi Peraza OD Ordered: Referrals: Field Aide. Ravi Peraza OD ordered Future Order: Lab Order HEMOGLOB IN A1C ([id number]), Ordered on: Ordered Future Order: Lab Order MICROALB UMIN ([id number]), Ordered on: Ordered Future Order: Lab Order LIPID PA TAMANNA ([id number]), Ordered on: Ordered Future Order: Lab Order BMP ([id number]), Ordered on: Ordered Future Order: Lab Order HEMOGLOB IN A1C ([id number]), Ordered on: Ordered Future Order: Lab Order URINALYS IS ([id number]), Ordered on: Ordered Future Order: Lab Order TSH ([id number]), Ordered on: Ordered Future Order: Lab Order CBC with Diff ([id number]), Ordered on: Ordered Future Order: Lab Order MICROALB UMIN ([id number]), Ordered on: Ordered Future Order: Lab Order LIPID PA TAMANNA ([id number]), Ordered on: Ordered Future Order: Lab Order CMP ([id number]), Ordered on: Ordered Future Order: Lab Order Urinalys is, Routine w/ Microscopic on Positives ([id number]), Ordered on: Ordered Future Order: Lab Order Microalb /Creat Ratio, Randm Ur ([id number]), Ordered on: Ordered Future Order: Lab Order Ova + Pa rasites ([id number]), Ordered on: Ordered Future Order: Lab Order Stool Cu lture ([id number]), Ordered on: Ordered Future Order: Radiology Order DX A BONE DENSITY, AXIAL ([id number]), Added on: New Future Order: Radiology Order DX A BONE DENSITY/PERIPHERAL ([id number]), Added on: New Future Order: Radiology Order DX A BONE DENSITY/PERIPHERAL ([id number]), Added on: New Future Order: Lab Order Microalb /Creat Ratio, Randm Ur ([id number]), Ordered on: Ordered Future Order: Lab Order Urinalys is, Routine ([id number]), Ordered on: Ordered Future Order: Lab Order HEMOGLOB IN A1C ([id number]), Ordered on: Ordered Future Order: Lab Order CBC, no diff ([id number]), Ordered on: Ordered Future Order: Lab Order Microalb umin with creatinine and ratio ([id number]), Ordered on: Ordered Future Order: Lab Order LIPID PA TAMANNA ([id number]), Ordered on: Ordered Future Order: Lab Order CMP ([id number]), Ordered on: Ordered Future Order: Lab Order HEMOGLOB IN A1C ([id number]), Ordered on: Ordered Future Order: Lab Order CBC with Diff ([id number]), Ordered on: Ordered Future Order: Lab Order CMP ([id number]), Ordered on: Ordered Future Order: Lab Order LIPID PA TAMANNA ([id number]), Ordered on: Ordered Future Order: Lab Order LIVER PA TAMANNA ([id number]), Ordered on: Ordered Future Order: Lab Order Urine Mi croalbumin with Creatinine ([id number]), Ordered on: Ordered Future Order: Lab Order U/A ([id number]), Ordered on: Ordered History Of Present Illness [...] BID diabetes Risk factors inc lude: / [place], obesity and over age [age] years old. [...] [facility]o frequent painless diarrhea for the [...] as indicated she was told by her automotive engineer that based on her eye exam she [...] otalgia, pharyngitis, rash, sinus pressure or wheezing. [facility] patient's labs a re all wnl [...] few days . there is no fever [facility] pt's labs for e most part [...] g etting worse. Risk factors include: / [place], obesity and over age [age] years old. [...]
--- NOTE | 2025-05-24 12:42 | MHC.OFFVIS ---
Vital Signs 05/24/25 12:50 Height 5 ft 3 in Weight 155 lb BMI 27.5 BP 132/63 Blood Pressure Location Rt brachial Position Sitting Pulse 80 Intake Visit Reasons: 6month breast exam Intake Note: Patient is seen in office for 6 month follow up visit, breast exam. Patient c/o: on and off tingling cramp feeling on left outer breast area. Denies nipple discharge, lumps or bumps on breasts. Reports no changes in medical hx. us/mm: 01/19/25 Contract Project Manager Required: Yes Contract Project Manager Name: Florencia FLORES Accompanied by: Self / Same As Patient Allergies penicillin G (PENICILLIN G) Allergy (Intermediate, Verified 05/24/25 12:48) RASH Medication List - Last Reconciled 05/24/25 by Bull Hernandez MD acetaminophen (Tylenol Extra Strength) 500 mg PO Q6H PRN albuterol sulfate 90 mcg/actuation 2 puffs inhalation Q4-6H PRN 30 days ascorbic acid (vitamin C) (Vitamin C) 250 mg PO DAILY cetirizine (All Day Allergy (cetirizine)) 10 mg PO DAILY PRN 90 days cholecalciferol (vitamin D3) (Vitamin D3) 25 mcg PO DAILY 90 days fenofibrate 54 mg PO DAILY 90 days fluticasone furoate 100 mcg/actuation (Arnuity Ellipta) 1 inh PO DAILY letrozole 2.5 mg PO DAILY lisinopril 10 mg PO DAILY 90 days meclizine 25 mg PO DAILY PRN 10 days miscellaneous medical supply (Blood Pressure Cuff) As directed miscellaneous medical supply (Blood Pressure Cuff) As directed, wrist electronic BP cuff, monitor BP twice a day omeprazole 10 mg PO DAILY PRN 90 days rosuvastatin 20 mg PO DAILY 90 days HPI Comments Details: 70-year-old female returning for follow-up breast examination. 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 Pathology later noted DCIS at the margins identified after the patient began radiation therapy. She continue her radiation therapy and subsequent follow-up mammogram performed on 11/24/2021 revealed no mammographic evidence of recurrent disease, benign (BI-RADS 2). Follow-up mammogram on 11/28/2022 revealed no mammographic evidence of malignancy (BI-RADS 2). One year follow-up mammogram is recommended. She continues on the letrozole 2.5 mg p.o. daily. Her most recent mammogram from 12/09/2024 with diagnostic right mammogram and ultrasound performed on 01/19/2025 revealed no mammographic evidence of malignancy (BI-RADS 1). She continues to report soreness in the upper outer quadrant of the left breast extending into the axilla especially when reaching up over her head. Her next mammogram is scheduled for 12/15/2025. [facility] Medical History Pulmonary fibrosis Cough Cough Restrictive lung disease Shortness of breath B12 deficiency Mixed hyperlipidemia Tachycardia Osteopenia Hypovitaminosis D Arthritis Ductal carcinoma in situ of left breast Chronic lower back pain Surgical History Hx of tubal ligation S/P lumpectomy, left breast (02/03/20) History of breast biopsy History of section History of cholecystectomy Family History Father Myocardial infarction Hypertension Mother Breast cancer Son History of kidney problems Brother Prostate cancer Sister Breast cancer Family/Other Substance use disorder Mental health disorder Social History Household Members: Children Housing: Condominium Alcohol intake: former Patient Tobacco Use Status: Never used Tobacco e-Cigarette/Vaping Use: Never Used Second Hand Smoke Exposure: No service: No Current occupational status: disabled Sexual orientation: Straight/Heterosexual Gender identity: Female Cognitive needs: No Hearing needs: No Vision needs: Yes Female Reproductive History Menstrual Age of Menarche: 11 Review of Systems Const All systems reviewed & are unremarkable except as noted in HPI and below Card Denies chest pain Denies nipple discharge Musc Reports as per HPI Skin/Breast Details: Skin lesion as noted in HPI Denies breast swelling, Denies breast skin changes, Reports breast pain, Denies breast mass and Denies nipple discharge Wm/Lymph Denies lymphadenopathy Physical Exam Vital Signs: Last Vital Signs Pulse 80 05/24/25 12:50 BP 132/63 05/24/25 12:50 BMI result Body Mass Index 27.5 Const General: cooperative, healthy appearing, comfortable, no acute distress, well developed and alert Neck Neck: Yes no lymphadenopathy Lymphatic: no lymphadenopathy noted Chest Other: Left breast: Well-healed incision in the 9 o'clock position. No palpable mass or new skin change. No discrete mass and no enlarged lymph nodes. Right breast: No skin change, nipple discharge, nipple retraction, no mass, or enlarged lymph nodes. Diffuse tenderness to both breasts with deep palpation. Chest/axillae images:  1. Incision lower inner quadrant left breast 2. Area of tenderness upper outer quadrant Resp Other: Breathing comfortably on room air, no respiratory distress GI Inspection: Yes normal to inspection Skin Other: warm and dry, no rash Neuro Other: Mobility Assessment: 1. 3 meter assessment time (seconds) 5 2. Gait observations: Normal balance and gait Extrem General: Yes no clubbing, cyanosis or edema Assessment & Plan Assessment & Plan (1) Ductal carcinoma in situ of left breast: Comment: Started letrozole 05/23/2020 Code(s): D05.12 - Intraductal carcinoma in situ of left breast Category: Medical Plan 70-year-old female patient returning for a routine follow-up breast examination after left breast lumpectomy for ductal carcinoma in Situ. Margins were later determined to be positive after starting her radiation therapy. Subsequent mammography and on 11/23/2020 revealed a stable parenchymal pattern with no new suspicious findings (BI-RADS 2). Her most recent mammogram from 12/09/2024 and 01/19/2025 revealed no mammographic evidence of malignancy (BI-RADS 1). Examination today revealed no suspicious findings in either breast. I recommended a follow-up examination in 1 year, sooner p.r.n.. She is scheduled for her next mammogram on 12/15/2025 at the [facility]. Coding Level of Care Code Est Pt Level 3 (19183) Complex EM visit Add On G2211 Diagnoses Ductal carcinoma in situ of left breast D05.12
[2025-05-24 12:50] VITALS: BP 132/63; PULSE 80; BMI 27.5
== END 2025-05-24 13:06 | disposition home or self-care (01) ==
LOC: HO.HGS 12:22
PROVIDERS: PCP Internal Medicine; Visit Provider Surgery
DX: D05.12 Intraductal carcinoma in situ of left breast (principal)
CPT/HCPCS: 99213; G2211

== ENCOUNTER → 2025-05-24 12:22 | Outpatient (BNVA) | payer MEDICARE, MEDICAID, SELFPAY | PROVIDERS: PCP Internal Medicine; Visit Provider Surgery | DX: Z08 Encounter for follow-up examination after completed treatment for malignant neoplasm (principal); D05.12 Intraductal carcinoma in situ of left breast | CPT/HCPCS: 99212 ==

== ENCOUNTER 2025-06-10 09:04 | Outpatient (REF) | payer MEDICARE, MEDICAID, SELFPAY ==
--- OUTSIDE RECORDS SUMMARY | 2023-07-12 04:21 | XMS_ITS | Continuity of Care Document ---
Author Organization [facility] Address [address] [place] [address] Care Team Providers Care Mechanical Service Technician Name Role Phone Julia Stern Unavailable Unavail able Allergies, Adverse Reactions, Alerts Substance Reaction Status Criticality Ttfxmvo-ASO-DtL Reductase Inhibitors msk pain Acti ve No Information Medications Medication Instructions Dosage Effective Dates (start - stop) Status Comments METOPROLOL TARTRATE 50 MG TAB TAKE 1 TABLET BY MOUTH TWICE A DAY WITH MEALS - Active GLYBURIDE-METFORMIN 5-500 MG TAKE 2 TABLETS BY MOUTH TWICE A DAY WITH MEALS - Active atorvastatin 10 mg tablet take 1 tablet by oral route every day 10 MG - Active lisinopril 20 mg tablet take 1 tablet by oral route every day 20 MG - Active Novolin 70/30 U-100 Insulin 100 unit/mL subcutaneous suspension inject 25 u s/c twice daily - Active Procedures Procedure Date OFFICE/OUTPATIENT VISIT, EST GLYCATED HEMOGLOBIN TEST ROUTINE VENIPUNCTURE MICROALBUMIN, QUANTITATIVE ASSAY THYROID STIM HORMONE COMPREHEN METABOLIC PANEL LIPID PANEL URINALYSIS, AUTO W/SCOPE COMPLETE CBC W/AUTO DIFF WBC OFFICE/OUTPATIENT VISIT, EST REAGENT STRIP/BLOOD GLUCOSE ADULT IMMUNIZATION ADMIN, 1ST 0 PNEUMOCOCCAL VACCINE COMPREHEN METABOLIC PANEL LIPID PANEL GLYCATED HEMOGLOBIN TEST COMPLETE CBC W/AUTO DIFF WBC ROUTINE VENIPUNCTURE OFFICE/OUTPATIENT VISIT, EST ASSAY OF AMYLASE ASSAY OF LIPASE COMPREHEN METABOLIC PANEL COMPLETE CBC W/AUTO DIFF WBC LIPID PANEL GLYCATED HEMOGLOBIN TEST REAGENT STRIP/BLOOD GLUCOSE ADULT IMMUNIZATION ADMIN, 0 TDAP VACCINE >7 IM OFFICE/OUTPATIENT VISIT, EST REAGENT STRIP/BLOOD GLUCOSE GLYCATED HEMOGLOBIN TEST ROUTINE VENIPUNCTURE OFFICE/OUTPATIENT VISIT, EST REAGENT STRIP/BLOOD GLUCOSE OFFICE/OUTPATIENT VISIT, EST REAGENT STRIP/BLOOD GLUCOSE GLYCATED HEMOGLOBIN TEST ROUTINE VENIPUNCTURE COMPLETE CBC W/AUTO DIFF WBC LIPID PANEL COMPREHEN METABOLIC PANEL MICROALBUMIN, QUANTITATIVE URINALYSIS, AUTO W/SCOPE OFFICE/OUTPATIENT VISIT, EST OFFICE/OUTPATIENT VISIT, EST REAGENT STRIP/BLOOD GLUCOSE GLYCATED HEMOGLOBIN TEST ROUTINE VENIPUNCTURE URINALYSIS, AUTO W/SCOPE COMPLETE CBC W/AUTO DIFF WBC LIPID PANEL COMPREHEN METABOLIC PANEL MICROALBUMIN, QUANTITATIVE OFFICE/OUTPATIENT VISIT, EST REAGENT STRIP/BLOOD GLUCOSE ADULT IMMUNIZATION ADMIN, 7 FLU VACC 4 CLAUDIA 3 YRS PLUS IM MICROALBUMIN, QUANTITATIVE LIPID PANEL ROUTINE VENIPUNCTURE GLYCATED HEMOGLOBIN TEST COMPREHEN METABOLIC PANEL COMPLETE CBC W/AUTO DIFF WBC OFFICE/OUTPATIENT VISIT, EST REAGENT STRIP/BLOOD GLUCOSE OFFICE/OUTPATIENT VISIT, EST REAGENT STRIP/BLOOD GLUCOSE URINALYSIS, AUTO, W/O SCOPE MICROALBUMIN, QUANTITATIVE LIPID PANEL ROUTINE VENIPUNCTURE GLYCATED HEMOGLOBIN TEST COMPREHEN METABOLIC PANEL COMPLETE CBC W/AUTO DIFF WBC OFFICE/OUTPATIENT VISIT, EST UNLISTED E&M SERVICE REAGENT STRIP/BLOOD GLUCOSE ADULT IMMUNIZATION ADMIN, 6 PNEUMOCOCCAL VACC, 13 CLAUDIA IM OFFICE/OUTPATIENT VISIT, EST UNLISTED E&M SERVICE URINALYSIS, AUTO, W/O SCOPE MICROALBUMIN, QUANTITATIVE LIPID PANEL ROUTINE VENIPUNCTURE GLYCATED HEMOGLOBIN TEST COMPREHEN METABOLIC PANEL COMPLETE CBC W/AUTO DIFF WBC OFFICE/OUTPATIENT VISIT, EST UNLISTED E&M SERVICE Prophylaxis Adult II Preventive Dental P rophyla REAGENT STRIP/BLOOD GLUCOSE OFFICE/OUTPATIENT VISIT, EST Intraoral Complete Series Including Bite wings Treatment Plan Discussion Periodic Oral Evaluation Established Pat ient I OFFICE/OUTPATIENT VISIT, EST MICROALBUMIN, QUANTITATIVE LIPID PANEL GLYCATED HEMOGLOBIN TEST COMPREHEN METABOLIC PANEL ROUTINE VENIPUNCTURE COMPLETE CBC, AUTOMATED GLUCOSE BLOOD TEST ADULT IMMUNIZATION ADMIN, 5 FLU VACC 4 CLAUDIA 3 YRS PLUS IM OFFICE/OUTPATIENT VISIT, EST GLUCOSE BLOOD TEST OFFICE/OUTPATIENT VISIT, EST URINALYSIS, AUTO, W/O SCOPE MICROALBUMIN, QUANTITATIVE LIPID PANEL GLYCATED HEMOGLOBIN TEST ROUTINE VENIPUNCTURE COMPREHEN METABOLIC PANEL COMPLETE CBC W/AUTO DIFF WBC OFFICE/OUTPATIENT VISIT, EST GLUCOSE BLOOD TEST OFFICE/OUTPATIENT VISIT, EST ADULT IMMUNIZATION ADMIN, 4 PNEUMOCOCCAL VACCINE OFFICE/OUTPATIENT VISIT, EST UNLISTED E&M SERVICE GLUCOSE BLOOD TEST URINALYSIS, AUTO, W/O SCOPE HEPATIC FUNCTION PANEL ROUTINE VENIPUNCTURE MICROALBUMIN, QUANTITATIVE GLYCATED HEMOGLOBIN TEST COMPREHEN METABOLIC PANEL COMPLETE CBC W/AUTO DIFF WBC OFFICE/OUTPATIENT VISIT, EST GLUCOSE BLOOD TEST OFFICE/OUTPATIENT VISIT, EST GLUCOSE BLOOD TEST LIPID PANEL GLYCATED HEMOGLOBIN TEST ROUTINE VENIPUNCTURE COMPREHEN METABOLIC PANEL COMPLETE CBC W/AUTO DIFF WBC OFFICE/OUTPATIENT VISIT, EST GLUCOSE BLOOD TEST FLU VACCINE, 3 YRS & >, IM ADULT IMMUNIZATION ADMIN, 3 OFFICE/OUTPATIENT VISIT, EST GLUCOSE BLOOD TEST URINALYSIS, AUTO, W/O SCOPE LIPID PANEL ROUTINE VENIPUNCTURE GLYCATED HEMOGLOBIN TEST COMPREHEN METABOLIC PANEL COMPLETE CBC W/AUTO DIFF WBC TB INTRADERMAL TEST OFFICE/OUTPATIENT VISIT, EST Resin Based Composite One Surface, Poste rior I Prophylaxis Adult II Preventive Dental P rophyla Bitewings Four Films I Diagnostic Radiog raphs D Resin Based Composite One Surface, Poste rior I GLUCOSE BLOOD TEST ASSAY THYROID STIM HORMONE ROUTINE VENIPUNCTURE OFFICE/OUTPATIENT VISIT, EST Periodic Oral Evaluation Established Pat ient I GLYCATED HEMOGLOBIN TEST ROUTINE VENIPUNCTURE GLUCOSE BLOOD TEST OFFICE/OUTPATIENT VISIT, EST MICROALBUMIN, QUANTITATIVE ASSAY OF URINE CREATININE URINALYSIS, AUTO, W/O SCOPE HEPATIC FUNCTION PANEL LIPID PANEL COMPREHEN METABOLIC PANEL COMPLETE CBC W/AUTO DIFF WBC GLUCOSE BLOOD TEST OFFICE/OUTPATIENT VISIT, EST Prophylaxis Adult II Preventive Dental P rophyla GLYCATED HEMOGLOBIN TEST ROUTINE VENIPUNCTURE Periodic Oral Evaluation Established Pat ient I GLUCOSE BLOOD TEST OFFICE/OUTPATIENT VISIT, EST OFFICE/OUTPATIENT VISIT, EST GLUCOSE BLOOD TEST OFFICE/OUTPATIENT VISIT, EST OFFICE/OUTPATIENT VISIT, EST BIOPSY OF UTERUS LINING Advance Directives Directive Yes / No Effective Date File Name No Information Encounters Encounter Description Practice Location Reason(s) For Visit Diagnoses Date Provider Providers Copied on Encounter [facility], [address] [place]ra [place], [id number], [place] Md Adult No Information 3 Lizzy Dumont. [address] [place] [address], [place], [id number], [place]. tel:[phone] [facility], [address], [id number], [place] Md Family Medicine No Information 3 Lizzy Dumont. [address] [place] [address], [place], [address], [place]. tel:[phone] [facility], [address] AvPavithra [place]enzie [place], [id number], [place] MdEna Adult No Information 2 Ball Mo Dumont. [address] [place] [address], [place], [id number], [place]. tel:[phone] OFFICE/OUTPA TIENT VISIT, [facility], [address], Pavithra shields [place], [id number], [place] MdlS [facility] (chief complaint)di abetes (chief complaint)hy pertension (chief complaint) Type 2 diabetesHyperten hrio, essentialHigh cholesterol Apr-0 - 2 Lizzy Dumont. [address], [place], [address], [place]. tel:[phone] [facility], [address], Pavithra shields [place], [id number], [place] MdlS Adult Type 2 diabetes mellitus with diabetic nephropathy, with long-term current use of insulinHyperlipi demia, acquired 1 Llleslie Del Angel. [address] [place] [address], Pavithra shields [place], [id number], [place]. tel:[phone] OFFICE/OUTPA TIENT VISIT, [facility], [address], Pavithra shields, [place], [id number], [place] MdlS Adult [facility] (chief complaint) Hypertension, essentialHyperli pidemia, acquiredRoutine general medical examination at health care facilityBody mass index [BMI] 50.0-59.9, adultType 2 diabetes mellitus with diabetic nephropathy, with long-term current use of insulin Nov-2 0- 1 Llera Del Angel. [address] [place] [address], Pavithra shields [place], [id number], [place]. tel:[phone] OFFICE/OUTPA TIENT VISIT, [facility], [address], Pavithra shields [place], [id number], [place] [facility] (chief complaint) Body mass index [BMI] 50.0-59.9, adultType 2 diabetes mellitus with hyperglycemia, with long-term current use of insulinHypertens ion, essentialHyperli pidemia, acquiredRoutine general medical examination at health care facility 0 Llera Del Angel. [facility] [place] [address], Pavithra shields [place], [id number], [place]. tel:[phone] [facility], [address], Pavithra shields [place], [id number], [place] MdlS Adult Diarrhea, unspecifiedType 2 diabetes mellitus with hyperglycemia 0 Llleslie Del Angel. [facility]-[address] [place] [address], Pavithra shields [place], [id number], [place]. tel:[phone] OFFICE/OUTPA TIENT VISIT, [facility], [address], Pavithra shields [place], [id number], [place] MdlS Adult [facility] (chief complaint) Body mass index (BMI) 50-59.9, adultType 2 diabetes mellitus with hyperglycemia, with long-term current use of insulinHypertens ion, essentialHyperli pidemia, acquiredDiarrhea , unspecified typeRoutine general medical examination at [facility] facilityPre-op evaluation 0 Llleslie Del Angel. [address] [place] [address], Pavithra shields [place], [id number], [place]. tel:[phone] OFFICE/OUTPA TIENT VISIT, [facility], [address], Pavithra shields [place], [id number], [place] MdlS Adult [facility] (chief complaint) Body mass index (BMI) 50-59.9, adultUrticariaTy pe 2 diabetes mellitus with hyperglycemia, with long-term current use of insulin 9 Llera Del Angel. [address] [place] [address], Pavithra shields [place], [id number], [place]. tel:[phone] OFFICE/OUTPA TIENT VISIT, [facility], [address], Pavithra shields [place], [id number], [place] MdEna Adult Well care (chief complaint) Body mass index (BMI) 50-59.9, adultType 2 diabetes mellitus with hyperglycemia, with long-term current use of insulinHypertens ion, essentialHyperli pidemia, acquiredRoutine general medical examination at health care facility 9 Llera Del Angel. [address] [place] [address], [place], [id number], [place]. tel:[phone] OFFICE/OUTPA TIENT VISIT, [facility], [address] [place], [id number], [place] [facility] (chief complaint) Body mass index (BMI) 50-59.9, adultType 2 diabetes mellitus with hyperglycemia, with long-term current use of insulinDiabetic nephropathy associated with secondary diabetes mellitusHyperten hiro, essentialRoutine general medical examination at [facility]Non-prol iferative diabetic retinopathy Nov- 9 Lisha Del Angel. [address] [place] [address], Pavithra shields [place], [id number], [place]. tel:[phone] OFFICE/OUTPA TIENT VISIT, [facility], [address] Pavithra Paulino [place], [id number], [place] MdlS Adult [facility] (chief complaint) Type 2 diabetes mellitus with hyperglycemia, with long-term current use of insulinHypertens ion, essentialDiabeti c nephropathy associated with secondary diabetes mellitusHyperlip idemia, acquiredRoutine general medical examination at [facility] hospitalMultiple joint pain 8 leslie Del Angel. [address] [place] [address], Pavithra shields [place], [id number], [place]. tel:[phone] OFFICE/OUTPA TIENT VISIT, [facility], [address] [place], [id number], [place] [facility] (chief complaint) Body mass index (BMI) 50-59.9 , adultType 2 diabetes mellitus with hyperglycemia, with long-term current use of insulinDiabetic nephropathy associated with secondary diabetes mellitusHyperten hiro, essentialHyperli pidemia, acquired 8 leslie Del Angel. [address] [place] [address], Pavithra shields [place], [id number], [place]. tel:[phone] OFFICE/OUTPA TIENT VISIT, [facility], [address], Pavithra shields [place], [phone], [place] [facility] (chief complaint) Body mass index (BMI) 45.0-49.9, adultType 2 diabetes mellitus with hyperglycemia, with long-term current use of insulinHypertens ion, essentialHyperli pidemia, acquiredRoutine general medical examination at health care facilityStatus post cholecystectomy [facility]. [address] [place] [address], Pavithra shields [place], [id number], [place]. tel:[phone] OFFICE/OUTPA TIENT VISIT, [facility], [address], Pavithra shields, [place], [id number], [place] MdlS Adult [facility] (chief complaint) Body mass index (BMI) 50-59.9 , adultStatus post cholecystectomyH ypertension, essentialType 2 diabetes mellitus with hyperglycemia, with long-term current use of insulinMorbid obesity with BMI of 50.0-59.9, adultDiabetic nephropathy associated with secondary diabetes mellitusHyperlip idemia, acquired [facility]. [address] [place] [address], Pavithra shields [place], [id number], [place]. tel:[phone] [facility], [address], Pavithra shields [place], [id number], [place] MdEna Adult Encounter for screening for osteoporosis [facility]. [address] [place] [address], Pavithra shields [place], [id number], [place]. tel:[phone] OFFICE/OUTPA TIENT VISIT, [facility], [address] [place], [id number], [place] MdEna Adult well care (chief complaint) Body mass index (BMI) 50-59.9 , adultType 2 diabetes mellitus with hyperglycemia, with long-term current use of insulinHyperlipi demia, acquiredMorbid obesity with BMI of 50.0-59.9, adultHypertensio n, essentialSleep apnea in adult [facility]. [address] [place] [address], Pavithra shields [place], [id number], [place]. tel:[phone] OFFICE/OUTPA TIENT VISIT, [facility], [address], Pavithra shields [place], [id number], [place] MdlS Adult Well Care (chief complaint) Type 2 diabetes mellitus with hyperglycemiaHyp ertension, essentialMorbid obesity with BMI of 50.0-59.9, adultRoutine general medical examination at health care facilityHyperlip idemia, acquired May- 6 leslie Del Angel. [address] [facility], Pavithra shields [place], [id number], [place]. tel:[phone] OFFICE/OUTPA TIENT VISIT, [facility], [address], Pavithra sheilds [place], [id number], [place] MdlS Adult well care (chief complaint) Diabetes type 2, uncontrolledHype rtension, essentialHyperli pidemia, acquiredMorbid obesity with BMI of 50.0-59.9, adultRoutine general medical examination at health care facility 2 6 leslie Del Angel. [address] [facility], [place], [id number], [place]. tel:[phone] [facility], [address], Pavithra shields [place], [id number], [place] MdlS Dental Periodontal disease, unspecified 6 [facility] . [address] [place] [address], [place], [id number]. tel:[phone] Consulting Provider: Zita Cerrato, [address] [facility], [place], [address]. tel: [phone] OFFICE/OUTPA TIENT VISIT, [facility], [address], Pavithra shields [place], [id number], [place] MdlS Adult Cough (chief complaint) URI, acute 6 Iman Rodriguez[address] [facility], [place], [id number], [place]. tel:[phone] [facility], [address], Pavithra shields [place], [id number], [place] MdlS Dental No Information 6 Elarbi Elamin. [address] [place] [address], Pavithra shields, [place], [id number], [place]. tel:[phone] OFFICE/OUTPA TIENT VISIT, [facility], [facility], [place], [place], [id number], [place] MdlS Adult well care (chief complaint) Hypertension, essentialTachyca rdiaDiabetes type 2, uncontrolledRout ine general medical examination at health care facility 5 [facility]. [address] [place] [address], Pavithra shields, [place], [id number], [place]. tel:[phone] [facility], [address] [place] [address] Ave, Pavithra shields, [place], [id number], [place] MdlS Adult No Information [facility]. [facility]-[address] [place] [address], Pavithra shields, [place], [id number], [place]. tel:[phone] OFFICE/OUTPA TIENT VISIT, [facility], [facility], Pavithra shields, [place], [id number], [place] MdlS Adult well care (chief complaint) Encounter for screening for diabetes mellitusHyperten hiro, essentialRoutine general medical examination at health care facilityTachycar diaURI, acuteMorbid obesity with BMI of 50.0-59.9, adultDiabetes type 2, uncontrolled [facility]. [address] [place] [address], Pavithra shields, [place], [id number], [place]. tel:[phone] OFFICE/OUTPA TIENT VISIT, [facility], [facility], [place], [place], [id number], [place] MdlS Adult well care (chief complaint) Diabetes Mellitus Type 2, UncomplicatedObe sity, MorbidDiabetes Mellitus, Adult Onset, UncontrolledBENI GN HYPERTENSIONOthe r and unspecified hyperlipidemia 5 Llera Del Angel. [address] [facility], [place], [place], [id number], [place]. tel:[phone] OFFICE/OUTPA TIENT VISIT, [facility], [address], Pavithra shields [place], [id number], [place] MdlS Adult diabetes f/u (chief complaint)pa lpitations f/u (chief complaint)ob esity f/u (chief complaint) Diabetes Mellitus, Adult Onset, UncontrolledObes ity, MorbidTachycardi aRoutine Medical Exam 5 [facility]. [address] [facility], [place], [id number], [place]. tel:[phone] OFFICE/OUTPA TIENT VISIT, [facility], [address], Pavithra shields [place], [id number], [place] MdlS Adult well care (chief complaint) Diabetes Mellitus Type 2, UncomplicatedDia betes Mellitus, Adult Onset, UncontrolledTach ycardiaAcute upper respiratory infection of multiple sitesObesity, Morbid 5 [facility]. [facility]-[address] [place] [address], [place], [id number], [place]. tel:[phone] OFFICE/OUTPA TIENT VISIT, [facility], [address], [place], [id number], [place] MdlS Adult well care (chief complaint)di abetes f/u (chief complaint)hy perlipidemia f.u (chief complaint)el evated BP (chief complaint) Diabetes Mellitus, Adult Onset, UncontrolledDiab etic retinopathy associated with type 2 diabetes mellitusBENIGN HYPERTENSIONObes ity, MorbidRoutine Medical ExamTachycardia 4 [facility]. [address] [place] [address], [place], [id number], [place]. tel:[phone] OFFICE/OUTPA TIENT VISIT, [facility], [address], [place], [id number], [place] MdlS Adult diabetes (chief complaint)hy perlipidemia f/u (chief complaint) Screening for diabetes mellitusDiabetes Mellitus, Adult Onset, UncontrolledOthe r and unspecified hyperlipidemiaRo utine Medical ExamElevated blood pressure 4 [facility]. [address] [facility], [place], [id number], [place]. tel:[phone] OFFICE/OUTPA TIENT VISIT, [facility], [address], [place], [id number], [place] MdlS Adult diabetes (chief complaint)hy perlipidemia (chief complaint)ob esity (chief complaint)di abetic retinopathy (chief complaint) Diabetes Mellitus, Adult Onset, UncontrolledOthe r and unspecified hyperlipidemiaOb esity, MorbidDiabetic retinopathyRouti ne Medical Exam 4 Lisha Del Angel. [address] [place] [address], [place], [id number], [place]. tel:[phone] OFFICE/OUTPA TIENT VISIT, [facility], [address], [place], [id number], [place] MdlS Adult well care (chief complaint) Type II diabetes mellitus, uncontrolledHype rlipidemiaObesit y, MorbidRoutine Medical Exam 4 Lisha Del Angel. [address] [place] [address], [place], [id number], [place]. tel:[phone] Referring Provider: Bean Husain, [address] [place] [address], [place], [address]. tel: [phone] OFFICE/OUTPA TIENT VISIT, [facility], [address] [place], [place], [id number], [place] MdEna Adult diabetes (chief complaint)el evated BP f/u (chief complaint)la bs results (chief complaint) Type II diabetes mellitus, uncontrolledHype rlipidemiaRoutin e general medical examination at a health caObesity, MorbidInfluenza Vaccine 3 Lisha Del Angel. [address] [place] [address], [place], [id number], [place]. tel:[phone] OFFICE/OUTPA TIENT VISIT, [facility], [address], [place], [id number], [place] MdEna Adult diabetes (chief complaint)ob esity (chief complaint) Type II diabetes mellitus, uncontrolledRout ine general medical examination at health caObesity, MorbidElevated blood pressure readingScreening examination for pulmonary tuberculosis 3 Lisha Del Angel. [address] [facility], Pavithra shields [place], [id number], [place]. tel:[phone] [facility], [facility] [address] [place], Pavithra shields [place], [id number], [place] [facility] No Information 3 Elarbi Elamin. [address] [place] [address], Pavithra shields [place], [id number], [place]. tel:[phone] [facility], [address] [place] [address] [place], Pavithra shields [place], [id number], [place] [facility] No Information 3 [facility] . [address] [place] [address], Pavithra shields [place], [id number]. tel:[phone] Consulting Provider: Heather Gama, [address] [place], [place] [address], [address]. tel: [phone] [facility], [address] [place] [address] [place], Pavithra shields [place], [id number], [place] [facility] No Information 3 Elarbi Elamin. [address] [place] [address], Pavithra shields [place], [id number], [place]. tel:[phone] OFFICE/OUTPA TIENT VISIT, EST [facility], [address] [place] [address] [place], Pavithra shields [place], [phone], [place] MdEna Adult diabetes (chief complaint)ob esity (chief complaint)we ll care (chief complaint) Type II diabetes mellitus, uncontrolledMorb id obesityRoutine general medical examination at health ca 3 Lisha Del Angel. [address] [facility], Pavithra shields [place], [id number], [place]. tel:[phone] [facility], [facility] [address] [place], Pavithra shields PA, [id number], [place] [facility] No Information 3 Elarbi Elamin. [address] [place] [address], Pavithra shields [place], [id number], [place]. tel:[phone] [facility], [facility] [address], Pavithra shields, [place], [id number], [place] MdlS Adult No Information 3 Llera Del Angel. [address] [place] [address], Pavithra shields, [place], [id number], [place]. tel:[phone] OFFICE/OUTPA TIENT VISIT, [facility], [facility] [address], Pavithra shields, [place], [id number], [place] MdlS Adult diabetes (chief complaint) Diabetes Mellitus Type 2, UncomplicatedObe sity, Morbid 3 Llera Del Angel. [address] [place] [address], Pavithra shields [place], [id number], [place]. tel:[phone] [facility], [facility] [address], Pavithra shields [place], [id number], [place] MdlS Adult No Information 3 Llera Del Angel. [address] [place] [address], Pavithra shields [place], [id number], [place]. tel:[phone] OFFICE/OUTPA TIENT VISIT, [facility], [facility] [address], Pavithra shields [place], [phone], [place] MdlS Adult diabetes (chief complaint)ob esity (chief complaint) Diabetes Mellitus Type 2, UncomplicatedEle vated blood pressure reading without diagnosis of hypertensionObes ityRoutine Medical Exam 3 Llera Del Angel. [address] [place] [address], Pavithra shields, [place], [id number], [place]. tel:[phone] [facility], [address] [place] [address] [place], Pavithra shields [place], [id number], [place] [facility] No Information 2 [facility] . [address] [place] [address], [place], [id number]. tel:[phone] Consulting Provider: Heather Gama, [address] [place] [address], [place], [address]. tel: [phone] [facility], [facility], [place], [id number], [place] [facility] No Information 2 Llera Del Angel. [address] [place] [address], [facility] [place], [id number], [place]. tel:[phone] [facility], [facility], [place], [id number], [place] [facility] No Information 2 Cher Banks. [address] [place] [address], [place], [id number], [place]. tel:[phone] OFFICE/OUTPA TIENT VISIT, [facility], [facility], [place], [id number], [place] [facility] diabetes (chief complaint)ob esity (chief complaint)we ll visit (chief complaint) Screening for diabetes mellitusDiabetes Mellitus Type 2, UncomplicatedObe sity 2 Llera Del Angel. [address] [place] [address], [place], [id number], [place]. tel:[phone] OFFICE/OUTPA TIENT VISIT, [facility], [facility], [place], [id number], [place] [facility] No Information 2 Llera Del Angel. [address] [place] [address], [place], [place], [id number], [place]. tel:[phone] OFFICE/OUTPA TIENT VISIT, [facility], [address], [place], [id number], [place] [facility] No Information 2 Cliff Yulissa. [address] [place] [address], [place], [id number], [place]. tel:[phone] OFFICE/OUTPA TIENT VISIT, [facility], [address], [place], [id number], [place] [facility] No Information [address] [facility], Pavithra shields, [place], [id number], [place]. tel:[phone] [facility], [address], [place], [id number], [place] [facility] POSTMENOPAUSAL BLEEDING [address] [facility], [place], [place], [id number], [place]. tel:[phone] [facility], [address], [place], [id number], [place] [facility] OBESITY NOSANXIETY STATE NOS 1 Llera Del Angel. [address] [place] [address], Pav[place] shields, [place], [id number], [place]. tel:[phone] [facility], [address], [place], [id number], [place] [facility] BENIGN HYPERTENSION 0 1 Llera Del Angel. [address] [place] [address], Pavithra shields, [place], [id number], [place]. 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 [address] [place] [address], Pav[place]ra shields, [place], [id number], [place]. tel:[phone] [facility], [address], [place], [id number], [place] [facility] INSOMNIA NOS 0 5-201 0 Llera Del Angel. [address] [facility], [place] shields [place], [id number], [place]. tel:[phone] [facility], [address], [place], [id number], [place] [facility] LIPODYSTROPHY Fe 8 0 Llera Del Angel. [address] [place] [address], Pavithra shields [place], [id number], [place]. tel:[phone] Family History Family Member Type Diagnosis Age At Onset No Information Immunizations Vaccine Date Status Comments Pneumovax administered Source: New Imm unization Record Fluzone - High Dose administered Note: Gordon mcclain's Work ; Source: Other Registry Tdap administered Source: New Imm unization Record Flulaval - Multi-dose administered Note: Patient's work ; Source: Other Registry Tdap not administered Source: New Immunization Record Fluzone/Flulaval multi-dose (over 3 y/o) administered Source: New Immuniza tion Record Zoster refused Source: New Imm unization Record Pneumococcal conjugate PCV 13 administere d Source: New Immunization Record Influenza, injectable, quadrivalent, split virus, 3 years or older Flulaval Quad 8729-7653 administered Source: Other Regist ry Influenza, split virus, injectable, quadrivalent, 3 years or older Flulaval Quad 3551-0776 administered Source: New Immuniza tion Record Pneumococcal polysaccharide PPV23 administered Source: New Immuniza tion Record Influenza, seasonal, injectable administered Note: patient's phar howard ; Source: Source Unspecified Flulaval 18+yrs administered Source: New Immunization Record Tdap administered Note: patient's paper chart ; Source: Source Unspecified Pneumococcal polysaccharide PPV23 administered Note: patient's jana r chart ; Source: Source Unspecified Payers Payer name Insurance type Covered republican ID Authoriza tion(s) Personal Choice CI [id number] Personal Choice CI [id number] Personal Choice CI [id number] Personal Choice CI [id number] [facility] CI [id number] [facility] CI [id number] [facility] CI [id number] [facility] CI [id number] [facility] CI [id number] Personal Choice CI [id number] Social History Type Description Quantity Date Captured Comments Alcohol Use Details Unknown Caffeine Use Details Unknown Tobacco Use Status No Information Smoking Status No Information Sex Female Sexual Orientation Straight or heterosexual Oct Gender Identity Female Chief Complaint And Reason For Visit No Information Reason For Referral Reason For Referral No Information Plan Of Treatment Date Type Action Status Goal Dental exam. Due on 023 due Goal Mammogram. Due on 3 due Goal Colonoscopy. Due on 020 due Goal Tdap due Goal FIT-DNA. Due on due Goal Zoster Vaccine. Due on due Goal Hepatitis C scre ening. Due on due Goal Hepatitis C anti body. Due on due Goal Cognitive assess ment. Due on due Goal FOBT. Due on due Goal CT-Colonography. Due on due Goal Foot exam. Due on 3 due Goal ASCVD 10 year ri sk. Due on due Goal Prevnar 13 (PCV1 3). Due on due Goal Dilated eye exam . Due on due Goal Zoster vaccine ( 1st). Due on due Goal WOODWORKING BELT SANDER exam. Due on due Goal Unhealthy drug u se screening. Due on due Goal Creatinine. Due on due Goal Potassium. Due on due Goal BMI Adult Follow -Up. Due on due Goal Depression scree brayan. Due on due Goal Sigmoidoscopy. Due on due Goal BMI. Due on due Goal Depression Follo w-Up. Due on due Goal Tobacco screenin g. Due on due Goal Pneumococcal vaccine due Goal FIT. Due on due Goal Tobacco Follow-U p. Due on due Goal GFR. Due on due Goal Referral Ophthal mology. Due on due Goal BMP. Due on due Goal Lipid panel. Due on due Goal Microalb/Creat R atio, Randm Ur. Due on due Goal Dental exam. Due on due Goal Referral Ophthal mology. Due on due Goal Dilated eye exam . Due on due Goal Foot exam. Due on 2 due Goal GFR. Due on due Goal FOBT. Due on due Goal Zoster Vaccine. Due on due Goal WOODWORKING BELT SANDER exam. Due on due Goal Mammogram. Due on due Goal Zoster vaccine ( 1st). Due on due Goal Colonoscopy. Due on due Goal Depression scree brayan. Due on due Goal Hepatitis C anti body. Due on due Goal Prevnar 13 (PCV1 3). Due on due Goal Influenza vaccin e. Due on due Goal Hepatitis C anti body. Due on due Goal FOBT. Due on due Goal Depression scree brayan. Due on due Goal Colonoscopy. Due on due Goal Zoster Vaccine. Due on due Goal Mammogram. Due on due Goal Referral Ophthal mology. Due on due Goal Microalb/Creat R mairaio, Randm Ur. Due on due Goal Foot exam. Due on due Goal Dilated eye exam . Due on due Goal Dental exam. Due on due Goal GFR. Due on due Goal Zoster vaccine ( 1st). Due on due Goal WOODWORKING BELT SANDER exam. Due on due Goal Prevnar 13 (PCV1 3). Due on due Goal Influenza vaccin e. Due on due Goal BMP. Due on due Goal Lipid panel. Due on due Goal Referral Ophthal mology. Due on due Goal Dilated eye exam . Due on due Goal GFR. Due on due Goal Dental exam. Due on due Goal Influenza vaccin e. Due on due Goal Lipid panel. Due on due Goal Mammogram. Due on due Goal Depression scree brayan. Due on due Goal Zoster vaccine ( 1st). Due on due Goal WOODWORKING BELT SANDER exam. Due on due Goal FOBT. Due on due Goal Colonoscopy. Due on due Goal Hepatitis C anti body. Due on due Goal Zoster Vaccine. Due on due Goal BMP. Due on due Goal Foot exam. Due on due Goal Microalb/Creat R atio, Randm Ur. Due on due Goal Prevnar 13 (PCV1 3). Due on due Goal Influenza vaccin e. Due on due Goal Lipid panel. Due on due Goal GFR. Due on due Goal Dental exam. Due on due Goal Microalb/Creat R atio, Randm Ur. Due on due Goal Hemoglobin A1C. Due on due Goal Foot exam. Due on 0 due Goal Dilated eye exam . Due on due Goal Referral Ophthal mology. Due on due Goal Hepatitis C anti body. Due on due Goal Zoster vaccine ( ). Due on due Goal Zoster Vaccine. Due on due Goal Mammogram. Due on 0 due Goal Depression scree brayan. Due on due Goal FOBT. Due on due Goal Colonoscopy. Due on due Goal WOODWORKING BELT SANDER exam. Due on due Goal Prevnar 13 (PCV1 3). Due on due Goal BMP. Due on due Goal Referral Ophthal mology. Due on due Goal Microalb/Creat R atio, Randm Ur. Due on due Goal Foot exam. Due on 0 due Goal Dilated eye exam . Due on due Goal GFR. Due on due Goal Dental exam. Due on due Goal Zoster vaccine ( ). Due on due Goal Hepatitis C anti body. Due on due Goal Colonoscopy. Due on due Goal HIV Screen. Due on 20 due Goal Depression scree brayan. Due on due Goal Mammogram. Due on 0 due Goal WOODWORKING BELT SANDER exam. Due on due Goal HIV Consented. Due on due Goal PAP with HPV 30- 65. Due on due Goal Hemoglobin A1C. Due on due Goal Influenza vaccin e. Due on due Goal BMP. Due on due Goal Lipid panel. Due on due Goal Prevnar 13 (PCV1 3). Due on due Goal Microalb/Creat R atio, Randm Ur. Due on due Goal Hemoglobin A1C. Due on due Goal Referral Ophthal mology. Due on due Goal Foot exam. Due on 0 due Goal GFR. Due on due Goal Dental exam. Due on due Goal Dilated eye exam . Due on due Goal HIV Consented. Due on due Goal HIV Screen. Due on 20 due Goal Depression scree brayan. Due on due Goal WOODWORKING BELT SANDER exam. Due on due Goal Colonoscopy. Due on due Goal Mammogram. Due on 0 due Goal Hepatitis C anti body. Due on due Goal PAP with HPV 30- 65. Due on due Goal Zoster vaccine ( 1st). Due on due Goal Prevnar 13 (PCV1 3). Due on due Goal BMP. Due on due Goal Influenza vaccin e. Due on due Goal Lipid panel. Due on due Goal GFR. Due on due Goal Microalb/Creat R atio, Randm Ur. Due on due Goal Depression scree brayan. Due on due Goal Mammogram. Due on 9 due Goal Colonoscopy. Due on due Goal Zoster vaccine ( ). Due on due Goal HIV Consented. Due on due Goal WOODWORKING BELT SANDER exam. Due on due Goal HIV Screen. Due on 19 due Goal Hepatitis C anti body. Due on due Goal PAP with HPV 30- 65. Due on due Goal Influenza vaccin e. Due on due Goal BMP. Due on due Goal Prevnar 13 (PCV1 3). Due on due Goal Lipid panel. Due on due Goal Dilated eye exam . Due on due Goal Referral Ophthal mology. Due on due Goal Dental exam. Due on due Goal Foot exam. Due on 9 due Goal GFR. Due on due Goal Referral Ophthal mology. Due on due Goal Dilated eye exam . Due on due Goal Dental exam. Due on due Goal Prevnar 13 (PCV1 3). Due on due Goal Microalb/Creat R atio, Randm Ur. Due on due Goal Lipid panel. Due on due Goal BMP. Due on due Goal WOODWORKING BELT SANDER exam. Due on due Goal Mammogram. Due on 9 due Goal Hemoglobin A1C. Due on due Goal Foot exam. Due on 9 due Goal HIV Screen. Due on 19 due Goal Colonoscopy. Due on due Goal Influenza vaccin e. Due on due Goal Depression scree brayan. Due on due Goal Zoster vaccine ( 1st). Due on due Goal PAP with HPV 30- 65. Due on due Goal Hepatitis C anti body. Due on due Goal HIV Consented. Due on due Goal Prevnar 13 (PCV1 3). Due on due Goal Hemoglobin A1C. Due on due Goal Referral Ophthal mology. Due on due Goal Depression scree brayan. Due on due Goal Mammogram. Due on 9 due Goal Hepatitis C anti body. Due on due Goal WOODWORKING BELT SANDER exam. Due on due Goal Colonoscopy. Due on due Goal HIV Consented. Due on due Goal HIV Screen. Due on 19 due Goal PAP with HPV 30- 65. Due on due Goal Influenza vaccin e. Due on due Goal BMP. Due on due Goal Lipid panel. Due on 020 due Goal GFR. Due on due Goal Foot exam. Due on 9 due Goal Dental exam. Due on due Goal Dilated eye exam . Due on due Goal Microalb/Creat R atio, Randm Ur. Due on due Goal BMP. Due on due Goal GFR. Due on due Goal Lipid panel. Due on due Goal Hemoglobin A1C. Due on due Goal Referral Ophthal mology. Due on due Goal Dental exam. Due on due Goal Foot exam. Due on 8 due Goal Microalb/Creat R atio, Randm Ur. Due on due Goal Dilated eye exam . Due on due Goal Hepatitis C anti body. Due on due Goal WOODWORKING BELT SANDER exam. Due on due Goal HIV Screen. Due on 18 due Goal FOBT. Due on due Goal Mammogram. Due on 8 due Goal Depression scree brayan. Due on due Goal HIV Consented. Due on due Goal PAP with HPV 30- 65. Due on due Goal Colonoscopy. Due on due Goal Influenza vaccin e. Due on due Goal Prevnar 13 (PCV1 3). Due on due Goal FOBT. Due on due Goal PAP with HPV 30- 65. Due on due Goal Depression scree brayan. Due on due Goal Mammogram. Due on 8 due Goal Hepatitis C anti body. Due on due Goal HIV Consented. Due on due Goal Prevnar 13 (PCV1 3). Due on due Goal BMP. Due on due Goal Influenza vaccin e. Due on due Goal Lipid panel. Due on 019 due Goal GFR. Due on due Goal Dilated eye exam . Due on due Goal Dental exam. Due on 018 due Goal Foot exam. Due on 8 due Goal Microalb/Creat R atio, Randm Ur. Due on due Goal Referral Ophthal mology. Due on due Goal Hemoglobin A1C. Due on due Goal HIV Screen. Due on 18 due Goal WOODWORKING BELT SANDER exam. Due on due Goal Colonoscopy. Due on 018 due Goal Foot exam. Due on 7 due Goal Dilated eye exam . Due on due Goal Referral Ophthal mology. Due on due Goal PAP with HPV 30- 65. Due on due Goal Mammogram. Due on 7 due Goal HIV Screen. Due on 17 due Goal FOBT. Due on due Goal Hepatitis C anti body. Due on due Goal Depression scree brayan. Due on due Goal Colonoscopy. Due on due Goal WOODWORKING BELT SANDER exam. Due on due Goal HIV Consented. Due on due Goal Dental exam. Due on due Goal HIV Screen. Due on 17 due Goal HIV Consented. Due on due Goal Referral Ophthal mology. Due on due Goal Dilated eye exam . Due on due Goal Foot exam. Due on due Goal Hemoglobin A1C. Due on due Goal Dental exam. Due on due Goal Mammogram. Due on due Goal FOBT. Due on due Goal WOODWORKING BELT SANDER exam. Due on due Goal Colonoscopy. Due on due Goal Hepatitis C anti body. Due on due Goal Depression scree brayan. Due on due Goal PAP with HPV 30- 65. Due on due Goal Depression scree brayan. Due on due Goal HIV Consented. Due on due Goal PAP with HPV 30- 65. Due on due Goal Colonoscopy. Due on due Goal Mammogram. Due on due Goal HIV Screen. Due on 17 due Goal Hepatitis C anti body. Due on due Goal FOBT. Due on due Goal WOODWORKING BELT SANDER exam. Due on due Goal Dental exam. Due on 017 due Goal Foot exam. Due on 7 due Goal Dilated eye exam . Due on due Goal Referral Ophthal mology. Due on due Goal Pneumococcal vaccine due Goal Influenza vaccin e. Due on due Goal Hepatitis C anti body. Due on due Goal Occult Blood, Fe james, [place]. Due on due Goal HIV Screen. Due on 17 due Goal HIV Consented. Due on due Goal Mammogram. Due on 7 due Goal Colonoscopy. Due on 014 due Goal Depression scree brayan. Due on due Goal PAP with HPV 30- 65. Due on due Goal Hepatitis C anti body. Due on due Goal Colonoscopy. Due on 014 due Goal Mammogram. Due on 6 due Goal Influenza vaccin e. Due on due Goal PAP with HPV 30- 65. Due on due Goal Occult Blood, [place] j[place], [place]. Due on due Goal HIV Screen. Due on 16 due Goal Depression scree brayan. Due on due Goal Mammogram. Due on 6 due Goal Hepatitis C anti body. Due on due Goal Occult Blood, Fe james, [place]. Due on due Goal PAP with HPV 30- 65. Due on due Goal Colonoscopy. Due on due Goal HIV Screen. Due on 16 due Goal Influenza vaccin e. Due on due Goal Mammogram. Due on 6 due Goal Hepatitis C anti body. Due on due Goal Influenza vaccin e. Due on due Goal PAP with HPV 30- 65. Due on due Goal HIV Screen. Due on 16 due Goal Occult Blood, Fe james, [place]. Due on due Goal Colonoscopy. Due on due Goal Colonoscopy. Due on due Goal PAP with HPV 30- 65. Due on due Goal HIV Consented. Due on due Goal HIV Screen. Due on 15 due Goal Hepatitis C anti body. Due on due Goal Mammogram. Due on 5 due Goal Occult Blood, Fe j[place], [place]. Due on due Goal Influenza vaccin e. Due on due Goal HIV Consented. Due on due Goal Hepatitis C anti body. Due on due Goal Influenza vaccin e. Due on due Goal PAP with HPV 30- 65. Due on due Goal HIV Screen. Due on 15 due Goal Mammogram. Due on 5 due Goal Occult Blood, Fe james, [place]. Due on due Goal Colonoscopy. Due on due Goal Pneumococcal vaccine due Goal Mammogram. Due on due Goal HIV Consented. Due on due Goal PAP with HPV 30- 65. Due on due Goal Lipid Panel. Due on due Goal Colonoscopy. Due on due Goal Occult Blood, Fe james, [place]. Due on due Goal Hepatitis C anti body. Due on due Goal Depression scree brayan. Due on due Goal Tdap due Goal HIV Screen. Due on due Goal HIV Screen. Due on due Goal Hepatitis C anti body. Due on due Goal Colonoscopy. Due on due Goal Mammogram. Due on due Goal Depression scree brayan. Due on due Goal PAP with HPV 30- 65. Due on due Goal Lipid Panel. Due on due Goal HIV Consented. Due on due Goal Occult Blood, Fe james, [place]. Due on due Goal Tdap due Goal Pneumococcal vaccine due Goal Lipid Panel. Due on due Goal Hepatitis C anti body. Due on due Goal Depression scree brayan. Due on due Goal HIV Consented. Due on due Goal Colonoscopy. Due on due Goal PAP with HPV 30- 65. Due on due Goal HIV Screen. Due on 15 due Goal Mammogram. Due on 5 due Goal Occult Blood, Fe james, [place]. Due on due Goal Tdap due Goal Mammogram. Due on 4 due Goal PAP with HPV 30- 65. Due on due Goal Hepatitis C anti body. Due on due Goal HIV Screen. Due on 14 due Goal Pneumococcal vaccine due Goal HIV Consented. Due on due Goal Occult Blood, Fe james, [place]. Due on due Goal Depression scree brayan. Due on due Goal Lipid Panel. Due on 014 due Goal Colonoscopy. Due on 014 due Referral Ordered: DXA BONE DENSITY, AXIAL ordered Referral Ordered: DXA BONE DENSITY/PERIPHERAL ordered Referral Referred To: CHARLIE MORAN Ordered: Referrals: Gastroenterology. CHARLIE MORAN. Evaluate and treat ordered Referral Referred To: Ani Ordered: Referrals: Pulmonology. Ani. Evaluate and treat ordered Referral Ordered: CHEST X-RAY, PA/Lat ordered Referral Referred To: Dr. Mireles Ordered: Referrals: Ophthalmology. Dr. Mireles. Follow-up and Treat ordered Referral Ordered: Dr. elyse Pearson (related to Background diabetic retinopathy) ordered Referral Ordered: Ravi Peraza OD (related to Diabetes Mellitus, Adult Onset, Uncontrolled) ordered Referral Referred To: Ravi Peraza OD Ordered: Referrals: [employer] Engineer. Ravi Peraza OD ordered Referral Referred To: Dr. elyse Pearson Ordered: Referrals: Ophthalmology. Dr. elyse Pearson ordered Future Order: Lab Order HEMOGLOB IN A1C ([id number]), Ordered on: Ordered Future Order: Lab Order MICROALB UMIN ([id number]), Ordered on: Ordered Future Order: Lab Order LIPID PA TAMANNA ([id number]), Ordered on: Ordered Future Order: Lab Order BMP ([id number]), Ordered on: Ordered Future Order: Lab Order HEMOGLOB IN A1C ([id number]), Ordered on: Ordered Future Order: Lab Order URINALYS IS ([id number]), Ordered on: Ordered Future Order: Lab Order TSH ([id number]), Ordered on: Ordered Future Order: Lab Order CBC with Diff ([id number]), Ordered on: Ordered Future Order: Lab Order MICROALB UMIN ([id number]), Ordered on: Ordered Future Order: Lab Order LIPID PA TAMANNA ([id number]), Ordered on: Ordered Future Order: Lab Order CMP ([id number]), Ordered on: Ordered Future Order: Lab Order Urinalys is, Routine w/ Microscopic on Positives ([id number]), Ordered on: Ordered Future Order: Lab Order Microalb /Creat Ratio, Randm Ur ([id number]), Ordered on: Ordered Future Order: Lab Order Ova + Pa rasites ([id number]), Ordered on: Ordered Future Order: Lab Order Stool Cu lture ([id number]), Ordered on: Ordered Future Order: Radiology Order DX A BONE DENSITY, AXIAL ([id number]), Added on: New Future Order: Radiology Order DX A BONE DENSITY/PERIPHERAL ([id number]), Added on: New Future Order: Radiology Order DX A BONE DENSITY/PERIPHERAL ([id number]), Added on: New Future Order: Lab Order Microalb /Creat Ratio, Randm Ur ([id number]), Ordered on: Ordered Future Order: Lab Order Urinalys is, Routine ([id number]), Ordered on: Ordered Future Order: Lab Order HEMOGLOB IN A1C ([id number]), Ordered on: Ordered Future Order: Lab Order CBC, no diff ([id number]), Ordered on: Ordered Future Order: Lab Order Microalb umin with creatinine and ratio ([id number]), Ordered on: Ordered Future Order: Lab Order LIPID PA TAMANNA ([id number]), Ordered on: Ordered Future Order: Lab Order CMP ([id number]), Ordered on: Ordered Future Order: Lab Order HEMOGLOB IN A1C ([id number]), Ordered on: Ordered Future Order: Lab Order CBC with Diff ([id number]), Ordered on: Ordered Future Order: Lab Order CMP ([id number]), Ordered on: Ordered Future Order: Lab Order LIPID PA TAMANNA ([id number]), Ordered on: Ordered Future Order: Lab Order LIVER PA TAMANNA ([id number]), Ordered on: Ordered Future Order: Lab Order Urine Mi croalbumin with Creatinine ([id number]), Ordered on: Ordered Future Order: Lab Order U/A ([id number]), Ordered on: Ordered History Of Present Illness Encounter Date Complaint History Of Prese nt Illness [facility] #Med refills DM and HTNSimvastatin Stopped fluvastatin as pt experienced muscle pain, pain stopped after taking med hypertension Pertinent negati ves include chest pain, dyspnea, headache, irregular heartbeat/palpitations and vomiting. Additional information: BP stable at urgent care on lisinopril 20mg and metoprolol 50mg BID diabetes Risk factors inc lude: / French, obesity and over age [age] years old. Managing with: Insulin and Fingerstick blood sugars (). Comorbidity: Hypertension. Pertinent negatives include chest pain, diarrhea and dyspnea. Additional information: FB-150 On MTF and 25 u BID insulinSelf d/c afshan. well care patient is due f or labs and meds refills and she has no new complaintsADD; THIS IS A TELEHEALTH ENCOUNTER [facility] patient is due f or labs and meds refills. she has no new complaints. she got the Flu vaccine on 06/14/2020 [facility] patient is due f or labs and meds refills, she [facility]o frequent painless diarrhea for the past few months. she doesn't think that is metformin [facility] patient was rece ntly evaluated at [facility] because of a pruritic generalized rash affecting her trunk. she is not quite sure what caused it. she was rx'd a topical steroid cream and Zyrtec she is due for labs for diabetes Well care patient's labs a re all wnl except for her hgb a1c which remains at 8.9 and her cholesterol which is moderately elevated she needs meds refills she is now on a vegan diet [facility] patient is due f or abs and meds refills . she has no new complaints [facility] some of patient' s labs are abnormal ; her hgb a1c went up to 8.6 she is Novolin 70/30 30u twice daily plus Glucovance. her lipids are elevated and her renal insufficiency is unchanged and mild [facility] patient is due f or labs and meds refills she has no new complaints [facility] patient is due f or labs her surgical scars are healing well [facility] patient is s/p c holecystectomy it got complicated with incisions getting infected [ but getting better ] and her renal insufficiency which got worse but is returning to previous levels she has an appt with nephrology soon.she needs some of her meds refills except for atorsvatatin because is causing her to have msk painshe came with her daughter well care patient is due f or labs and meds refills . she is not adjusting her insulin as indicated she was told by her organ installer that based on her eye exam she might have sleep apnea Well [facility] patient's labs a re all wnl except for her hgb a1c which is lower [ 9 ] she needs all of her meds refills she is not exercising or dieting . she gained 3 lbs since her last visit and has no complaints well care patient needs al l of her meds refills . she is due for labs for diabetes , hypertension , hyperlipidemia and routine . she has no complaints today Cough Onset: 4 Days. T he severity of the problem is mild. Pain scale: 0/10. Symptoms are not associated with exposure to strep, recent travel and sick family member. Associated symptoms include cough (non-productive) and nasal congestion. Pertinent negatives include chills/rigors, dyspnea, fatigue, fever, headache, otalgia, pharyngitis, rash, sinus pressure or wheezing. [facility] care patient's labs a re all wnl except for her hgb a1c which went up to 9.7 . her creatinine which has bee elevated the last 3 readings came back normal . she also came for tachycardia f/u . she decided against taking diltiazem because she got scared with the potential side effect . she ia asymptomatic. she needsall of her meds refills well care patient came for diabetes and hypertension f/u . she is due for labs . she has been taking metoprol once daily instead of twice . she is still not interested in losing weight . her main complaint is dry cough mostly at night for the past few days . there is no fever [facility] care pt's labs for e most part are wnl except for her diabetes [ her hgb a1c is lower but still elevated at 8.5 ] and her lipids are also . elevated. she needs all of her meds refills . she is still morbidly obese and unmotivated to diet or exercise diabetes f/u pt is due for la bs. her new insurance will not cover tradjenta either palpitations f/u pt feels better but she is only taking metoprolol once daily obesity f/u pt did not lose weight. she expressed interest in Contrave well care pt mostly came f or diabetes f/u . she has a new insurance that might cover all her medsshe is also c/o a dry cough with some nasal congestion . there is no hx of asthma . there is no fever well care pt has insurance now. diabetes f/u her hgb a1c went up to 8.7. she tried novolog 70/30 and she is getting a better response with it hyperlipidemia f.u needs meds re fills . i did not order lipids [her last one was back in october elevated BP pt's BP has been elevated . she came for BP check hyperlipidemia f/u needs labs an d meds refills diabetes The problem is g etting worse. Risk factors include: / French, obesity and over age [age] years old. Patient is compliant with using medication, follow-up, and using education materials. She Has been managed with insulin and fingerstick blood sugars (). Comorbidity: Hypertension. Pertinent negatives include blurred vision, burning of extremities, chest pain, constant hunger, dental disease, diarrhea, dysesthesias, dyspnea, foot ulcers, frequent infections, frequent urination, heartburn, hypoglycemic episodes, increased fatigue, nocturia, polydipsia, slow healing wounds / sores, weight gain and weight loss. Additional information: came for f/u needs meds samples [tradjenta or januvia and insulin -humalog 75/25 ] and refills. Functional Status Date Functional Assessmen t No Information Instructions Date Instruction Additional Infor ada continue diabetic tu ssin as neededBeber suficiente agua para evitar deshidratacion. Drink enough water to avoid dehydration.Por favor regrese pronto si los sintomas se ponen peor. Please return promptly if symptoms worsen.Lavese las alexander con frecuencia, especialmente cuando prepare la comida y cuando coma. Lave panuelos y servilletas inmediatamente despues de usarlos. Wash hands frequently, specially during food preparation and at meal times. Wash tissues or handkerchiefs promptly. Related to URI, acute Increase physical activity Relat ed to Morbid obesity (BMI 40 or more) Decrease caloric intake Related to Morbid obesity (BMI 40 or more) Increase physical activity Relat ed to Morbid obesity (BMI 40 or more) Limit greasy and fried foods Rel ated to Morbid obesity (BMI 40 or more) Increase physical activity Relat ed to Morbid obesity (BMI 40 or more) Decrease caloric intake Related to Morbid obesity (BMI 40 or more) Increase physical activity Relat ed to Morbid obesity (BMI 40 or more) Decrease caloric intake Related to Morbid obesity (BMI 40 or more) Assessments Type Assessment Date No Information Patient Care Teams Name Effective Dates (start - stop) Status Members No Information
[2025-06-10 11:01] LABS: Alanine Aminotransferase 32 U/L (0-31); Albumin Level 4.5 g/dL (3.5-5.0); Alkaline Phosphatase 85 U/L (39-117); Anion Gap 12 (12-20); Aspartate Amino Transferase 32 U/L (5-31); Blood Urea Nitrogen 15 mg/dL (9-16); Calcium 9.9 mg/dL (8.4-10.2); Carbon Dioxide 28 mmol/L (22-29); Chloride 110 mmol/L (96-108); Cholesterol 196 mg/dL (<200); Estimated Glomerular Filt Rate 55; HDL Cholesterol 53 mg/dL (>40); Potassium 4.1 mmol/L (3.3-5.1); Sodium 146 mmol/L (135-145); Total Protein 7.5 g/dL (6.5-8.0); Triglycerides 195 mg/dL (<150)
== END 2025-06-10 09:05 | disposition home or self-care (01) ==
LOC: HO.LAB 09:04
PROVIDERS: PCP Internal Medicine; Visit Provider Internal Medicine
DX: E78.5 Hyperlipidemia, unspecified (principal); R07.9 Chest pain, unspecified; E55.9 Vitamin D deficiency, unspecified
CPT/HCPCS: 36415; 80053; 80061; 82306

== ENCOUNTER 2025-06-14 12:52 | Outpatient (AMB) | payer MEDICARE, MEDICAID, SELFPAY ==
[2025-06-14 13:26] VITALS: BP 142/78; PULSE 75; O2SAT 97; BMI 27.7
--- NOTE | 2025-06-14 13:26 | A.OFFVIS_ITS ---
Vital Signs 06/14/25 13:26 Height 5 ft 3 in Weight 156 lb 8.451 oz BMI 27.7 BP 142/78 H Blood Pressure Location Lt brachial Position Sitting Pulse 75 Pulse Source Pulse Oximeter Pulse Oximetry (%) 97 Oxygen Delivery Method Room Air Intake Visit Reasons: Asthma Intake Note: pt is here for follow up and states she is coughing and is fatigued. Blasting Entryman Required: Yes Blasting Entryman Services: Blasting Entryman Present Blasting Entryman Name: [id number] Allergies penicillin G (PENICILLIN G) Allergy (Intermediate, Verified 06/14/25 13:45) RASH Medication List - Last Reconciled 06/14/25 by Isra Hurley MD acetaminophen (Tylenol Extra Strength) 500 mg PO Q6H PRN albuterol sulfate 90 mcg/actuation 2 puffs inhalation Q4-6H PRN 30 days ascorbic acid (vitamin C) (Vitamin C) 250 mg PO DAILY cetirizine (All Day Allergy (cetirizine)) 10 mg PO DAILY PRN 90 days cholecalciferol (vitamin D3) (Vitamin D3) 25 mcg PO DAILY 90 days fenofibrate 54 mg PO DAILY 90 days fluticasone furoate 100 mcg/actuation (Arnuity Ellipta) 1 inh PO DAILY letrozole 2.5 mg PO DAILY lisinopril 10 mg PO DAILY 90 days meclizine 25 mg PO DAILY PRN 10 days miscellaneous medical supply (Blood Pressure Cuff) As directed miscellaneous medical supply (Blood Pressure Cuff) As directed, wrist electronic BP cuff, monitor BP twice a day omeprazole 10 mg PO DAILY PRN 90 days rosuvastatin 20 mg PO DAILY 90 days Do you need a note to return to daycare/school/sports/work: No HPI HPI Asthma: Details: THIS 70 YEARS OLD VERY PLEASANT FEMALE, CROATIAN SPEAKING, COMES AFTER 6 MONTHS FOR HER ROUTINE FOLLOW-UP. HOWEVER SHE SAY IS WHEN SHE WALKS AROUND SHE FEELS HAVING COUGH AND MORE SHORTNESS OF BREATH. HE DOES USE ARNUITY ELLIPTA ONCE A DAY REGULARLY. BUT DOES NOT HAVE ALBUTEROL ON HAND. SHE ALSO HAS HISTORY OF MILD ALLERGIC RHINITIS AND USES CETIRIZINE 10 MG ONCE A DAY P.R.N.. SHE HAS SOME SCRATCHY FEELING IN THE THROAT OFF AND ON WHEN WALKING OUTDOORS. [facility] Medical History Pulmonary fibrosis Cough Cough Restrictive lung disease Shortness of breath B12 deficiency Mixed hyperlipidemia Tachycardia Osteopenia Hypovitaminosis D Arthritis Ductal carcinoma in situ of left breast Chronic lower back pain Surgical History Hx of tubal ligation S/P lumpectomy, left breast (02/03/20) History of breast biopsy History of section History of cholecystectomy Family History Father Myocardial infarction Hypertension Mother Breast cancer Son History of kidney problems Brother Prostate cancer Sister Breast cancer Family/Other Substance use disorder Mental health disorder Social History Household Members: Children Housing: Condominium Alcohol intake: former Patient Tobacco Use Status: Never used Tobacco e-Cigarette/Vaping Use: Never Used Second Hand Smoke Exposure: No service: No Current occupational status: disabled Sexual orientation: Straight/Heterosexual Gender identity: Female Cognitive needs: No Hearing needs: No Vision needs: Yes Female Reproductive History Menstrual Age of Menarche: 11 Review of Systems Const All systems reviewed & are unremarkable except as noted in HPI and below Eyes Reports no additional complaints ENT Reports no additional complaints Card Denies chest pain, Denies irregular heart rhythm, Denies leg edema and Reports dyspnea on exertion (Now very minimal.) Resp Reports as per HPI and Reports dyspnea on exertion (Now very minimal.) GI Reports no additional complaints Reports no additional complaints Musc Reports myalgias Skin/Breast Reports system reviewed and no additional complaints, except as documented Neuro Reports no additional complaints Psych Reports no additional complaints Physical Exam Vital Signs: Last Vital Signs Pulse 75 06/14/25 13:26 BP 142/78 H 06/14/25 13:26 Pulse Ox 97 06/14/25 13:26 Oxygen Delivery Method Room Air 06/14/25 13:26 BMI result Body Mass Index 27.7 Const General: healthy appearing, comfortable, no acute distress, alert and awake Orientation/consciousness: patient oriented x3 HEENT Head: Yes normal to inspection General nose exam: No nasal polyps present and No nasal discharge present Face and sinus: Yes sinuses nontender Mouth: oropharynx normal Throat: Yes posterior oropharynx normal Eyes General: appearance normal, both eyes and all related structures Neck Neck: Yes normal visual inspection, Yes no lymphadenopathy, Yes trachea midline and Yes no JVD Thyroid: Thyroid normal Chest Chest palpation & inspection: normal inspection of the chest, normal palpation of entire chest wall and no tenderness Resp Effort & Inspection: normal respiratory effort and no cough Auscultation: clear to auscultation bilaterally, no crackles and no wheezes Cardio Palpation: normal PMI Rate: regular rate Rhythm: regular rhythm Heart sounds: no gallops and no murmurs Peripheral pulses: Peripheral pulses 2+ throughout GI Palpation (GI): Soft to palpation, nontender, No hepatosplenomegaly present and no masses Auscultation: normal bowel sounds Back/Spine/Pelvis Thoracic/Lumbar Spine: thoracic and lumbar spine normal to inspection Skin General skin exam: no rashes or lesions noted Neuro General: patient oriented x3 and no focal motor deficits Cranial nerves: Yes CN's II-XII intact bilaterally Extrem General: Yes normal to inspection, Yes no clubbing, cyanosis or edema and Yes no calf tenderness Psych Appearance: grossly normal and well kempt Speech and movement: Normal speech and movement present Assessment & Plan Assessment & Plan (1) Restrictive lung disease: Comment: SHE HAS A MILD RESTRICTIVE PATTERN, WHITH TLC 70%. THIS IS A NONSPECIFIC FINDING, Code(s): J98.4 - Other disorders of lung Category: Medical Plan: ADVISED TO CONTINUE DOING DEEP BREATHING EXERCISES ABOUT 3 TIMES A DAY (2) Cough: Comment: Mild intermittent cough most likely secondary to low-grade nasal allergy and also asthma variant. Spirometry showed decreased FEF 25-75, this may be effort related or may be indicative of mild obstructive disorder( like asthma) Patient was considered to have cough as Asthma variant, and has responded well to the use of inhaled steroid Arnuity ) At present the cough is very minimal . And not bothersome Code(s): R05.9 - Cough, unspecified Category: Medical Plan: ADVISED TO CONTINUE USING ARE NEW IT HE ELLIPTA 100 MCG 1 INHALATION DAILY ALBUTEROL HFA 2 PUFFS Q 6 HOURS P.R.N., PRESCRIPTION RENEWED. (3) Dyspnea on exertion: Comment: Dyspnea on exertion is mild and nonspecific. PULMONARY FUNCTION TEST SHOWS MILD RESTRICTIVE DISORDER, AND NO OBSTRUCTIVE DISORDER. Code(s): R06.00 - Dyspnea, unspecified Category: Medical Plan: ADVISED TO DO DEEP BREATHING EXERCISES ABOUT 3 TIMES A DAY Medications: Changed From fluticasone furoate 100 mcg/actuation (Arnuity Ellipta) 1 inh PO DAILY 30 ea 0RF for asthma To fluticasone furoate 100 mcg/actuation (Arnuity Ellipta) 1 inh PO DAILY 30 ea 5RF asthma/ cough 30 days Refilled albuterol sulfate 90 mcg/actuation 2 puffs inhalation Q4-6H PRN 8.5 grams 4RF shortness of breath or wheezing and cough 30 days Coding Level of Care Code Est Pt Level 3 (72108) Diagnoses Restrictive lung disease J98.4 Cough R05.9 Dyspnea on exertion R06.00
== END 2025-06-14 13:45 | disposition home or self-care (01) ==
LOC: HO.HPS 12:53
PROVIDERS: PCP Internal Medicine; Visit Provider Internal Medicine
DX: J98.4 Other disorders of lung (principal); R05.9 Cough, unspecified; R06.00 Dyspnea, unspecified
CPT/HCPCS: 99213

== ENCOUNTER → 2025-06-14 12:52 | Outpatient (BNVA) | payer MEDICARE, MEDICAID, SELFPAY | PROVIDERS: PCP Internal Medicine; Visit Provider Internal Medicine | DX: J98.4 Other disorders of lung (principal); R05.9 Cough, unspecified; R06.00 Dyspnea, unspecified | CPT/HCPCS: 99212 ==

== ENCOUNTER 2025-06-22 13:45 | Outpatient (AMB) | payer MEDICARE, MEDICAID, SELFPAY ==
--- OUTSIDE RECORDS SUMMARY | 2023-07-12 04:21 | XMS_ITS | Continuity of Care Document ---
Author Organization [employer] Address [address] [place] [address] Care Team Providers Care Adjunct Faculty Instructor Name Role Phone Julia Stern Unavailable Unavail able Allergies, Adverse Reactions, Alerts Substance Reaction Status Criticality Gipjkld-EML-ClN Reductase Inhibitors msk pain Acti ve No Information Medications Medication Instructions Dosage Effective Dates (start - stop) Status Comments METOPROLOL TARTRATE 50 MG TAB TAKE 1 TABLET BY MOUTH TWICE A DAY WITH MEALS - Active GLYBURIDE-METFORMIN 5-500 MG TAKE 2 TABLETS BY MOUTH TWICE A DAY WITH MEALS - Active lisinopril 20 mg tablet take 1 tablet by oral route every day 20 MG - Active atorvastatin 10 mg tablet take 1 tablet by oral route every day 10 MG - Active Novolin 70/30 U-100 Insulin [...] Diagnoses Date Provider Providers Copied on Encounter [facility], [address] [place]ra Paulino [place], [id number], [place] Md Adult No Information 3 Lizzy Dumont. [address] [place] [address], [place], [address], [place]. tel:[phone] [facility], [address] [place], [id number], [place] Md Family Medicine No Information 3 Lizzy Dumont. [address] [place] [address], [place], [address], [place]. tel:[phone] [facility], [address] Av[place]avithra mckenzie [place], [id number], [place] MdEna Adult No Information 2 Ball Mo Dumont. [address] [place] [address], [place], [address], [place]. tel:[phone] OFFICE/OUTPA TIENT VISIT, [facility], [address], Pavithra shields [place], [id number], [place] MdlS [facility] EXPRESS CARE (chief complaint)di abetes (chief complaint)hy pertension (chief complaint) Type 2 diabetesHyperten hiro, essentialHigh cholesterol Apr-0 - 2 Lizzy Dumont. [address], [place], [address], [place]. tel:[phone] [facility], [address], Pavithra shields [place], [id number], [place] MdlS Adult Type 2 diabetes mellitus with diabetic nephropathy, with long-term current use of insulinHyperlipi demia, acquired 1 Llleslie Del Angel. [address] [place] [address], Pavithra shields [place], [id number], [place]. tel:[phone] OFFICE/OUTPA TIENT VISIT, [facility], [address], Pavithra [place], [place], [id number], [place] MdlS Adult [facility] care (chief complaint) Hypertension, essentialHyperli pidemia, acquiredRoutine general medical examination at health care facilityBody mass index [BMI] 50.0-59.9, adultType 2 diabetes mellitus with diabetic nephropathy, with long-term current use of insulin Nov-2 0- 1 Llera Del Angel. [address] [place] [address], Pavithra shields [place], [id number], [place]. tel:[phone] OFFICE/OUTPA TIENT VISIT, [facility], [address], Pavithra shields [place], [id number], [place] Lynne Adult Well Care (chief complaint) Body mass index [BMI] 50.0-59.9, adultType 2 diabetes mellitus with hyperglycemia, with long-term current use of insulinHypertens ion, essentialHyperli pidemia, acquiredRoutine general medical examination at health care facility 0 Llera Del Angel. [facility] [place] [address], Pavithra shields [place], [id number], [place]. tel:[phone] [facility], [address], Pavithra shileds [place], [id number], [place] MdlS Adult Diarrhea, unspecifiedType 2 diabetes mellitus with hyperglycemia 0 Llleslie Del Angel. [facility]-[address] [place] [address], Pavithra shields [place], [id number], [place]. tel:[phone] OFFICE/OUTPA TIENT VISIT, [facility], [address], Pavithra shields [place], [id number], [place] MdlS Adult Well Care (chief complaint) Body mass index (BMI) 50-59.9, adultType 2 diabetes mellitus with hyperglycemia, with long-term current use of insulinHypertens ion, essentialHyperli pidemia, acquiredDiarrhea , unspecified typeRoutine general medical examination at [facility] care facilityPre-op evaluation 0 Llleslie Del Angel. [address] [place] [address], Pavithra shields [place], [id number], [place]. tel:[phone] OFFICE/OUTPA TIENT VISIT, [facility], [address], Pavithra shields [place], [id number], [place] MdlS Adult Well Care (chief complaint) Body mass index (BMI) 50-59.9, adultUrticariaTy pe 2 diabetes mellitus with hyperglycemia, with long-term current use of insulin 9 Llera Del Angel. [address] [place] [address], Pavithra shields [place], [id number], [place]. tel:[phone] OFFICE/OUTPA TIENT VISIT, [facility], [address], Pavithra shields [place], [id number], [place] MdEna Adult Well care (chief complaint) Body mass index (BMI) 50-59.9, adultType 2 diabetes mellitus with hyperglycemia, with long-term current use of insulinHypertens ion, essentialHyperli pidemia, acquiredRoutine general medical examination at health care facility 9 Llera Del Angel. [address] [place] [address], [place], [id number], [place]. tel:[phone] OFFICE/OUTPA TIENT VISIT, [facility], [address] Johnson [place], [id number], [place] [facility] Adult Well [facility] (chief complaint) Body mass index (BMI) 50-59.9, adultType 2 diabetes mellitus with hyperglycemia, with long-term current use of insulinDiabetic nephropathy associated with secondary diabetes mellitusHyperten hiro, essentialRoutine general medical examination at [facility]Non-prol iferative diabetic retinopathy Nov- 9 Lisha Del Angel. [address] [place] [address], Pavithra shields [place], [id number], [place]. tel:[phone] OFFICE/OUTPA TIENT VISIT, [facility], [address] Pavithra Paulino [place], [id number], [place] MdlS Adult Well Care (chief complaint) Type 2 diabetes mellitus with hyperglycemia, with long-term current use of insulinHypertens ion, essentialDiabeti c nephropathy associated with secondary diabetes mellitusHyperlip idemia, acquiredRoutine general medical examination at [facility] hospitalMultiple joint pain 8 leslie Del Angel. [address] [place] [address], Pavithra shields [place], [id number], [place]. tel:[phone] OFFICE/OUTPA TIENT VISIT, [facility], [address] Johnson [place], [id number], [place] [facility] Adult Well [facility] (chief complaint) Body mass index (BMI) 50-59.9 , adultType 2 diabetes mellitus with hyperglycemia, with long-term current use of insulinDiabetic nephropathy associated with secondary diabetes mellitusHyperten hiro, essentialHyperli pidemia, acquired 8 leslie Del Angel. [address] [place] [address], Pavithra shields [place], [id number], [place]. tel:[phone] OFFICE/OUTPA TIENT VISIT, [facility], [address], Pavithra shields [place], [id number], [place] [facility] Adult Well Care (chief complaint) Body mass index (BMI) 45.0-49.9, adultType 2 diabetes mellitus with hyperglycemia, with long-term current use of insulinHypertens ion, essentialHyperli pidemia, acquiredRoutine general medical examination at health care facilityStatus post cholecystectomy [facility]. [address] [place] [address], Pavithra shields [place], [id number], [place]. tel:[phone] OFFICE/OUTPA TIENT VISIT, [facility], [address], Pavithra shields, [place], [id number], [place] MdlS Adult Well Care (chief complaint) Body mass index (BMI) 50-59.9 , adultStatus post cholecystectomyH ypertension, essentialType 2 diabetes mellitus with hyperglycemia, with long-term current use of insulinMorbid obesity with BMI of 50.0-59.9, adultDiabetic nephropathy associated with secondary diabetes mellitusHyperlip idemia, acquired [facility]. [address] [place] [address], Pavithra shields [place], [id number], [place]. tel:[phone] [facility], [address], Pavithra shields PA, [id number], [place] MdEna Adult Encounter for screening for osteoporosis [facility]. [address] [place] [address], Pavithra shields [place], [id number], [place]. tel:[phone] OFFICE/OUTPA TIENT VISIT, [facility], [address] Johnson [place], [id number], [place] MdEna Adult well care (chief complaint) Body mass index (BMI) 50-59.9 , adultType 2 diabetes mellitus with hyperglycemia, with long-term current use of insulinHyperlipi demia, acquiredMorbid obesity with BMI of 50.0-59.9, adultHypertensio n, essentialSleep apnea in adult [facility]. [address] [place] [address], Pavithra shields PA, [id number], [place]. tel:[phone] OFFICE/OUTPA TIENT VISIT, [facility], [address], Pavithra shields [place], [id number], [place] MdlS Adult Well Care (chief complaint) Type 2 diabetes mellitus with hyperglycemiaHyp ertension, essentialMorbid obesity with BMI of 50.0-59.9, adultRoutine general medical examination at health care facilityHyperlip idemia, acquired May- 6 leslie Del Angel. [address] [facility], Pavithra shields [place], [id number], [place]. tel:[phone] OFFICE/OUTPA TIENT VISIT, [facility], [address], Pavithra shields [place], [id number], [place] MdlS Adult well care (chief complaint) Diabetes type 2, uncontrolledHype rtension, essentialHyperli pidemia, acquiredMorbid obesity with BMI of 50.0-59.9, adultRoutine general medical examination at health care facility 2 6 leslie Del Angel. [address] [facility], [place], [id number], [place]. tel:[phone] [facility], [address], Pavithra shields [place], [id number], [place] MdlS Dental Periodontal disease, unspecified 6 [facility] . [address] [place] [address], [place], [id number]. tel:[phone] Consulting Provider: Zita Cerrato, [address] [facility], [place], [address]. tel: [phone] OFFICE/OUTPA TIENT VISIT, [facility], [address], Pavithra shields PA, [id number], [place] MdlS Adult Cough (chief complaint) URI, acute 6 Iman Rodriguez. [address] [facility], [place], [id number], [place]. tel:[phone] [facility], [address], Pavithra shields [place], [id number], [place] MdlS Dental No Information 6 Elarbi Elamin. [address] [place] [address], Pavithra shields, [place], [id number], [place]. tel:[phone] OFFICE/OUTPA TIENT VISIT, [facility], [facility], [place], [place], [id number], [place] MdlS Adult well care (chief complaint) Hypertension, essentialTachyca rdiaDiabetes type 2, uncontrolledRout ine general medical examination at health care facility 5 [facility]. [address] [place] [address], Pavithra shields, [place], [id number], [place]. tel:[phone] [facility], [address] [place] [address] Ave, Pavithra shields, [place], [id number], [place] MdlS Adult No Information [facility]. [facility]-[address] [place] [address], Pavithra shields, [place], [id number], [place]. tel:[phone] OFFICE/OUTPA TIENT VISIT, [facility], [facility], Pavithra shields, [place], [id number], [place] MdlS Adult well care (chief complaint) Encounter for screening for diabetes mellitusHyperten hiro, essentialRoutine general medical examination at health care facilityTachycar diaURI, acuteMorbid obesity with BMI of 50.0-59.9, adultDiabetes type 2, uncontrolled [facility]. [address] [place] [address], Pavithra shields, [place], [id number], [place]. tel:[phone] OFFICE/OUTPA TIENT VISIT, [facility], [facility], [place], [place], [id number], [place] MdlS Adult well care (chief complaint) Diabetes Mellitus Type 2, UncomplicatedObe sity, MorbidDiabetes Mellitus, Adult Onset, UncontrolledBENI GN HYPERTENSIONOthe r and unspecified hyperlipidemia 5 Llera Del Angel. [address] [facility], [place], [place], [id number], [place]. tel:[phone] OFFICE/OUTPA TIENT VISIT, [facility], [address], Pavithra shields PA, [id number], [place] MdlS Adult diabetes f/u (chief complaint)pa lpitations f/u (chief complaint)ob esity f/u (chief complaint) Diabetes Mellitus, Adult Onset, UncontrolledObes ity, MorbidTachycardi aRoutine Medical Exam 5 [facility]. [address] [facility], [place], [id number], [place]. tel:[phone] OFFICE/OUTPA TIENT VISIT, [facility], [address], Pavithra shields PA, [id number], [place] MdlS Adult well care (chief complaint) Diabetes Mellitus Type 2, UncomplicatedDia betes Mellitus, Adult Onset, UncontrolledTach ycardiaAcute upper respiratory infection of multiple sitesObesity, Morbid 5 [facility]. [facility]-[address] [place] [address], [place], [id number], [place]. tel:[phone] OFFICE/OUTPA TIENT VISIT, [facility], [address], [place], [id number], [place] MdlS Adult well care (chief complaint)di abetes f/u (chief complaint)hy perlipidemia f.u (chief complaint)el evated BP (chief complaint) Diabetes Mellitus, Adult Onset, UncontrolledDiab etic retinopathy associated with type 2 diabetes mellitusBENIGN HYPERTENSIONObes ity, MorbidRoutine Medical ExamTachycardia 4 [facility]. [address] [place] [address], [place], [id number], [place]. tel:[phone] OFFICE/OUTPA TIENT VISIT, [facility], [address], [place], [id number], [place] MdlS Adult diabetes (chief complaint)hy perlipidemia f/u (chief complaint) Screening for diabetes mellitusDiabetes Mellitus, Adult Onset, UncontrolledOthe r and unspecified hyperlipidemiaRo utine Medical ExamElevated blood pressure 4 [facility]. [address] [facility], [place], [id number], [place]. tel:[phone] OFFICE/OUTPA TIENT VISIT, [facility], [address], [place], [id number], [place] MdlS Adult diabetes (chief complaint)hy perlipidemia (chief complaint)ob esity (chief complaint)di abetic retinopathy (chief complaint) Diabetes Mellitus, Adult Onset, UncontrolledOthe r and unspecified hyperlipidemiaOb esity, MorbidDiabetic retinopathyRouti ne Medical Exam 4 Lisha Del Angel. [address] [place] [address], [place], [id number], [place]. tel:[phone] OFFICE/OUTPA TIENT VISIT, [facility], [address], [place], [id number], [place] MdlS Adult well care (chief complaint) Type II diabetes mellitus, uncontrolledHype rlipidemiaObesit y, MorbidRoutine Medical Exam 4 Lisha Del Angel. [address] [place] [address], [place], [id number], [place]. tel:[phone] Referring Provider: Bean Husain, [address] [place] [address], [place], [address]. tel: [phone] OFFICE/OUTPA TIENT VISIT, [facility], [address], [place], [id number], [place] MdEna Adult diabetes (chief complaint)el evated BP f/u (chief complaint)la bs results (chief complaint) Type II diabetes mellitus, uncontrolledHype rlipidemiaRoutin e general medical examination at a health caObesity, MorbidInfluenza Vaccine 3 Lisha Del Angel. [address] [place] [address], [place], [id number], [place]. tel:[phone] OFFICE/OUTPA TIENT VISIT, [facility], [address], [place], [id number], [place] MdEna Adult diabetes (chief complaint)ob esity (chief complaint) Type II diabetes mellitus, uncontrolledRout ine general medical examination at health caObesity, MorbidElevated blood pressure readingScreening examination for pulmonary tuberculosis 3 Lisha Del Angel. [address] [facility], Pavithra shields [place], [id number], [place]. tel:[phone] [facility], [facility] [address], Pavithra shields [place], [id number], [place] [facility] No Information 3 Elarbi Elamin. [address] [place] [address], Pavithra shields [place], [id number], [place]. tel:[phone] [facility], [address] [place] [address] [place], Pavithra shields [place], [id number], [place] [facility] No Information 3 [facility] . [address] [place] [address], Pavithra shields [place], [id number]. tel:[phone] Consulting Provider: Heather Gama, [address] [place], [place] [address], [address]. tel: [phone] [facility], [address] [place] [address] [place], Pavithra shields [place], [id number], [place] [facility] No Information 3 Elarbi Elamin. [address] [place] [address], Pavithra shields [place], [id number], [place]. tel:[phone] OFFICE/OUTPA TIENT VISIT, EST [facility], [address] [place] [address] [place], Pavithra shields PA, [id number], [place] MdEna Adult diabetes (chief complaint)ob esity (chief complaint)we ll care (chief complaint) Type II diabetes mellitus, uncontrolledMorb id obesityRoutine general medical examination at health ca 3 Lisha Del Angel. [address] [facility], Pavithra shields PA, [id number], [place]. tel:[phone] [facility], [facility] [address], Pavithra shields [place], [id number], [place] [facility] No Information 3 Elarbi Elamin. [address] [place] [address], Pavithra shields [place], [id number], [place]. tel:[phone] [facility], [facility] [address], Pavithra shields, [place], [id number], [place] MdlS Adult No Information 3 Llera Del Angel. [address] [place] [address], Pavithra shields, [place], [id number], [place]. tel:[phone] OFFICE/OUTPA TIENT VISIT, [facility], [facility] [address], Pavithra shields, [place], [id number], [place] MdlS Adult diabetes (chief complaint) Diabetes Mellitus Type 2, UncomplicatedObe sity, Morbid 3 Llera Del Angel. [address] [place] [address], Pavithra shields [place], [id number], [place]. tel:[phone] [facility], [facility] [address], Pavithra shields [place], [id number], [place] MdlS Adult No Information 3 Llera Del Angel. [address] [place] [address], Pavithra shields [place], [id number], [place]. tel:[phone] OFFICE/OUTPA TIENT VISIT, [facility], [facility] [address], Pavithra shields PA, [id number], [place] MdlS Adult diabetes (chief complaint)ob esity (chief complaint) Diabetes Mellitus Type 2, UncomplicatedEle vated blood pressure reading without diagnosis of hypertensionObes ityRoutine Medical Exam 3 Llera Del Angel. [address] [place] [address], Pavithra shields, [place], [id number], [place]. tel:[phone] [facility], [address] [place] [address] [place], Pavithra shields PA, [id number], [place] MdlS Dental No Information 2 [facility] . [address] [place] [address], Pavithra shields [place], [id number]. tel:[phone] Consulting Provider: Heather Gama, [address] [place] [address], [place], [address]. tel: [phone] [facility], [facility], [place], [place], [id number], [place] MdlS Adult No Information 2 Llera Del Angel. [address] [place] [address], [facility] [place], [id number], [place]. tel:[phone] [facility], [facility], [place], [place], [id number], [place] MdlS Dental No Information 2 Cher Banks. [address] [place] [address], [place], [id number], [place]. tel:[phone] OFFICE/OUTPA TIENT VISIT, [facility], [facility], [place], [place], [id number], [place] MdlS Adult diabetes (chief complaint)ob esity (chief complaint)we ll visit (chief complaint) Screening for diabetes mellitusDiabetes Mellitus Type 2, UncomplicatedObe sity 2 Llera Del Angel. [address] [place] [address], [place], [place], [id number], [place]. tel:[phone] OFFICE/OUTPA TIENT VISIT, [facility], [facility], [place], [place], [id number], [place] MdlS Adult No Information 2 Llera Del Angel. [address] [place] [address], [place]ra [place], [place], [id number], [place]. tel:[phone] OFFICE/OUTPA TIENT VISIT, [facility], [address], [place], [place], [id number], [place] MdlS OBGYN No Information 2 Cliff Yulissa. [address] [place] [address], [place], [place], [id number], [place]. tel:[phone] OFFICE/OUTPA TIENT VISIT, [facility], [address], [place], [place], [id number], [place] MdlS OBGYN No Information 2 [place] Yulissa. [address] [facility], Pavithra shields, [place], [id number], [place]. tel:[phone] [facility], [address], [place], [place], [id number], [place] MdlS OBGYN POSTMENOPAUSAL BLEEDING 1 Govtresa Leona. [address] [facility], Pavithra shields, [place], [id number], [place]. tel:[phone] [facility], [address], [place], [place], [id number], [place] MdlS Adult OBESITY NOSANXIETY STATE NOS 1 Llera Del Angel. [address] [place] [address], Pavithra shields, [place], [id number], [place]. tel:[phone] [facility], [address], [place], [place], [id number], [place] MdlS Adult BENIGN HYPERTENSION 0 1 Llera Del Angel. [address] [place] [address], Pavithra shields, [place], [id number], [place]. tel:[phone] [facility], [address], Pavithra shields, [place], [id number], [place] MdlS Adult Diabetes Melitus Type11 W/O Complications Controlled 2 2-201 0 Llera Del Angel. [address] [place] [address], Pavithra shields, [place], [id number], [place]. tel:[phone] [facility], [address], [place], [place], [id number], [place] MdlS Adult INSOMNIA NOS 0 5-201 0 Llera Del Angel. [address] [facility], Pavithra shields [place], [id number], [place]. tel:[phone] [facility], [address], [place], [place], [id number], [place] MdlS Adult LIPODYSTROPHY Fe 8 0 Llera Del Angel. [address] [place] [address], Pavithra shields [place], [id number], [place]. tel:[phone] Family History Family Member Type Diagnosis Age [...] virus, 3 years or older Flulaval Quad 7044-9111 administered Source: Other Regist ry Influenza, split virus, injectable, quadrivalent, 3 years or older Flulaval Quad 6403-6264 administered Source: New Immuniza tion Record Pneumococcal polysaccharide PPV23 administered Source: New Immuniza tion Record Influenza, seasonal, injectable administered Note: patient's phar howard ; Source: Source Unspecified Flulaval 18+yrs administered Source: New Immunization Record Tdap administered Note: patient's paper chart ; Source: Source Unspecified Pneumococcal polysaccharide PPV23 administered Note: patient's jana r chart ; Source: Source Unspecified Payers Payer name Insurance type Covered green party ID Authoriza tion(s) Personal Choice CI [id number] Personal Choice CI [id number] Personal Choice CI [id number] Personal Choice CI [id number] [facility] CI [id number] [facility] CI [id number] [facility] CI [id number] [facility] CI [id number] [facility] CI [id number] Personal [employer] CI [id number] Social History Type Description Quantity Date Captured Comments Alcohol Use Details Unknown Caffeine Use Details Unknown Tobacco Use Status No Information Smoking Status No Information Sex Female Sexual Orientation Straight or heterosexual Oct Gender Identity Female Chief Complaint And Reason For Visit No Information Reason For Referral Reason For Referral No Information Plan Of Treatment Date Type Action Status Goal Pneumococcal vaccine due Goal Creatinine. Due on due Goal BMI. Due on due Goal Tobacco screenin g. Due on due Goal FIT. Due on due Goal Tobacco Follow-U p. Due on due Goal Depression scree brayan. Due on due Goal BMI Adult Follow -Up. Due on due Goal Sigmoidoscopy. Due on due Goal Depression Follo w-Up. Due on due Goal Potassium. Due on due Goal GFR. Due on due Goal Referral Ophthal mology. Due on due Goal Mammogram. Due on 3 due Goal Dental exam. Due on 023 due Goal FOBT. Due on due Goal Dilated eye exam . Due on due Goal Tdap due Goal Hepatitis C anti body. Due on due Goal Zoster Vaccine. Due on due Goal Unhealthy drug u se screening. Due on due Goal FIT-DNA. Due on due Goal Hepatitis C scre ening. 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 Due on due Goal Cognitive assess ment. Due on due Goal Zoster vaccine ( 1st). Due on due Goal CT-Colonography. Due on due Goal ASCVD 10 year ri sk. Due on due Goal Foot exam. Due on due Goal Prevnar 13 (PCV1 3). Due on due Goal Colonoscopy. 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 Due on due Goal Mammogram. Due [...] vaccine ( 1st). Due on due Goal Lipid panel. Due on due Goal Depression scree brayan. Due on due Goal Prevnar 13 (PCV1 3). Due on due Goal BMP. Due on due Goal Colonoscopy. Due on due Goal Influenza vaccin e. Due on due Goal Hepatitis C anti body. Due on due Goal Dental exam. Due [...] Influenza vaccin e. 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 Due on due Goal BMP. Due on due Goal Lipid panel. Due on due Goal Prevnar 13 (PCV1 3). Due on due Goal Microalb/Creat R atio, Randm Ur. Due on due Goal Foot exam. Due on due Goal Zoster vaccine ( 1st). 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 Due on due Goal Lipid panel. [...] Influenza vaccin e. 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 Due on due Goal Depression scree brayan. Due on due Goal Lipid panel. Due on due Goal Mammogram. Due on due Goal Influenza vaccin e. [...] Referral Ophthal mology. Due on due Goal Prevnar 13 (PCV1 3). Due on due Goal FOBT. Due on due Goal Zoster vaccine ( ). Due on due Goal Colonoscopy. Due on due Goal HIV Screen. Due on due Goal PAP with HPV 30- 65. Due on due Goal Foot exam. Due on 0 due Goal Zoster vaccine ( ). Due on due Goal Colonoscopy. 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 Due on due Goal Microalb/Creat R [...] vaccine ( ). Due on due Goal BMP. Due on due Goal Colonoscopy. Due on due Goal HIV Screen. Due on due Goal Depression scree brayan. Due on due Goal Mammogram. 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 Due on due Goal Hepatitis C anti body. Due on due Goal Influenza vaccin e. Due on due Goal HIV Consented. Due on due Goal Prevnar 13 (PCV1 3). Due on due Goal Lipid panel. Due on due Goal PAP with HPV 30- 65. Due on due Goal Referral Ophthal mology. Due on due Goal Foot exam. Due on 0 due Goal Dilated eye exam . Due on due Goal GFR. Due on due Goal Dental exam. Due on due Goal Hemoglobin A1C. Due on due Goal Colonoscopy. Due on [...] Goal Lipid panel. 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 Due on due Goal BMP. Due on due Goal HIV Screen. Due on 19 due Goal Zoster vaccine ( ). Due on due Goal PAP with HPV 30- 65. Due on due Goal Influenza vaccin e. Due on due Goal Hepatitis C anti body. Due on due Goal HIV Consented. Due on due Goal Dilated eye exam [...] Goal Hemoglobin A1C. 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 Due on due Goal Influenza vaccin [...] Goal HIV Consented. 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 Due on due Goal Hemoglobin A1C. Due on due Goal Prevnar 13 (PCV1 [...] Lipid panel. Due on 020 due Goal BMP. Due on due Goal Influenza vaccin e. Due on due Goal Hemoglobin A1C. Due on due Goal FOBT. Due on due Goal Dental exam. Due on 018 due Goal Prevnar 13 (PCV1 3). Due on due Goal Dilated eye exam . Due on due Goal Foot exam. Due on 8 due Goal PAP with HPV 30- 65. [...] Lipid panel. Due on 019 due Goal Referral Ophthal mology. 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 Due on due Goal Depression scree [...] 30- 65. Due on due Goal Lipid panel. 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 Due on due Goal Mammogram. Due on 8 due Goal Prevnar 13 (PCV1 3). Due on due Goal Dental exam. Due on 018 due Goal Colonoscopy. Due on 018 due Goal Hepatitis C anti body. Due on due Goal GFR. Due on due Goal Dilated eye exam . Due on due Goal FOBT. 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 Due on due Goal PAP with [...] HIV Screen. Due on due Goal HIV Consented. Due on due Goal Mammogram. Due on due Goal HIV Screen. 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 Due on due Goal Referral Ophthal [...] due Goal Mammogram. Due on due Goal Colonoscopy. Due on due Goal FOBT. Due on due Goal Dental exam. Due on due Goal PAP with HPV 30- 65. Due on due Goal HIV Screen. Due on due Goal HIV Consented. Due on due Goal Foot exam. 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 Due on due Goal Hepatitis C anti body. Due on due Goal Depression scree brayan. Due on due Goal Dilated eye exam . Due on due Goal Referral Ophthal mology. Due on due Goal Pneumococcal vaccine due Goal Occult Blood, [place], [place]. Due on due Goal HIV Consented. Due on due Goal HIV Screen. Due on 17 due Goal Hepatitis C anti body. Due on due Goal Influenza vaccin e. Due on due Goal Colonoscopy. Due on due Goal Mammogram. Due on 7 due Goal PAP with HPV 30- 65. [...] Depression scree brayan. Due on due Goal Occult Blood, [place], [place]. Due on due Goal Hepatitis C anti body. Due on due Goal Colonoscopy. Due on due Goal Mammogram. Due on 6 due Goal PAP with HPV 30- 65. [...] Goal HIV Screen. Due on due Goal PAP with HPV 30- 65. Due on due Goal Hepatitis C anti body. Due on due Goal Colonoscopy. Due on due Goal Lipid Panel. Due on due Goal Mammogram. Due on due Goal Occult Blood, [place], [place]. Due on due Goal Depression scree brayan. Due on due Goal HIV Consented. Due on due Goal Depression scree brayan. Due on due Goal HIV Consented. Due on due Goal Colonoscopy. Due on due Goal PAP with HPV 30- 65. Due on due Goal Tdap due Goal HIV Screen. Due on due Goal Mammogram. Due on due Goal Occult Blood, [place], [place]. Due on due Goal Pneumococcal vaccine due Goal Lipid Panel. Due on 015 due Goal Hepatitis C anti body. Due on due Goal Tdap due Goal Depression scree brayan. Due on due Goal Lipid Panel. Due on 014 due Goal Colonoscopy. Due on 014 due Goal HIV Screen. Due on 14 due Goal Pneumococcal vaccine due Goal HIV Consented. Due on due Goal Mammogram. Due on 4 due Goal PAP with HPV 30- 65. Due on due Goal Hepatitis C anti body. Due on due Goal Occult Blood, [place], [place]. Due on due Referral Ordered: DXA BONE DENSITY, AXIAL [...] Referred To: Ravi Peraza OD Ordered: Referrals: Cte Teacher. Ravi Peraza OD ordered Referral Referred To: Dr. elyse Pearson Ordered: Referrals: Ophthalmology. Dr. elyse Pearson ordered Future Order: Lab Order HEMOGLOB IN A1C ([id number]), Ordered on: Ordered Future Order: Lab Order MICROALB UMIN ([id number]), Ordered on: Ordered Future Order: Lab Order LIPID PA TAMANNA ([id number]), Ordered on: Ordered Future Order: Lab Order BMP ([id number]), Ordered on: Ordered Future Order: Lab Order HEMOGLOB IN A1C ([id number]), Ordered on: Ordered Future Order: Lab Order URINALYS IS ([id number]), Ordered on: Ordered Future Order: Lab Order TSH ([id number]), Ordered on: Ordered Future Order: Lab Order CBC with Diff ([id number]), Ordered on: Ordered Future Order: Lab Order MICROALB UMIN ([id number]), Ordered on: Ordered Future Order: Lab Order LIPID PA TAMANNA ([id number]), Ordered on: Ordered Future Order: Lab Order CMP ([id number]), Ordered on: Ordered Future Order: Lab Order Urinalys is, Routine w/ Microscopic on Positives ([id number]), Ordered on: Ordered Future Order: Lab Order Microalb /Creat Ratio, Randm Ur ([id number]), Ordered on: Ordered Future Order: Lab Order Ova + Pa rasites ([id number]), Ordered on: Ordered Future Order: Lab Order Stool Cu lture ([id number]), Ordered on: Ordered Future Order: Radiology Order DX A BONE DENSITY, AXIAL ([id number]), Added on: New Future Order: Radiology Order DX A BONE DENSITY/PERIPHERAL ([id number]), Added on: New Future Order: Radiology Order DX A BONE DENSITY/PERIPHERAL ([id number]), Added on: New Future Order: Lab Order Microalb /Creat Ratio, Randm Ur ([id number]), Ordered on: Ordered Future Order: Lab Order Urinalys is, Routine ([id number]), Ordered on: Ordered Future Order: Lab Order HEMOGLOB IN A1C ([id number]), Ordered on: Ordered Future Order: Lab Order CBC, no diff ([id number]), Ordered on: Ordered Future Order: Lab Order Microalb umin with creatinine and ratio ([id number]), Ordered on: Ordered Future Order: Lab Order LIPID PA TAMANNA ([id number]), Ordered on: Ordered Future Order: Lab Order CMP ([id number]), Ordered on: Ordered Future Order: Lab Order HEMOGLOB IN A1C ([id number]), Ordered on: Ordered Future Order: Lab Order CBC with Diff ([id number]), Ordered on: Ordered Future Order: Lab Order CMP ([id number]), Ordered on: Ordered Future Order: Lab Order LIPID PA TAMANNA ([id number]), Ordered on: Ordered Future Order: Lab Order LIVER PA TAMANNA ([id number]), Ordered on: Ordered Future Order: Lab Order Urine Mi croalbumin with Creatinine ([id number]), Ordered on: Ordered Future Order: Lab Order U/A ([id number]), Ordered on: Ordered History Of Present Illness [...] BID diabetes Risk factors inc lude: / [place], obesity and over age [age] years old. [...] [facility] painless diarrhea for [...] as indicated she was told by her lens grinder that based on her eye exam she [...] otalgia, pharyngitis, rash, sinus pressure or wheezing. [facility] patient's labs a re all wnl [...] few days . there is no fever [facility] pt's labs for e most part [...] g etting worse. Risk factors include: / [place], obesity and over age [age] years old. [...]
--- NOTE | 2025-06-22 13:53 | A.OFFPC_ITS ---
Vital Signs 06/22/25 13:54 Height 5 ft 3 in Weight 154 lb 6 oz BMI 27.3 BP 138/70 Blood Pressure Location Rt brachial Position Sitting Respiration 18 Pulse 72 Pulse Source Pulse Oximeter Temp 97.1 F Temp Source Temporal Artery Scan Pulse Oximetry (%) 99 Oxygen Delivery Method Room Air Intake Visit Reasons: Annual Exam [employer] Laboratory Technician Required: No Accompanied by: Self / Same As Patient Allergies penicillin G (PENICILLIN G) Allergy (Intermediate, Verified 06/22/25 13:55) RASH Tobacco use date assessed: 06/22/25 Fall risk assessment: No Falls in past year Last assessed Fall Risk: 06/22/25 Dental Screening Dental Screen Date: 06/22/25 Did you have a dental visit in the last 12 months?: No Did you have a dental problem in the last 6 months where you did not have access to dental care?: No Was dental information given to patient?: No HPI HPI Comments History of Present Illness Details The patient is a 70-year-old female presenting for an annual physical exam. Her past medical history is significant for left breast cancer, for which she underwent a lumpectomy, followed by radiotherapy and 5 years of hormone therapy. She also has a history of pulmonary fibrosis which is managed by a occupational therapy instructor. Her chronic conditions include hypertension, managed with lisinopril 10 mg, and hyperlipidemia, for which she takes rosuvastatin 20 mg. She also takes omeprazole for acid reflux, Arnuity inhaler daily, and cetirizine for allergies. She has a known allergy to penicillin. Past surgical history includes two sections, a cholecystectomy, and a tubal ligation, in addition to the left breast lumpectomy. Regarding health maintenance, her last colonoscopy was in 2019 and was normal, with the next one due in 2029. She had a mammogram this year which was normal after requiring additional views. Her last tetanus vaccine was in 2019. She reports a new onset of severe hip pain that radiates to her legs, causing numbness. She denies any associated bowel or bladder incontinence. She also has a muscle spasm in the left shoulder and I will prescribe a muscle relaxer. [facility] Medical History (Updated 06/22/25 @ 14:22 by Laura Palumbo MD) Pulmonary fibrosis Cough Cough Restrictive lung disease Shortness of breath B12 deficiency Mixed hyperlipidemia Tachycardia Osteopenia Hypovitaminosis D Arthritis Ductal carcinoma in situ of left breast Chronic lower back pain Surgical History Hx of tubal ligation S/P lumpectomy, left breast (02/03/20) History of breast biopsy History of section History of cholecystectomy Family History Father Myocardial infarction Hypertension Mother Breast cancer Son History of kidney problems Brother Prostate cancer Sister Breast cancer Family/Other Substance use disorder Mental health disorder Social History Household Members: Children Housing: Condominium Alcohol intake: former Patient Tobacco Use Status: Never used Tobacco e-Cigarette/Vaping Use: Never Used Second Hand Smoke Exposure: No service: No Current occupational status: disabled Sexual orientation: Straight/Heterosexual Gender identity: Female Cognitive needs: No Hearing needs: No Vision needs: Yes Female Reproductive History Menstrual Age of Menarche: 11 Questionnaire Thrive Questionnaire Date Thrive assessed: 06/22/25 LU-7 AMB Questionnaire LU-7 Date LU - 7 assessed: 12/02/24 Source: Developed by Drs. Geovanni Damon, Nisha Mann, Sky Woods and colleagues, with an educational jocelyne from [employer]. Review of Systems Const All systems reviewed & are unremarkable except as noted in HPI and below Card Denies chest pain at rest, Denies chest pain with activity, Denies edema, Denies irregular heart rhythm, Denies claudication, Denies dyspnea, Denies dyspnea on exertion, Denies orthopnea, Denies paroxysmal nocturnal dyspnea and Denies slow heart rate Resp Denies cough, Denies dyspnea and Denies dyspnea on exertion GI Denies abdominal pain, Denies change in bowel habits, Denies excessive flatus, Denies nausea and Denies vomiting Physical exam (Primary Care) Vital Signs: Last Vital Signs Temp 97.1 F 06/22/25 13:54 Pulse 72 06/22/25 13:54 Resp 18 06/22/25 13:54 BP 138/70 06/22/25 13:54 Pulse Ox 99 06/22/25 13:54 Oxygen Delivery Method Room Air 06/22/25 13:54 BMI result Body Mass Index 27.3 Tobacco/Smoking Status: Tobacco use Status Tobacco use date assessed 06/22/25 06/22/25 14:01 Patient Tobacco Use Status Never used Tobacco 06/22/25 13:54 e-Cigarette/Vaping Use Never Used 06/22/25 13:54 Thrive Assessment: Date of Thrive Assessment Date Thrive assessed 06/22/25 06/22/25 13:54 HENMT Head: Yes normal to inspection, Yes normocephalic and Yes atraumatic Ears: external ears normal Eyes General: appearance normal, both eyes and all related structures Eyelids: Yes eyelids normal Conjunctivae: conjunctivae normal Neck Neck: Yes normal visual inspection and Yes supple Resp Effort & Inspection: normal respiratory effort Auscultation: clear to auscultation bilaterally Cardio Jugular venous distension: no JVD Rate: regular rate Rhythm: regular rhythm Heart sounds: S1 normal heart sound present and S2 normal heart sound present GI Inspection: Yes normal to inspection Palpation (GI): Soft to palpation and nontender Auscultation: normal bowel sounds Skin General skin exam: no rashes or lesions noted Neuro General: no focal motor deficits Extrem General: Yes full ROM Psych Appearance: grossly normal Coding Level of Care Code Est Pt Level 3 (14471) Est Pt Prev Care >65y(41565) Diagnoses Physical exam Z00.00 Lumbar pain M54.50 Left hip pain M25.552 Right hip pain M25.551 Muscle spasm M62.838 Time Spent (min) 32 Assessment & Plan Assessment & Plan (1) Physical exam: Code(s): Z00.00 - Encounter for general adult medical examination without abnormal findings Category: Medical (2) Lumbar pain: Code(s): M54.50 - Low back pain, unspecified Category: Medical (3) Left hip pain: Code(s): M25.552 - Pain in left hip Category: Medical (4) Right hip pain: Code(s): M25.551 - Pain in right hip Category: Medical (5) Muscle spasm: Code(s): M62.838 - Other muscle spasm Category: Medical Plan Plan 1. Physical exam Repeat in a year 2. Sciatica The patient reports severe hip pain radiating to the legs with associated numbness. Red flag symptoms such as bowel or bladder incontinence were denied. Will order X-rays of the hip and back. A muscle relaxant will be prescribed for symptomatic relief. Physical therapy was also discussed as a potential treatment option. 3. Vitamin D Deficiency Recent labs showed a mildly low vitamin D level of 24.7. Will prescribe a low- dose vitamin D supplement. The patient was encouraged to increase dietary intake of vitamin-rich foods, such as fruits. 4. Muscle spasm Start baclofen as needed Orders: Orders XR hip LT min 2V Today M25.552 - Pain in left hip XR lumbar spine 2-3V Today M54.50 - Low back pain, unspecified XR DEXA axial skeleton Today Z78.0 - Asymptomatic menopausal state Lipid Panel 6 Months E78.5 - Hyperlipidemia, unspecified Comprehensive [place]. Panel Fast 6 Months Z00.00 - Encounter for general adult medical examination without abnormal findings XR hip RT min 2V Today M25.551 - Pain in right hip Medications: New baclofen 10 mg PO TID PRN 21 tabs 0RF muscle spasm 7 days M62.838 - Other muscle spasm Discontinued fenofibrate Discontinued Reason: Patient Completed Course 54 mg PO DAILY 90 days 90 tabs 1RF E78.2 - Mixed hyperlipidemia
[2025-06-22 13:54] VITALS: BP 138/70; PULSE 72; RESP 18; TEMP 36.2; O2SAT 99; BMI 27.3
== END 2025-06-22 14:20 | disposition home or self-care (01) ==
LOC: HO.HMCH 13:47
PROVIDERS: PCP Internal Medicine; Visit Provider Internal Medicine
DX: Z00.00 Encounter for general adult medical examination without abnormal findings (principal); M54.50 Low back pain, unspecified; M25.552 Pain in left hip; M25.551 Pain in right hip; M62.838 Other muscle spasm

== ENCOUNTER → 2025-06-22 13:45 | Outpatient (BNVA) | payer MEDICARE, MEDICAID, SELFPAY | PROVIDERS: PCP Internal Medicine; Visit Provider Internal Medicine | DX: Z00.00 Encounter for general adult medical examination without abnormal findings (principal); I10 Essential (primary) hypertension; M54.50 Low back pain, unspecified; M25.552 Pain in left hip; M62.838 Other muscle spasm; Z78.0 Asymptomatic menopausal state; E78.5 Hyperlipidemia, unspecified; E55.9 Vitamin D deficiency, unspecified | CPT/HCPCS: 99212; 99397 ==